=== PATIENT | female | born 1950 | race Caucasian/White ===

== ENCOUNTER 2018-06-27 10:03 | Outpatient (REF) | payer MEDICARE, SELFPAY ==
[2018-06-27 13:03] LABS: Cholesterol 239 mg/dL (50-200); HDL Cholesterol 61 mg/dL (40-60); LDL CHOLESTEROL 163 mg/dL (<100); TSH (W/Ref FT4) 1.06 uIU/mL (0.358-3.74); Triglyceride 100 mg/dL (30-150)
[2018-06-28 10:35] LABS: Hepatitis C Ab w Rflx HCV PCR Negative (NEGAT)
== END 2018-06-27 10:23 ==
LOC: NCHCN 10:03
PROVIDERS: PCP Nurse Practitioner Family; Visit Provider Nurse Practitioner Family
DX: M19.90 Unspecified osteoarthritis, unspecified site (principal); N39.3 Stress incontinence (female) (male); G47.62 Sleep related leg cramps; G47.30 Sleep apnea, unspecified; E04.1 Nontoxic single thyroid nodule; E66.3 Overweight; Z11.59 Encounter for screening for other viral diseases
CPT/HCPCS: 80061; 83721; 86803; 84443

== ENCOUNTER 2018-08-06 00:40 | Outpatient (CLI) | payer MEDICARE, OTHER, SELFPAY ==
--- NOTE | 2018-08-06 14:49 | DI.RAD_ITS ---
SYMPTOMS/DIAGNOSIS: MENOPAUSE, Z78.0, Z00.00 DEXA SCAN: Routine examination. Comparison is 2002. Evaluation of the spine shows no compression deformities. Evaluation of the left hip shows a total T score of 0.2 and a Z score of 1.7 This is within normal limits. This compares with a total T score of 1.0 from 2003. Evaluation of the lumbar spine shows a total T score of 1.3 and a Z score of 3.3, which is within normal limits. This compares with a total T score of 1.2 from 2003. There is no evidence of osteoporosis. IMPRESSION: No evidence of osteoporosis in the lumbar spine or left hip.
--- NOTE | 2018-08-06 15:10 | DI.MAMMO_ITS ---
SYMPTOMS/DIAGNOSIS: SCREENING, Z12.31 MAMMOGRAMS: Mammograms were interpreted according to the usual protocol including computer analysis with CAD system, tomosynthesis and C view imaging. Comparison is made with the prior examinations from 2010 and 2008. There has developed a spiculated 1.3 cm mass at the 6 o'clock position of the left breast. No associated microcalcifications are seen. No other suspicious masses or microcalcifications are present. The skin and axillae are unremarkable. IMPRESSION: A 1.3 cm spiculated mass at the 6 o'clock position of the left breast. Spot compression views and a left breast ultrasound are requested for further evaluation. Category 0, breast density C. MQSA ASSESSMENT OF FINDINGS: Incomplete: Needs additional imaging evaluation. Category 0. Patient will receive a letter notifying them of these results. Bi-RADS category C. The breasts are heterogeneously dense, which may obscure small masses.
== END 2018-08-06 01:00 ==
PROVIDERS: PCP Nurse Practitioner Family; Visit Provider Nurse Practitioner Family
DX: Z13.820 Encounter for screening for osteoporosis (principal); Z78.0 Asymptomatic menopausal state; Z12.31 Encounter for screening mammogram for malignant neoplasm of breast; R92.8 Other abnormal and inconclusive findings on diagnostic imaging of breast; N63.23 Unspecified lump in the left breast, lower outer quadrant
CPT/HCPCS: 77063; 77067; 77080

== ENCOUNTER 2018-08-20 01:55 | Outpatient (CLI) | payer MEDICARE, OTHER, SELFPAY ==
--- NOTE | 2018-08-20 09:06 | DI.COMBO_ITS ---
SYMPTOM/DIAGNOSIS: F/U MAMMO, SPICULATED MASS LT BREAST LEFT BREAST COMPRESSION SPOT FILMS AND LEFT BREAST ULTRASOUND: Additional images are interpreted according to the usual protocol including tomosynthesis and 2D imaging. Follow up mediolateral and craniocaudad compression spot films show a density measuring 9.2 by 9.5 mm. There is a questionable small additional density in the 6 o'clock position inferolaterally which measures approximately 3 by 4 by 5 mm. Both these nodules are avascular. No other nodules or cysts are identified. SUMMARY: An 11 by 9 by 9 mm., spiculated, ovoid nodule is identified in the 6 o'clock position 3 cm. from the nipple and exhibits some color flow. The findings would certainly be consistent with a breast cancer and possibly a multi centric lesion. If appropriate, further assessment of this patient with MRI could be considered and a biopsy or biopsies of the left breast should be obtained. MQSA ASSESSMENT OF FINDINGS: Suspicious. Biopsy should be considered. Category 4. Patient will receive a letter notifying them of these results. Bi-RADS category C. The breasts are heterogeneously dense, which may obscure small masses.
== END 2018-08-20 02:15 ==
PROVIDERS: PCP Nurse Practitioner Family; Visit Provider Nurse Practitioner Family
DX: Z12.31 Encounter for screening mammogram for malignant neoplasm of breast (principal); R92.8 Other abnormal and inconclusive findings on diagnostic imaging of breast; N63.23 Unspecified lump in the left breast, lower outer quadrant
CPT/HCPCS: 76642; 77063; 77067

== ENCOUNTER 2020-03-06 15:01 | Emergency (ER) | payer MEDICARE, OTHER, SELFPAY ==
[2020-03-06 15:18] VITALS: BP 126/74; PULSE 100; RESP 18; TEMP 39.4; O2SAT 100
--- NOTE | 2020-03-06 16:05 | ED.GENADUL_ITS ---
Discharge Plan Disposition Patient Disposition: HOME Discharge Details Chief Complaint: Fever Clinical Impression: Fever, Transaminitis Primary Care Provider: Jenise Huddleston ED Provider: Jesus Marroquin Home Meds and New Rx's Prescriptions: New doxycycline hyclate 100 mg tablet 100 mg PO BID Qty: 42 RF: 0 Continued cholecalciferol (vitamin D3) 1,000 UNIT capsule 1,000 unit PO DAILY Qty: 2 RF: 0 omega-3 fatty acids-fish oil 1 EACH capsule 1 ea PO DAILY RF: 0 Discontinued magnesium 250 MG tablet 250 mg PO DAILY RF: 0 Discharge Instructions Instructions: Fever in Adults (ED) Additional Instructions: You may have a tickborne illness. Please take doxycycline as prescribed. Tick panel testing is pending at time of discharge. COVID-19 testing is pending at time of discharge. Your liver enzymes were elevated. A hepatitis panel has been sent and is pending at time of discharge. Please follow-up with your doctor. Call on Sunday. It is important that you review the results of all of your testing with your doctor. Please take ibuprofen over the counter. Take 600mg by mouth every 6 hours as needed for pain. Drink plenty of fluid to stay hydrated and allow for plenty of rest. Return to the ER for any worsening or new concerning symptoms. Stand Alone Forms: PENDING COVID-19 TESTING Referrals: Jenise Huddleston [Primary Care Provider] - Discharge Data Discharge Date/Time-TO BE ENTERED AT DEPARTURE: 03/06/20 17:35 Medical Decision Making 16:00 -- 69-year-old female here with febrile illness for the past 2-3 days. No signs of focal bacterial infection on exam. She has had cough recently. Saturating well no respiratory distress. Patient did have a tick bite on 02/12/2020. Consider Lyme disease. I will check ECG. Panel to be sent. Consider anaplasmosis. I will check LFTs and CBC. Plan to treat empirically with doxycycline. Consider COVID-19. I will obtain COVID-19 testing. Will obtain chest x-ray. -Patient provides informed refusal of chest x-ray citing prior radiation for breast cancer. Labs reviewed and LFTs are elevated. Will send hepatitis panel. Consider for tickborne disease. Patient also with mild hyponatremia of 132. Patient hemodynamically stable. Plan for discharge with close outpatient follow-up. Will start doxycycline. Disposition decision was made weighing the risks and benefits of hospitalization versus outpatient treatment, the risk for further decompensation, and the patient's wishes. The patient was stable and requested discharge. Prior to discharge, my usual and customary return precautions were reviewed with the patient - this included follow-up instructions and reason to return to the emergency department if condition worsens, does not improve as expected, or other new concerns arise. HPI General Mode of arrival: ambulatory . Date/Time Provider Initiated Documentation: 03/06/20 15:17 . Limitations to Documentation: no limitations . Information obtained by: patient . HPI Narrative: 69-year-old female presents with chief complaint of fever. Patient notes fever for the past 3 days. Fever subjective. No modifiers. She has associated malaise. No cough. No shortness of breath. No abdominal pain. No nausea or vomiting. No dysuria. Patient has had no known COVID-19 exposures, no sick contacts, no recent travel. Related Data Home Medications Medication Instructions Recorded Confirmed cholecalciferol (vitamin D3) 1,000 unit PO DAILY #2 06/12/17 03/06/20 omega-3 fatty acids-fish oil 1 ea PO DAILY 06/12/17 03/06/20 doxycycline hyclate 100 mg PO BID #42 tab 03/06/20 Previous Rx's Medication Instructions Recorded doxycycline hyclate 100 mg PO BID #42 tab 03/06/20 Allergies Allergy/AdvReac Type Severity Reaction Status Date / Time No Known Drug Allergies Allergy Unknown Unverified 03/06/20 15:16 General Stated Complaint: Fever RYLAN: 3 Review of Systems All systems reviewed & are unremarkable except as noted in HPI and below Constitutional Constitutional: Reports fever(s) Respiratory Respiratory: Denies cough Genitourinary Genitourinary: Denies dysuria [facility] Medical History Hyperlipemia Obesity Sleep apnea Social History Smoking/Tobacco Use Status: Never Alcohol Intake: current Alcohol Intake frequency: a few times a month Alcohol type: wine Drug use: Rarely Substance use type: other Details: edibles Do you feel safe at home: Yes Do you feel safe in your relationship?: Yes Exam Const General: cooperative and no acute distress HENMT Head: normocephalic Mouth: moist mucous membranes Eyes Conjunctivae: normal conjunctivae Sclera: normal sclerae Neck Neck: trachea midline and supple Resp Auscultation: clear to auscultation bilaterally, no rales, no rhonchi and no wheezes Cardio Jugular venous pressure: no JVD Rate: regular rate and not tachycardic Rhythm: regular rhythm GI Palpation: soft, not firm, no guarding, no masses, not rigid and nontender Skin General skin exam: no rashes or lesions noted Neuro General: patient alert, patient awake, patient oriented x3 and tone normal Extrem General: no edema Psych Appearance: grossly normal Mental Status: mental status grossly normal Speech and Movement: speech and movement normal Course Vital Signs Vital signs: Vital Signs Temperature 39.4 C H 03/06/20 15:18 Pulse 100 H 03/06/20 15:18 Respiratory Rate 18 03/06/20 15:18 Blood Pressure 126/74 03/06/20 15:18 Pulse Oximetry 100 03/06/20 15:18 Temperature 39.4 C H 03/06/20 15:18 Temperature Source Oral 03/06/20 15:18 Pulse 100 H 03/06/20 15:18 Respiratory Rate 18 03/06/20 15:18 Respiratory Effort 03/06/20 15:22 Blood Pressure 126/74 03/06/20 15:18 Pulse Oximetry 100 03/06/20 15:18 Oxygen Delivery Method Room Air 03/06/20 15:18 Oxygen Flow Rate 0 03/06/20 15:18 Pain Level 0 03/06/20 15:18
[2020-03-06] MEDS: Doxycycline Hyclate 100 MG CAP PO (16:30)
[2020-03-06] MEDS: Acetaminophen 325 MG TAB 650 MG PO (16:30)
[2020-03-06 16:46] LABS: Abs Immature Grans 0.01 k/cumm (0.0-0.09); Absolute Basophil Count 0.02 k/cumm (0.0-0.2); Absolute Eosinophil Count 0.02 k/cumm (0.0-0.7); Absolute Lymphocyte Count 0.65 k/cumm (1.2-3.4); Absolute Monocyte Count 0.48 k/cumm (0.11-0.7); Absolute Neutrophil Count 3.09 k/cumm (1.2-6.7); Basophils % 0.5; Eosinophils % 0.5; HCT 36.3 % (36.0-46.0); HGB 12.2 g/dL (12.0-15.5); Immature Grans % 0.2 %; Lymphocytes % 15.2; Mean Corp. HGB Concentration 33.6 g/dL (32.0-36.0); Mean Corpuscular Hemoglobin 32.1 pg (27.0-33.0); Mean Corpuscular Volume 95.5 fL (80-95); Monocytes % 11.2; Neutrophils % 72.4; Platelet Count 163 x1000/uL (130-400); RBC Distribution Width 12.4 % (11.7-14.6); White Blood Cell Count 4.27 k/cumm (4.4-10.8)
[2020-03-06 16:55] LABS: ALT 247 U/L (14-59); AST 145 U/L (15-37); Albumin 2.8 g/dL (3.4-5.0); Alkaline Phosphatase 176 U/L (46-116); Anion Gap 8.7 mmol/L (3-11); BUN 12 mg/dL (7-18); Bilirubin, Total 0.5 mg/dL (0.2-1.0); CO2 26.3 mmol/L (21.0-32.0); CREATININE 0.69 mg/dL (0.55-1.02); Calcium 7.8 mg/dL (8.5-10.1); Chloride 97 mmol/L (98-107); Glucose 104 mg/dL (74-106); Potassium 3.8 mmol/L (3.5-5.1); Sodium 132 mmol/L (136-145); Total Protein 6.6 g/dL (6.4-8.2)
[2020-03-06 17:48] VITALS: BP 111/68; PULSE 94; RESP 18; TEMP 37.9; O2SAT 97
[2020-03-08 07:00] LABS: COVID-19 RT-PCR Result NEGATIVE (Negative)
--- NOTE | 2020-03-08 09:17 | NUR.NOTE ---
0914---called reguarding Covid 19 test result---Negative--pt states is feeling better and is awaiting Lyme results--continues to take ABX tx.Nursing Note:
[2020-03-08 09:47] LABS: Hepatitis A Antibody IgM Negative (Negative); Hepatitis B Core Antibody Negative (Negative); Hepatitis B surface Ag Negative (Negative); Hepatitis C Ab w Rflx HCV PCR Negative (Negative)
[2020-03-08 10:30] LABS: Lyme Ab w Rflx to Lyme Confirm Positive (Negative)
[2020-03-09 15:49] LABS: IgG Band(s) p41; IgG Immunoblot Negative (Negative); IgM Band(s) p41; IgM Immunoblot Positive (Negative)
[2020-03-09 17:27] LABS: B. miyamotoi PCR Negative (Negative); Babesia divergens/MO-1 Negative (Negative); Babesia duncani Negative (Negative); Babesia microti Negative (Negative); Ehrlichia chaffeensis Negative (Negative); Ehrlichia ewingii/canis Negative (Negative); Ehrlichia muris eauclairensis Negative (Negative)
--- NOTE | 2020-03-09 19:17 | W.ED.FU ---
Lyme antibody with reflex Lyme Western blot result positive. Discussed result with patient over the phone. Remainder of tick panel pending. Patient states she is feeling better. She has a follow-up with her primary care doctor for reevaluation. She was advised to return here with any concerns.
[2020-03-10 09:33] LABS: Anaplasma phagocytophilum Positive (Negative)
--- NOTE | 2020-03-10 12:23 | ED.FU.B_ITS ---
Date of service: 03/10/20 Time of Service: 12:23 Follow Up Plan: I received a positive test result for both Anaplasma and Phagocytophilium at approximately 9 AM.. Upon reviewing her record it appears as though she was contacted yesterday regarding a positive Lyme titer and she was actually already being treated with doxycycline. I called both her house and her cell phone leaving a message. In the meantime I was able to speak with Dr. Dixon, the patient's primary care office. She is aware of the positive t est and will be sure to pass this information along to Jenise Huddleston her primary care provider. Later throughout the day at approximately 1215, I received a call back from the patient. She reports that she is feeling well, much improved when compared to her visit on 03-06-20. She is aware of her to more positive findings and has already been in contact with her primary care provider. She is scheduled to see them on Sunday. She will continue taking her doxycycline as directed. Encouraged to return to the ER for new or worsening symptoms, otherwise follow-up on Sunday as already scheduled
--- NOTE | 2020-03-19 11:38 | PDOC.ERCMPRO ---
- If Service Date Differs Date of service: 03/19/20 Time of Service: 11:38 Care Management Progress Note CM is asked by Dr. Marroquin to assist patient in establishing her portal account. Ursula had completed a patient access form but did not receive the email allowing her to complete the process. A review of the email address in her chart reveals an error in the email on file. CM contacts information services to have the email corrected and to ask that an email allowing a password reset be sent to patient. CM contacts patient to ensure she has received the email and is now able to access the portal. Ursula confirms receipt of the email and states she will call if she needs further assistance.
== END 2020-03-06 17:35 | disposition home or self-care (01) ==
PROVIDERS: Emergency Provider Student in an Organized Health Care Education/Training Program; PCP Nurse Practitioner Family
DX: A69.20 Lyme disease, unspecified (principal); R74.0 Nonspecific elevation of levels of transaminase and lactic acid dehydrogenase [LDH]; R50.9 Fever, unspecified; W57.XXXA Bitten or stung by nonvenomous insect and other nonvenomous arthropods, initial encounter; Z03.818 Encounter for observation for suspected exposure to other biological agents ruled out; E87.1 Hypo-osmolality and hyponatremia; Z53.29 Procedure and treatment not carried out because of patient's decision for other reasons
CPT/HCPCS: 36415; 80053; 86617; 86704; 86709; 86803; 87340; 87798; 93005; 99284; U0003; 85025; 86618; 93010

== ENCOUNTER 2020-04-19 14:36 | Outpatient (REF) | payer MEDICARE, OTHER, SELFPAY ==
[2020-04-19 21:08] LABS: ALT 23 U/L (14-59); AST 22 U/L (15-37); Anion Gap 8.3 mmol/L (3-11); BUN 13 mg/dL (7-18); CO2 27.7 mmol/L (21.0-32.0); CREATININE 0.73 mg/dL (0.55-1.02); Calcium 8.4 mg/dL (8.5-10.1); Chloride 103 mmol/L (98-107); Glucose 101 mg/dL (74-106); Potassium 4.6 mmol/L (3.5-5.1); Sodium 139 mmol/L (136-145)
== END 2020-04-19 14:56 ==
LOC: NCHCN 14:36
PROVIDERS: PCP Nurse Practitioner Family; Visit Provider Nurse Practitioner Family
DX: R74.0 Nonspecific elevation of levels of transaminase and lactic acid dehydrogenase [LDH] (principal)
CPT/HCPCS: 80048; 84450; 84460

== ENCOUNTER 2020-08-02 20:52 | Outpatient (REF) | payer MEDICARE, OTHER, SELFPAY ==
[2020-08-04 17:33] LABS: Patient Race White; SARS-CoV-2 RNA Undetected (Undetected); SARS-CoV-2 Specimen Source Nasal
== END 2020-08-02 21:12 ==
LOC: NCHCN 20:52
PROVIDERS: PCP Nurse Practitioner Family; Visit Provider Family Medicine
DX: Z20.828 Contact with and (suspected) exposure to other viral communicable diseases (principal)
CPT/HCPCS: U0003

== ENCOUNTER 2021-02-17 02:48 | Outpatient (CLI) | payer MEDICARE, SELFPAY ==
[2021-02-17 14:00] LABS: Abs Immature Grans 0.01 10^3/uL (0.0-0.06); Absolute Basophil Count 0.04 10^3/uL (0.0-0.2); Absolute Eosinophil Count 0.16 10^3/uL (0.0-0.7); Absolute Lymphocyte Count 1.86 10^3/uL (1.2-3.4); Absolute Monocyte Count 0.56 10^3/uL (0.1-0.8); Absolute Neutrophil Count 2.69 10^3/uL (1.2-6.7); Basophils % 0.8; HCT 39.8 % (36.0-46.0); HGB 12.9 g/dL (11.2-15.7); Immature Grans % 0.2; MCH 31.5 pg (27.0-33.0); MCHC 32.4 % (32.0-36.0); MCV 97.1 fL (80-95); MPV 9.8 fL (8.0-11.0); Monocytes % 10.5; Neutrophils % 50.5; Nucleated RBC 0 %; Platelet Count 226 10^3/uL (130-400); RDW 11.9 % (11.7-14.6); RDW-SD 42.8 fL; WBC 5.32 10^3/uL (4.4-10.8)
[2021-02-17 14:12] LABS: ALT 26 U/L (14-59); AST 23 U/L (15-37); Albumin 3.3 g/dL (3.4-5.0); Alkaline Phosphatase 83 U/L (46-116); Anion Gap 10.4 mmol/L (3-11); BUN 16 mg/dL (7-18); Bilirubin, Total 0.3 mg/dL (0.2-1.0); CO2 25.6 mmol/L (21.0-32.0); CREATININE 0.7 mg/dL (0.55-1.02); Calcium 8.7 mg/dL (8.5-10.1); Chloride 105 mmol/L (98-107); Glucose 111 mg/dL (74-106); Sodium 141 mmol/L (136-145)
== END 2021-02-17 02:49 | disposition home or self-care (01) ==
LOC: LBO 02:49
PROVIDERS: PCP Nurse Practitioner Family; Visit Provider Nurse Practitioner Family
DX: C50.912 Malignant neoplasm of unspecified site of left female breast (principal); Z17.0 Estrogen receptor positive status [ER+]; C77.3 Secondary and unspecified malignant neoplasm of axilla and upper limb lymph nodes
CPT/HCPCS: 36415; 80053; 85025

== ENCOUNTER 2021-08-22 10:22 | Outpatient (REF) | payer MEDICARE, SELFPAY ==
[2021-08-22 15:42] LABS: Calculated LDL 204 mg/dL (<100); Cholesterol 297 mg/dL (<200); HDL Cholesterol 83 mg/dL (40-60); Triglyceride 52 mg/dL (<150)
== END 2021-08-22 10:23 | disposition home or self-care (01) ==
LOC: NCHCN 10:22
PROVIDERS: PCP Nurse Practitioner Family; Visit Provider Nurse Practitioner Family
DX: E78.5 Hyperlipidemia, unspecified (principal)
CPT/HCPCS: 80061

== ENCOUNTER 2021-12-03 22:51 | Emergency (ER) | payer MEDICARE, SELFPAY ==
[2021-12-03 23:00] VITALS: BP 167/89; PULSE 87; RESP 18; TEMP 36.4; O2SAT 98
--- NOTE | 2021-12-03 23:17 | ED.GENADUL_ITS ---
Discharge Plan Disposition Patient Disposition: HOME Condition: Stable Discharge Details Clinical Impression: Pain of right calf Primary Care Provider: Jenise Huddleston ED Provider: Yogesh Zeng Home Meds and New Rx's Prescriptions: Continued cholecalciferol (vitamin D3) 1,000 UNIT capsule 1,000 unit PO DAILY Qty: 2 0RF omega-3 fatty acids-fish oil 1 EACH capsule 1 ea PO DAILY 0RF Discontinued doxycycline hyclate 100 mg tablet 100 mg PO BID Qty: 42 0RF Discharge Instructions Additional Instructions: Call radiology to set up an appointment for an ultrasoud you can take 1000mg tylenol and 600mg ibuprofen every 6 hours as needed if you feel more ill, have fevers or significant shortness of breath return to the emergency department Medical Decision Making 71 yo female with hx of hld and breast cancer in remission comes in with right leg pain. She states she almost fell a weel ago when she missed a step but caught herself, no loc and no trauma. She has had pain in the right calf since. No fevers, chills, chest pain, dyspnea. She feels her leg is swollen though visibly there is no significant swelling. She has full range of motion of her hip, knee and ankle with intact sensation and pulses in the right leg. She is tender to the right lateral calf, no erythema or warmth or rashes. On bedside u/s has no evidence of dvt and feel this is low likelihood. I suspect a strain from her fall and recommended prn ibuprofen and tylenol. Will have her return for formal u/s but given low likelihood do not feel anticoagulation indicated. Return precautions given Differential Diagnosis Differential Diagnosis: dvt, strain, spasm HPI General Mode of arrival: ambulatory . Date/Time Provider Initiated Documentation: 12/03/21 23:00 . Limitations to Documentation: no limitations . Information obtained by: patient . History of Present Illness 71 year old F presents to the emergency department with the chief complaint of right calf pain, described as moderate, Quality is described as aching, Patient extremity. Patient started experiencing this week(s) (1) and it has been constant. improves with Rest improves symptom(s), Movement worsens symptoms . Patient notes no other symptoms.. Related Data Home Medications Medication Instructions Recorded Confirmed cholecalciferol (vitamin D3) 25 1,000 unit PO DAILY #2 06/12/17 03/06/20 mcg (1,000 unit) capsule omega-3 fatty acids-fish oil 300 1 ea PO DAILY 06/12/17 03/06/20 mg-1,000 mg capsule Allergies Allergy/AdvReac Type Severity Reaction Status Date / Time No Known Drug Allergies Allergy Unknown Unverified 03/06/20 15:16 General Stated Complaint: Orthopedic RYLAN: 3 Review of Systems All systems reviewed & are unremarkable except as noted in HPI and below Constitutional Constitutional: Denies chills, Denies fever(s) and Denies weakness Eyes Eyes: Denies loss of vision ENT Ears, Nose, Mouth, and Throat: Denies change in voice Cardiovascular Cardiovascular: Denies chest pain and Denies dyspnea Respiratory Respiratory: Denies cough and Denies dyspnea Gastrointestinal Gastrointestinal: Denies abdominal pain, Denies nausea and Denies vomiting Neurologic Neurologic: Denies loss of vision and Denies weakness PFSH All Active Problems (Updated 12/03/21 @ 23:17 by Yogesh Zeng MD) Pain of right calf (Acute) Medical History (Updated 12/03/21 @ 23:17 by Yogesh Zeng MD) Hyperlipemia Obesity Sleep apnea Social History Smoking/Tobacco Use Status: Never Smoking risk assessment performed?: Yes Alcohol Intake: current Alcohol Intake frequency: a few times a month Alcohol type: wine Drug use: Rarely Substance use type: other Details: edibles Do you feel safe at home: Yes Do you feel safe in your relationship?: Yes Exam Const General: no acute distress Orientation: alert HENMT Head: normal to inspection Ears: external ears normal General nose exam: external nose normal Mouth: moist mucous membranes Eyes General: appearance normal, both eyes and all related structures Neck Neck: normal visual inspection Resp Effort & Inspection: normal respiratory effort and able to speak in complete sentences Cardio Rate: regular rate Skin General skin exam: no rashes or lesions noted Neuro General: patient alert and patient oriented x3 Extrem General: capillary refill normal Psych Mental Status: mental status grossly normal Course Vital Signs Vital signs: Vital Signs Temperature 36.4 C L 12/03/21 23:00 Pulse 87 12/03/21 23:00 Respiratory Rate 18 12/03/21 23:00 Blood Pressure 167/89 H 12/03/21 23:00 Pulse Oximetry 98 12/03/21 23:00 Temperature 36.4 C L 12/03/21 23:00 Temperature Source Tympanic 12/03/21 23:00 Pulse 87 12/03/21 23:00 Respiratory Rate 18 12/03/21 23:00 Respiratory Effort 12/03/21 23:03 Blood Pressure 167/89 H 12/03/21 23:00 Blood Pressure Position Supine 12/03/21 23:00 Pulse Oximetry 98 12/03/21 23:00 Oxygen Delivery Method Room Air 12/03/21 23:00 Oxygen Flow Rate 0 12/03/21 23:00 Pain Level 2 12/03/21 23:00
== END 2021-12-03 23:27 | disposition home or self-care (01) ==
LOC: ER 23:20
PROVIDERS: Emergency Provider Emergency Medicine; PCP Nurse Practitioner Family
DX: M79.661 Pain in right lower leg (principal)
CPT/HCPCS: 99282

== ENCOUNTER → 2021-12-05 13:48 | Outpatient (CLI) | payer MEDICARE, SELFPAY ==
--- NOTE | 2021-12-05 | DI.US_ITS ---
Exam(s) US LOWER EXTREMITY VENOUS RT EXAM: US LOWER EXTREMITY VENOUS RT CLINICAL HISTORY: RT LEG SWELLING, CALF PAIN TECHNIQUE: Grayscale, color, and doppler imaging of the deep venous system of the right lower extrem ity was performed. COMPARISON: US US breast LT limited from 08/20/2018 FINDINGS: There is no evidence of intraluminal thrombus and there is normal compression and augmentation demons trated within the common femoral vein, femoral vein, and popliteal vein. In the ipsilateral calf the interrogated veins also exhibit normal compression/ augmentation properti es. The ipsilateral saphenofemoral junction is patent. Incidentally noted is swelling and small fluid collection in the proximal anterior gil, apparently s ite of recent injury. IMPRESSION: 1. No evidence of DVT in the right lower extremity. 2. There is a small fluid collection in the anterior right gil-area of recent direct injury. Proba margareth hematoma. DATA REPOSITORY:
--- OUTSIDE RECORDS SUMMARY | 2021-12-06 13:51 | XMS_ITS ---
:1950 External Reference #:[id number] Author Care Team Providers Name Role Phone Knights Primary Care Provider Unavailable Allergies None recorded. Medications Name Status Start Date Stop Date ? ? ashwagandha root extract(bulk) Active ? N ot available 1 cap /day compounded medication Active ? Not availa ble Lyme Formula Lyme Formula: Jap. Knotweed, Scutellari a Biac., Red root, Salvia Song., Rhodiola, Teasel 40 drops TID in 1-2 oz water compounded medication Completed ? 05/18/2020 turkey tail, maitake, and shitke extract 2-4 dropperfuls 2-3 times a day Curcumin Active ? Not available combo formula over the counter 1 cap/day doxycycline hyclate 100 mg tablet Completed ? 03/30/2021 TAKE ONE TABLET BY MOUTH TWICE A DAY mistletoe Active ? Not available abeitis 5mg every 3 days flaxseed oil Active ? Not available 1 cap/day ??dosage Glutathione-L Active 04/17/2020 Not available magnesium citrate Active ? Not available 1cap/day ??? Kev Probiotic Active 04/17/2020 Not available [place] 3 Fish Oil Active ? Not available oregano oil Active 04/17/2020 Not available resveratrol 250 mg capsule Active ? Not a vailable Stevia Extract Active 04/17/2020 Not available Problems Name Status Onset Date Source ? Malignant Neoplasm of Female Breast Active 09/25/2018 ? Dietary Management Surveillance Active 09/25/2018 ? Hyperlipidemia Active 05/14/2019 ? Acute Lyme Disease Active 03/17/2020 ? Procedures Date Name Performed by ? 09/03/2018 Breast Biopsy Information not avai lable 08/03/2018 Colonoscopy Information not avai lable Notes: negative ? Paint Brush Maker Surgery Information not avai lable Notes: when 14yo and miscarr iage, tubal reconstruction 37 and 38yo ? Laparoscopy Information not avai lable 04/18/2021 CT, Coronary Calcium Score [id number] luke Ca Score [address] [place] [address] (Work Place) Results Lab Results Date Name Specimen Result Interpretation Description Value Range Status Address ? 04/16/2019 CMP, Normal Sodium 141 136-145 Final Accu Serum or mmol/L mmol/L Referenc e Plasma Medical Lab: [address], [place] ? ? Normal Potassium 4.2 3.5-5.1 Final Accu mmol/L mmol/L Reference Medical Lab: [address], [place] ? ? Normal Chloride 104 98-107 Final Accu mmol/L mmol/L Reference Medical Lab: [address], [place] ? ? Normal Carbon Dioxide 25.0 17-32 Final A ccu mEq/L mEq/L Reference Medical Lab: [address], [place] ? ? Normal Glucose 91 70-99 Final Accu mg/dL mg/dL Reference Medical Lab: [address], [place] ? ? Normal Bun 13 7-25 Final Accu mg/dL mg/dL Reference Medical Lab: [address], [place] ? ? Normal Creatinine 0.70 0.5-1.2 Final Accu Serum mg/dL mg/dL Reference Medical Lab: [address], [place] ? ? Normal BUN/creatinine 19 8-28 Final A ccu Ratio ratio ratio Reference Medical Lab: [address], [place] ? ? Normal Bilirubin,tota 0.4 0.2-1.0 Final Accu l mg/dL mg/dL Reference Medical Lab: [address], [place] ? ? Normal Calcium 8.9 8.6-10.5 Final Accu mg/dL mg/dL Reference Medical Lab: [address], [place] ? ? Low Protein Total 6.1 6.6-8.2 Final A ccu g/dL g/dL Reference Medical Lab: [address], [place] ? ? Normal Albumin 3.8 3.5-5.7 Final Accu g/dL g/dL Reference Medical Lab: [address], [place] ? ? Normal Alk.phosphatas 65 U/L 34-104 Final A ccu e U/L Reference Medical Lab: [address], [place] ? ? Normal Alt (Sgpt) 14 U/L 7-52 U/L Final Acc u Reference Medical Lab: [address], [place] ? ? Normal Ast (Sgot) 16 U/L 11-39 Final Accu U/L Reference Medical Lab: [address], [place] ? ? Normal Globulin 2.3 1.8-4.0 Final Accu g/dL g/dL Reference Medical Lab: [address], [place] ? ? Normal A/g Ratio 1.7 0.8-2.7 Final Accu ratio ratio Reference Medical Lab: [address], [place] ? ? Normal Glomerular 88 >60 Final Accu Filt. Rate mL/min mL/min Refere tne Medical Lab: [address], [place] 04/16/2019 Lipid High Cholesterol 261 <200 Final Accu Panel, mg/dL mg/dL Reference Serum Medical Lab: [address], [place] ? ? Normal Triglycerides 101 10-149 Final Ac cu mg/dL mg/dL Reference Medical Lab: [address], [place] ? ? Normal HDL 53 40-199 Final Accu Cholesterol mg/dL mg/dL [facility]: [address], [place] ? ? Normal LDL/HDL Ratio 3.55 0.00-4.9 Final Accu 7 Reference Medical Lab: [address], [place] ? ? High LDL 188 <100 Final Accu Cholesterol,padmini mg/dL mg/dL R eference c. Medical Lab: [address], [place] ? ? Normal VLDL 20 5-40 Final Accu Cholesterol,padmini mg/dL mg/dL R eference c. Medical Lab: [address], [place] ? ? Normal cholesterol/HD 4.92 2.00-5.0 Final Accu L Ratio 0 Reference Medical Lab: [address], [place] ? ? High non-HDL 208 0-159 Final Accu Cholesterol mg/dL mg/dL [facility]er [facility]: [address], [place] 04/16/2019 Vitamin Normal Vitamin D-25 34.1 30-100 Final Accu D, Hydroxy NG/mL NG/mL Reference [facility], Lab: [address], [place] 09/24/2018 HbA1C wholeblood ? Hgb a1C 5.6 % 4.0-5.7 Final [facility] (Hemoglo % Diagnost ic bin s: 2039 a1C), [address] Blood [address], [place] ? ? wholeblood ? Estimated 114 ? Final Me rcy Average Glucose mg/dL D iagnostic (C) s: [address], [place] 09/24/2018 Igf-1 Serum ? Igf 1 141 28-231 [facility] (Insulin (Insulin-like NG/mL NG/mL D iagnostic -like Growth Factor s: 2039 Growth 1) [address] Factor), [address], Serum [place] ? ? Serum ? Igf 1 Z Score 0.7 ? Final Me rcy Calculation Diagn ostic s: [address] Meh[address], [place] 09/24/2018 Magnesiu RBCs ? Magnesium, 2.4 1.5-3.1 Final [facility] m, RBC RBCs mmol/L mmol/L Diagnostic s: [address] Meh[address], [place] 09/24/2018 Vitamin serum Low Vitamin D 26.8 30.0-100 Final [facility] D, 25-Oh NG/mL .0 NG/mL Diagnost ic [place] s: 2039 xy, [address] Total, Mehdi B, Serum [place] 09/24/2018 Vitamin Serum ? Vitamin a 0.65 0.30-1.2 Final [facility] a (Retinol) mg/L 0 mg/L Diagnos tic (Retinol s: 2039 ), Serum [address], [place] ? ? Serum ? Vitamin a 0.05 0.00-0.1 Final [facility] (Retinyl mg/L 0 mg/L Diagnost ic Palmitate) s: [address], [place] ? ? Serum ? Vitamin a, normal ? Final [facility] Ser/onel - Diagnos tic Interpretation s: [address] Meh[address] B, [place] 09/24/2018 Zinc, Serum ? Zinc, 80 60-120 Final [facility] Serum or Serum/plasma ug/dL ug/dL Di agnostic Plasma s: [address] [place], Tia [place]en[place]shi Past Encounters 05/03/2021 Hyperlipidemia; Vitamin D Deficiency; Di etary Management Surveillance Farnazrussell Levy, ND: [address] [facility], [place] [address], Ph. [phone] 04/05/2021 Cramp in Lower Limb; Hyperlipidemia; Vit kenney D Deficiency Farnaz Levy, ND: [address] [facility], [place] [address], Ph. [phone] 07/15/2020 Dietary Management Surveillance; Zinc Ex cess; Personal History of Primary Malignant Neoplasm of Breast Farnaz Levy, ND: [address] [place] [address], Ph. [phone] Social History Tobacco Smoking Status Never Smoker Vaccine List Vaccine Type Influenza A monovalent (H5N1), ADJUVANTE D-201208/03/2018 polio, unspecified formulation 05/04/1956 tetanus toxoid, unspecified formulation 09/03/1999 Plan of Care Patient Instructions 1. Metabolic Renewel- DR Umm Petersen 15 minutes workouts- 2. omit pork, beef and seafood- chicken ok, fin fish ok- 3. Vitamin d -mulsion 6 drops/day retest in 2 months- 1. Blood work- Lab Work Instructions: Call lab to verify your lab orders have been received from Dr. Levy Fast from all food and beverages other t mahajan water starting at 8/9pm night before Hydrate with water the day before test- every 2 hours drink 8oz water drink 16oz water that morning of test avoid vit D and b vits, magnesium for 3 days prior 2. For cramps wiil suggest things based on labwork- Coronary CAlcium score?? this is done at [facility] its not billed to insurance- So you pay out of pocket- useful for high lipids- only placed order- will review labs first before making appt. w ith them. 1. eat grapes 8-12 /day and get mor e antioxidants- oxidation activity was slighlty high on british test- 2. Lyme tincture- continue 3. Vit C buffered 1/2 scoop 3xday or equ ivalent to 3000mg/day -6000mg/day 4. active b12 /folate 2 tabs in late aft ernavery and DFH multi 2 caps 2xday this will provide bcomplex and more 5. Paleogreen and paleoreds- 1 tbsp of e ach 2xday- 6. Stop DIM-evail for 3 months- restest female hormones- your report said you were favoring good methylation and breakdown of hormones- and that was what DIM was suppose to help with- when we retest we can decide if taking it or not is advisable Melatonin is low dose 3/5 mg then every 4 days increase until you get to 10mg/nightif groggy in am let me know- call office. I can get you 10mg caps when you get to this dose Your cortisol curve seems off- like mayb e your samples were switched and put in wrong order? I recommend you keep taking green tea 2c aps with 1 vit E pill a day- but if you need to decrease amount of supplements due to lyme protocol then just continue with [id number] at very least. Reminders Provider Appointments None recorded. ? ? Lab None recorded. ? ? Referral None recorded. ? ? Procedures None recorded. ? ? Surgeries None recorded. ? ? Imaging None recorded. ? ? Vitals 05/03/2021 08:00AM ESTABLISHED PATIENT 45 Height Weight BMI Blood Pressure 5 ft 2.5 in 172 lbs 31 kg/m2 140/74 mm[Hg] 04/05/2021 11:00AM ESTABLISHED PATIENT 45 Height Weight BMI Blood Pressure 5 ft 2.5 in 171 lbs 30.8 kg/m2 136/74 mm[Hg] 05/18/2020 11:30AM ESTABLISHED PATIENT 45 Height Weight BMI Blood Pressure 5 ft 2.5 in 168 lbs 16 oz 30.4 kg/m2 120/70 mm[Hg] 03/17/2020 09:00AM ESTABLISHED PATIENT 45 Height Weight BMI Blood Pressure 5 ft 2.5 in 165 lbs 16 oz 29.9 kg/m2 126/70 mm[Hg] 05/14/2019 02:15PM ESTABLISHED PATIENT 45 Height Weight BMI Blood Pressure 5 ft 2.5 in 173 lbs 16 oz 31.3 kg/m2 112/74 mm[Hg] 2018 01:15PM ESTABLISHED PATIENT 45 Height Weight BMI 5 ft 2.5 in 182 lbs 16 oz 32.9 kg/m2 09/24/2018 10:30AM NEW PATIENT 90 Height Weight BMI Blood Pressure 5 ft 2.5 in 186 lbs 9.6 oz 33.6 kg/m2 140/80 mm[Hg]
== END ==
PROVIDERS: PCP Nurse Practitioner Family; Visit Provider Emergency Medicine
DX: R22.41 Localized swelling, mass and lump, right lower limb (principal); M79.661 Pain in right lower leg
CPT/HCPCS: 93971

== ENCOUNTER 2021-12-20 00:45 | Outpatient (CLI) | payer MEDICARE, SELFPAY ==
--- NOTE | 2021-12-20 10:45 | DI.RAD_ITS ---
Exam(s) XR KNEE RT 4V AP,LAT,ALEX,PAT EXAM: XR KNEE RT 4V AP,LAT,ALEX,PAT CLINICAL HISTORY: RT KNEE OSTEOARTHRITIS. TECHNIQUE: 2D digital imaging was performed. COMPARISON: CR XR KNEE LT 4V AP,LAT,ALEX,PAT from 12/20/2021 FINDINGS: Four views. No evidence of fracture but there is a joint effusion noted. There degenerative changes, most eviden t in the lateral compartment moderate joint space narrowing and marginal osteophytes. Mild joint spa ce narrowing in the medial compartment noted. Mild narrowing of the lateral aspect of the patellofem oral compartment noted. In addition, there is a calcified loose body measuring approximately 8 by 4 millimeters located in th e posterior aspect of the intercondylar notch. This is separate from the fabella. IMPRESSION: Degenerative changes. Small joint effusion. In addition, there is a loose intra-articular body as d escribed above. DATA REPOSITORY: RADIATION DOSE DELIVERED:
--- NOTE | 2021-12-20 10:46 | DI.RAD_ITS ---
Exam(s) XR KNEE LT 4V AP,LAT,ALEX,PAT EXAM: XR KNEE LT 4V AP,LAT,ALEX,PAT CLINICAL HISTORY: LT KNEE OSTEOARTHRITIS. TECHNIQUE: 2D digital imaging was performed. COMPARISON: No exams were available for comparison FINDINGS: Five views There is no evidence of acute fracture nor obvious joint effusion. There are tricompartmental osteoarthritic degenerative changes, most prominent in the lateral compart ment but also significant degenerative change in the patellofemoral and medial compartments. No osse ous lesions. Bone density normal. On the merchant's view the amount of degenerative change in the patellofemoral compartment exceeds th at which is evident in the patellofemoral compartment of the opposite-right knee. IMPRESSION: DATA REPOSITORY: RADIATION DOSE DELIVERED:
== END 2021-12-20 01:05 ==
PROVIDERS: PCP Nurse Practitioner Family; Visit Provider Neuromusculoskeletal Medicine & OMM
DX: M25.561 Pain in right knee (principal); M25.562 Pain in left knee; M17.0 Bilateral primary osteoarthritis of knee; M25.461 Effusion, right knee; M23.41 Loose body in knee, right knee
CPT/HCPCS: 73564

== ENCOUNTER 2022-10-03 15:51 | Outpatient (REF) | payer MEDICARE, SELFPAY ==
[2022-10-03 20:50] LABS: Abs Immature Grans 0.01 10^3/uL (0.0-0.06); Absolute Basophil Count 0.07 10^3/uL (0.0-0.2); Absolute Eosinophil Count 0.07 10^3/uL (0.0-0.7); Absolute Lymphocyte Count 1.97 10^3/uL (1.2-3.4); Absolute Monocyte Count 0.56 10^3/uL (0.1-0.8); Absolute Neutrophil Count 3.54 10^3/uL (1.2-6.7); Basophils % 1.1; Eosinophils % 1.1; HCT 38.6 % (36.0-46.0); HGB 12.3 g/dL (11.2-15.7); Immature Grans % 0.2; Lymphocytes % 31.7; MCH 30.5 pg (27.0-33.0); MCHC 31.9 % (32.0-36.0); MCV 96 fL (80-95); Neutrophils % 56.9; Platelet Count 250 10^3/uL (130-400); RBC 4.03 10^6/uL (3.93-5.22); RDW 12.9 % (11.7-14.6); RDW-SD 45.5 fL; WBC 6.22 10^3/uL (4.4-10.8)
[2022-10-03 21:07] LABS: ALT 24 U/L (14-59); AST 24 U/L (15-37); Albumin 3.8 g/dL (3.4-5.0); Alkaline Phosphatase 76 U/L (46-116); Anion Gap 8.2 mmol/L (3-11); BUN 16 mg/dL (7-18); Bilirubin, Total 0.5 mg/dL (0.2-1.0); CO2 28.8 mmol/L (21.0-32.0); CREATININE 0.7 mg/dL (0.55-1.02); Calcium 9.2 mg/dL (8.5-10.1); Chloride 103 mmol/L (98-107); Estimated GFR 91.83 (mL/min/1.73m2); Glucose 107 mg/dL (74-106); Potassium 4.1 mmol/L (3.5-5.1); Sodium 140 mmol/L (136-145); TSH (W/Ref FT4) 1.47 uIU/mL (0.36-3.74); Total Protein 6.9 g/dL (6.4-8.2)
== END 2022-10-03 15:52 | disposition home or self-care (01) ==
LOC: NCHCN 15:51
PROVIDERS: PCP Nurse Practitioner Family; Visit Provider Nurse Practitioner Family
DX: E87.1 Hypo-osmolality and hyponatremia (principal); E04.1 Nontoxic single thyroid nodule; R74.01 Elevation of levels of liver transaminase levels; A69.20 Lyme disease, unspecified; E66.3 Overweight
CPT/HCPCS: 80053; 84443; 85025

== ENCOUNTER 2022-12-04 01:48 | Outpatient (CLI) | payer MEDICARE, SELFPAY ==
--- NOTE | 2022-12-04 | DI.US_ITS ---
Exam(s) US ABDOMEN EXAM: US ABDOMEN CLINICAL HISTORY: ABD DISCOMFORT, R10.9,CHANGE IN STOOL HABITS,R19.4 TECHNIQUE: Ultrasound of complete upper abdomen performed using standard protocol. COMPARISON: US US LOWER EXTREMITY VENOUS RT from 12/05/2021 FINDINGS: There is no ascites evident. LIVER: Liver contour appears mildly nodular. No obvious steatosis and there are no discrete focal he patic lesions identified. GALLBLADDER/BILIARY: There are no gallstones. No gallbladder wall edema nor pericholecystic fluid. The common hepatic duct isnot dilated, measuring 2.5mm at the level of bharath hepatis. PANCREAS: There is no evidence of pancreatic mass nor dilatation of the pancreatic duct. SPLEEN: The spleen is not enlarged and there are no intrasplenic lesions evident. KIDNEYS:Kidneys exhibit normal size with no evidence of solid mass, calculus, nor hydronephrosis. No cortical cysts evident. ABDOMINAL AORTA: There is no evidence of abdominal aortic aneurysm. IVC: Normal diameter where visualized. IMPRESSION: 1. No evidence of cholelithiasis nor dilatation of the biliary tree. 2. Liver contour appears mildly nodular. This may indicate an element of cirrhosis. There are no d iscrete focal hepatic lesions. No obvious hepatic steatosis. 3. There is no ascites. DATA REPOSITORY:
== END 2022-12-04 02:08 ==
LOC: DI 01:49
PROVIDERS: PCP Nurse Practitioner Family; Visit Provider Nurse Practitioner Family
DX: R10.84 Generalized abdominal pain (principal); R19.4 Change in bowel habit; K76.89 Other specified diseases of liver
CPT/HCPCS: 76700

== ENCOUNTER 2022-12-12 13:54 | Outpatient (REF) | payer MEDICARE, SELFPAY ==
[2022-12-14 10:45] LABS: Hepatitis A Antibody IgM Negative (Negative); Hepatitis B Core Antibody Negative (Negative); Hepatitis B surface Ag Negative (Negative); Hepatitis C Ab w Rflx HCV PCR Negative (Negative)
== END 2022-12-12 13:55 | disposition home or self-care (01) ==
LOC: NCHCN 13:54
PROVIDERS: PCP Nurse Practitioner Family; Visit Provider Nurse Practitioner Family
DX: K74.60 Unspecified cirrhosis of liver (principal); R74.01 Elevation of levels of liver transaminase levels
CPT/HCPCS: 86704; 86709; 86803; 87340

== ENCOUNTER 2023-01-22 13:33 | Outpatient (REF) | payer MEDICARE, SELFPAY ==
[2023-01-23 11:50] LABS: Campylobacter PCR Negative (Negative); Salmonella PCR Negative (Negative); Shiga Toxin PCR Negative (Negative); Shigella/Enteroinvasive Ecoli Negative (Negative)
[2023-01-24 15:01] LABS: Pancreatic Elastase, F 290 mcg/g
[2023-01-25 15:23] LABS: Calprotectin <50.0 mcg/g
== END 2023-01-22 13:34 | disposition home or self-care (01) ==
LOC: LBN 13:33
PROVIDERS: PCP Nurse Practitioner Family; Visit Provider Physician Assistant Medical
DX: R19.4 Change in bowel habit (principal); R10.84 Generalized abdominal pain; K76.89 Other specified diseases of liver
CPT/HCPCS: 87329; 87505; 82656; 83993

== ENCOUNTER 2023-07-10 01:03 | Outpatient (CLI) | payer MEDICARE, SELFPAY ==
[2023-07-10 13:12] LABS: HDL Cholesterol 78 mg/dL (40-60); Triglyceride 63 mg/dL (<150)
[2023-07-12 11:40] LABS: Apolipoprotein B, S 151 mg/dL; Lipoprotein (a) 93 nmol/L (<75)
[2023-07-12 15:02] LABS: Apolipoprotein B, Serum 152 mg/dL (48-124); Beta VLDL Cholesterol Not Detected mg/dL (<15); Beta VLDL Triglycerides Not Detected mg/dL (<15); Cholesterol, Total, CDC 303 mg/dL; Chylomicron Cholesterol Not Detected; Chylomicron Triglycerides Not Detected; HDL Cholesterol, CDC 65 mg/dL (>=50); LDL Cholesterol 208 mg/dL; LDL Triglycerides 40 mg/dL (<=50); Lp(a) Cholesterol 20 mg/dL (<5); LpX Not detected; Triglycerides, CDC 82 mg/dL; VLDL Cholesterol 10 mg/dL (<30); VLDL Triglycerides 24 mg/dL (<120)
== END 2023-07-10 01:04 | disposition home or self-care (01) ==
PROVIDERS: PCP Nurse Practitioner Family; Visit Provider Nurse Practitioner Family
DX: E78.5 Hyperlipidemia, unspecified (principal)
CPT/HCPCS: 36415; 80061; 82172; 83695; 83698; 86141; 82664; 83718; 84478

== ENCOUNTER → 2024-03-24 00:51 | Outpatient (CLI) | payer MEDICARE, SELFPAY ==
--- NOTE | 2024-03-24 | DI.MAMMO_ITS ---
Exam(s) MG MAMMO SCREENING 60 MIN DUR EXAM: MG MAMMO SCREENING 60 MIN DUR CLINICAL HISTORY: SCREENING Z12.31. TECHNIQUE: Craniocaudal and mediolateral oblique Full Field Digital Mammography views with Computer Aided Diagnosis followed by Tomosynthesis. COMPARISON: Comparison is made with prior examinations. FINDINGS: Mammography/Tomosynthesis: Masses/Architectural Distortion: None seen. The patient has had a prior left lumpectomy. Microcalcifictions: No suspicious pleomorphic-type are seen. Skin Thickening/Nipple Retraction: None. IMPRESSION: 1. No evidence of malignancy is noted. 2. Unless there is more urgent need, follow-up screening mammography is recommended, as per [place] [employer] guidelines. 3. The findings were discussed with the patient on the date of the examination. BI-RADS Category 2 - Benign Findings Breast Density - Category C - Heterogeneously dense Breast density Category C or D implies that the patient has dense breast tissue. Dense breast tissue can make it harder to find cancer on a mammogram. Dense breast tissue is also associated with an incr eased risk of breast cancer. This information about the result of the mammogram report was provided to the patient to raise their awareness. Use this report when you speak with the patient about their risks for breast cancer, which includes their family history. At that time, you may recommend additional screening tests (Ultrasoun d or MRI) as these tests may add significant information. A negative radiographic report should not delay biopsy if a dominant or clinically suspicious mass is present. Up to ten percent of cancers are not identified on mammography. A negative report may reinforce clinical impression. Adenosis and dense breasts may obscure an underlying neoplasm. False positive reports average 6 to 10%. Patient will receive a letter notifying them of these results.
== END ==
PROVIDERS: PCP Nurse Practitioner Family; Visit Provider Nurse Practitioner Family
DX: Z12.31 Encounter for screening mammogram for malignant neoplasm of breast (principal); R92.333 Mammographic heterogeneous density, bilateral breasts
CPT/HCPCS: 77063; 77067

== ENCOUNTER → 2024-07-03 13:56 | Outpatient (BNVA) | payer MEDICARE, SELFPAY | PROVIDERS: PCP Nurse Practitioner Family; Referring Provider Nurse Practitioner Family; Visit Provider Student in an Organized Health Care Education/Training Program | DX: M17.12 Unilateral primary osteoarthritis, left knee (principal) | CPT/HCPCS: 99213 ==

== ENCOUNTER 2024-07-10 15:27 | Outpatient (REF) | payer MEDICARE, SELFPAY ==
--- OUTSIDE RECORDS SUMMARY | 2024-07-10 15:28 | XMS_ITS ---
Author Organization Unknown ALLERGIES AND ADVERSE REACTIONS No information ASSESSMENT No information CHIEF COMPLAINT No information MEDICATIONS No information OBJECTIVE DATA No information PHYSICAL EXAMINATION No information TREATMENT PLAN Planned Care Start Date Provider Encounter for Check-up [id number] PROBLEMS No information RESULTS No information REVIEW OF SYSTEMS No information SUBJECTIVE DATA No information VITAL SIGNS No information
--- OUTSIDE RECORDS SUMMARY | 2024-07-10 15:29 | XMS_ITS | Encounter Summary ---
Author Organization Formerly [facility] [place] [address] Care Team Providers Care Sport Shoe Spike Assembler Name Role Phone Jenise Huddleston Stefanie ARMSTRONG Primary Care Provider [phone] Encounter Details Date Type Department Care Team (Latest Contact Info) Description 11/18/2020 10:10 AM EDT - 11/18/2020 11:59 PM EDT Hospital Encounter Mammography/[place] [address] Jhonatan Gilmore MD [facility] [place] [address] Breast cancer screening by mammogram Discharge Disposition: Home Social History Tobacco Use Types Packs/Day Years Used Date Smoking Tobacco: Never Smokeless Tobacco: Never Alcohol Use Standard Drinks/Week Comments Yes 0 (1 standard drink = 0.6 oz pur e alcohol) minimally Sex and Gender Information Value Date Recorded Sex Assigned at Not on file Gender Identity Not on file Sexual Orientation Not on file documented as of this encounter Medications at Time of Discharge Medication Sig Dispensed Refills Start Date End Date OREGANO OIL ORAL oregano oil 04/17/2020 Green Tea [place] Extract Capsule Take 1 capsule by mouth daily. VITAMIN A ORAL Take by mouth. vitamin E acetate (VITAMIN E ORAL) Take by mouth. ascorbic acid (VITAMIN C ORAL) Take by mouth. omega-3/dha/epa/fish oil (OMEGA-3 ORAL) Take 2,000 Units by mouth daily. Equivalent 2 caps daily cholecalciferol, Vitamin D3, 1,000 unit Tablet Take 6 Units by mouth daily. 6 gtts daily UNABLE TO FIND Take 2 capsules by mouth daily. Theracumin MAGNESIUM CITRATE ORAL Take by mouth. niacin 500 mg Tablet Take 500 mg by mouth daily (with breakfast). 09/18/19 23 UNABLE TO FIND Inject 1 Dose subcutaneously every 30 days. [place]--anticancer 09/18/2022 melatonin 5 mg Tablet Take 5-20 mg by mouth daily. 06/06/2021 documented as of this encounter Plan of Treatment Not on file documented as of this encounter Procedures Procedure Name Priority Date/Time Associated Diagnosis Comments MAMMO SCREENING CAD AND MARQUES BILATERAL Routine 11/18/2020 10:29 AM EDT Breast cancer screening by mammogram documented in this encounter Results * Mammo Screening Cad and Marques Bilateral (11/18/2020 10:29 AM EDT) Anatomical Region Laterality Modality Breast Bilateral Mammography Narrative 11/19/2020 10:24 AM EDT EXAMINATION: MAMMO SCREENING CAD AND MARQUES BILATERAL REASON FOR EXAM: Screening. History of left breast cancer. TECHNIQUE: CC and MLO views were obtained of both breasts. Computer aided detection was used. 3D tomosynthesis images were obtained in addition to 2D images. COMPARISON: The study is compared with prior images. FINDINGS: Breast density: The breasts are heterogeneously dense, which may obscure small masses There are no suspicious microcalcifications, masses, or areas of distortion. There are post treatment changes in the left breast. CONCLUSION: No mammographic evidence of malignancy. RECOMMENDATION: Routine annual screening. BIRADS CATEGORY 2: BENIGN FINDINGS * ??Regular screening mammograms starting between age 40 and 50 reduces the risk of from breast cancer. * ??All screening tests have both risks and benefits. These risks and benefits should be assessed for each individual patient through discussion with their provider to determine their preferred breast cancer screening schedule. * ??Women should report any breast changes to a health care provider right away. * ??Some women, because of their family history, a genetic tendency, or other factors, should be screened with annual breast MRI as well as with mammograms. (The number of women who fall into this category is very small). Patients and health care providers should discuss the history of each patient to decide if earlier screening and/or breast MRI are appropriate. * ??Screening should continue as long as a woman is in good health and is expected to live 10 years or longer. * ??Screening mammography may not detect 10-15% of breast cancers. Thank you for letting us participate in the care of this patient. For questions regarding this report, please contact the number below. ? Electronically signed by: Akua Rodríguez MD, [facility] ([phone]), at 11/19/2020 10:24 AM Jhonatan Gilmore MD IMG MAMMO ORDERABLES documented in this encounter Visit Diagnoses Diagnosis Breast cancer screening by mammogram documented in this encounter Care Teams Sport Shoe Spike Assembler Relationship Specialty Start Date End Date Jenise Huddleston, CLAY MINER [address] [place] [address] PCP - General Family Medicine 09/11/18 documented as of this encounter
--- OUTSIDE RECORDS SUMMARY | 2024-07-10 15:29 | XMS_ITS | Encounter Summary ---
Author Organization [facility] [place] [address] Care Team Providers Care Chemistry Specialist Name Role Phone Jenise Huddleston APRN Primary Care Provider [phone] Encounter Details Date Type Department Care Team (Latest Contact Info) Description 03/05/2023 Travel Social History Tobacco Use Types Packs/Day Years Used Date Smoking Tobacco: Never Smokeless Tobacco: Never Alcohol Use Standard Drinks/Week Comments Yes 0 (1 standard drink = 0.6 oz pur e alcohol) minimally Sex and Gender Information Value Date Recorded Sex Assigned at Not on file Gender Identity Not on file Sexual Orientation Not on file documented as of this encounter Plan of Treatment Not on file documented as of this encounter Visit Diagnoses Not on filedocumented in this encounter Care Teams Chemistry Specialist Relationship Specialty Start Date End Date Jenise Huddleston APRN [address] [place] [address] PCP - General Family Medicine 09/11/18 documented as of this encounter
--- OUTSIDE RECORDS SUMMARY | 2024-07-10 15:29 | XMS_ITS | Encounter Summary ---
[facility] [place] [address] Care Team Providers Care Milk Handler Name Role Phone FlaquitoJenise APRN Primary Care Provider [phone] Encounter Details Date Type Department Care Team (Late st Contact Info) Description 02/24/2019 Telephone Hematology [place] [address] Peace Bazan [facility] HEMATOLOGY/[place] [address] Social History Tobacco Use Types Packs/Day Years Used Date Smoking Tobacco: Never Smokeless Tobacco: Never Alcohol Use Standard Drinks/Week Comments Yes 0 (1 standard drink = 0.6 oz pur e alcohol) minimally Sex and Gender Information Value Date Recorded Sex Assigned at Not on file Gender Identity Not on file Sexual Orientation Not on file documented as of this encounter Miscellaneous Notes * Telephone Encounter - Peace Bazan [facility] - 02/24/2019 4:16 PM EDT This test result was discussed with the patient by phone. A copy of a letter sent to the patient containing these results is provided below. Please be advised that [place] law requires that allhealth care workers respect the confidentiality of this information and not pass it along to other health care providers, insurance companies, or individuals without the written permission of the patient. The [facility]amil[facility] welcomes any questions about these matters. Our phone number is: [phone]. On February 12, 2019, Ursula underwent genetic testing for a hereditary predisposition to breast cancer,specifically BRCA1 and BRCA2 genetic testing. Following are the results of this test. Result: Yasir's BRCA1 and BRCA2 STAT Panel showed no mutation was detected. This means that Ursula does not carry a mutation in the BRCA1 or BRCA2 genes detectable by this test. We are enclosing a printed copy of Ursula's test results. Interpretation: Because the genetic basis, if any, of the breast cancer in Ursula and her distant paternal family has not been identified, this negative test result does not necessarily mean that Ursula's cancer was sporadic (i.e. not attributable to an inherited predisposition). This is because of two important limitations of the test. First, not all inherited predisposition to cancer is attributable to the genestested by this panel. Research has identified other genes that when mutated can increase one???s risk of breast cancer. Ursula has declined additional genetic testing at this time. Second, a small percentage of mutations in genes tested by this panel may be missed by current technology. Screening Recommendations Based on genetic test results and personal and family history, we recommend: Breast cancer screening ?? Monthly self breast exams and annual clinical breast exams ?? Annual tomosynthesis (3D mammogram) Ovarian cancer screening ?? We do not recommend any special screening studies in addition to an annual INTEGRATION PROJECT MANAGER exam at this time. Other cancer screening ?? Periodic colonoscopy screening as recommended by Ursula's sewing machines salesperson. ?? Periodic dermatologic/skin exams documented in this encounter Plan of Treatment Not on file documented as of this encounter Visit Diagnoses Not on filedocumented in this encounter Care Teams Milk Handler Relationship Specialty Start Date End Date Jenise Huddleston APRN [address] [place] [address] PCP - General Family Medicine 09/11/18 documented as of this encounter
--- OUTSIDE RECORDS SUMMARY | 2024-07-10 15:29 | XMS_ITS | Encounter Summary ---
Author Organization [facility] [place] [address] Care Team Providers Care Manager Welding Name Role Phone FlaquitoJenise hinson Stefanie ARMSTRONG Primary Care Provider [phone] Encounter Details Date Type Department Care Team (Late st Contact Info) Description 08/16/2020 1:30 PM EST Office Visit Hematology/Oncology at [address] [phone] Jacqueline Rose APRN [address] [place] [address] HEMATOLOGY ONCOLOGY [place], [place] [id number] Malignant neoplasm of breast in female, estrogen receptor positive, unspecified laterality, unspecified site of breast; Breast cancer metastasized to axillary lymph node, left Social History Tobacco Use Types Packs/Day Years Used Date Smoking Tobacco: Never Smokeless Tobacco: Never Alcohol Use Standard Drinks/Week Comments Yes 0 (1 standard drink = 0.6 oz pur e alcohol) minimally Sex and Gender Information Value Date Recorded Sex Assigned at Not on file Gender Identity Not on file Sexual Orientation Not on file documented as of this encounter Last Filed Vital Signs Vital Sign Reading Time Taken Comments Blood Pressure 127/55 08/16/2020 1:43 PM EST Pulse 75 08/16/2020 1:43 PM EST Temperature 36.2 ??C (97.1 ??F) 08/16/2020 1:43 PM ES T Respiratory Rate 20 08/16/2020 1:43 PM EST Oxygen Saturation 96% 08/16/2020 1:43 PM EST Inhaled Oxygen Concentration - - Weight 78.8 kg (173 lb 12.8 oz) 08/16/2020 1:43 PM EST Height 158.8 cm (5' 2.5) 08/16/2020 1:43 PM EST Body Mass Index 31.28 08/16/2020 1:43 PM EST documented in this encounter Progress Notes * Jacqueline Rose, BUCKET PUSHER - 08/16/2020 1:30 PM EST Subjective: Patient ID: Ursula Urias is a 69 y.o. female. 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 Gilmore ?? The patient is seen in the [facility]. She had a node positive left breast cancer detected earlier this year. She underwent partial mastectomy showing 2 lymph nodes positive. Interestingly there were 2 sub-clones of metastasis to her lymph nodes, one ER positive, 1 ER negative. ?? She completed her radiation therapy but then declined any hormonal therapy. She is using natural methods and dietary manipulations. ?? 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 Ursula had a partial mastectomy followed by radiation completed 01/19. (See history as summarized above.). She declines hormonal therapy and is followed by her geodetic survey director. She uses supplements including curcumin, vitamins C, D, E, green tea leaf extract and probiotics. She returns to the [facility] onc[facility] clinic today for Q3 month follow-up alternating with [facility]. She is also followed by [facility] breast oncology, who manages her mammograms. Ursula reports feeling quite well today. She had been dealing with a Lyme disease diagnosis in March.She reports no recurrence of symptoms. She denies fevers, chills or ongoing joint pain. She remains active, walks a lot, and participates in online PS DEPT.. Ursula is looking forward to cross country skiing this winter. She denies any breast masses or skin changes or breast pain. She does note the areola on her left breast seems to be getting geophysical support specialist in [place]. She denies nausea, constipation, diarrhea, shortness of breath or chest pain. No cough. She says her appetite is good, and her partner likes to cook so she eats well. She denies vaginal bleeding or difficulty with urination. She denies any numbness, tingling or extremity swelling. No Known Allergies Current Medications ??? Green Tea Robert Lee Extract (GREEN TEA) Capsule ??? niacin 500 mg Tablet ??? VITAMIN A ORAL ??? vitamin E acetate (VITAMIN E ORAL) ??? ascorbic acid (VITAMIN C ORAL) ??? UNABLE TO FIND ??? melatonin 5 mg Tablet ??? omega-3/dha/epa/fish oil (OMEGA-3 ORAL) ??? cholecalciferol, Vitamin D3, 1,000 unit Tablet ??? ZINC ACETATE ORAL ??? UNABLE TO FIND ??? UNABLE TO FIND ??? MAGNESIUM CITRATE ORAL Review of Systems Constitutional: Negative for activity change, appetite change, fatigue and fever. HENT: Negative. Eyes: Negative. Respiratory: Negative. Negative for cough and shortness of breath. Cardiovascular: Negative. Gastrointestinal: Negative. Genitourinary: Negative. Musculoskeletal: Negative for arthralgias, joint swelling and myalgias. She denies any residual Lyme disease related joint pain. Skin: Negative. Neurological: Negative. Hematological: Negative. Psychiatric/Behavioral: Negative. Objective: Physical Exam Vitals signs reviewed. Constitutional: Comments: Pleasant, well-nourished, NAD HENT: Mouth/Throat: Mouth: Mucous membranes are moist. Pharynx: Oropharynx is clear. Eyes: General: No scleral icterus. Extraocular Movements: Extraocular movements intact. Neck: Musculoskeletal: Normal range of motion. Cardiovascular: Rate and Rhythm: Normal rate and regular rhythm. Heart sounds: Normal heart sounds. Pulmonary: Effort: Pulmonary effort is normal. Breath sounds: Normal breath sounds. No wheezing or rales. Abdominal: General: Bowel sounds are normal. Tenderness: There is no abdominal tenderness. There is no right CVA tenderness or left CVA tenderness. Musculoskeletal: Normal range of motion. Right lower leg: No edema. Comments: Chronic, non-pitting bilateral LE +1 edema. Negative left arm lymphedema. Normal ROM botharms. Lymphadenopathy: Cervical: No cervical adenopathy. Upper Body: Right upper body: No supraclavicular adenopathy. Left upper body: No supraclavicular adenopathy. Skin: General: Skin is warm and dry. Findings: No rash. Neurological: General: No focal deficit present. Mental Status: She is oriented to person, place, and time. Gait: Gait normal. Psychiatric: Mood and Affect: Mood normal. Thought Content: Thought content normal. Breast Exam - Deferred. Left breast without new masses, skin changes or nipple discharge. Areola a little paler when compared to right breast. Right breast without new masses, skin changes or nipple discharge. BP 127/55 (Patient Position: Sitting) Pulse 75 Temp 36.2 ??C (97.1 ??F) (Temporal) Resp 20 Ht 158.8 cm (5' 2.5) Wt 78.8 kg (173 lb 12.8 oz) SpO2 96% BMI 31.28 kg/m?? No labs ordered for this visit. RECENT IMAGING 11/19/19 - Mammogram - No mammographic evidence of malignancy. 04/21/19 - Bilateral breast MRI - IMPRESSION Left breast: Expected postsurgical change without abnormal enhancement. At the area of concern of the inferior/anterior left breast, no abnormal enhancement or abnormal morphology is appreciated. ?? Right breast: No abnormal enhancement appreciated. Stable to less conspicuous benign-appearing scattered foci.] ?? RECOMMENDATION:Continue high-risk screening. ?? LEFT BREAST BIRADS 2. Benign finding RIGHT BREAST BIRADS 2. Benign finding ?? Assessment and Plan: Assessement: Ursula Urias is a 69 yo female diagnosed in 09/21 with left breast IDC; ER/DE+; Hpu2xbp negative. Ursula had a partial mastectomy followed by radiation completed 01/19. She comes to the [facility] today for routine follow-up. Ursula is feeling well with no new breast complaints. She feels the Lyme disease treatment worked well, and she has no residual side effects. Plan: Per NCCN guidelines IDC patients should have visit and exam 1-4 times annually. Mammogram annually (due 3/21) RTC for medical oncology visit in 6 months alternating with RadOnc and surgical oncology visits. Will check labs next visit. Continue encouragement of healthy diet, walking, skiing and on-line exercise classes. documented in this encounter Plan of Treatment Not on file documented as of this encounter Visit Diagnoses Diagnosis Malignant neoplasm of breast in female, estrogen receptor positive, unspecified laterality, unspecified site of breast Breast cancer metastasized to axillary lymph node, left documented in this encounter Care Teams Manager Welding Relationship Specialty Start Date End Date Jenise Huddleston APRN [address] [place] [address] PCP - General Family Medicine 09/11/18 documented as of this encounter
--- OUTSIDE RECORDS SUMMARY | 2024-07-10 15:29 | XMS_ITS | Encounter Summary ---
Author Organization [facility] Address [facility] [place] [address] Care Team Providers Care Preschool Teacher Assistant Name Role Phone Jenise Huddleston NATHANIEL Primary Care Provider [phone] Reason for Visit * Reason Comments On Treatment Visit Encounter Details Date Type Department Care Team (Late st Contact Info) Description 12/17/2018 1:00 PM EDT Office Visit Radiation Oncology at [address] [phone] Abbey Renae MD [facility] [place] [address] Malignant neoplasm of central portion of left female breast, unspecified estrogen receptor status Social History Tobacco Use Types Packs/Day Years [...] Sign Reading Time Taken Comments Blood Pressure 127/70 12/17/2018 1:00 PM EDT Pulse 80 12/17/2018 1:00 PM EDT Temperature 36.7 ??C (98.1 ??F) 12/17/2018 1:00 PM ED T Respiratory Rate 16 12/17/2018 1:00 PM EDT Oxygen Saturation 96% 12/17/2018 1:00 PM EDT Inhaled Oxygen Concentration - - Weight 83.3 kg (183 lb 9.6 oz) 12/17/2018 1:00 P M EDT Height - - Body Mass Index 33.36 11/14/2018 1:21 PM EDT documented in this encounter Progress Notes * Abbey Renae MD - 12/17/2018 1:00 PM EDT Images from the original note were not included. DIAGNOSIS: Breast ca, L, IDC, gr 2, ER+ME+, Her2 neg, s/p lumpectomy & SNB, pT1c pN1a, w/maycol deposits showing 2 different types of tumor, ER+ME+, Her2 neg & ER-ME-, Her2 neg. CURRENT TREATMENT DOSE: 34.2 Gy L supraclav, L axilla & L breast ANTICIPATED TOTAL DOSE: 50.4 Gy L supraclav, L axilla & L breast; 60.4 Gy lumpectomy bed Current # of xrt received: 19 L supraclav, L axilla & L breast Anticipated total # of xrt txs: 28 L supraclav, L axilla & L breast, 33 lumpectomy bed Evaluation of port verification films: Approved. For details, see electronic film record in [employer]. Changes in Medical Condition: Seeing Dr. 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 Conts fu w/her tunnel man, Dr. Farnaz Levy, [place] this wk. Wants fu studies other than mmgs. Pain?: No. Your Medications Accurate as of 12/17/18 1:57 PM. If you have any questions, ask your nurse or doctor. Continued medications, unchanged Dose Details ALOE GEL TOP Apply topically. Refills: 0 cholecalciferol (Vitamin D3) 1,000 unit Tab Take 6 Units by mouth daily. 6 gtts daily 6 Units Refills: 0 CREAM BASE TOP Apply topically. Jeans Cream. Apply to area of radiation twice a day but no less than 2 hours before a treatment. Refills: 0 MAGNESIUM CITRATE ORAL Take by mouth. Refills: 0 melatonin 5 mg Tab Take 5-20 mg by mouth daily. 5-20 mg Refills: 0 OMEGA-3 ORAL Take 2,000 Units by mouth daily. Equivalent 2 caps daily 2000 Units Refills: 0 * UNABLE TO FIND Take 2 capsules by mouth daily. Theracumin 2 capsule Refills: 0 * UNABLE TO FIND Take 100 mg by mouth daily. Amino Acid; (dindolylmethane) dim-evail 100 mg Refills: 0 * UNABLE TO FIND Mushroom tincture Refills: 0 ZINC ACETATE ORAL Take 40 mg by mouth daily. arginate and gluconate 40 mg Refills: 0 * This list has 3 medication(s) that are the same as other medications prescribed for you. Read thedirections carefully, and ask your doctor or other care provider to review them with you. Physical Exam: BP 127/70 Pulse 80 Temp 36.7 ??C (98.1 ??F) Resp 16 Wt 83.3 kg (183 lb 9.6 oz) SpO2 96% BMI 33.36 kg/m?? A&Ox3, NAD. 1 cm mildly hyperpigmented lesion LIQ L breast, parasternal, waxy stuck on appearance, consistent w/seborrheic keratosis. Mild erythema L inferior breast, consistent w/expected xrt assoc'd skin rxn; minimal erythema/mild hyperpigmentation rest of irrad'd L breast. Imagin11/13/18 Dx'ic Rad Interp CTsim: 4 mm LLL nodule most likely benign. 10 mm L adrenal nodulemost consistent w/adenoma. No highly suspicious sign of met dz. Performance Status: KPS 100% Response to xrt: As expected. Irradiation Related Symptoms: Skin rxn. Treatment for Symptom Control: Bill's cream, aloe gel, veleda cream. Pain Management: Not needed. Recommendation on Continuing Course of xrt: Cont. I discussed w/her how I think skin lesion LIQ L breast is a benign seborrheic keratosis, however, agree w/eval by Dr. Steve. Rec'd that she discuss fu imaging w/Dr. Gilmore. We discussed CTsim showing LLL nodule & L adrenal nodule; will obtain fuCT in March. documented in this encounter Plan of Treatment Not on file documented as of this encounter Visit Diagnoses Diagnosis Malignant neoplasm of central portion of left female breast, unspecified estrogen receptor status documented in this encounter Care Teams Preschool Teacher Assistant Relationship Specialty Start Date End Date Jenise Huddleston APRN [address] [place] [address] PCP - General Family Medicine 09/11/18 documented as of this encounter
--- OUTSIDE RECORDS SUMMARY | 2024-07-10 15:29 | XMS_ITS | Encounter Summary ---
Author Organization [facility] [place] [address] Care Team Providers Care Factory Worker Name Role Phone FlaquitoJenise hinson NATHANIEL Primary Care Provider [phone] Encounter Details Date Type Department Care Team (Late st Contact Info) Description 09/01/2021 3:00 PM EST Office Visit Hematology/Oncology at [address] [phone] Jacqueline Rose GLUE CLAMP OPERATOR [address] [place] [address] HEMATOLOGY ONCOLOGY [place], [place] [id number] Malignant neoplasm of breast in female, estrogen [...] Sign Reading Time Taken Comments Blood Pressure 138/56 09/01/2021 3:15 PM EST Pulse 74 09/01/2021 3:15 PM EST Temperature 36 ??C (96.8 ??F) 09/01/2021 3:15 PM EST Respiratory Rate 20 09/01/2021 3:15 PM EST Oxygen Saturation 97% 09/01/2021 3:15 PM EST Inhaled Oxygen Concentration - - Weight 80.5 kg (177 lb 6.4 oz) 09/01/2021 3:15 P M EST Height 157.3 cm (5' 1.91) 09/01/2021 3:15 PM ES T Body Mass Index 32.54 09/01/2021 3:15 PM EST documented in this encounter Progress Notes * Jacqueline Rose APRN - 09/01/2021 3:00 PM EST Subjective: Patient ID: Ursula Urias is a 70 y.o. female. 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 Gilmore ?? The patient is seen in the [facility]. She had a node positive left breast cancer detected earlier this year. She underwent partial mastectomy showing 2 lymph nodes positive. Interestingly there were 2 sub-clones of metastasis to her lymph nodes, one ER positive, 1 ER negative. ?? She completed her radiation therapy but then declined any hormonal therapy. She is using natural methods and dietary manipulations. ?? INTERVAL HPI 09/01/21 Ursula Urias is a 69 yo female diagnosed in 09/21 with left breast IDC; ER/ND+; Her2 ryan negative. Ursula had a partial mastectomy followed by radiation completed 01/19. (See history as summarized above.). She declines hormonal therapy and is followed by her automotive buyer. She uses supplements including curcumin, vitamins C, D, E, green tea leaf extract and probiotics. She returns to the [facility] oncology clinic today for Q6 month follow-up alternating with [facility]. She is also followed by [facility] breast oncology, who manages her mammograms. This is due again in 11/22. Ursula says she is doing quite well. She denies fatigue, and feels her energy is good. She says she would like to weigh less, but has remained active. She Reports walking, skiing or doing yoga. She says she seems to be over the lyme disease she has in summer. She would like to weight less. Almost every day she gets a walk or ski or yoga. I seem to be prettyclear on the Ly;me. I am taking some supplements for lyme and She denies any breast masses or skin changes or breast pain. She does note the areola on her left breast seems to be getting barbering instructor in color. Ursula denies lymphedema in her left breast, axilla or left arm . She denies nausea, constipation, diarrhea, shortness of breath or chest pain. No cough. She says her appetite is good, and her partner likes to cook so she eats well. She is not having any bowel issues. She denies vaginal bleeding or difficulty with urination. She denies any numbness, tingling or extremity swelling. Ursula does have some knee issues and has been going to physical therapy which is helping. Ursula is fully COVID vaccinated and has also received her booster, flu shot, and pneumovax. We reviewed the options for taking an AI, which is recommended in her situation. She is clear todayblas is not interested in starting AI Therapy, nor is she interested in statin therapy which she says has been recommended by her PCP. She will continue with the supplements, vitamins and naturopathicproducts she has been using. Other ROS are negative. No Known Allergies Current Medications ??? ASHWAGANDHA ROOT EXTRACT ORAL ??? cyanocobalamin, vitamin B-12, (VITAMIN B-12 ORAL) ??? Bacillus coagulans/inulin (PROBIOTIC WITH PREBIOTIC ORAL) ??? stevioside (STEVIA MISC) ??? NONFORMULARY REQUEST ??? Green Tea [place] Extract (GREEN TEA) Capsule ??? niacin 500 mg Tablet ??? VITAMIN A ORAL ??? vitamin E acetate (VITAMIN E ORAL) ??? ascorbic acid (VITAMIN C ORAL) ??? UNABLE TO FIND ??? omega-3/dha/epa/fish oil (OMEGA-3 ORAL) ??? cholecalciferol, Vitamin D3, 1,000 unit Tablet ??? UNABLE TO FIND ??? MAGNESIUM CITRATE ORAL Social History Tobacco Use ??? Smoking status: Never Smoker ??? Smokeless tobacco: Never Used Substance Use Topics ??? Alcohol use: Yes Comment: minimally ??? Drug use: Not Currently Review of Systems Constitutional: Negative for activity change, appetite change, fatigue and fever. HENT: Negative. Eyes: Negative. Respiratory: Negative. Negative for cough and shortness of breath. Cardiovascular: Negative. Gastrointestinal: Negative. Genitourinary: Negative. Musculoskeletal: Positive for arthralgias. Negative for joint swelling and myalgias. Chronic knee pain. Skin: Negative. No new breast Lumps or bumps. Neurological: Negative. Hematological: Negative. Psychiatric/Behavioral: Negative. Objective: Physical Exam Vitals reviewed. Constitutional: Comments: Pleasant, well-nourished, NAD HENT: Mouth/Throat: Mouth: Mucous membranes are moist. Pharynx: Oropharynx is clear. Eyes: General: No scleral icterus. Extraocular Movements: Extraocular movements intact. Cardiovascular: Rate and Rhythm: Normal rate and regular rhythm. Heart sounds: Normal heart sounds. Pulmonary: Effort: Pulmonary effort is normal. Breath sounds: Normal breath sounds. No wheezing or rales. Chest: Breasts: Right: No supraclavicular adenopathy. Left: No supraclavicular adenopathy. Abdominal: General: Bowel sounds are normal. Tenderness: There is no abdominal tenderness. There is no right CVA tenderness or left CVA tenderness. Musculoskeletal: General: Normal range of motion. Cervical back: Normal range of motion. Right lower leg: [...] Thought Content: Thought content normal. Breast Exam -. Left breast without new masses, skin changes or nipple discharge. Areola a little paler when compared to right breast. Right breast without new masses, skin changes or nipple discharge. BP 138/56 (Patient Position: Sitting) Pulse 74 Temp 36 ??C (96.8 ??F) (Temporal) Resp 20 Ht157.3 cm (5' 1.91) Wt 80.5 kg (177 lb 6.4 oz) SpO2 97% BMI 32.54 kg/m?? No labs ordered for this visit. [...] diagnosed in 09/21 with left breast IDC; ER/ND+; Umv4yco negative. Ursula had a partial mastectomy followed by radiation completed 01/19. She comes to the [facility] clinic today for routine follow-up. Ursula is feeling well with no new breast complaints. She feels the Lyme disease treatment worked well, and she has no residual side effects. Plan: Per NCCN guidelines IDC patients should have visit and exam 1-4 times annually. Mammogram annually (due 11/22). RTC for medical oncology visit in 6 months alternating with RadOnc and surgical oncology visits. Continue encouragement of healthy diet, walking, skiing and on-line exercise classes. documented in this encounter Plan of Treatment Not on file documented as of this encounter Visit Diagnoses Diagnosis Malignant neoplasm of breast in female, estrogen receptor positive, unspecified laterality, unspecified site of breast Breast cancer metastasized to axillary lymph node, left documented in this encounter Care Teams Factory Worker Relationship Specialty Start Date End Date Jenise Huddleston APRN [address] [place] [address] PCP - General Family Medicine 09/11/18 documented as of this encounter
--- OUTSIDE RECORDS SUMMARY | 2024-07-10 15:29 | XMS_ITS | Encounter Summary ---
[place] [address] Care Team Providers Care Activity Manager Name Role Phone Jenise Huddleston NATHANIEL Primary Care Provider [phone] Encounter Details Date Type Department Care Team (Late st Contact Info) Description 11/22/2021 11:00 AM EDT Office [place] [address] Viktoriya Patricia APRN [facility] [place] [address] Encounter for follow-up surveillance of breast cancer; Breast cancer metastasized to axillary lymph node, left; Breast cancer screening by mammogram Social History Tobacco Use Types Packs/Day Years Used Date Smoking Tobacco: Never Smokeless Tobacco: Never Alcohol Use Standard Drinks/Week Comments Yes 0 (1 standard drink = 0.6 oz pur e alcohol) minimally Sex and Gender Information Value Date Recorded Sex Assigned at Not on file Gender Identity Not on file Sexual Orientation Not on file documented as of this encounter Progress Notes * Viktoriya Patricia APRN - 11/22/2021 11:00 AM EDT Images from the original note were not included. Patient ID: Ursula Urias is a 70 y.o. female HPI: Ursula is a patient of Dr. Gilmore with a history of 2 different types of invasive ductal carcinoma in the left breast who returns for annual breast cancer surveillance. She is status post left partial mastectomy and sentinel node excision on October 10, 2018. At today's visit, Ursula has no breast concerns and denies any new lumps or bumps in her breasts or axilla. She occasionally performs self-breast exams. No nipple discharge or pain in either breast. She denies any headaches, new chest pain or difficulty breathing. No new bony pain or tenderness. Shehas gained approximately 15 pounds throughtout the pandemic, but denies other significant changes to her health since her last visit. Breast cancer history: A mammogram on 08/06/2018 showed a 1.2-cm mass in the left breast at 6:00. US showed a 1.1-cm mass at 6:00, 4 cm from the nipple. A core biopsy revealed invasive ductal carcinoma, intermediate grade, ER/ND strongly positive, HER-2 negative. Ursula opted for BCT. Pathology showed that she had a 15-mm invasive carcinoma. The margins were negative. No ductal carcinoma in situ was seen. Multiple deposits of metastatic carcinoma are present in two lymph nodes from the sentinel lymph node excision (2 of 6). The metastatic tumor deposits show distinct differences in morphology and biomarker expression. One tumor deposit is morphologically similar to the primary breast tumor and is strong and diffusely ER and ND positive, and HER-2 negative. Commingling within the same positive lymph nodes is a morphologically distinct metastatic invasive ductal tumor which exhibits ample eosinophilic and vacuolated cytoplasm. This tumor is ER, ND, andHER-2 negative. OncotypeDx Recurrence Score - 16; 15% distant recurrence at 10 years. Chemotherapy was not recommended. She completed XRT in [facility] on 01/03/2019. An aromatase inhibitor was recommended, but she declined adjuvant hormonal therapy, opting instead to use naturopathic treatments with hyperbaric treatments, mistletoe, and a keto diet. Ursula remains comfortable with her decision. BREAST CANCER NOTES Method of Cancer Detection Screening mammogram 08/06/2018 Menopausal Status at Diagnosis Postmenopausal Date of Diagnostic Biopsy 09/05/2018 Local Surgery Left partial mastectomy Axillary Management SNE (2 of [address] involved) Date of Last Surgical Procedure 10/10/2018 Histology IDC, + LVI Location Left breast at 6:00 Size of Primary Malignancy 15 mm Grade Intermediate Margins Negative ER Positive ND Positive HER-2 Negative OncotypeDx Recurrence Score 16 Chemotherapy Not recommended Radiation Therapy Completed 01/03/2019 Adjuvant Endocrine Therapy Declined Genetic Testing 02/12/19 - No mutations Surveillance Annual mammogram and [facility] Comprehensive Breast Program Surgery Follow Up: Range of motion of surgical arm complete Lymphedema present No Cosmesis-surgeon reported Cosmesis-patient reported Good Good Local or regional recurrence No Contralateral cancer present No Distant recurrence present No Date of last follow up 11/18/2020 Breast Cancer Risk Factors: History Hormonal contraceptive use Yes Menarche age 12 yo LMP / Menopause 49 yo Hormone replacement therapy No Family history of breast cancer Distant paternal cousins Family history of ovarian cancer No Known genetic mutation 02/12/19 - NovoEDitae's BRCA 1/2 STAT Panel showed No mutations detected. Declined add'l testing. 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 She has never smoked; ETOH - none. Past Medical Hx: SCC Physical Exam: General appearance: Alert, well-developed, well-nourished; in no acute distress. Skin: Warm and dry. Head: Normocephalic, atraumatic. Neck: Soft and supple without adenopathy. Cardiovascular: Normal rate, regular rhythm and normal heart sounds. No murmur heard. Pulmonary: Effort normal and breath sounds normal. No respiratory distress, cough, or wheezing. Breasts: Left breast with well-healed incisions in lower breast with firm tissue and mild telangectasia. Right breast appears normal. No suspicious masses, tenderness, dimpling, erythema, or other skin changes in either breast. No nipple discharge or other nipple changes. No palpable axillary lymphnodes bilaterally. The nipples are everted. I feel no obvious discrete or dominant masses in eitherbreast. Musculoskeletal: Arms with full ROM without any evidence of lymphedema. Fully weight-bearing. Neurological: Alert and oriented x 4. Mood is euthymic and appropriate to the situation. Results: Imaging performed (bilateral mammogram) at [facility] today shows no evidence of malignancy, BIRADS Category 2 with heterogeneously dense breast tissue. Post treatment changes noted on the left. There is a stable 1.2 cm mass in the right upper central breast, back to 2010. The results were reviewed with her at today's appointment. Assessment: Clinical breast exam without notable masses, skin changes, dimpling, or nipple discharge. Doing well without evidence of local recurrence. Stable exam. Plan: 1. Encounter for follow-up surveillance of breast cancer 2. Breast cancer metastasized to axillary lymph node, left 3. Breast cancer screening by mammogram - Mammo Screening Cad and Marques Bilateral; November 2022 I have discussed my assessment and recommendations with Ursula to include occasional self-breast exams and annual mammographic screening with clinical breast exams. Based on her risk status, her next bilateral screening mammogram is due in one year, or sooner if indicated. I will plan to see her fora clinical breast exam at that time. She will contact me if she develops any new breast changes or concerns prior to that appointment. She agrees to this plan. Routine recommendations discussed with the patient including importance of regular moderate intensity exercise, nutrition, decreasing cardiovascular risk, and optimizing weight. Nonpharmacologic measures to help decrease your risk of developing breast cancer include the following: ?? Get at least 30 minutes of moderate intensity physical activity above normal activity on most days of the week to reduce the risk of chronic disease in adulthood. Walking is a good choice. You also may want to do other activities, such as running, swimming, cycling, playing tennis, or other teamsports. ?? Do strength training exercises at least twice a week to maintain muscle and bone health. ?? Drink alcohol in moderation, if at all. That means no more than 1 drink a day for women or 2 perday for men. ?? Make healthy eating choices: fruits and vegetables, lean protein, and healthy fats. Minimize processed foods, simple carbohydrates, sugars, and artificial sweeteners. ?? Maintain or achieve a healthy weight. Normal BMI < 25 for individuals under 65 years old; 22-30 for > 65 years old. ?? Manage stress levels. ?? Be cautious about exposure risk, both what you put in and on your body (ie: artificial fragrances, artificial dyes, as well as certain ingredients in makeup, hair and body care, antiperspirant, sunscreen, insect repellant, laundry detergent, fabric softener, dryer sheets, etc.). Resources to help you make informed choices for personal care products are available at EWG (Environmental Working Group) at https://www.ewg.org and free apps for your cell phone from [employer] ([employer]) and [employer] ([employer]). All questions were answered to the patient's satisfaction and they state understanding and agreement with today's treatment plan. They are encouraged to follow up sooner if they develop any new or concerning symptoms. Viktoriya Patricia APRN Surgical Oncology P [phone] F [phone] [facility] documented in this encounter Plan of Treatment Not on file documented as of this encounter Results * Mammo Screening Cad and Marques Bilateral (03/05/2023 10:16 AM EDT) Anatomical Region Laterality Modality Breast Bilateral Mammography Narrative 03/05/2023 10:36 AM EDT REASON FOR EXAM: Screening. History of breast cancer. TECHNIQUE: CC and MLO views were obtained of the bilateral breast(s). Computer aided detection was used. 3D tomosynthesis images were obtained in addition to 2D images. Comparison:Compared with prior images. FINDINGS: Breast density:The breasts are heterogeneously dense which may obscure small masses There are no suspicious microcalcifications, masses, or areas of distortion. There are post surgical changes in the left breast. CONCLUSION: No mammographic evidence of malignancy. RECOMMENDATION:Routine screening. A result letter has been sent to this patient by the [facility]. BIRADS CATEGORY 2: BENIGN FINDINGS The [employer] and The Society of Breast Imaging recommend annual screening beginning at age 40 for the general female population. Screening should continue as long as a woman is in good health and is expected to live 10 more years or longer. All women should be familiar with the known benefits, limitations, and potential harms linked to breast cancer screening. They also should know how their breasts normally look and feel and report any breast changes to a health care provider right away. Some women, because of their family history, a genetic tendency, or certain other factors, should be screened with MRIs along with mammograms. (The number of women who fall into this category is very small.) The patient and health care provider should discuss the patient history and decide if earlier screening and breast MRI are appropriate. Viktoriya Patricia APRN IMG MAMMO ORD ERABLES documented in this encounter Visit Diagnoses Diagnosis Encounter for follow-up surveillance of breast cancer Unspecified follow-up examination Breast cancer metastasized to axillary lymph node, left Breast cancer screening by mammogram Breast cancer metastasized to axillary lymph node, left Breast cancer screening by mammogram documented in this encounter Care Teams Activity Manager Relationship Specialty Start Date End Date Jenise Huddleston APRN [address] [place] [address] PCP - General Family Medicine 09/11/18 documented as of this encounter
--- OUTSIDE RECORDS SUMMARY | 2024-07-10 15:29 | XMS_ITS | Encounter Summary ---
Author Organization [facility] [place] [address] Care Team Providers Care Vending Machine Collector Name Role Phone Flaquito Jenisechavez Watts APRN Primary Care Provider [phone] [phone] Reason for Referral * Diagnostic Test (Routine) - Closed Specialty Diagnoses / Procedures Referred By Contac t Referred To Contact Radiology Diagnoses Malignant neoplasm of left breast in female, estrogen receptor positive, unspecified site of breast Procedures MRI Breast WWO Contrast Jhonatan Rushing MD [facility] [place] [address] [place] [address] Referral ID Status Reason Start Date Expiration Date V isits Requested Visits Authorized [id number] Closed Specialty Service Requested 10/24/2018 10/24/2019 1 1 Reason for Visit * Diagnostic Test (Routine) - Closed Specialty Diagnoses / Procedures Referred By Contlouisa t Referred To Contact Radiology Diagnoses Malignant neoplasm of left breast in female, estrogen receptor positive, unspecified site of breast Procedures MRI Breast WWO Contrast Jhonatan Rushing MD [facility] [place] [address] [place] [address] Referral ID Status Reason Start Date Expiration Date V isits Requested Visits Authorized [id number] Closed Specialty Service Requested 10/24/2018 10/24/2019 1 1 Encounter Details Date Type Department Care Team (Latest Contact Info) Description 04/30/2019 1:09 PM EDT - 04/30/2019 11:59 PM EDT Hospital Encounter MRI [facility] [place] [address] Jhonatan Gilmore MD [facility] [place] [address] Malignant neoplasm of left breast in female, estrogen receptor positive, unspecified site of breast Discharge Disposition: Home Social History Tobacco Use [...] Sig Dispensed Refills Start Date End Date VITAMIN A ORAL Take by mouth. vitamin [...] Theracumin MAGNESIUM CITRATE ORAL Take by mouth. UNABLE TO FIND Inject 1 Dose subcutaneously every 30 days. [place]istletoe--anticancer 09/18/2022 UNABLE TO FIND Mushroom tincture 08/14/20 19 melatonin 5 mg Tablet Take 5-20 mg by mouth daily. 06/06/2021 ZINC ACETATE ORAL Take 40 mg by mouth daily. arginate and gluconate 11/08/2020 UNABLE TO FIND Take 100 mg by mouth daily. Amino Acid; (dindolylmethane) dim-evail 11/08/2020 documented as of this encounter Plan of Treatment Not on file documented as of this encounter Procedures Procedure Name Priority Date/Time Associated Diagnosis Comments MRI BREAST WWO CONTRAST BILAT Routine 04/30/2019 2:40 PM EDT Malignant neoplasm of left breast in female, estrogen receptor positive, unspecified site of breast documented in this encounter Results * MRI Breast wwo Contrast Bilat (04/30/2019 2:40 PM EDT) Anatomical Region Laterality Modality Breast Bilateral Magnetic Resonan ce Impressions 04/30/2019 4:27 PM EDT [ Left breast: Expected postsurgical change without abnormal enhancement. At the area of concern of the inferior/anterior left breast, no abnormal enhancement or abnormal morphology is appreciated. Right breast: No abnormal enhancement appreciated. Stable to less conspicuous benign-appearing scattered foci.] RECOMMENDATION:Continue high-risk screening. LEFT BREAST BIRADS 2. Benign finding RIGHT BREAST BIRADS 2. Benign finding Thank you for letting us participate in the care of this patient. For questions regarding this report, please contact the number below. ? Narrative 04/30/2019 4:27 PM EDT BILATERAL BREAST MRI CLINICAL INDICATION: 68-year-old female, status post excision left breast cancer September 2018. Confirm 2 small satellite lesions removed. TECHNIQUE: Multiplanar sequences were obtained pre- and post- gadolinium enhancement, to include SPGR weighted dynamic run-off and subtraction sequences obtained after the intravenous administration of 16 ccs of Gadovist. Computer algorithm analysis for lesion detection and kinetic contrast enhancement curve analysis was performed, using [employer] software. COMPARISON STUDIES: Compared and/or correlated with prior studies including MRI of 09/11/2018, MRI guided biopsy of 09/18/2018. Mammography of 04/30/2019, 10/10/2018, ultrasound of 10/10/2018. Multiple additional comparisons. FINDINGS: Background Enhancement Pattern (first post gadolinium image): Mild (25-50% breast) Amount of Fibroglandular Tissue: Heterogenously dense LEFT Breast:Left breast expected postprocedural change, and mild skin thickening, status post lumpectomy and radiation, without abnormal enhancement appreciated throughout. The area of concern for the inferior/anterior breast is identified without abnormal enhancement. No lymphadenopathy. No suspicious findings. RIGHT Breast:No abnormal enhancement by morphology or kinetics. No lymphadenopathy. No interval change. Stable to less conspicuous benign-appearing scattered foci. Lymph Node Basins/Other: There is no evidence of internal mammary or axillary adenopathy. ??No significant abnormalities are seen in the chest wall or skin. Jhonatan Gilmore MD IMG MRI ORDERABLES documented in this encounter Visit Diagnoses Diagnosis Malignant neoplasm of left breast in female, estrogen receptor positive, unspecified site of breast documented in this encounter Administered Medications Inactive Administered Medications - up to 3 most recent administrations Medication Order MAR Action Action Date Dose Rate Site gadoterate meglumine (DOTAREM) 0.5 mmol/mL (376.9 mg/mL) injection 0-100 mL 0-100 mL, Intravenous, ONCE PRN, 1 dose, Starting on Sun04/30/19 at 1426, Until Sun04/30/19 at 1426, Per Protocol, Radiology Contrast, Routine Given 04/30/2019 2:26 PM EDT 16 mLs documented in this encounter Care Teams Vending Machine Collector Relationship Specialty Start Date End Date Jenise Huddleston APRN [address] [place] [address] PCP - General Family Medicine 09/11/18 documented as of this encounter
--- OUTSIDE RECORDS SUMMARY | 2024-07-10 15:29 | XMS_ITS | Encounter Summary ---
Author Organization [facility] Address [facility] [place] [address] Care Team Providers Care Cone Sewer Name Role Phone Jenise Huddleston NATHANIEL Primary Care Provider [phone] [phone] Reason for Visit * Reason Comments Radiation Follow-up Encounter Details Date Type Department Care Team (Late st Contact Info) Description 11/08/2020 3:00 PM EST Office Visit Radiation Oncology at [address] [phone] Abbey Renae MD [facility] [place] [address] Malignant neoplasm of central portion of left [...] on file documented as of this encounter Patient Instructions * Patient Instructions* Abbey Renae MD - 11/08/2020 3:00 PM EST Your exam is without worrisome finding. I would like to see you for followup in 6 months. Someone will contact you to schedule appointment. documented in this encounter Progress Notes * Abbey Renae MD - 11/08/2020 3:00 PM EST Images from the original note were not included. CC: Sched'd fu s/p xrt completion. HPI: Ursula is a 69 y/o f who completed xrt to L breast 1 yr., 10 mos ago (01/03/19) for breast ca, L,IDC, gr 2, ER+WI+, Her2 neg, s/p lumpectomy & SNB, pT1c pN1a, w/maycol deposits showing 2 different types of tumor, ER+WI+, Her2 neg & ER-WI-, Her2 neg. 01/23/[address] Moody for hormonal tx, which she declined. 02/20/19 genetic testing, neg. 04/30/19 L mmg: Benign 04/30/19 MRI B breasts: Benign 04/30/19 fu w/Dr. Gilmore, rtc 6 mos w/mmg. 11/19/19 B mmg: Neg. 11/19/19 fu w/Dr. Gilmore, rtc 1 yr w/mmg. Subjective: No pain. No breast problem. No swelling hand/arm. ROM arms @ shoulders ok. Energy levelgood. Past Medical History: Diagnosis Date ??? Breast cancer No collagen vasc dz. Squamous cell ca skin. Past Surgical History: Procedure Laterality Date ??? BREAST BIOPSY Left 09/2018 idc ??? BREAST BIOPSY Left 09/2018 benign breast tissue ??? BREAST LUMPECTOMY Left 10/2018 idc ??? MAMMO US BIOPSY LEFT Left 09/05/2018 Mammo Us Biopsy Left 09/05/2018 Zoltan Baldwin MD [facility] RAD MAMMOGRAPHY ??? MAMMO US NEEDLE LOCALIZATION LEFT Left 10/10/2018 Mammo US Needle Localization Left 10/10/2018 Christina Torre MD [facility] RAD MAMMOGRAPHY ??? MRI GUIDED BIOPSY BREAST VACUUM ASSISTED LEFT Left 09/18/2018 MRI Breast Biopsy Vacuum Assist Left 09/18/2018 [facility] RAD MRI ??? PRO BX/REMV, LYMPH NODE, DEEP AXILL Left 10/10/2018 BIOPSY OR EXCISION OF LYMPH NODE(S), OPEN, DEEP AXILLARY NODE(S) (WRVU 6.43) performed by Jhonatan Gilmore MD at [facility] MAIN OR ??? PRO INTRAOP SENTINEL LYMPH ID W/DYE INJECTION Left 10/10/2018 INTRAOPERATIVE ID (MAPPING) SENTINEL LYMPH NODE,INCLUDES INJECTION (WRVU 2.5) performed by hJonatan Gilmore MD at [facility] MAIN OR ??? PRO MASTECTOMY PARTIAL Left 10/10/2018 MASTECTOMY PARTIAL (WRVU 10.13) performed by Jhonatan Gilmore MD at [facility] MAIN OR Ectopic pregnancies. Your Medications Accurate as of November 08, 2020 3:14 PM. If you have any questions, ask your nurse or doctor. Continued medications, unchanged Dose Details cholecalciferol (Vitamin D3) 1,000 unit Tab Commonly known as: Vitamin D3 Take 6 Units by mouth daily. 6 gtts daily 6 Units Refills: 0 Green Tea Cap Take 1 capsule by mouth daily. Generic drug: Green Tea [place] Extract 1 capsule Refills: 0 MAGNESIUM CITRATE ORAL Take by mouth. Refills: 0 melatonin 5 mg Tab Take 5-20 mg by mouth daily. 5-20 mg Refills: 0 niacin 500 mg Tab Take 500 mg by mouth daily (with breakfast). 500 mg Refills: 0 OMEGA-3 ORAL Take 2,000 Units by mouth daily. Equivalent 2 caps daily 2,000 Units Refills: 0 * UNABLE TO FIND Take 2 capsules by mouth daily. Theracumin 2 capsule Refills: 0 * UNABLE TO FIND Take 100 mg by mouth daily. Amino Acid; (dindolylmethane) dim-evail 100 mg Refills: 0 * UNABLE TO FIND Inject 1 Dose subcutaneously daily. [place]--anticancer 1 Dose Refills: 0 VITAMIN A ORAL Take by mouth. Refills: 0 VITAMIN C ORAL Take by mouth. Refills: 0 VITAMIN E ORAL Take by mouth. Refills: 0 ZINC ACETATE ORAL Take 40 mg by mouth daily. arginate and gluconate 40 mg Refills: 0 * This list has 3 medication(s) that are the same as other medications prescribed for you. Read thedirections carefully, and ask your doctor or other care provider to review them with you. Physical Exam Constitutional: General: She is not in acute distress. Appearance: She is well-developed. She is not diaphoretic. Comments: HENT: Head: Normocephalic and atraumatic. Eyes: General: No scleral icterus. Right eye: No discharge. Left eye: No discharge. Conjunctiva/sclera: Conjunctivae normal. Neck: Thyroid: No thyromegaly. Trachea: No tracheal deviation. Pulmonary: Effort: Pulmonary effort is normal. No respiratory distress. Breath sounds: No stridor. Chest: Breasts: Right: No inverted nipple, mass, nipple discharge, skin change or tenderness. Left: No inverted nipple, mass, nipple discharge, skin change or tenderness. Abdominal: General: There is no distension. Palpations: Abdomen is soft. There is no mass. Tenderness: There is no abdominal tenderness. There is no guarding or rebound. Musculoskeletal: General: No tenderness or deformity. Normal range of motion. Cervical back: Normal range of motion and neck supple. Lymphadenopathy: Head: Right side of head: No submental, submandibular, preauricular, posterior auricular or occipital adenopathy. Left side of head: No submental, submandibular, preauricular, posterior auricular or occipital adenopathy. Cervical: No cervical adenopathy. Upper Body: Right upper body: No supraclavicular or axillary adenopathy. Left upper body: No supraclavicular or axillary adenopathy. Skin: General: Skin is warm and dry. Neurological: Mental Status: She is alert and oriented to person, place, and time. Motor: No abnormal muscle tone. Coordination: Coordination normal. Gait: Gait normal. Psychiatric: Mood and Affect: Mood normal. Behavior: Behavior normal. Thought Content: Thought content normal. Judgment: Judgment normal. A: ODALIS. P: Rtc 6 mos. 11/18/20 Krishna Patricia APRN Surg Onc w/mmg. 20 mins in encounter. documented in this encounter Plan of Treatment Not on file documented as of this encounter Visit Diagnoses Diagnosis Malignant neoplasm of central portion of left female breast, unspecified estrogen receptor status documented in this encounter Care Teams Cone Sewer Relationship Specialty Start Date End Date Jenise Huddleston APRN [address] [place] [address] PCP - General Family Medicine 09/11/18 documented as of this encounter
--- OUTSIDE RECORDS SUMMARY | 2024-07-10 15:29 | XMS_ITS | Encounter Summary ---
Author Organization [facility] [place] [address] Care Team Providers Care Layout Designer Name Role Phone Jenise Huddleston APRN Primary Care Provider [phone] [phone] Encounter Details Date Type Department Care Team (Late st Contact Info) Description 02/04/2024 [place] [address] Genesis Vora Social History Tobacco Use Types Packs/Day Years [...] on filedocumented in this encounter Care Teams Layout Designer Relationship Specialty Start Date End Date Jenise Huddleston APRN [address] [place] [address] PCP - General Family Medicine 09/11/18 documented as of this encounter
--- OUTSIDE RECORDS SUMMARY | 2024-07-10 15:29 | XMS_ITS | Clinical Summary ---
Author Organization [facility] Address [facility] [place] [address] Care Team Providers Care Sisal Operator Name Role Phone Jenise Huddleston APRN Primary Care Provider +1 [phone] Allergies No known active allergies Medications Medication Sig Dispensed Refills Start Date End Date Status MAGNESIUM CITRATE ORAL Take by mouth. Active cholecalciferol, Vitamin D3, 1,000 unit Tablet Take 6 Units by mouth daily. 6 gtts daily Active UNABLE TO FIND Take 2 capsules by mouth daily. Theracumin Active omega-3/dha/epa/fish oil (OMEGA-3 ORAL) Take 2,000 Units by mouth daily. Equivalent 2 caps daily Active VITAMIN A ORAL Take by mouth. Active vitamin E acetate (VITAMIN E ORAL) Take by mouth. Acti ve ascorbic acid (VITAMIN C ORAL) Take by mouth. Acti ve Green Tea [place] Extract Capsule Take 1 capsule by mouth daily. Active Bacillus coagulans/inulin (PROBIOTIC WITH PREBIOTIC ORAL) Take 1 Dose by mouth daily. Active NONFORMULARY REQUEST Take 1 Dose by mouth daily. Mushroom blend Active ASHWAGANDHA ROOT EXTRACT ORAL Take by mouth daily. tincture Active cyanocobalamin, vitamin B-12, (VITAMIN B-12 ORAL) Take by mouth. gummies Active OREGANO OIL ORAL oregano oil 04/17/2020 Active Milk Thistle 150 mg capsule Take by mouth. Active UNABLE TO FIND Med Name: NAC Active berberine/herbal complex no.18 (BERBERINE-HERBAL COMB NO.18 ORAL) Take by mouth. Acti ve multivitamin (THERAGRAN) Tablet Take 1 tablet by mouth daily. 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 US showed a 1.1-cm mass at 6:00, 4 cm from the nipple. A core biopsy revealed invasive ductal carcinoma, intermediate grade, ER/VA strongly positive, Her2 negative. Pathology showed that she had a 15-mm infiltrating carcinoma. The margins were negative. The nearest margin was 5 mm away. No ductal carcinoma in situ was seen. Multiple deposits of metastatic carcinoma are present in two lymph nodes from the sentinel lymph node excision (10/09). The metastatic tumor deposits show distinct differences in morphology and biomarker expression. One tumor deposit is morphologically similar to the primary breast tumor and is strong and diffusely ER and VA positive, and HER2 negative. Commingling within the same positive lymph nodes is a morphologically distinct metastatic invasive ductal tumor which exhibits ample eosinophilic and vacuolated cytoplasm. This tumor is ER, VA, and HER2 negative. OncotypeDx Recurrence Score - 16; 15% distant recurrence at 10 years. Chemotherapy was not recommended. She completed XRT in [facility] on 01/03/2019. An aromatase inhibitor was recommended, but she declined adjuvant hormonal therapy, opting instead to use naturopathic treatments with hyperbaric treatments, mistletoe, and a keto diet. Milium 07/12/2015 History of SCC (squamous cell carcinoma) of skin 07/12/2015 Family History Medical History Relation Comments Breast Cancer Other 1 Breast Cancer Other 2 Breast Cancer Other 3 Alzheimer Disease Sister 1 Heart Disease Sister 2 Aortic valve Ovarian Cancer Neg Hx Relation Status Comments Other 1 Other 2 Other 3 Sister 1 Alive Sister 2 (Age 79) Social History Tobacco Use Types Packs/Day Years Used Date Smoking Tobacco: Never Smokeless Tobacco: Never Alcohol Use Standard Drinks/Week Comments Yes 0 (1 standard drink = 0.6 oz pur e alcohol) minimally Sex and Gender Information Value Date Recorded Sex Assigned at Not on file Gender Identity Not on file Sexual Orientation Not on file Last Filed Vital Signs Vital Sign Reading Time Taken Comments Blood Pressure 142/72 09/20/2023 1:37 PM EST Pulse 81 09/20/2023 1:37 PM EST Temperature 36.3 ??C (97.3 ??F) 09/20/2023 1:37 PM ES T Respiratory Rate 18 09/20/2023 1:37 PM EST Oxygen Saturation 97% 09/20/2023 1:37 PM EST Inhaled Oxygen Concentration - - Weight 79.3 kg (174 lb 12.8 oz) 09/20/2023 1:37 PM EST Height 160 cm (5' 2.99) 09/20/2023 1:37 PM EST Body Mass Index 30.97 09/20/2023 1:37 PM EST Plan of Treatment Health Maintenance Due Date Last Done Comments CT Colonography 1949 Colonoscopy 1949 Colorectal Cancer Screening 1949 FIT DNA 1949 FIT 1949 Sigmoidoscopy (10 year) with FIT yearly 1949 Sigmoidoscopy 1949 Hepatitis C Screening 11/28/1967 Lipid Screening 11/28/1967 Tetanus/Diphtheria/Pertussis Vaccines (1 - Tdap) 1968 Breast Cancer Share Decision Needed 1989 Zoster vaccine (1 of 2) 11/28/1999 Advance Directive 2004 Bone Density Scan 2014 Pneumoccocal Vaccine: 65+ (1 of 1 - PCV) 2014 Covid-19 Vaccine (1 - 2023-2 5 season) 2024 Influenza (Flu) vaccine (1 o f 1 - Influenza standard series) 05/04/2024 Breast Cancer screening 03/05/2025 03/05/20 23, 11/22/2021, 11/18/2020, Additional history exists Diabetes Screening (HgbA1C o r Glucose) Discontinued 09/11/2018 Medical Devices Implanted Type Area Wound Care Nurse Device Identifier Shelf Expiration Date Model / Serial / Lot Breast Clip-09/05/2018 Implanted:11/2018 by Zoltan Baldwin MD (Quantity not on file) Breast Clip Left: Breast Bard - 0614 [employer] UL[employer] UL[employer]HANCED LISA / / [id number] Description:LISA Breast Clip- 9 Implanted:Qty : 1 on 09/18/2018 by Zoltan Baldwin MD Breast Clip Left: Breast [id number] / [id number] GSS / Description:senomark ultraco r M Procedures Procedure Name Priority Date/Time Associated Diagnosis Comments MAMMO SCREENING CAD AND MARQUES BILATERAL Routine 03/05/2023 10:16 AM EDT Breast cancer metastasized to axillary lymph node, left Breast cancer screening by mammogram COMPREHENSIVE METABOLIC PANEL Routine 09/11/2018 2:48 PM EST Malignant neoplasm of left breast in female, estrogen receptor positive, unspecified site of breast from Last 3 Months or Most Recently Relevant to Health Maintenance Results * Mammo Screening Cad and Marques [...] Center. BIRADS CATEGORY 2: BENIGN FINDINGS [employer] [place] [employer] and The Society of [...] Viktoriya Patricia APRN IMG MAMMO ORD ERABLES * (ABNORMAL) Comprehensive metabolic panel (non-fasting) (09/11/2018 2:48 PM EST) Glucose 78 65 - 199 mg/dL [facility] Comment:Diabetes: >=200 mg/d L plus symptoms Blood Urea Nitrogen 14 8 - 18 mg/dL [facility] Creatinine 0.76 0.70 - 1.20 mg/dL [facility] Sodium 140 135 - 145 mmol/L [facility] Potassium 4.1 3.5 - 5.0 mmol/L [facility] Comment: Please note: ??Patients with WBC >100,000 may have falsely elevated Potassium levels. ??For accurate Potassium quantification in these patients send serum separator tube (gold top) for subsequent determinations. ??Contact the Clinical Chemistry Laboratory if there are any questions. Chloride 100 98 - 107 mmol/L [facility] Carbon Dioxide 24 22 - 31 mmol/L [facility] Anion Gap 16(H) 5 - 15 mmol/L [facility] Calcium 9.0 8.5 - 10.5 mg/dL [facility] Protein, Total 7.0 6.1 - 8.0 gm/dL [facility] Albumin 3.9 3.2 - 5.2 gm/dL [facility] Aspartate Aminotransferase 20 0 - 30 unit/L [facility] Alanine Aminotransferase 17 0 - 30 unit/L [facility] Alkaline Phosphatase 61 40 - 104 unit/L [facility] Bilirubin, Total 0.2 0.2 - 1.3 mg/dL [facility] Est Glomerular Filtration Rate 81 >=60 mL/min/1. 73 m?? [facility] Comment: The eGFR was calculated using the CKD-EPI equation. As with all creatinine based estimates of kidney function, eGFR values calculated with the CKD-EPI equation are not accurate in patients with acute kidney failure, extremes of body mass or the acutely ill. [email or web address] eGFR 93 >=60 mL/min/1. 73 m?? [facility] Comment: The eGFR was calculated using the CKD-EPI equation. As with all creatinine based estimates of kidney function, eGFR values calculated with the CKD-EPI equation are not accurate in patients with acute kidney failure, extremes of body mass or the acutely ill. [email or web address] Blood specimen (specimen) 09/11/2018 2:48 PM EST 09/11/2018 3:06 PM EST Narrative Resulting Agency Comment Spec In Lab Jhonatan Gilmore MD CHEMISTRY ORDERABLES [facility] [place] [address] from Last 3 Months or Most Recently Relevant to Health Maintenance Advance Directives * Full Code (Latest Code Status on File) Date Activated Date Inactivated Comments 10/10/2018 11:30 AM 10/10/2018 6:58 PM Question Answer Comments Does patient have capacity to make decision: Yes Care Teams Sisal Operator Relationship Specialty Start Date End Date Jenise Huddleston APRN [address] [place] [address] PCP - General Family Medicine 09/11/18
--- OUTSIDE RECORDS SUMMARY | 2024-07-10 15:29 | XMS_ITS | Encounter Summary ---
Author Organization Formerly [facility] Address [facility] [place] [address] Care Team Providers Care Backup Operator Name Role Phone Jenise Huddleston APRN Primary Care Provider +1 [phone] Encounter Details Date Type Department Care Team (Late st Contact Info) Description 01/03/2019 Notes Only Radiation Oncology at [address] [phone] Abbey Renae MD [facility] [place] [address] Social History Tobacco Use Types Packs/Day Years Used Date Smoking Tobacco: Never Smokeless Tobacco: Never Alcohol Use Standard Drinks/Week Comments Yes 0 (1 standard drink = 0.6 oz pur e alcohol) minimally Sex and Gender Information Value Date Recorded Sex Assigned at Not on file Gender Identity Not on file Sexual Orientation Not on file documented as of this encounter Progress Notes * Abbey Renae MD - 01/03/2019 11:59 AM EDT Ursula Urias has completed xrt for breast ca, L, IDC, gr 2, ER+OK+, Her2 neg, s/p lumpectomy & SNB, pT1c pN1a, w/maycol deposits showing 2 different types of tumor, ER+OK+, Her2 neg & ER-OK-, Her2 neg. The course of xrt is summarized as follows: Treatment was given from 11/20/18 to 01/03/19. 50.4 Gy in 28 fxs was given to L supraclavicular fossa & L axilla with 10 MV Xray external beam& to L breast with 6 & 10 MV Xray external beam, followed by volume reduction & 10 Gy/5fxs to lumpectomy bed with 10 MV Xray external beam, boosting lumpectomy bed to 60.4 Gy/33. Deep inspiration breath hold (DIBH) & 3D xrt used throughout treatment. The course of xrt was tolerated well, w/the expected side effect of skin reaction within irradiatedarea managed w/osorio's cream, aloe gel, silvadene & veleda cream. Exam near completion of xrt showed skin reaction in irradiated area 2+, w/erythema & dry desquamation; early moist desquamation IM fold of L breast. FU w/me 03/10/19. Dr. Moody 01/30/19. FCP 02/12/19. Fu CT in March for surveillance LLL nodule. She plans to discuss fu imaging of breast w/Dr. Gilmore, as she wants fu images other than mmgs. documented in this encounter Plan of Treatment Not on file documented as of this encounter Visit Diagnoses Not on filedocumented in this encounter Care Teams Backup Operator Relationship Specialty Start Date End Date Jenise Huddleston APRN [address] [place] [address] PCP - General Family Medicine 09/11/18 documented as of this encounter
--- OUTSIDE RECORDS SUMMARY | 2024-07-10 15:29 | XMS_ITS | Encounter Summary ---
Author Organization [facility] Address [facility] [place] [address] Care Team Providers Care Senior C Web Developer Name Role Phone Flaquito Jenise Stefanie ARMSTRONG Primary Care Provider [phone] [phone] Encounter Details Date Type Department Care Team (Late st Contact Info) Description 02/06/2019 Notes Only Hematology [place] [address] [facility] DR HEMATOLOGY/[place] [address] Social History Tobacco Use Types Packs/Day Years Used Date Smoking Tobacco: Never Smokeless Tobacco: Never Alcohol Use Standard Drinks/Week Comments Yes 0 (1 standard drink = 0.6 oz pur e alcohol) minimally Sex and Gender Information Value Date Recorded Sex Assigned at Not on file Gender Identity Not on file Sexual Orientation Not on file documented as of this encounter Progress Notes * Brian Frazier MD - 02/06/2019 4:51 PM EDT I have reviewed the patient's record and given personal and/or family history of cancer she should be seen by genetic counselor. This is scheduled for next week. documented in this encounter Plan of Treatment Not on file documented as of this encounter Visit Diagnoses Not on filedocumented in this encounter Care Teams Senior C Web Developer Relationship Specialty Start Date End Date Jenise Huddleston APRN [address] [place] [address] PCP - General Family Medicine 09/11/18 documented as of this encounter
--- OUTSIDE RECORDS SUMMARY | 2024-07-10 15:29 | XMS_ITS | Encounter Summary ---
Author Organization [facility] Address [facility] [place] [address] Care Team Providers Care Upholstery Mechanic Name Role Phone Jenise Huddleston NATHANIEL Primary Care Provider [phone] [phone] Encounter Details Date Type Department Care Team (Late st Contact Info) Description 03/16/2022 3:00 PM EDT Office Visit Hematology/Oncology at [address] [phone] Wilmar Moody MD [facility] DR HEMATOLOG[place] [address] Malignant neoplasm of breast in female, estrogen receptor positive, unspecified laterality, unspecified site of breast Social History Tobacco Use Types Packs/Day Years [...] Sign Reading Time Taken Comments Blood Pressure 131/69 03/16/2022 3:06 PM EDT Pulse 72 03/16/2022 3:06 PM EDT Temperature 36.8 ??C (98.2 ??F) 03/16/2022 3:06 PM ED T Respiratory Rate 16 03/16/2022 3:06 PM EDT Oxygen Saturation 97% 03/16/2022 3:06 PM EDT Inhaled Oxygen Concentration - - Weight 80.2 kg (176 lb 12.8 oz) 03/16/2022 3:06 PM EDT Height 160 cm (5' 3) 03/16/2022 3:06 PM EDT Body Mass Index 31.32 03/16/2022 3:06 PM EDT documented in this encounter Progress Notes * Wilmar Moody MD - 03/16/2022 3:00 PM EDT Ms. 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 She had a node positive left breast cancer detected 2018. She underwent partial mastectomy showing 2 lymph nodes positive. There were 2 sub-clones of metastasis to her lymph nodes, one ER positive, 1 ER negative. She completed her radiation therapy but then declined any hormonal therapy. She is using natural methods and dietary manipulations. She feels great. Had platelet injections in both knees with good results. She has no new medical concerns. She has not noted any lumps or bumps. No unexpected aches orpains. PMH: Patient Active Problem List Diagnosis Code ??? Milium L72.0 ??? History of SCC (squamous cell carcinoma) of skin Z85.828 ??? 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 ROS: No new problems with MILES, diplopia, difficulty swallowing, heartburn, cough, DUKES/SOB, pain, palpitations, fevers, bleeding of any kind, nausea/emesis, decreased appetite or energy, change in bowel or bladder function, weakness, swelling, difficulty sleeping, imbalance, falls. ROS otherwise neg. Exam: BP 131/69 (Patient Position: Sitting) Pulse 72 Temp 36.8 ??C (98.2 ??F) (Temporal) Resp 16 Ht 160 cm (5' 3) Wt 80.2 kg (176 lb 12.8 oz) SpO2 97% BMI 31.32 kg/m?? Oropharynx mucous membranes moist Sclera are white She is breathing comfortably Lungs are clear to A&P Heart regular rate and rhythm Abdomen soft, nontender Bilateral breasts are without masses, left breast well-healed incision No lower extremity edema No rash Oriented x3 Assessment/Rec: 71 yo female with a node-positive left breast cancer. Tumor was 1.5cm, intermediate grade, involving 2 nodes. There was angiolymphatic invasion as well. ER and WV were strongly expressed; HER2 negative. OncotypeDx Recurrence Score = 16 (in intermediate range where adjuvant chemo not required/recomme nded). The patient did get adjuvant radiation therapy but declined adjuvant hormonal therapy. There are no signs of local or systemic recurrence and overall she is doing well. She again confirms her decision not to take hormonal therapy. RTC 6 months, no labs documented in this encounter Plan of Treatment Not on file documented as of this encounter Visit Diagnoses Diagnosis Malignant neoplasm of breast in female, estrogen receptor positive, unspecified laterality, unspecified site of breast documented in this encounter Care Teams Upholstery Mechanic Relationship Specialty Start Date End Date Jenise Huddleston APRN [address] [place] [address] PCP - General Family Medicine 09/11/18 documented as of this encounter
--- OUTSIDE RECORDS SUMMARY | 2024-07-10 15:29 | XMS_ITS | Encounter Summary ---
Author Organization Formerly [facility] Address [facility] [place] [address] Care Team Providers Care Zinc Plater Name Role Phone FlaquitoJenise hinson Stefanie ARMSTRONG Primary Care Provider [phone] [phone] Encounter Details Date Type Department Care Team (Late st Contact Info) Description 05/17/2020 2:00 PM EDT Office Visit Hematology/Oncology at [address] [phone] Jacqueline Rose APRN [address] [place] [address] HEMATOLOGY ONCOLOGY [place], [place] [id number] Malignant neoplasm of breast in female, estrogen [...] Sign Reading Time Taken Comments Blood Pressure 107/80 05/17/2020 2:15 PM EDT Pulse 78 05/17/2020 2:15 PM EDT Temperature 37.4 ??C (99.3 ??F) 05/17/2020 2:15 PM ED T Respiratory Rate 20 05/17/2020 2:15 PM EDT Oxygen Saturation 96% 05/17/2020 2:15 PM EDT Inhaled Oxygen Concentration - - Weight 79.2 kg (174 lb 9.6 oz) 05/17/2020 2:15 P M EDT Height 157.5 cm (5' 2) 05/17/2020 2:15 PM EDT Body Mass Index 31.93 05/17/2020 2:15 PM EDT documented in this encounter Progress Notes * Jacqueline Rose, TRANSITION SPECIALIST - 05/17/2020 2:00 PM EDT Subjective: Patient ID: Ursula Urias is a 69 y.o. female. HPI Left breast cancer 09/21 Mammogram detected Needle biopsy 09/05/18 Invasive ductal carcinoma ER positive, WA positive, 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 Gilmore ?? The patient is seen in the [facility]. She had a node positive left breast cancer detected earlier this year. She underwent partial mastectomy showing 2 lymph nodes positive. Interestingly there were 2 sub-clones of metastasis to her lymph nodes, one ER positive, 1 ER negative. ?? She completed her radiation therapy but then declined any hormonal therapy. She is using natural methods and dietary manipulations. INTERVAL HPI 05/17/20 Ursula Urias is a 69 yo female diagnosed in 09/21 with left breast IDC; ER/WA+; Veq8pca negative. Ursula had a partial mastectomy followed by radiation completed 01/19. (See history as summarized above.). She declines hormonal therapy. She returns to the [facility]- oncology clinic today for Q3 month follow-up alternating with [facility]. Today Ursula also has a visit scheduled with Dr. Renae. Ursula reports feeling pretty well with a good energy level. 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 She tells me initially the radiation treatments knocked me for a loop, but now she feels back to normal. She states she was diagnosed on March 06, 2020 with Lyme disease. She says she also has anaplasmosis.She states she took Doxycycline for a month. She sees a lyme specialist in [place] and also sees a faculty i on call medical assistant at [facility]. She reports finding no new lumps or masses in her breasts. She has not noticed any lymphedema. She denies fevers or night sweats since March 06. She denies constipation or diarrhea, or difficulty urinating. Ursula denies any respiratory or cardiac problems. She reports a good appetite. She does like to walk and swim. ?? No Known Allergies Current Medications ??? Green Tea Ceex Haci Extract (GREEN TEA) Capsule ??? niacin 500 [...] Negative for arthralgias, joint swelling and myalgias. Skin: Negative. Neurological: Negative. Hematological: Negative. Psychiatric/Behavioral: [...] Normal range of motion. Right lower leg: Edema present. Left lower leg: Edema present. Comments: Chronic, non-pitting bilateral LE +1 edema. Negative left arm lymphedema Lymphadenopathy: Cervical: No cervical adenopathy. Upper Body: Right upper body: No supraclavicular adenopathy. Left upper body: No supraclavicular adenopathy. Skin: General: Skin is warm and dry. Findings: No rash. Neurological: General: No focal deficit present. Mental Status: She is oriented to person, place, and time. Gait: Gait normal. Psychiatric: Mood and Affect: Mood normal. Thought Content: Thought content normal. [facility]. Patient Vitals for the past 24 hrs: Temp Pulse Resp BP SpO2 05/17/20 1415 37.4 ??C (99.3 ??F) 78 20 107/80 96 % Wt 79.2 kg. No labs ordered for this visit. RECENT [...] diagnosed in 09/21 with left breast IDC; ER/WA+; Dlj5mkg negative. Ursula had a partial mastectomy followed by radiation completed 01/19. (See history as summarized above.). She declines hormonal therapy. Ursula is feeling well with no new breast complaints. She is managing well with self-reported diagnosis of lyme disease. Plan: Per NCCN guidelines IDC patients should have visit and exam 1-4 times annually. Mammogram annually (due 11/21) RTC for medical oncology visit in 3 months. Will then alternate with [facility]On visits. Encourage daily exercise, walking and swimming. documented in this encounter Plan of Treatment Not on file documented as of this encounter Visit Diagnoses Diagnosis Malignant neoplasm of breast in female, estrogen receptor positive, unspecified laterality, unspecified site of breast documented in this encounter Care Teams Zinc Plater Relationship Specialty Start Date End Date Jenise Huddleston APRN [address] [place] [address] PCP - General Family Medicine 09/11/18 documented as of this encounter
--- OUTSIDE RECORDS SUMMARY | 2024-07-10 15:29 | XMS_ITS | Encounter Summary ---
Author Organization Formerly [facility] Address [facility] [place] [address] Care Team Providers Care Pin Ticket Machine Operator Name Role Phone FlaquitoJenise hinson NATHANIEL Primary Care Provider [phone] [phone] Encounter Details Date Type Department Care Team (Late st Contact Info) Description 08/14/2019 10:30 AM EST Office Visit Hematology/Oncology at [address] [phone] Wilmar Moody MD [facility] DR HEMATOLOGY [place] [address] Vangie James, RN Malignant neoplasm of breast in female, estrogen [...] Sign Reading Time Taken Comments Blood Pressure 124/54 08/14/2019 10:39 AM EST Pulse 64 08/14/2019 10:39 AM EST Temperature 36.9 ??C (98.4 ??F) 08/14/2019 10:[address] Respiratory Rate 18 08/14/2019 10:39 AM EST Oxygen Saturation 100% 08/14/2019 10:39 AM EST Inhaled Oxygen Concentration - - Weight 79 kg (174 lb 3.2 oz) 08/14/2019 10:39 AM EST Height 158 cm (5' 2.21) 08/14/2019 10:39 AM EST copied Body Mass Index 31.65 08/14/2019 10:39 AM EST documented in this encounter Progress Notes * Wilmar Moody MD - 08/14/2019 10:30 AM EST Ms. Urias is a 68 year old female Left breast cancer 09/21 Mammogram detected Needle biopsy 09/05/18 Invasive ductal carcinoma ER positive, IA positive, 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 Gilmore The patient is seen in the [facility]. She had a node positive left breast cancer detected earlier this year. She underwent partial mastectomy showing 2 lymph nodes positive. Interestingly there were 2 sub-clones of metastasis to her lymph nodes, one ER positive, 1 ER negative. She completed her radiation therapy but then declined any hormonal therapy. She is using natural methods and dietary manipulations. She feels great. She is very comfortable with her decision to avoid hormonal therapy and potential side effects. She has no new medical concerns. She has not noted any lumps or bumps. No unexpected aches or pains. She has been trying to lose some weight following a keto diet. She is headed to [place] to visit her daughter later today. PMH: Patient Active Problem List Diagnosis Code ??? Milium L72.0 ??? History of SCC (squamous cell carcinoma) of skin Z85.828 ??? 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 [place] [facility] told it was excellent. ROS: No new problems with MILES, diplopia, difficulty swallowing, heartburn, cough, DUKES/SOB, pain, palpitations, fevers, bleeding of any kind, nausea/emesis, decreased appetite or energy, change in bowel or bladder function, weakness, swelling, difficulty sleeping, imbalance, falls. ROS otherwise neg. Exam: BP 124/54 (Patient Position: Sitting) Pulse 64 Temp 36.9 ??C (98.4 ??F) (Oral) Resp 18 Ht 158 cm (5' 2.21) Comment: copied Wt 79 kg (174 lb 3.2 oz) SpO2 100% BMI 31.65 kg/m?? Oropharynx mucous membranes moist Sclera are white She is breathing comfortably Lungs are clear to A&P Heart regular rate and rhythm Abdomen soft, nontender Bilateral breasts are without masses, left breast well-healed incision No lower extremity edema No rash Oriented x3 Assessment/Rec: 68 yo female with a node-positive left breast cancer. Tumor was 1.5cm, intermediate grade, involving 2 nodes. There was angiolymphatic invasion as well. ER and IA were strongly expressed; HER2 negative. OncotypeDx Recurrence Score = 16 (in intermediate range where adjuvant chemo not required/recomme nded). The patient did get adjuvant radiation therapy but declined adjuvant hormonal therapy. There are no signs of local or systemic recurrence and overall she is doing well. She again confirms her decision not to take hormonal therapy. She does have follow-up with the surgical oncology clinic in November. I will plan to see her back in [place] and February 2020 for continued follow-up. She knows to report if she develops new symptoms or findings concerning for recurrence of cancer documented in this encounter Plan of Treatment Not on file documented as of this encounter Visit Diagnoses Diagnosis Malignant neoplasm of breast in female, estrogen receptor positive, unspecified laterality, unspecified site of breast documented in this encounter Care Teams Pin Ticket Machine Operator Relationship Specialty Start Date End Date Jenise Huddleston APRN [address] [place] [address] PCP - General Family Medicine 09/11/18 documented as of this encounter
--- OUTSIDE RECORDS SUMMARY | 2024-07-10 15:29 | XMS_ITS | Encounter Summary ---
Author Organization [facility] Address [facility] [place] [address] Care Team Providers Care Sampler And Test Preparer Name Role Phone Jenise Huddleston NATHANIEL Primary Care Provider [phone] [phone] Reason for Visit * Reason Comments On Treatment Visit Encounter Details Date Type Department Care Team (Late st Contact Info) Description 12/25/2018 8:30 AM EDT Office Visit Radiation Oncology at [address] [phone] Abbey Renae MD [facility] [place] [address] Malignant neoplasm of central portion of left [...] * Patient Instructions* Abbey Renae MD - 12/25/2018 8:30 AM EDT Your last radiotherapy will be on F., 01/03/19. Please continue the bill's cream &/or aloe &/or veleda to irradiated area. Please do not use a straight/regular razor on your left underarm. An electric razor is ok. Please do not expose the irradiated area to sun. Please do not expose irradiated area to chlorinated water. Saltwater or freshwater is ok. Please do not expose irradiated area to hot tub water. Hot bath/shower ok. We will mail you a letter with an appointment for followup with me in 1-2 months. documented in this encounter Progress Notes * Abbey Renae MD - 12/25/2018 8:30 AM EDT Images from the original note were not included. DIAGNOSIS: Breast ca, L, IDC, gr 2, ER+WI+, Her2 neg, s/p lumpectomy & SNB, pT1c pN1a, w/maycol deposits showing 2 different types of tumor, ER+WI+, Her2 neg & ER-WI-, Her2 neg. CURRENT TREATMENT DOSE: 45 Gy L supraclav, L axilla & L breast ANTICIPATED TOTAL DOSE: 50.4 Gy L supraclav, L axilla & L breast; 60.4 Gy lumpectomy bed Current # of xrt received: 25 L supraclav, L axilla & L breast Anticipated total # of xrt txs: 28 L supraclav, L axilla & L breast, 33 lumpectomy bed Evaluation of port verification films: Approved. For details, see electronic film record in knowNormal System. Changes in Medical Condition: Seen by Dr. Steve yesterday & told lesion on medial L breast benign seborrheic keratosis. Conts fu w/her machine marker, Dr. Farnaz Levy, [place] this wk. Wants fu studies other than mmgs. Pain?: No. Your Medications Accurate as of 12/25/18 11:04 AM. If you have any questions, ask your [...] to review them with you. Physical Exam: A&Ox3, NAD. 1 cm mildly hyperpigmented lesion LIQ L breast, parasternal, waxy stuck on appearance, consistent w/seborrheic keratosis. Mild to moderate erythema L breast; skin intact. Imagin11/13/18 Dx'ic Rad Interp CTsim: 4 mm LLL nodule most likely benign. 10 mm L adrenal nodulemost consistent w/adenoma. No highly suspicious sign of met dz. Performance Status: KPS 100% Response to xrt: As expected. Irradiation Related Symptoms: Skin rxn. Treatment for Symptom Control: Bill's cream, aloe gel, veleda cream. Pain Management: Not needed. Recommendation on Continuing Course of xrt: Cont. BID 12/31/18 so she will complete xrt 01/03/19 &be able to fulfill prior commitment. Care of irrad'd skin discussed. Rtc 1-2 mos. Rec'd that she discuss fu imaging w/Dr. Gilmore. We discussed CTsim showing LLL nodule & L adrenal nodule; will obtain fu CT in March. documented in this encounter Plan of Treatment Not on file documented as of this encounter Visit Diagnoses Diagnosis Malignant neoplasm of central portion of left female breast, unspecified estrogen receptor status documented in this encounter Care Teams Sampler And Test Preparer Relationship Specialty Start Date End Date Jenise Huddleston APRN [address] [place] [address] PCP - General Family Medicine 09/11/18 documented as of this encounter
--- OUTSIDE RECORDS SUMMARY | 2024-07-10 15:29 | XMS_ITS | Encounter Summary ---
Author Organization [facility] [place] [address] Care Team Providers Care Winding Operator Name Role Phone Jenise Huddleston APRN Primary Care Provider [phone] Encounter Details Date Type Department Care Team (Latest Contact Info) Description 01/16/2023 Travel Social History Tobacco Use Types Packs/Day [...] on filedocumented in this encounter Care Teams Winding Operator Relationship Specialty Start Date End Date Jenise Huddleston APRN [address] [place] [address] PCP - General Family Medicine 09/11/18 documented as of this encounter
--- OUTSIDE RECORDS SUMMARY | 2024-07-10 15:29 | XMS_ITS | Encounter Summary ---
Author Organization [facility] Address [facility] [place] [address] Care Team Providers Care Business Process Expert Name Role Phone Jenise Huddleston NATHANIEL Primary Care Provider [phone] [phone] Reason for Visit * Reason Comments Radiation Follow-up Encounter Details Date Type Department Care Team (Late st Contact Info) Description 06/06/2021 2:30 PM EDT Office Visit Radiation Oncology at [address] [phone] Abbey Renae MD [facility] [place] [address] Malignant neoplasm of central portion of left [...] Sign Reading Time Taken Comments Blood Pressure 132/68 06/06/2021 2:42 PM EDT Pulse 77 06/06/2021 2:42 PM EDT Temperature 36.4 ??C (97.5 ??F) 06/06/2021 2:42 PM ED T Respiratory Rate 16 06/06/2021 2:42 PM EDT Oxygen Saturation 98% 06/06/2021 2:42 PM EDT Inhaled Oxygen Concentration - - Weight 80.7 kg (178 lb) 06/06/2021 2:42 PM EDT Height - - Body Mass Index 32.34 02/17/2021 2:40 PM EDT documented in this encounter Patient Instructions * Patient Instructions* Abbey Renae MD - 06/06/2021 2:30 PM EDT Your exam is without worrisome finding. Someone will contact you to schedule followup with me in 6 months. documented in this encounter Progress Notes * Abbey Renae MD - 06/06/2021 2:30 PM EDT Images from the original note were not included. CC: Sched'd fu s/p xrt completion. HPI: Ursula is a 70 y/o f who completed xrt to L breast 2 yrs, 5 mos ago (01/03/19) for breast ca, L, IDC, gr 2, ER+NH+, Her2 neg, s/p lumpectomy & SNB, pT1c pN1a, w/maycol deposits showing 2 different types of tumor, ER+NH+, Her2 neg & ER-NH-, Her2 neg. 01/23/[address] Moody for hormonal tx, which she declined. 02/20/19 genetic testing, neg. 04/30/19 L mmg: Benign 04/30/19 MRI B breasts: Benign 11/18/20 B mmg: Neg. 11/18/20 Krishna Patricia APRN Gen Surg, rtc 1 yr w/mmg. 02/17/21 Dr. Moody, confirmed decision to not take hormonal tx, rtc 6 mos. Subjective: No pain. No breast problem. No [...] Us Biopsy Left 09/05/2018 Zoltan Baldwin MD [facility] RAD MAMMOGRAPHY ??? MAMMO US NEEDLE LOCALIZATION LEFT Left 10/10/2018 Mammo US Needle Localization Left 10/10/2018 Christina Torre MD [facility] RAD MAMMOGRAPHY ??? MRI GUIDED BIOPSY BREAST VACUUM ASSISTED LEFT Left 09/18/2018 MRI Breast Biopsy Vacuum Assist Left 09/18/2018 [facility] RAD MRI ??? PRO BX/REMV, LYMPH NODE, DEEP AXILL Left 10/10/2018 BIOPSY OR EXCISION OF LYMPH NODE(S), OPEN, DEEP AXILLARY NODE(S) (WRVU 6.43) performed by Jhonatan Gilmore MD at [facility] MAIN OR ??? PRO INTRAOP SENTINEL LYMPH ID W/DYE INJECTION Left 10/10/2018 INTRAOPERATIVE ID (MAPPING) SENTINEL LYMPH NODE,INCLUDES INJECTION (WRVU 2.5) performed by Jhonatan Gilmore MD at [facility] MAIN OR ??? PRO MASTECTOMY PARTIAL Left 10/10/2018 MASTECTOMY PARTIAL (WRVU 10.13) performed by Jhonatan Gilmore MD at [facility] MAIN OR Ectopic pregnancies. Your Medications Accurate as of June 06, 2021 2:54 PM. If you have any questions, ask your nurse or doctor. Continued medications, unchanged Dose Details ASHWAGANDHA ROOT EXTRACT ORAL Take by mouth daily. tincture Refills: 0 cholecalciferol (Vitamin D3) 1,000 unit Tab Commonly known as: Vitamin D3 Take 6 Units by mouth daily. 6 gtts daily 6 Units Refills: 0 Green Tea Cap Take 1 capsule by mouth daily. Generic drug: Green Tea [place] Extract 1 capsule Refills: 0 MAGNESIUM CITRATE ORAL Take by mouth. Refills: 0 niacin 500 mg Tab Take 500 mg by mouth daily (with breakfast). 500 mg Refills: 0 NONFORMULARY REQUEST Take 1 Dose by mouth daily. chaga with reiche 1 Dose Refills: 0 OMEGA-3 ORAL Take 2,000 Units by mouth daily. Equivalent 2 caps daily 2,000 Units Refills: 0 PROBIOTIC WITH PREBIOTIC ORAL Take 1 Dose by mouth daily. 1 Dose Refills: 0 STEVIA MISC 2 drops by Misc.(Non-Drug; Combo Route) route daily. 2 drop Refills: 0 * UNABLE TO FIND Take 2 capsules by mouth daily. Theracumin 2 capsule Refills: 0 * UNABLE TO FIND Inject 1 Dose subcutaneously every 30 days. [place]--anticancer 1 Dose Refills: 0 VITAMIN A ORAL Take by mouth. Refills: 0 VITAMIN B-12 ORAL Take by mouth. gummies Refills: 0 VITAMIN C ORAL Take by mouth. Refills: 0 VITAMIN E ORAL Take by mouth. Refills: 0 * This list has 2 medication(s) that are the same as other medications prescribed for you. Read thedirections carefully, and ask your doctor or other care provider to review them with you. Physical Exam Constitutional: General: She is not in acute distress. Appearance: She is well-developed. She is not diaphoretic. Comments: BP 132/68 Pulse 77 Temp 36.4 ??C (97.5 ??F) (Temporal) Resp 16 Wt 80.7 kg (178 lb) SpO2 98% BMI 32.34 kg/m?? HENT: Head: Normocephalic and atraumatic. Eyes: General: No scleral icterus. Right eye: No discharge. Left eye: No discharge. Conjunctiva/sclera: Conjunctivae normal. Neck: Thyroid: No thyromegaly. Trachea: No tracheal deviation. Pulmonary: Effort: Pulmonary effort is normal. No respiratory distress. Breath sounds: No stridor. Chest: Breasts: Right: No inverted nipple, mass, nipple discharge, skin change, tenderness, axillary adenopathy or supraclavicular adenopathy. Left: No inverted nipple, mass, nipple discharge, skin change, tenderness, axillary adenopathy or supraclavicular adenopathy. Abdominal: General: There is no distension. Palpations: Abdomen is soft. There is no mass. Tenderness: There is no abdominal tenderness. There is no guarding or rebound. Musculoskeletal: General: No tenderness or deformity. Normal range of motion. Cervical back: Normal range of motion and neck supple. No tenderness. Right lower leg: No edema. Left lower leg: No edema. Lymphadenopathy: Head: Right side of head: No [...] normal. A: ODALIS. P: Rtc 6 mos. 20 mins in encounter. documented in this encounter Plan of Treatment Not on file documented as of this encounter Visit Diagnoses Diagnosis Malignant neoplasm of central portion of left female breast, unspecified estrogen receptor status documented in this encounter Care Teams Business Process Expert Relationship Specialty Start Date End Date Jenise Huddleston APRN [address] [place] [address] PCP - General Family Medicine 09/11/18 documented as of this encounter
--- OUTSIDE RECORDS SUMMARY | 2024-07-10 15:29 | XMS_ITS | Encounter Summary ---
[place] [address] Care Team Providers Care Risk Assessment Analyst Name Role Phone Jenise Huddleston APRN Primary Care Provider [phone] Reason for Referral * Consultation (Routine) - Closed Specialty Diagnoses / Procedures Referred By Petros shah Referred To Contact Gastroenterology Diagnoses Hepatic cirrhosis, unspecified hepatic cirrhosis type, unspecified whether ascites present Abdominal discomfort Change in stool habits hepatic cirrhosis/ abd discomfort /change in stool Jenise Huddleston APRN [address] [place] [address] [facility] [address] [address] Referral ID Status Reason Start Date Expiration Date V isits Requested Visits Authorized [id number] Closed Consult, Test & Treat PCP Updated and/or Approved 12/08/2022 12/08/2023 12 12 Encounter Details Date Type Department Care Team (Latest Contact Info) Description 12/08/2022 Transcribe Orders eDH Incoming Referrals [phone] Jenise Huddleston APRN [address] [place], [place] [address] Hepatic cirrhosis, unspecified hepatic cirrhosis type, unspecified whether ascites present; Abdominal discomfort; Change in stool habits Social History Tobacco Use Types Packs/Day Years Used Date Smoking Tobacco: Never Smokeless Tobacco: Never Alcohol Use Standard Drinks/Week Comments Yes 0 (1 standard drink = 0.6 oz pur e alcohol) minimally Sex and Gender Information Value Date Recorded Sex Assigned at Not on file Gender Identity Not on file Sexual Orientation Not on file documented as of this encounter Plan of Treatment Scheduled Referrals Name Type Priority Associated Diagnoses Order Schedule Referral to Gastroenterology Outpatient Referral Routine Hepatic cirrhosis, unspecified hepatic cirrhosis type, unspecified whether ascites present Abdominal discomfort Change in stool habits Ordered: 12/08/2022 documented as of this encounter Visit Diagnoses Diagnosis Hepatic cirrhosis, unspecified hepatic cirrhosis type, unspecified whether ascites present Abdominal discomfort Abdominal pain, unspecified site Change in stool habits Other symptoms involving digestive system documented in this encounter Care Teams Risk Assessment Analyst Relationship Specialty Start Date End Date Jenise Huddleston APRN [address] [place] [address] PCP - General Family Medicine 09/11/18 documented as of this encounter
--- OUTSIDE RECORDS SUMMARY | 2024-07-10 15:29 | XMS_ITS | Encounter Summary ---
Author Organization [facility] Address [facility] [place] [address] Care Team Providers Care Asphalt Paving Machine Operator Name Role Phone Jenise Huddleston NATHANIEL Primary Care Provider [phone] [phone] Encounter Details Date Type Department Care Team (Late st Contact Info) Description 11/19/2019 Orders Only [place] [address] Jhonatan Gilmore MD [facility] [place] [address] Breast cancer screening by mammogram (Primary Dx) Social History Tobacco Use Types Packs/Day Years [...] encounter Results * Mammo Screening Cad and Luke Bilateral (11/18/2020 10:29 AM EDT) Anatomical Region Laterality Modality Breast Bilateral Mammography Narrative 11/19/2020 10:24 AM EDT EXAMINATION: MAMMO SCREENING CAD AND LUKE BILATERAL REASON FOR EXAM: Screening. History of [...] ? Electronically signed by: Akua Rodríguez MD, [facility] ([phone]), at 11/19/2020 10:24 AM Jhonatan Gilmore MD IMG MAMMO ORDERABLES documented in this encounter Visit Diagnoses Diagnosis Breast cancer screening by mammogram- Primary Breast cancer screening by mammogram documented in this encounter Care Teams Asphalt Paving Machine Operator Relationship Specialty Start Date End Date Jenise Huddleston APRN [address] [place] [address] PCP - General Family Medicine 09/11/18 documented as of this encounter
--- OUTSIDE RECORDS SUMMARY | 2024-07-10 15:29 | XMS_ITS | Encounter Summary ---
Author Organization [facility] Address [facility] [place] [address] Care Team Providers Care Podiatric Surgeon Name Role Phone Jenise Huddleston NATHANIEL Primary Care Provider [phone] [phone] Encounter Details Date Type Department Care Team (Late st Contact Info) Description 01/23/2019 8:30 AM EDT Office Visit Hematology/Oncology at [address] [phone] Wilmar Moody MD [facility] [place] [address] Breast cancer metastasized to axillary lymph node, [...] Sign Reading Time Taken Comments Blood Pressure 138/82 01/23/2019 8:44 AM EDT Pulse 67 01/23/2019 8:44 AM EDT Temperature 36.5 ??C (97.7 ??F) 01/23/2019 8:44 AM ED T Respiratory Rate 18 01/23/2019 8:44 AM EDT Oxygen Saturation 99% 01/23/2019 8:44 AM EDT Inhaled Oxygen Concentration - - Weight 81 kg (178 lb 9.6 oz) 01/23/2019 8:44 AM EDT Height 158 cm (5' 2.21) 01/23/2019 8:44 AM EDT copied Body Mass Index 32.45 01/23/2019 8:44 AM EDT documented in this encounter Progress Notes * Wilmar Moody MD - 01/23/2019 8:30 AM EDT Ms. 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 She completed her radiation therapy and her skinhas been recovering. She came to discuss additional treatments including possible hormonal therapy. She has been meetingwith a natural path and at this point does not want to take any hormonal treatments. She plans to do hyperbaric treatments. She also plans to do mistletoe. She plans to change her diet to try to decrease her estrogen levels. PMH: Patient Active Problem List Diagnosis Code [...] imbalance, falls. ROS otherwise neg. Exam: BP 138/82 (Patient Position: Sitting) Pulse 67 Temp 36.5 ??C (97.7 ??F) (Oral) Resp 18 Ht 158 cm (5' 2.21) Comment: copied Wt 81 kg (178 lb 9.6 oz) SpO2 99% BMI 32.45 kg/m?? Oropharynx mucous membranes moist Sclera are white She is breathing comfortably No lower extremity edema No rash Oriented x3 Assessment/Rec: 68 yo female recently diagnosed with a node-positive left breast cancer. Tumor was 1.5cm, intermediate grade, involving 2 nodes. There was angiolymphatic invasion as well. ER and NE were strongly expressed; HER2 negative. OncotypeDx Recurrence Score = 16 (in intermediate range where adjuvant chemo not required/recommended). She completed her radiation therapy but at this point is clear that she does not want to start hormonal therapy. We did talk about the role of systemic hormonal therapy. She was afraid of side effects such as muscle aches. I acknowledged that can occur but the majority of women tolerate the aromatase inhibitorswell. She still does not want to go on them. It was my recommendation that she reconsider that over the next few months. By the predict website she has a 4 to 5% absolute benefit in survival by taking 5 years of a hormonal therapy. I will see her back in 3 months to monitor her for any evidence of recurrence. She will reconsider her reluctance to go on hormonal therapy over that timeframe. documented in this encounter Plan of Treatment Not on file documented as of this encounter Visit Diagnoses Diagnosis Breast cancer metastasized to axillary lymph node, left documented in this encounter Care Teams Podiatric Surgeon Relationship Specialty Start Date End Date Jenise Huddleston APRN [address] [place] [address] PCP - General Family Medicine 09/11/18 documented as of this encounter
--- OUTSIDE RECORDS SUMMARY | 2024-07-10 15:29 | XMS_ITS | Encounter Summary ---
Author Organization [facility] [place] [address] Care Team Providers Care Hand Tapper Name Role Phone Jenise Huddleston NATHANIEL Primary Care Provider [phone] Encounter Details Date Type Department Care Team (Latest Contact Info) Description 11/22/2021 10:00 AM EDT - 11/22/2021 11:59 PM EDT Hospital Encounter Mammography/[place] [address] Viktoriya Patricia BLOCK [facility] [address] Breast cancer metastasized to axillary lymph node, left; Breast cancer screening by mammogram Discharge Disposition: [...] Date OREGANO OIL ORAL oregano oil 04/17/2020 ASHWAGANDHA ROOT EXTRACT ORAL Take by mouth daily. tincture cyanocobalamin, vitamin B-12, (VITAMIN B-12 ORAL) Take by mouth. gummies Bacillus coagulans/inulin (PROBIOTIC WITH PREBIOTIC ORAL) Take 1 Dose by mouth daily. NONFORMULARY REQUEST Take 1 Dose by mouth daily. Mushroom blend Green Tea [place] Extract Capsule Take 1 capsule by mouth [...] Theracumin MAGNESIUM CITRATE ORAL Take by mouth. stevioside (STEVIA MISC) 2 drops by Misc.(Non-Drug; Combo Route) route daily. 01/16/2023 niacin 500 mg Tablet Take 500 mg by mouth daily (with breakfast). 09/18/19 23 UNABLE TO FIND Inject 1 Dose subcutaneously every 30 days. Mistletoe--anticancer 09/18/2022 documented as of this encounter Plan of Treatment Not on file documented as of this encounter Procedures Procedure Name Priority Date/Time Associated Diagnosis Comments MAMMO SCREENING CAD AND MARQUES BILATERAL Routine 11/22/2021 10:26 AM EDT Breast cancer metastasized to axillary lymph node, left Breast cancer screening by mammogram documented in this encounter Results * Mammo Screening Cad and Marques Bilateral (11/22/2021 10:26 AM EDT) Anatomical Region Laterality Modality Breast Bilateral Mammography Narrative 11/22/2021 10:56 AM EDT EXAMINATION: MAMMO SCREENING CAD AND [...] post treatment changes in the left breast. There is a stable 1.2 cm mass in the right upper central breast anteriorly best seen on the craniocaudal view 3.5 cm from the nipple, reference 06/21/2011 right craniocaudal view. CONCLUSION: No mammographic evidence of malignancy. RECOMMENDATION: [...] participate in the care of this patient. ??If you are a health care provider and have any questions regarding this report, please contact the number below. ??For patients who have questions please contact the health managed care analyst that requested your imaging first. ? Electronically signed by: Akua Rodríguez MD, [facility] ([phone]), at 11/22/2021 10:56 AM Viktoriya Patricia APRN IMG MAMMO ORD ERABLES documented in this encounter Visit Diagnoses Diagnosis Breast cancer metastasized to axillary lymph node, left Breast cancer screening by mammogram documented in this encounter Care Teams Hand Tapper Relationship Specialty Start Date End Date Jenise Huddleston APRN [address] [place] [address] PCP - General Family Medicine 09/11/18 documented as of this encounter
--- OUTSIDE RECORDS SUMMARY | 2024-07-10 15:29 | XMS_ITS | Encounter Summary ---
Author Organization [facility] Address [facility] [place] [address] Care Team Providers Care Guide Delegate Name Role Phone Jenise Huddleston APRN Primary Care Provider [phone] [phone] Encounter Details Date Type Department Care Team (Late st Contact Info) Description 02/16/2022 Telephone Hematology/Oncology at [address] [phone] Jenise Ashton Social History Tobacco Use Types Packs/Day Years [...] on filedocumented in this encounter Care Teams Guide Delegate Relationship Specialty Start Date End Date Jenise Huddleston APRN [address] [place] [address] PCP - General Family Medicine 09/11/18 documented as of this encounter
--- OUTSIDE RECORDS SUMMARY | 2024-07-10 15:29 | XMS_ITS | Encounter Summary ---
Author Organization [facility] Address [facility] [place] [address] Care Team Providers Care Wire Harness Assembler Name Role Phone Jenise Huddleston NATHANIEL Primary Care Provider [phone] [phone] Reason for Visit * Reason Comments Radiation Follow-up Encounter Details Date Type Department Care Team (Late st Contact Info) Description 05/17/2020 4:30 PM EDT Office Visit Radiation Oncology at [address] [phone] Abbey Renae MD [facility] [place] [address] Malignant neoplasm of central portion of left [...] * Patient Instructions* Abbey Renae MD - 05/17/2020 4:30 PM EDT Your exam is without worrisome finding. I would like to see you for followup in 6 months. Someone will contact you to schedule the appointment. documented in this encounter Progress Notes * Abbey Renae MD - 05/17/2020 4:30 PM EDT Images from the original note were not included. CC: Sched'd fu s/p xrt completion. HPI: Ursula is a 69 y/o f who completed xrt to L breast 1 yr., 4 mos ago (01/03/19) for breast ca, L, IDC, gr 2, ER+MI+, Her2 neg, s/p lumpectomy & SNB, pT1c pN1a, w/maycol deposits showing 2 different types of tumor, ER+MI+, Her2 neg & ER-MI-, Her2 neg. 01/23/[address] Moody for hormonal tx, which she declined. 02/20/19 genetic testing, neg. 04/30/19 L mmg: Benign 04/30/19 MRI B breasts: Benign 04/30/19 fu w/Dr. Gilmore, rtc 6 mos w/mmg. 11/19/19 B mmg: Neg. 11/19/19 fu w/Dr. Gilmore, rtc 1 yr w/mmg. ROS: No pain. No breast problem. No swelling hand/arm. ROM arms @ shoulders ok. Energy level good. Past Medical History: Diagnosis Date ??? Breast cancer No collagen vasc dz. Squamous cell ca skin. Past Surgical History: Procedure Laterality Date ??? BREAST BIOPSY Left 09/2018 idc ??? BREAST BIOPSY Left 09/2018 benign breast tissue ??? BREAST LUMPECTOMY Left 10/2018 idc ??? MAMMO US BIOPSY LEFT Left 09/05/2018 Mammo Us Biopsy Left 09/05/2018 Zoltan Baldwin MD [facility] RAD MAMMOGRAPHY ??? MAMMO US NEEDLE LOCALIZATION LEFT Left 10/10/2018 Mammo US Needle Localization Left 10/10/2018 Christina Torre MD [facility] RAD MAMMOGRAPHY ??? MRI GUIDED BIOPSY BREAST VACUUM ASSISTED LEFT Left 09/18/2018 MRI Breast Biopsy Vacuum Assist Left 09/18/2018 [facility] RAD MRI ??? PRO BX/REMV, LYMPH NODE, DEEP AXILL Left 10/10/2018 BIOPSY OR EXCISION OF LYMPH NODE(S), OPEN, DEEP AXILLARY NODE(S) (WRVU 6.43) performed by Jhonatan Gilmore MD at [facility] MAIN OR ??? PRO INTRAOP SENTINEL LYMPH ID W/DYE INJECTION Left 10/10/2018 INTRAOPERATIVE ID (MAPPING) SENTINEL LYMPH NODE,INCLUDES INJECTION (WRVU 2.5) performed by Jhonatan Gilmore MD at [facility] MAIN OR ??? PRO MASTECTOMY PARTIAL Left 10/10/2018 MASTECTOMY PARTIAL (WRVU 10.13) performed by Jhonatan Gilmore MD at [facility] MAIN OR Ectopic pregnancies. Your Medications Accurate as of May 17, 2020 3:08 PM. If you have any questions, ask your nurse or doctor. Continued medications, unchanged Dose Details cholecalciferol (Vitamin D3) 1,000 unit Tab Commonly known as: Vitamin D3 Take 6 Units by mouth daily. 6 gtts daily 6 Units Refills: 0 Green Tea Cap Take 1 capsule by mouth daily. Generic drug: Green Tea [place] Extract 1 capsule Refills: 0 MAGNESIUM CITRATE [...] is well-developed. She is not diaphoretic. Comments: 107/80 78 20 99.3 F 174.5 lbs SpO2 96% HENT: Head: Normocephalic and atraumatic. Eyes: General: No scleral icterus. Right eye: No discharge. Left eye: No discharge. Conjunctiva/sclera: Conjunctivae normal. Neck: Musculoskeletal: Normal range of motion and neck supple. Thyroid: No thyromegaly. Trachea: No tracheal deviation. [...] There is no guarding or rebound. Musculoskeletal: Normal range of motion. General: No tenderness or deformity. Lymphadenopathy: Head: Right side of head: No [...] normal. A: ODALIS. P: Rtc 6 mos. documented in this encounter Plan of Treatment Not on file documented as of this encounter Visit Diagnoses Diagnosis Malignant neoplasm of central portion of left female breast, unspecified estrogen receptor status documented in this encounter Care Teams Wire Harness Assembler Relationship Specialty Start Date End Date Jenise Huddleston APRN [address] [place] [address] PCP - General Family Medicine 09/11/18 documented as of this encounter
--- OUTSIDE RECORDS SUMMARY | 2024-07-10 15:29 | XMS_ITS | Encounter Summary ---
[place] [address] Care Team Providers Care Acid Painter Name Role Phone Jenise Huddleston NATHANIEL Primary Care Provider [phone] Encounter Details Date Type Department Care Team (Late st Contact Info) Description 03/05/2023 11:30 AM EDT Office [place] [address] Viktoriya Patricia APRN [facility] [place] [address] Encounter for follow-up surveillance of breast cancer; [...] Progress Notes * Viktoriya Patricia APRN - 03/05/2023 11:30 AM EDT Images from the original note were not included. Patient ID: Ursula Urias is a 72 y.o. female HPI: Ursula is a patient [...] pain in either breast. She denies any headaches or significant weight changes. No new chest pain or difficulty breathing. Nonew bony pain or tenderness. Ursula denies significant changes to her health since her last visit. Breast cancer history: A mammogram on 08/06/2018 showed a 1.2-cm mass in the left breast at 6:00. US showed a 1.1-cm mass at 6:00, 4 cm from the nipple. A core biopsy revealed invasive ductal carcinoma, intermediate grade, ER/MD strongly positive, HER-2 negative. Ursula opted for [...] and is strong and diffusely ER and MD positive, and HER-2 negative. Commingling within the same positive lymph nodes is a morphologically distinct metastatic invasive ductal tumor which exhibits ample eosinophilic and vacuolated cytoplasm. This tumor is ER, MD, andHER-2 negative. OncotypeDx Recurrence Score - 16; 15% distant recurrence at 10 years. Chemotherapy was not recommended. She completed XRT in [facility] on 01/03/2019. An aromatase inhibitor was recommended, [...] mm Grade Intermediate Margins Negative ER Positive MD Positive HER-2 Negative OncotypeDx Recurrence Score 16 [...] present No Date of last follow up 11/22/2021 Breast Cancer Risk Factors: History Hormonal contraceptive use Yes Menarche age 12 yo LMP / Menopause 49 yo Hormone replacement therapy No Family history of breast cancer Distant paternal cousins Family history of ovarian cancer No Known genetic mutation 02/12/19 - [employer] BRCA 1/2 STAT Panel showed No mutations detected. Declined add'l testing. 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 She has never smoked; ETOH - none. Past Medical Hx: SCC Physical Exam: General appearance: Alert, well-developed, well-nourished; in no acute distress. Skin: Warm and dry. Head: Normocephalic, atraumatic. Neck: Soft and supple without masses or cervical adenopathy. Cardiovascular: Normal rate, regular rhythm and normal heart sounds. No murmur heard. Pulmonary: Effort normal and breath sounds normal. No respiratory distress, cough, or wheezing. Breasts: Exam performed in the upright and supine positions. Left breast with well-healed incisionsin lower breast with firm tissue and mild telangectasia. Right breast has normal appearance and contour. No suspicious masses, tenderness, dimpling, erythema, or other skin changes in either breast. No nipple discharge or other nipple changes. No palpable axillary lymph nodes bilaterally. The nipples are everted. I feel no obvious discrete or dominant masses in either breast. Musculoskeletal: Arms with full ROM without any evidence of lymphedema. Fully weight-bearing. Neurological: Alert and oriented x 4. Mood is euthymic and appropriate to the situation. Results: Imaging performed (bilateral mammogram) at [facility] today shows no evidence of malignancy, BI-RADS Category 2 with heterogeneously dense breast tissue. Post treatment changes noted on the left. The results were reviewed with her at today's appointment. Assessment: Clinical breast exam without notable masses, skin changes, dimpling, or nipple discharge. Doing well without evidence of local recurrence. Stable exam. Plan: 1. Encounter for follow-up surveillance of breast cancer 2. Breast cancer metastasized to axillary lymph node, left 3. Breast cancer screening by mammogram - Mammo Screening Cad and Marques Bilateral; March 2024 I have discussed my assessment and recommendations with Ursula to include breast awareness and annual mammographic screening with clinical breast exams. Based on her risk status, her next bilateral screening mammogram is due in one year, or sooner if indicated. I will plan to see her for a clinical breast exam at that time. She will contact me if she develops any new breast changes or concerns prior to that appointment. She agrees to this plan. Survivorship recommendations: Continue annual bilateral screening mammograms until life expectancy is <10 years and you remainin good health, or as long as you would consider treatment for a breast cancer if found. Continue clinical breast exams at least once yearly. Continue self breast awareness. For any new or worsening symptoms for which cause remains undetermined, consider breast cancer recurrence. Specifically - new or worsening skeletal pain, headache, diplopia, neurologic deficits, elevated LFTs, abdominal pain/swelling, cough, or SOB. Get at least 150 minutes of cardiovascular exercise and 2 days of resistance/strength training per week. Ways to include exercise at home include yoga and bone building exercise videos online. Eat a mainly plant-based Mediterranean style diet. Minimize processed foods, simple carbohydrates, sugars, and artificial sweeteners. Do not smoke. If consuming alcohol, limit to 1 drink or less per day. Maintain or achieve a healthy weight. Normal BMI < 25 for individuals under 65 years old; 22-30 for > 65 years old. Manage stress levels. Be cautious about exposure risk, both what [...] free apps for your cell phone from [employer] ([employer]) and [employer] ([employer]). All questions were answered to the patient's satisfaction and they state understanding and agreement with today's treatment plan. They are encouraged to follow up sooner if they develop any new or concerning symptoms. Viktoriya Patricia APRN Surgical Oncology P [phone] F [phone] [facility] documented in this encounter Plan of Treatment Scheduled Orders Name Type Priority Associated Diagnoses Orde r Schedule Mammo Screening Cad and Marques Bilateral Imaging Routine Breast cancer metastasized to axillary lymph node, left Breast cancer screening by mammogram Expected: 03/05/2024, Expires: 09/05/2024 documented as of this encounter Visit Diagnoses Diagnosis Encounter for follow-up surveillance of breast cancer Unspecified follow-up examination Breast cancer metastasized to axillary lymph node, left Breast cancer screening by mammogram documented in this encounter Care Teams Acid Painter Relationship Specialty Start Date End Date Jenise Huddleston APRN [address] [place] [address] PCP - General Family Medicine 09/11/18 documented as of this encounter
--- OUTSIDE RECORDS SUMMARY | 2024-07-10 15:29 | XMS_ITS | Encounter Summary ---
Author Organization [facility] Address [facility] [place] [address] Care Team Providers Care Unit Nurse Name Role Phone Jenise Huddleston NATHANIEL Primary Care Provider [phone] Reason for Visit * Reason Comments Follow-up Encounter Details Date Type Department Care Team (Late st Contact Info) Description 09/18/2022 4:30 PM EST Office Visit Radiation Oncology at [address] [phone] Abbey Renae MD [facility] [place] [address] S/P radiotherapy Social History Tobacco Use Types Packs/Day Years [...] Sign Reading Time Taken Comments Blood Pressure 151/83 09/18/2022 4:50 PM EST Pulse 88 09/18/2022 4:50 PM EST Temperature 36.5 ??C (97.7 ??F) 09/18/2022 4:50 PM ES T Respiratory Rate 16 09/18/2022 4:50 PM EST Oxygen Saturation 98% 09/18/2022 4:50 PM EST Inhaled Oxygen Concentration - - Weight 80.5 kg (177 lb 6.4 oz) 09/18/2022 4:50 P M EST Height - - Body Mass Index 31.42 03/16/2022 3:06 PM EDT documented in this encounter Patient Instructions * Patient Instructions* Abbey Renae MD - 09/18/2022 4:30 PM EST Your exam is without worrisome finding. Someone will contact you to schedule followup in 1 year. documented in this encounter Progress Notes * Abbey Renae MD - 09/18/2022 4:30 PM EST Images from the original note were not included. CC: Sched'd fu s/p xrt completion. HPI: Ursula is a 71 y/o f who completed xrt to L breast 3 yrs, 8 mos ago (01/03/19) for breast ca, L, IDC, gr 2, ER+KS+, Her2 neg, s/p lumpectomy & SNB, pT1c pN1a, w/maycol deposits showing 2 different types of tumor, ER+KS+, Her2 neg & ER-KS-, Her2 neg. 01/23/[address] Moody for hormonal tx, which she declined. 02/20/19 genetic testing, neg. 04/30/19 L mmg: Benign 04/30/19 MRI B breasts: Benign 11/18/20 B mmg: Neg. 11/18/20 Krishna Patricia APRN Gen Surg, rtc 1 yr w/mmg. 02/17/21 Dr. Moody, confirmed decision to not take hormonal tx, rtc 6 mos. 11/22/21 B mmg: Neg. 11/22/21 Krishna Patricia APRN Gen Surg, rtc 1 yr w/mmg. S: No breast problem. She tested + for Covid-19 09/05/22 & tested negative a little less than a wk ago; no symptoms since 3 days ago. Past Medical History: Diagnosis Date ??? Breast cancer No collagen vasc dz. Squamous cell ca skin. Past Surgical History: Procedure Laterality Date ??? BREAST BIOPSY Left 09/2018 idc ??? BREAST BIOPSY Left 09/2018 benign breast tissue ??? BREAST LUMPECTOMY Left 10/2018 idc ??? MAMMO US BIOPSY LEFT Left 09/05/2018 Mammo Us Biopsy Left 09/05/2018 Zoltan Baldwin MD [facility] RAD MAMMOGRAPHY ??? MAMMO US NEEDLE LOCALIZATION LEFT Left 10/10/2018 Mammo US Needle Localization Left 10/10/2018 Christina Torre MD [facility] RAD MAMMOGRAPHY ??? MRI GUIDED BIOPSY BREAST VACUUM ASSISTED LEFT Left 09/18/2018 MRI Breast Biopsy Vacuum Assist Left 09/18/2018 [facility] RAD MRI ??? PRO BX/REMV, LYMPH NODE, DEEP AXILL Left 10/10/2018 BIOPSY OR EXCISION OF LYMPH NODE(S), OPEN, DEEP AXILLARY NODE(S) (WRVU 6.43) performed by Jhonatan Gilmore MD at [facility] MAIN OR ??? PRO INTRAOP SENTINEL LYMPH ID W/DYE INJECTION Left 10/10/2018 INTRAOPERATIVE ID (MAPPING) SENTINEL LYMPH NODE,INCLUDES INJECTION (WRVU 2.5) performed by Jhonatan Gilmore MD at [facility] MAIN OR ??? PRO MASTECTOMY PARTIAL Left 10/10/2018 MASTECTOMY PARTIAL (WRVU 10.13) performed by Jhonatan Gilmore MD at [facility] MAIN OR Ectopic pregnancies. Your Medications Accurate as of September 18, 2022 4:51 PM. If you have any questions, ask your nurse or doctor. Continued medications, unchanged Dose Details ASHWAGANDHA ROOT EXTRACT ORAL Take by mouth daily. tincture Refills: 0 cholecalciferol 1,000 unit Tab Commonly known as: Vitamin D3 Take 6 Units by mouth daily. 6 gtts daily 6 Units Refills: 0 Green Tea [place] Extract Cap Take 1 capsule by mouth daily. 1 capsule Refills: 0 MAGNESIUM CITRATE ORAL Take by mouth. Refills: 0 NONFORMULARY REQUEST Take 1 Dose by mouth daily. Mushroom blend 1 Dose Refills: 0 OMEGA-3 ORAL Take 2,000 Units by mouth daily. Equivalent 2 caps daily 2,000 Units Refills: 0 OREGANO OIL ORAL oregano oil Refills: 0 PROBIOTIC WITH PREBIOTIC ORAL Take 1 Dose by mouth daily. 1 Dose Refills: 0 STEVIA MISC 2 drops by Misc.(Non-Drug; Combo Route) route daily. 2 drop Refills: 0 UNABLE TO FIND Take 2 capsules by mouth daily. Theracumin 2 capsule Refills: 0 VITAMIN A ORAL Take by mouth. Refills: 0 VITAMIN B-12 ORAL Take by mouth. gummies Refills: 0 VITAMIN C ORAL Take by mouth. Refills: 0 VITAMIN E ORAL Take by mouth. Refills: 0 Physical Exam Constitutional: General: She is not in acute distress. Appearance: She is well-developed. She is not diaphoretic. Comments: BP 151/83 (Patient Position: Sitting) Pulse 88 Temp 36.5 ??C (97.7 ??F) (Tympanic) Resp 16 Wt 80.5 kg (177 lb 6.4 oz) SpO2 98% BMI 31.42 kg/m?? HENT: Head: Normocephalic and atraumatic. Eyes: [...] of motion and neck supple. No tenderness. Lymphadenopathy: Head: Right side of head: No [...] normal. Judgment: Judgment normal. A: ODALIS. P: 1 yr. C. NATHANIEL Patricia Gen Surg w/mmg 03/05/23. 15 mins encounter. documented in this encounter Plan of Treatment Not on file documented as of this encounter Visit Diagnoses Diagnosis S/P radiotherapy Convalescence following radiotherapy documented in this encounter Care Teams Unit Nurse Relationship Specialty Start Date End Date Jenise Huddleston APRN [address] [place] [address] PCP - General Family Medicine 09/11/18 documented as of this encounter
--- OUTSIDE RECORDS SUMMARY | 2024-07-10 15:29 | XMS_ITS | Encounter Summary ---
Author Organization [facility] Address [facility] [place] [address] Care Team Providers Care Clinical Research Manager Name Role Phone Jenise Huddleston Stefanie ARMSTRONG Primary Care Provider [phone] Encounter Details Date Type Department Care Team (Latest Contact Info) Description 04/30/2019 11:21 AM EDT - 04/30/2019 1:08 PM EDT Hospital Encounter Mammography/[place] [address] Jhonatan Gilmore MD [facility] [place] [address] Encounter for mammogram to establish baseline mammogram Discharge Disposition: Home Social History Tobacco [...] Name Priority Date/Time Associated Diagnosis Comments MAMMO DIAGNOSTIC CAD AND LUKE LEFT Routine 04/30/2019 11:33 AM EDT Encounter for mammogram to establish baseline mammogram documented in this encounter Results * Mammo Diagnostic Cad and Luke Left (04/30/2019 11:33 AM EDT) Anatomical Region Laterality Modality Breast Left Mammography Narrative 04/30/2019 11:46 AM EDT REASON FOR EXAM: New baseline History of breast cancer. TECHNIQUE: CC and MLO views were obtained of the left breast(s). Computer aided detection was used. 3D tomosynthesis images were obtained in addition to 2D images. Comparison:Compared with prior images. FINDINGS: Breast density:Heterogenously dense which may limit mammographic sensitivity for the detection of malignancy. There are no suspicious microcalcifications, masses, or areas of distortion. There are post surgical changes in the Left Breast CONCLUSION: No mammographic evidence of malignancy. RECOMMENDATION:Routine screening. A result letter has been sent to this patient by the [facility]. BIRADS CATEGORY 2: BENIGN FINDINGS * ??The [place] [employer] and The Society of Breast Imaging recommend annual screening beginning at age 40 for the general female population. * ??Screening should continue as long as a woman is in good health and is expected to live 10 more years or longer. * ??All women should be familiar with the known [...] earlier screening and breast MRI are appropriate. Thank you for letting us participate in the care of this patient. For questions regarding this report, please contact the number below. ? Jhonatan Gilmore MD IMG MAMMO ORDERABLES documented in this encounter Visit Diagnoses Diagnosis Encounter for mammogram to establish baseline mammogram Other screening mammogram documented in this encounter Care Teams Clinical Research Manager Relationship Specialty Start Date End Date Jenise Huddleston, RD MECHANICAL ENGINEER [address] [place] [address] PCP - General Family Medicine 09/11/18 documented as of this encounter
--- OUTSIDE RECORDS SUMMARY | 2024-07-10 15:29 | XMS_ITS | Encounter Summary ---
[place] [address] Care Team Providers Care Food Counselor Name Role Phone Jenise Huddleston NATHANIEL Primary Care Provider [phone] Reason for Visit * Reason Comments Follow-up Encounter Details Date Type Department Care Team (Late st Contact Info) Description 11/18/2020 11:10 AM EDT Office [place] [address] Viktoriya Patricia APRN [facility] [place] [address] Encounter for follow-up surveillance of breast cancer; [...] this encounter Patient Instructions * Patient Instructions* Viktoriya Patricia APRN - 11/18/2020 11:10 AM EDT Nonpharmacologic measures that you can take to decrease your risk of developing breast cancer [...] simple carbohydrates, sugars, and artificial sweeteners. ?? Normal BMI < 25 for individuals under 65 years old; 22-30 for > 65 years old. ?? Be cautious about exposure risk, both what you put in and on your body (ie: artificial fragrances, artificial dyes, as well as certain ingredients in makeup, hair and body care, antiperspirant, laundry detergent, fabric softener, dryer sheets, etc.). The nations ban over 1,300 ingredients from personal care products. Currently, the [place] bans only 11 products. Apps to help make healthierchoices for personal care products are available for free at [employer] (Environmental Working Group) and [employer]. documented in this encounter Progress Notes * Viktoriya Patricia APRN - 11/18/2020 11:10 AM EDT Images from the original note were not included. Patient ID: Ursula Urias is a 69 y.o. female HPI: Ursula is a patient [...] difficulty breathing. Nonew bony pain or tenderness. She was treated for Lyme Disease last summer, but denies other significant changes to her health since her last visit. Breast cancer history: A mammogram on 08/06/2018 showed a 1.2-cm mass in the left breast at 6:00. US showed a 1.1-cm mass at 6:00, 4 cm from the nipple. A core biopsy revealed invasive ductal carcinoma, intermediate grade, ER/IL strongly positive, Her2 negative. Pathology showed that she had a 15-mm infiltrating carcinoma. The margins were negative. The nearest margin was 5 mm away. No ductal carcinoma in situ was seen. Multiple deposits of metastatic carcinoma are present in two lymph nodes from the sentinel lymph node excision (10/09). The metastatic tumordeposits show distinct differences in morphology and biomarker expression. One tumor deposit is morphologically similar to the primary breast tumor and is strong and diffusely ER and IL positive, andHER2 negative. Commingling within the same positive lymph nodes is a morphologically distinct metastatic invasive ductal tumor which exhibits ample eosinophilic and vacuolated cytoplasm. This tumor is ER, IL, and HER2 negative. OncotypeDx Recurrence Score - 16; 15% distant recurrence at 10 years. Chemotherapy was not recommended. She completed XRT in [facility] on 01/03/2019. An aromatase inhibitor was recommended, but she declined adjuvant hormonal therapy, opting instead to use naturopathic treatments with hyperbaric treatments, mistletoe, and a keto diet. She remains comfortable with her decision. Surgical Pathology: 10/10/18 Surgery A -??Left breast, partial mastectomy: ?? - Invasive ductal carcinoma ?? - Atypical ductal hyperplasia ?? - Columnar cell change and fibrocystic changes ?? - Biopsy site changes B - Left axillary sentinel lymph node, excision: ?? - Metastatic carcinoma, multiple deposits with different ? morphology and biomarker expression, in two of six lymph nodes (2/6) ? - Largest metastatic deposit = 0.7 cm ? - Focal extranodal extension is present Specimen ?Procedure: Excision (less than total mastectomy) ?Specimen Laterality: Left Tumor ?Histologic Type: Invasive carcinoma of no special type ?Histologic Grade (Ninety Six Histologic Score) ? Glandular (Acinar)/Tubular Differentiation: Score 3 ? Nuclear Pleomorphism: Score 2 ? Mitotic Rate: ??Score 1 ? Overall Grade: ??Grade 2 ?Tumor Size: ??15 Millimeters (mm) ?Tumor Focality: ??Single focus of invasive carcinoma ?Ductal Carcinoma In Situ (DCIS): ??Not identified ?Tumor Extent ? Skin: Invasive carcinoma does not invade into the dermis or epidermis ? Skin Satellite Foci: Satellite foci not identified ? Skeletal Muscle: No skeletal muscle is present ?Accessory Findings ? Lymphovascular Invasion: Present ? Dermal Lymphovascular Invasion: ??Not identified ? Microcalcifications: ??Present in invasive carcinoma ? Treatment Effect: No known presurgical therapy Margins ?Invasive Carcinoma Margins: Uninvolved by invasive carcinoma ? Distance from Other Specified Margin: ?All margins >5 mm Lymph Nodes ?Regional Lymph Nodes: ??Involved by tumor cells ? Number of Lymph Nodes with Macrometastases: ??2 ? Number of Lymph Nodes with Micrometastases: ??0 ? Number of Lymph Nodes with Isolated Tumor Cells: ??0 ? Size of Largest Metastatic Deposit: ??7 Millimeters (mm) ? Extranodal Extension: ??Present ? Number of [place] Nodes Examined: ??6 pT1c pN1a Comprehensive Breast Program Surgery Follow Up: Range of motion of surgical arm complete Lymphedema present No Cosmesis-surgeon reported Cosmesis-patient reported Good Good Local or regional recurrence No Contralateral cancer present No Distant recurrence present No Date of last follow up 11/19/2019 Breast Cancer Risk Factors: History Hormonal contraceptive use Yes Menarche age 12 yo LMP / Menopause 49 yo Hormone replacement therapy No Family history of breast cancer Distant paternal cousins Family history of ovarian cancer No Known genetic mutation 02/12/19 - [employer] BRCA 1/2 STAT Panel showed No mutations detected. Declined add'l testing. 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 She has never smoked; ETOH - none. Past Medical Hx: SCC Physical Exam: General appearance: Alert, well-developed, well-nourished female in no acute distress. Skin: Warm and dry. Head: Normocephalic, atraumatic. Neck: Soft and supple without adenopathy. Cardiovascular: Normal rate, regular rhythm and normal heart sounds. No murmur heard. Pulmonary: Effort normal and breath sounds normal. No respiratory distress, cough, or wheezing. Breasts: Left breast with well-healed incisions in lower outer breast with firm tissue and mild telangectasia. Right breast appears normal. No suspicious masses, tenderness, dimpling, erythema, or other skin changes in either breast. No nipple discharge or other nipple changes. No palpable axillarylymph nodes bilaterally. The nipples are everted. I feel no obvious discrete or dominant masses in either breast. Musculoskeletal: Arms with full ROM without any evidence of lymphedema. Fully weight-bearing. Neurological: Alert and oriented x 4. Mood is euthymic and appropriate to the situation. Results: Imaging performed (bilateral mammogram) at [facility] today shows no evidence of malignancy, BI-RADS Category 2 with heterogeneously dense breasts and post treatment changes on the left. She was notified of results via myD-H as the results were still pending at the time of her appointment. Assessment: Clinical breast exam without notable masses, skin changes, dimpling, or nipple discharge. Doing well without evidence of local recurrence. Stable exam. Plan: 1. Encounter for follow-up surveillance of breast cancer 2. Breast cancer metastasized to axillary lymph node, left 3. Breast cancer screening by mammogram - Mammo Screening [facility] Bilateral; November 2021 I have discussed my assessment and recommendations with Ursula to include occasional self-breast exams and annual mammographic screening with clinical breast exams. Based on her risk status, her next bilateral screening mammogram is due in one year, or sooner if indicated. I will plan to see her fora clinical breast exam at that time. She will also contact me if she develops any new breast changes or concerns prior to that appointment. She agrees to this plan. Routine recommendations discussed with the patient including importance of regular moderate intensity exercise, nutrition, decreasing cardiovascular risk, and optimizing weight. Nonpharmacologic measures that you can take to decrease your risk of developing breast cancer [...] simple carbohydrates, sugars, and artificial sweeteners. ?? Normal BMI < 25 for individuals under 65 years old; 22-30 for > 65 years old. ?? Be cautious about exposure risk, both what you put in and on your body (ie: artificial fragrances, artificial dyes, as well as certain ingredients in makeup, hair and body care, antiperspirant, laundry detergent, fabric softener, dryer sheets, etc.). The nations ban over 1,300 ingredients from personal care products. Currently, the [place] bans only 11 products. Apps to help make healthierchoices for personal care products are available for free at [employer] (Environmental Working Group) and [employer]. All questions were answered to the patient's satisfaction and they state understanding and agreement with today's treatment plan. They are encouraged to follow up sooner if they develop any new or concerning symptoms. Viktoriya Patricia APRN Surgical Oncology P [phone] F [phone] [facility] documented in this encounter Plan of [...] who have questions please contact the health child day care center worker that requested your imaging first. ? Viktoriya Patricia APRN IMG MAMMO ORD ERABLES documented in this encounter Visit Diagnoses Diagnosis Encounter for follow-up surveillance of breast cancer Unspecified follow-up examination Breast cancer metastasized to axillary lymph node, left Breast cancer screening by mammogram Breast cancer metastasized to axillary lymph node, left Breast cancer screening by mammogram documented in this encounter Care Teams Food Counselor Relationship Specialty Start Date End Date Jenise Huddleston APRN [address] [place] [address] PCP - General Family Medicine 09/11/18 documented as of this encounter
--- OUTSIDE RECORDS SUMMARY | 2024-07-10 15:29 | XMS_ITS | Encounter Summary ---
[place] [address] Care Team Providers Care Manager User Experience Name Role Phone Jenise Huddleston APRN Primary Care Provider [phone] Reason for Visit * Consultation (Routine) - Closed Specialty Diagnoses / Procedures Referred By Petros shah Referred To Contact Gastroenterology Diagnoses Hepatic cirrhosis, unspecified hepatic cirrhosis type, unspecified whether ascites present Abdominal discomfort Change in stool habits hepatic cirrhosis/ abd discomfort /change in stool Jenise Huddleston APRN [address] [place] [address] [facility] [address] [address] Referral ID Status Reason Start Date Expiration Date V isits Requested Visits Authorized [id number] Closed Consult, Test & Treat PCP Updated and/or Approved 12/08/2022 12/08/2023 12 12 Encounter Details Date Type Department Care Team (Late st Contact Info) Description 01/16/2023 3:00 PM EDT Office [place] [address] Karlo Alfaro PA [address] [place] [address] [place] [address] Change in bowel habits (Primary Dx); Abnormal finding on imaging of liver Social History Tobacco Use Types Packs/Day Years [...] Sign Reading Time Taken Comments Blood Pressure 123/61 01/16/2023 3:10 PM EDT Pulse 80 01/16/2023 3:10 PM EDT Temperature - - Respiratory Rate - - Oxygen Saturation 98% 01/16/2023 3:10 PM EDT Inhaled Oxygen Concentration - - Weight 80 kg (176 lb 6.4 oz) 01/16/2023 3:10 PM EDT Height 160 cm (5' 3) 01/16/2023 3:10 PM EDT Body Mass Index 31.25 01/16/2023 3:10 PM EDT documented in this encounter Progress Notes * Karlo Alfaro PA - 01/16/2023 3:00 PM EDT Images from the original note were not included. HEPATOLOGY NEW PATIENT CONSULTATION Patient: Ursula Urias Sex: female Date of : 1950 SPOILAGE WORKER: Karlo Alfaro PA-C PCP: Jenise Huddleston APRN Requesting Provider: Jenise Huddleston 01/16/23 REASON FOR CONSULTATION: Cirrhosis, change in bowels PROBLEM LIST Patient Active Problem List Diagnosis Code ??? Milium L72.0 ??? History of SCC (squamous cell carcinoma) of skin Z85.828 ??? Breast cancer metastasized to axillary lymph node, left C50.912, C77.3 ??? Hyperlipidemia E78.5 ??? History of Lyme disease Z86.19 ??? Osteoarthritis M19.90 ??? Sleep apnea G47.30 ??? Overweight E66.3 ??? Stress incontinence, female N39.3 HISTORY OF PRESENT ILLNESS Ursula Urias is a 72 y.o. female referred to hepatology clinic for evaluation of cirrhosis and change in bowel movements. She was infected with COVID-19 sometime late September and was treated with Paxlovid to reduce symptoms. Then shortly after when she was able to travel, she flew to [place] to be with her sister andwhere she states she developed a change in bowels. She started to develop yellow/orange-tinged stools and they appeared to be much more loose or flaky from her baseline caliber. She denies any blood in her stools, mucus, or floating/bubbly stools. She denies any red- tinged or maroon/black stools.The bowel movements themselves are not particularly bothersome or painful to her. She states that they are somewhat improving now although there is still little bit of yellow tinge. She admits that she does like to eat sushi and did eat a variety of foods in [place]. No one else that she was with has similar symptoms however. Her urine is unchanged. She has been using milk thistle and other various herbal supplements to help with her symptoms. Laalso takes green tea extract and vitamin E for history of breast cancer. She did not take any hormonal therapies for breast cancer including tamoxifen. She states that she makes ashwagandha extract. She has been practicing homeopathic medicine for many years. She has been on vitamin B12 for a long time and does not take a vitamin B complex. She has a history of Lyme disease and at the time that she developed the symptoms of yellow stools she was on Stevia and resveratrol for this. She has no prior knowledge of any liver conditions in the past that she can recall. She denies any liver specific symptoms such as jaundice, abdominal pain, nausea/vomiting, swelling in her legs, abdominal bloating, or confusion/memory disturbance. REVIEW OF SYSTEMS General: Denies weight loss, fatigue, poor sleep, fever, chills, night sweats Skin: Denies new rashes, easy bruising, jaundice EENT: Denies blurred vision or change in vision, hearing loss, sinus problems, dry eyes or mouth Endocrine: Denies change in tolerance to heat or cold, excessive thirst Cardiovascular: Denies chest pain, palpitations or irregular heart beat, pain in legs with walking,swelling in feet Pulmonary: Denies SOB, persistent cough, coughing up blood, asthma or wheezing Gastrointestinal: See HPI Musculoskeletal: Denies pain in joints, back pain, neck or shoulder pain, muscle cramping, movementof legs at night Neurologic: Denies blackouts or loss of consciousness, headache, weakness or numbness in legs or arms, tremor, worsening memory and concentration Genitourinary: Denies frequent urination, blood in urine Psychiatric: Denies changes in mood or behavior, anxiety MEDICATIONS Current Outpatient Medications Medication Sig Dispense Refill ??? Milk Thistle 150 mg capsule Take by mouth. ??? UNABLE TO FIND Med Name: NAC ??? OREGANO OIL ORAL oregano oil ??? ASHWAGANDHA ROOT EXTRACT ORAL Take by mouth daily. tincture ??? cyanocobalamin, vitamin B-12, (VITAMIN B-12 ORAL) Take by mouth. gummies ??? Bacillus coagulans/inulin (PROBIOTIC WITH PREBIOTIC ORAL) Take 1 Dose by mouth daily. ??? NONFORMULARY REQUEST Take 1 Dose by mouth daily. Mushroom blend ??? Green Tea [place] Extract Capsule Take 1 capsule by mouth daily. ??? VITAMIN A ORAL Take by mouth. ??? vitamin E acetate (VITAMIN E ORAL) Take by mouth. ??? ascorbic acid (VITAMIN C ORAL) Take by mouth. ??? omega-3/dha/epa/fish oil (OMEGA-3 ORAL) Take 2,000 Units by mouth daily. Equivalent 2 caps daily ??? cholecalciferol, Vitamin D3, 1,000 unit Tablet Take 6 Units by mouth daily. 6 gtts daily ??? UNABLE TO FIND Take 2 capsules by mouth daily. Theracumin ??? MAGNESIUM CITRATE ORAL Take by mouth. No current facility-administered medications for this visit. 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 Marital status: , in a relationship, 1 adopted child Smoking: None Alcohol: Rarely, socially, one drink per month Other drug: Occasional MJ/oral THC, CBD FAMILY HISTORY Negative except as noted below Medical problem Family member Medical Problem Family member Medical Problem Family member Alcohol drug Problem Kidney disease Mental illness Sister with Alzheimer's Anemia or Blood Disease Liver disease None Depression Diabetes Liver cancer Seizure High blood pressure Stroke Father, sister Lung disease Mother COPD Heart disease Sister Clotting problems Colon Cancer High cholesterol Immune disorders Other Cancer None PHYSICAL EXAM Vitals: 01/16/23 1510 BP: 123/61 BP Location ([facility]): Right arm Patient Position: Sitting BP Cuff Sizes: Large Adult (32-43 cm) Pulse: 80 SpO2: 98% Weight: 80 kg (176 lb 6.4 oz) Height: 160 cm (5' 3) Body mass index is 31.25 kg/m??. Constitutional: Well appearing, appropriate, no acute distress Skin: No cyanosis, no palmar erythema, no jaundice, no spider angiomata Head: Normocephalic, sclerae anicteric CVS: Not assessed Lungs: Not assessed Abdomen: Nontender, nondistended, no hepatosplenomegaly, no masses, no fluid wave, no umbilical hernia, no caput medussae Neurologic: Alert and oriented x 3, no asterixis or tremor Extremities: No edema, no clubbing, no muscle wasting, no joint swelling RESULTS No results found for this or any previous visit (from the past 24 hour(s)). Non- Laboratory: @ [facility]: FIB-4 = 1.41 Imaging: Ultrasound 12/04/22 @ [facility]: Fibroscan Results Today: Median kPa: 4.5 Mean IQR: 7% (goal is <30 %) Number of valid measurements: 10 (10 required) Number of invalid measurements: 0 Predicted fibrosis stage: F0-F1 CAP (dB/m): 221 ASSESSMENT/PLAN Ursula Urias is a 72 y.o. female with history of breast cancer status post radiation therapy with remission, hyperlipidemia, osteoarthritis, history of Lyme disease, and sleep apnea referred for change in bowel habits and abnormal liver imaging. In September of this year she was diagnosed with COVID-19 and symptoms improved on Paxlovid, however subsequently developed yellow/orange- tinged stoolsand change in caliber. Laboratory testing was unremarkable including normal LFTs. Abdominal ultrasound in December however was suggestive of possible underlying cirrhosis with mildly nodular liver. She has no known prior liver disease history. In my discussion with the patient, I reassured her that I do not feel that she has any advanced liver disease. Her labs were very reassuring and FIB-4 calculated at 1.41 was consistent with the absence of advanced fibrosis. We then also performed a Fibroscan today which was entirely normal ruling out any advanced fibrosis or steatosis. I feel instead that the liver imaging findings are more related to age-related contour changes given her advanced age. It is not uncommon that we see similar ultrasound findings such as this in patients without underlying liver disease. As for the change in her stools, it is also unclear the exact cause of this. This may be dietary related and considering that it began when traveling to [place]. She states that she has not had any specific stool testing so I am recommending that she obtain some through her local lab including stool culture, Giardia/Cryptosporidium screen, fecal calprotectin, and elastase. Her symptoms are improving somewhat and they are not associated with any abdominal symptoms which is also reassuring. Ifstool studies are normal then I do not feel she needs any further work-up, however if they do not improve or if she develops any additional symptoms, should consider colonoscopy for further evaluation. It is unclear to me if her significant herbal and homeopathic remedy use is implicated with her stool changes. I advised that she is generally avoid mixing multiple compounds such as these, though she has been for years and I think likely would not change her current lifestyle. Green tea extract especially is known to cause significant advanced drug-induced liver injury in some case reports resulting in , though with normal LFTs I do not think this is implicated. Plan: -Stool studies to be done at local lab. Faxed orders to [facility]. -Follow-up with primary care as needed/planned. -Liver/GI clinic TBD based on stool results. Likely will not require any additional follow-up. Time spent reviewing records prior to this encounter: 10 minutes Time spent during encounter with patient including counselin minutes Time spent documenting encounter on date of service: 15 minutes Approximate total time devoted to this single encounter on date of service: 65 minutes This is exclusive of the time spent performing the Fibroscan procedure. Karlo Alfaro PA-C Section of Gastroenterology [place] [address] Copy: NATHANIEL Jeronimo documented in this encounter Procedure Notes * Karlo Alfaro PA - 01/16/2023 3:00 PM EDTAssociated Order(s): FIBROSCAN Procedure(s): FIBROSCAN Pre-Procedure Diagnose(s): Abnormal finding on imaging of liver [facility] Liver Fibrosis Assessment Report Indication: Concern for cirrhosis on recent imaging Performed by: ANDRES Sawyer Procedure: Vibration Controlled Transient Elastography (VCTE) or Fibroscan [place] Protocol: Patient's identity, procedure and site were verified, confirmatory pause performed. Discussed procedure including risks and potential complications. Questions answered. Patient verbalizes understanding and wishes to proceed with Fibroscan assessment. Patient was placed in the supine position with right arm in maximum abduction to allow optimal exposure of right lateral abdomen. Patient was briefly assessed. Testing was performed in the mid-axillary location. 50Hz Shear Wave pulses were applied and the resulting Shear Wave and Propagation Speed was detected with a 3.5MHz ultrasonic signal, using the Fibroscan probe. Skin to liver capsule distance and liver parenchyma were accessed during the entire examination with the Fibroscan probe. Patient was instructed to breathe normally and abstain from sudden movements during the procedure. At least ten Sheer Waves were produced; individual measurements of each Shear Wave were calculated. Patient tolerated the procedure well with no complications. Fibroscan Results: Median kPa: 4.5 Mean IQR: 7% (goal is <30 %) Number of valid measurements: 10 (10 required) Number of invalid measurements: 0 Predicted fibrosis stage: F0-F1 CAP (dB/m): 221 Estimated steatosis grade: 0-1/3 % hepatocytes affected: < 33% Interpretation: Based on this Fibroscan result, history, clinical examination and review of laboratory and radiological data, this patient likely has stage 0-1 liver fibrosis and grade 0-1 steatosis affecting less than 33% of hepatocytes. documented in this encounter Plan of Treatment Not on file documented as of this encounter Procedures Procedure Name Priority Date/Time Associated Diagnosis Comments [id number] Routine 01/16/2023 3:00 PM EDT Abnormal finding on imaging of liver documented in this encounter Results * [id number] (01/16/2023 3:00 PM EDT) Narrative Karlo Alfaro PA - 01/16/2023 3:00 PM EDT Karlo Alfaro PA ? 01/16/2023 ??6:05 PM [facility] Liver Fibrosis Assessment Report Indication: ?? Concern for cirrhosis on recent imaging Performed by: ??ANDRES Sawyer Procedure: Vibration Controlled Transient Elastography (VCTE) or Fibroscan [place] Protocol: Patient's identity, procedure and site were verified, confirmatory pause performed. Discussed procedure including risks and potential complications. Questions answered. Patient verbalizes understanding and wishes to proceed with Fibroscan assessment. Patient was placed in the supine position with right arm in maximum abduction to allow optimal exposure of right lateral abdomen. Patient was briefly assessed. Testing was performed in the mid-axillary location. 50Hz Shear Wave pulses were applied and the resulting Shear Wave and Propagation Speed was detected with a 3.5MHz ultrasonic signal, using the Fibroscan probe. Skin to liver capsule distance and liver parenchyma were accessed during the entire examination with the Fibroscan probe. Patient was instructed to breathe normally and abstain from sudden movements during the procedure. At least ten Sheer Waves were produced; individual measurements of each Shear Wave were calculated. Patient tolerated the procedure well with no complications. Fibroscan Results: Median kPa: 4.5 Mean IQR: 7% (goal is <30 %) Number of valid measurements: 10 (10 required) Number of invalid measurements: 0 Predicted fibrosis stage: F0-F1 CAP (dB/m): 221 Estimated steatosis grade: 0-1/3 % hepatocytes affected: < 33% Interpretation: Based on this Fibroscan result, history, clinical examination and review of laboratory and radiological data, this patient likely has stage 0-1 liver fibrosis and grade 0-1 steatosis affecting less than 33% of hepatocytes. Jodi Choudhary MD PROCEDURE/MINOR SURG ICAL ORDERABLES documented in this encounter Visit Diagnoses Diagnosis Change in bowel habits- Primary Other symptoms involving digestive system Abnormal finding on imaging of liver documented in this encounter Care Teams Manager User Experience Relationship Specialty Start Date End Date Jenise Huddleston APRN [address] [place] [address] PCP - General Family Medicine 09/11/18 documented as of this encounter
--- OUTSIDE RECORDS SUMMARY | 2024-07-10 15:29 | XMS_ITS | Encounter Summary ---
Author Organization [facility] [place] [address] Care Team Providers Care Proof Clerk Name Role Phone Jenise Huddleston NATHANIEL Primary Care Provider [phone] Reason for Visit * Reason Comments Follow-up Encounter Details Date Type Department Care Team (Late st Contact Info) Description 04/30/2019 3:00 PM EDT Office [place] [address] Jhonatan Gilmore MD [facility] [address] [place] [address] Malignant neoplasm of left female breast, unspecified estrogen receptor status, unspecified site of breast Social History Tobacco [...] Sign Reading Time Taken Comments Blood Pressure - - Pulse - - Temperature - - Respiratory Rate - - Oxygen Saturation - - Inhaled Oxygen Concentration - - Weight 80.3 kg (177 lb) 04/30/2019 3:04 PM EDT Height - - Body Mass Index 32.16 04/24/2019 1:06 PM EDT documented in this encounter Progress Notes * Jhonatan Gilmore MD - 04/30/2019 3:00 PM EDT Ursula Urias is a 68-year-old woman who returns after left breast onco-plastic partial mastectomyand sentinel node excision on October 10, 2018. I did a wedge excision of the tissue between 5:00 and 7:00 in her lower left breast and an advancement flap. Pathology showed that she had a 15 mm infiltrating carcinoma. The margins were negative. The nearest margin was 5 mm away. No ductal carcinoma in situ was seen. MRI showed 2 small possible satellite lesions about 1 cm away from the main tumor. I am sure that I removed those sites with my resection,given the amount of tissue I removed with my segmental resection. Only the main tumor mass was confirmed pathologically. 2 of 6 lymph nodes were positive. The pathologist noted that there were 2 different clones of cellsin the nodes. The primary was ER positive, Her-2 negative. One clone in the nodes was triple negative, the other was ER positive, her-2 negative. Oncotype DX: score 16; 15% distant recurrence at 10 years. She also had a core bx of a MRI -identified 5 mm mass at 0900, 4 cm FN left breast: fibroadenoma. Genetic testing: no mutations detected. She had adjuvant XRT. Declined adjuvant hormonal therapy. She takes multiple naturopathic meds. She has not felt any breast masses. She is happy with her cosmetic result. On physical exam there are no right or left breast masses. No axillary adenopathy. Full ROM left arm and no arm edema. Left mammo today: benign. Bilateral breast MRI: results pending. Impression: No evidence of breast cancer recurrence. Plan: I will plan to see her back in 6 months with a bilateral mammogram. 05/01/19 Addendum MRI reading: both breasts benign. No areas of abnormal enhancement. documented in this encounter Plan of Treatment Not on file documented as of this encounter Results * Mammo Screening Cad and Luke Bilateral (11/19/2019 10:37 AM EDT) Anatomical Region Laterality Modality Breast Bilateral Mammography Narrative 11/19/2019 11:06 AM EDT EXAMINATION: MAMMO SCREENING CAD AND [...] screening. BIRADS CATEGORY 2: BENIGN FINDINGS * ??Medical organizations agree that annual screening mammography beginning at age 40 saves the most lives. * ??The risks of screening are negligible compared to dying from breast cancer or suffering from more aggressive treatment required when detected at a later stage. * ??No woman is at low risk for breast cancer. * ??Some women, because of their family history, a genetic tendency, or certain other factors, should be screened with breast MRI along with mammograms. (The number of women who fall into this category is very small). The patient and health care provider should discuss the patient history and decide if earlier screening and breast MRI are appropriate. * ??Screening should continue as long as a woman is in good health and is expected to live 10 years or longer. * ??Screening mammography may not detect 10-15% of breast cancers. * ??Women should report any breast changes to a health care provider right away. Thank you for letting us participate in the care of this patient. For questions regarding this report, please contact the number below. ? Jhonatan Gilmore MD IMG MAMMO ORDERABLES documented in this encounter Visit Diagnoses Diagnosis Malignant neoplasm of left female breast, unspecified estrogen receptor status, unspecified site of breast Malignant neoplasm of left female breast, unspecified estrogen receptor status, unspecified site of breast documented in this encounter Care Teams Proof Clerk Relationship Specialty Start Date End Date Jenise Huddleston APRN [address] [place] [address] PCP - General Family Medicine 09/11/18 documented as of this encounter
--- OUTSIDE RECORDS SUMMARY | 2024-07-10 15:29 | XMS_ITS | Encounter Summary ---
Author Organization [facility] Address [facility] [place] [address] Care Team Providers Care Structures Mechanic Name Role Phone Jenise Huddleston NATHANIEL Primary Care Provider [phone] [phone] Reason for Visit * Reason Comments Follow-up Encounter Details Date Type Department Care Team (Late st Contact Info) Description 12/05/2021 2:30 PM EDT Office Visit Radiation Oncology at [address] [phone] Abbey Renae MD [facility] DR RADI[place] [address] Malignant neoplasm of central portion of left breast in female, estrogen receptor positive; Malignant neoplasm of central portion of left breast in female, estrogen receptor negative Social History Tobacco Use Types Packs/Day Years [...] Sign Reading Time Taken Comments Blood Pressure 136/92 12/05/2021 2:30 PM EDT Pulse 74 12/05/2021 2:30 PM EDT Temperature 36 ??C (96.8 ??F) 12/05/2021 2:30 PM EDT Respiratory Rate 18 12/05/2021 2:30 PM EDT Oxygen Saturation 99% 12/05/2021 2:30 PM EDT Inhaled Oxygen Concentration - - Weight 81.5 kg (179 lb 9.6 oz) 12/05/2021 2:30 P M EDT Height 157.5 cm (5' 2) 12/05/2021 2:30 PM EDT Body Mass Index 32.85 12/05/2021 2:30 PM EDT documented in this encounter Patient Instructions * Patient Instructions* Abbey Renae MD - 12/07/2021 4:52 PM EDT Gabo Ursula. Your exam is without worrisome finding. Someone will contact you to schedule followup with me in September. Abbey documented in this encounter Progress Notes * Abbey Renae MD - 12/05/2021 2:30 PM EDT Images from the original note were not included. CC: Sched'd fu s/p xrt completion. HPI: Ursula is a 71 y/o f who completed xrt to L breast 2 yrs, 11 mos ago (01/03/19) for breast ca, L,IDC, gr 2, ER+MO+, Her2 neg, s/p lumpectomy & SNB, pT1c pN1a, w/maycol deposits showing 2 different types of tumor, ER+MO+, Her2 neg & ER-MO-, Her2 neg. 01/23/[address] Moody [...] APRN Gen Surg, rtc 1 yr w/mmg. Subj: R knee pain, for which she was seen yesterday @ [facility] ED & will be undergoing a scan of R knee today @ [facility]; PCP's office called her today about the scan & she expects to hear back from them re the result. No breast problem. No swelling hand/arm. ROM @ shoulders @ baseline (baseline rotator cuff problem). Energy level ok. Past Medical History: Diagnosis Date ??? Breast cancer No collagen vasc dz. Squamous cell ca skin. Past Surgical History: Procedure Laterality Date ??? BREAST BIOPSY Left 09/2018 idc ??? BREAST BIOPSY Left 09/2018 benign breast tissue ??? BREAST LUMPECTOMY Left 10/2018 idc ??? MAMMO US BIOPSY LEFT Left 09/05/2018 Mammo Us Biopsy Left 09/05/2018 Zoltan Baldwin MD [facility] RAD MAMMOGRAPHY ??? MAMMO US NEEDLE LOCALIZATION LEFT Left 10/10/2018 Mammo US Needle Localization Left 10/10/2018 Christina Torre MD [facility] RAD MAMMOGRAPHY ??? MRI GUIDED BIOPSY BREAST VACUUM ASSISTED LEFT Left 09/18/2018 MRI Breast Biopsy Vacuum Assist Left 09/18/2018 [facility] RAD MRI ??? PRO BX/REMV, LYMPH NODE, DEEP AXILL Left 10/10/2018 BIOPSY OR EXCISION OF LYMPH NODE(S), OPEN, DEEP AXILLARY NODE(S) (WRVU 6.43) performed by Jhonatan Gilmore MD at [facility] MAIN OR ??? PRO INTRAOP SENTINEL LYMPH ID W/DYE INJECTION Left 10/10/2018 INTRAOPERATIVE ID (MAPPING) SENTINEL LYMPH NODE,INCLUDES INJECTION (WRVU 2.5) performed by Jhonatan Gilmore MD at [facility] MAIN OR ??? PRO MASTECTOMY PARTIAL Left 10/10/2018 MASTECTOMY PARTIAL (WRVU 10.13) performed by Jhonatan Gilmore MD at [facility] MAIN OR Ectopic pregnancies. Your Medications Accurate as of December 05, 2021 2:39 PM. If you have any questions, ask [...] by mouth daily. Generic drug: Green Tea [place] Extract 1 capsule Refills: 0 MAGNESIUM CITRATE [...] well-developed. She is not diaphoretic. Comments: BP (!) 136/92 (Patient Position: Sitting) Pulse 74 Temp 36 ??C (96.8 ??F) (Temporal) Resp 18 Ht 157.5 cm (5' 2) Wt 81.5 kg (179 lb 9.6 oz) SpO2 99% BMI 32.85 kg/m?? HENT: Head: Normocephalic and atraumatic. Eyes: [...] Judgment: Judgment normal. A: ODALIS. P: Rtc Esvin. Dr. Moody 03/09/22. 20 mins encounter. documented in this encounter Plan of Treatment Not on file documented as of this encounter Visit Diagnoses Diagnosis Malignant neoplasm of central portion of left breast in female, estrogen receptor positive Malignant neoplasm of central portion of left breast in female, estrogen receptor negative documented in this encounter Care Teams Structures Mechanic Relationship Specialty Start Date End Date Jenise Huddleston APRN [address] [place] [address] PCP - General Family Medicine 09/11/18 documented as of this encounter
--- OUTSIDE RECORDS SUMMARY | 2024-07-10 15:29 | XMS_ITS | Encounter Summary ---
Author Organization [facility] Address [facility] [place] [address] Care Team Providers Care Research Librarian Name Role Phone Jenise Huddleston NATHANIEL Primary Care Provider [phone] [phone] Reason for Visit * Reason Comments Radiation Follow-up Encounter Details Date Type Department Care Team (Late st Contact Info) Description 11/10/2019 4:30 PM EDT Office Visit Radiation Oncology at [address] [phone] Abbey Renae MD [facility] [place] [address] Malignant neoplasm of central portion of left [...] Sign Reading Time Taken Comments Blood Pressure 121/63 11/10/2019 4:39 PM EDT Pulse 66 11/10/2019 4:39 PM EDT Temperature 37.4 ??C (99.3 ??F) 11/10/2019 4:39 PM ED T Respiratory Rate 16 11/10/2019 4:39 PM EDT Oxygen Saturation 100% 11/10/2019 4:39 PM EDT Inhaled Oxygen Concentration - - Weight 78 kg (172 lb) 11/10/2019 4:39 PM EDT Height - - Body Mass Index 31.25 08/14/2019 10:39 AM EST documented in this encounter Patient Instructions * Patient Instructions* Abbey Renae MD - 11/10/2019 4:30 PM EDT Your exam is without worrisome finding. We will mail you a letter with an appointment for followup in 6 months with me or a Radiation Oncology list of first job ideas. documented in this encounter Progress Notes * Abbey Renae MD - 11/10/2019 4:30 PM EDT Images from the original note were not included. CC: Sched'd fu s/p xrt completion. HPI: 68 y/o f who completed xrt to L breast 10 mos ago (01/03/19) for breast ca, L, IDC, gr 2, ER+VT+, Her2 neg, s/p lumpectomy & SNB, pT1c pN1a, w/maycol deposits showing 2 different types of tumor, ER+VT+, Her2 neg & ER-VT-, Her2 neg. 01/23/[address] Moody for hormonal tx, which she declined. 02/20/19 genetic testing, neg. 04/30/19 L mmg: Benign 04/30/19 MRI B breasts: Benign 04/30/19 fu w/Dr. Gilmore, rtc 6 mos w/mmg. ROS: No pain. No breast problem. No swelling hand/arm. Decreased ROM L shoulder due to rotator cuffproblem present prior to xrt. Energy level good. Past Medical History: Diagnosis Date ??? Breast cancer No collagen vasc dz. Squamous cell ca skin. Past Surgical History: Procedure Laterality Date ??? BREAST BIOPSY Left 09/2018 idc ??? BREAST BIOPSY Left 09/2018 benign breast tissue ??? BREAST LUMPECTOMY Left 10/2018 idc ??? MAMMO US BIOPSY LEFT Left 09/05/2018 Mammo Us Biopsy Left 09/05/2018 Zoltan Baldwin MD [facility] RAD MAMMOGRAPHY ??? MAMMO US NEEDLE LOCALIZATION LEFT Left 10/10/2018 Mammo US Needle Localization Left 10/10/2018 Christina Torre MD [facility] RAD MAMMOGRAPHY ??? MRI GUIDED BIOPSY BREAST VACUUM ASSISTED LEFT Left 09/18/2018 MRI Breast Biopsy Vacuum Assist Left 09/18/2018 [facility] RAD MRI ??? PRO BX/REMV, LYMPH NODE, DEEP AXILL Left 10/10/2018 BIOPSY OR EXCISION OF LYMPH NODE(S), OPEN, DEEP AXILLARY NODE(S) (WRVU 6.43) performed by Jhnoatan Gilmore MD at [facility] MAIN OR ??? PRO INTRAOP SENTINEL LYMPH ID W/DYE INJECTION Left 10/10/2018 INTRAOPERATIVE ID (MAPPING) SENTINEL LYMPH NODE,INCLUDES INJECTION (WRVU 2.5) performed by Jhonatan Gilmore MD at [facility] MAIN OR ??? PRO MASTECTOMY, PARTIAL Left 10/10/2018 MASTECTOMY PARTIAL (WRVU 10.13) performed by Jhonatan Gilmore MD at [facility] MAIN OR Ectopic pregnancies. Your Medications Accurate as of November 10, 2019 4:51 PM. If you have any questions, ask your nurse or doctor. Continued medications, unchanged Dose Details cholecalciferol (Vitamin D3) 1,000 unit Tab Commonly known as: Vitamin D3 Take 6 Units by mouth daily. 6 gtts daily 6 Units Refills: 0 Green Tea Cap Take 1 capsule by mouth daily. Generic drug: Green Tea [place] Extract 1 capsule Refills: 0 MAGNESIUM CITRATE [...] well-developed. She is not diaphoretic. Comments: BP 121/63 (Patient Position: Sitting) Pulse 66 Temp 37.4 ??C (99.3 ??F) (Temporal) Resp 16 Wt 78 kg (172 lb) SpO2 100% BMI 31.25 kg/m?? HENT: Head: Normocephalic and atraumatic. Eyes: [...] nipple discharge, skin change or tenderness. Left: Skin change (Minimal hyperpigmentation, consistent w/expected post xrt change.) present. No inverted nipple, mass, nipple discharge or tenderness. Abdominal: General: There is no [...] and oriented to person, place, and time. Cranial Nerves: No cranial nerve deficit. Motor: No abnormal muscle tone. Coordination: Coordination normal. Psychiatric: Behavior: Behavior normal. Thought Content: Thought content normal. Judgment: Judgment normal. A: Healing well post xrt. ODALIS. P: Rtc 6 mos. 11/19/19 Dr. Gilmore w/rizwana. documented in this encounter Plan of Treatment Not on file documented as of this encounter Visit Diagnoses Diagnosis Malignant neoplasm of central portion of left female breast, unspecified estrogen receptor status documented in this encounter Care Teams Research Librarian Relationship Specialty Start Date End Date Jenise Huddleston APRN [address] [place] [address] PCP - General Family Medicine 09/11/18 documented as of this encounter
--- OUTSIDE RECORDS SUMMARY | 2024-07-10 15:29 | XMS_ITS | Encounter Summary ---
Author Organization [facility] Address [facility] [place] [address] Care Team Providers Care Basket Filler Name Role Phone Jenise Huddleston NATHANIEL Primary Care Provider [phone] [phone] Encounter Details Date Type Department Care Team (Late st Contact Info) Description 12/31/2018 2:30 PM EDT Office Visit Radiation Oncology at [address] [phone] Charli Cano MD [facility] [place] [address] Malignant neoplasm of central portion of left [...] Sign Reading Time Taken Comments Blood Pressure 125/78 12/31/2018 9:28 AM EDT Pulse 78 12/31/2018 9:28 AM EDT Temperature 36.4 ??C (97.5 ??F) 12/31/2018 9:28 AM ED T Respiratory Rate 18 12/31/2018 9:28 AM EDT Oxygen Saturation 100% 12/31/2018 9:28 AM EDT Inhaled Oxygen Concentration - - Weight 81.1 kg (178 lb 12.8 oz) 12/31/2018 9:28 AM EDT Height 157.5 cm (5' 2) 12/31/2018 9:28 AM EDT Body Mass Index 32.7 12/31/2018 9:28 AM EDT documented in this encounter Patient Instructions * Patient Instructions* Charli Cano MD - 12/31/2018 2:30 PM EDT Doing very well nearing completion of treatment. For the skin breakdown underneath the breast, Silvadene cream will help this heal and prevent infection. Please apply this to the site (when clean and dry), twice daily. Otherwise, continue with topical Aquaphor to the area of skin reddening three or four times a day, as you see fit. There's an appointment for you with Dr. Renae March 10, 2019. Also, you're scheduled to see Dr. Moody in January. Please call with any questions or concerns at any time. documented in this encounter Progress Notes * Charli Cano MD - 12/31/2018 2:30 PM EDT Images from the original note were not included. DIAGNOSIS: Breast ca, L, IDC, gr 2, ER+TN+, Her2 neg, s/p lumpectomy & SNB, pT1c pN1a, w/maycol deposits showing 2 different types of tumor, ER+TN+, Her2 neg & ER-TN-, Her2 neg. CURRENT TREATMENT DOSE: 50.4 Gy L supraclav, L axilla & L breast; 52.4 Gy to lumpectomy bed ANTICIPATED TOTAL DOSE: 50.4 Gy L supraclav, L axilla & L breast; 60.4 Gy lumpectomy bed Current # of xrt received: 28 L supraclav, L axilla & L breast; 1 lumpectomy bed Anticipated total # of xrt txs: 28 L supraclav, L axilla & L breast, 33 lumpectomy bed Evaluation of port verification films: Approved. For details, see electronic film record in [employer]. Changes in Medical Condition: Finds skin has become more red and sore. Area along scar is very sore. Is using Bill's Cream typically 1-2 a day, and applies aloe before bed. No SOB or cough. Pain?: No. Your Medications Accurate as of 12/31/18 9:37 AM. If you have any questions, ask [...] review them with you. Physical Exam: BP 125/78 (Patient Position: Sitting) Pulse 78 Temp 36.4 ??C (97.5 ??F) (Oral) Resp 18 Ht 157.5 cm (5' 2) Wt 81.1 kg (178 lb 12.8 oz) SpO2 100% BMI 32.70 kg/m?? A&Ox3, NAD. Skin reaction in irradiated field 2+, with erythema and some dry desquamation. Early moist desquamation in IM fold of left breast. Imagin11/13/18 Dx'ic Rad Interp CTsim: 4 mm LLL nodule most likely benign. 10 mm L adrenal nodulemost consistent w/adenoma. No highly suspicious sign of met dz. Performance Status: KPS 90% Response to xrt: As expected. Irradiation Related Symptoms: Worsening skin rxn, with some early moist desquamation in left IM fold. Treatment for Symptom Control: Bill's cream, aloe gel, veleda cream. Pain Management: Not needed. Recommendation on Continuing Course of xrt: Cont. BID planned for 12/31/18 so she will complete xrt 01/03/19 & be able to fulfill prior commitment. Care of irrad'd skin discussed. To apply Silvadene cream to area of moist desquamation in left IM fold. She was offered Aquaphor for area of skin erythema, but she expressed concern that this was a petroleum product, so she will continue using the Bill's Cream and aloe as before. Rtc 1-[address] Renae. documented in this encounter Plan of Treatment Not on file documented as of this encounter Visit Diagnoses Diagnosis Malignant neoplasm of central portion of left female breast, unspecified estrogen receptor status documented in this encounter Care Teams Basket Filler Relationship Specialty Start Date End Date Jenise Huddleston APRN [address] [place] [address] PCP - General Family Medicine 09/11/18 documented as of this encounter
--- OUTSIDE RECORDS SUMMARY | 2024-07-10 15:29 | XMS_ITS | Encounter Summary ---
Author Organization [facility] Address [facility] [place] [address] Care Team Providers Care Hydrogenation Operator Name Role Phone Jenise Huddleston NATHANIEL Primary Care Provider [phone] [phone] Encounter Details Date Type Department Care Team (Late st Contact Info) Description 11/19/2019 11:30 AM EDT Office Visit Hematology [place] [phone] Jhonatan Gilmore MD [facility] [place] [address] Malignant neoplasm of breast in female, estrogen [...] Pressure - - Pulse - - Temperature 36.3 ??C (97.4 ??F) 11/19/2019 11:32 AM E DT Respiratory Rate - - Oxygen Saturation - - Inhaled Oxygen Concentration - - Weight - - Height - - Body Mass Index - - documented in this encounter Progress Notes * Jhonatan Gilmore MD - 11/19/2019 11:30 AM EDT Urslua Urias is a 68-year-old woman who returns [...] hormonal therapy. She takes multiple naturopathic meds. MRI Apr 2019: both breasts benign. No areas of abnormal enhancement. She has not felt any breast masses. She is happy with her cosmetic result. On physical exam there are no right or left breast masses. No axillary adenopathy. Full ROM left arm and no arm edema. Bilateral mammo today: benign. Impression: No evidence of breast cancer recurrence. Plan: I will schedule her to see our [facility] in 1 year with a bilateral mammogram. documented in this encounter Plan of Treatment Not on file documented as of this encounter Visit Diagnoses Diagnosis Malignant neoplasm of breast in female, estrogen receptor positive, unspecified laterality, unspecified site of breast documented in this encounter Care Teams Hydrogenation Operator Relationship Specialty Start Date End Date Jenise Huddleston APRN [address] [place] [address] PCP - General Family Medicine 09/11/18 documented as of this encounter
--- OUTSIDE RECORDS SUMMARY | 2024-07-10 15:29 | XMS_ITS | Encounter Summary ---
Author Organization [facility] Address [facility] [place] [address] Care Team Providers Care Trommel Tender Name Role Phone Jenise Huddleston APRN Primary Care Provider [phone] [phone] Encounter Details Date Type Department Care Team (Late st Contact Info) Description 02/20/2019 Telephone Hematology [place] [address] Peace Bazan LGC [facility] HEMATOLOGY/[place] [address] Social History Tobacco Use Types Packs/Day Years [...] Telephone Encounter - Peace Bazan LGC - 02/20/2019 12:18 PM EDT Left message asking Ursula to call me back to go over her genetic test results. documented in this encounter Plan of Treatment Not on file documented as of this encounter Visit Diagnoses Not on filedocumented in this encounter Care Teams Trommel Tender Relationship Specialty Start Date End Date Jenise Huddleston APRN [address] [place] [address] PCP - General Family Medicine 09/11/18 documented as of this encounter
--- OUTSIDE RECORDS SUMMARY | 2024-07-10 15:29 | XMS_ITS | Encounter Summary ---
Author Organization [facility] [place] [address] Care Team Providers Care Cook Barbecue Name Role Phone Jenise Huddleston NATHANIEL Primary Care Provider [phone] [phone] Encounter Details Date Type Department Care Team (Latest Contact Info) Description 03/05/2023 10:00 AM EDT - 03/05/2023 11:59 PM EDT Hospital Encounter Mammography/[place] [address] Viktoriya Patricia EVENT PLANNER [facility] [place] [address] Breast cancer metastasized to axillary lymph node, [...] Sig Dispensed Refills Start Date End Date Milk Thistle 150 mg capsule Take by mouth. UNABLE TO FIND Med Name: NAC OREGANO OIL ORAL oregano oil 04/17/2020 ASHWAGANDHA ROOT EXTRACT ORAL Take by mouth daily. tincture cyanocobalamin, vitamin B-12, (VITAMIN B-12 ORAL) Take by mouth. gummies Bacillus coagulans/inulin (PROBIOTIC WITH PREBIOTIC ORAL) Take 1 Dose by mouth daily. NONFORMULARY REQUEST Take 1 Dose by mouth daily. Mushroom blend Green Tea Dennard Extract Capsule Take 1 capsule by mouth [...] Theracumin MAGNESIUM CITRATE ORAL Take by mouth. documented as of this encounter Plan of [...] Center. BIRADS CATEGORY 2: BENIGN FINDINGS [employer] of [...] mammogram documented in this encounter Care Teams Cook Barbecue Relationship Specialty Start Date End Date Jenise Huddleston APRN [address] [place] [address] PCP - General Family Medicine 09/11/18 documented as of this encounter
--- OUTSIDE RECORDS SUMMARY | 2024-07-10 15:29 | XMS_ITS | Encounter Summary ---
Author Organization [facility] [place] [address] Care Team Providers Care Research & Insights Executive Name Role Phone Jenise Huddleston APRN Primary Care Provider [phone] [phone] Encounter Details Date Type Department Care Team (Latest Contact Info) Description 09/18/2022 Travel Social History Tobacco Use Types Packs/Day [...] on filedocumented in this encounter Care Teams Research & Insights Executive Relationship Specialty Start Date End Date Jenise Huddleston APRN [address] [place] [address] PCP - General Family Medicine 09/11/18 documented as of this encounter
--- OUTSIDE RECORDS SUMMARY | 2024-07-10 15:29 | XMS_ITS | Encounter Summary ---
Author Organization [facility] Address [facility] [place] [address] Care Team Providers Care Policy Services Representative Name Role Phone Jenise Huddleston APRN Primary Care Provider [phone] [phone] Reason for Visit * Reason Comments Follow-up Skin Check * Consultation (Routine) - Specialty Diagnoses / Procedures Referred By Petros shah Referred To Contact Dermatology Diagnoses Disorder of the skin and subcutaneous tissue, unspecified Patient concerned about lesion LIQ Left breast Seborrheic keratosis Procedures Consult Abbey Renae MD [facility] [place] [address] Alfred Steve MD [address] [place] [address], [facility] [place] [address] Referral ID Status Reason Start Date Expiration Date V isits Requested Visits Authorized [id number] 12/10/2018 12/10/2019 1 1 Encounter Details Date Type Department Care Team (Late st Contact Info) Description 12/24/2018 4:00 PM EDT Office Visit Dermatology at [address] [phone] Alfred Steve MD [address] [place] [address], [facility] DERMAT[facility]Y [place], [place] [phone] Seborrheic keratosis; History of SCC (squamous cell carcinoma) of skin Social History Tobacco Use Types Packs/Day Years Used Date Smoking Tobacco: Never Smokeless Tobacco: Never Alcohol Use Standard Drinks/Week Comments Yes 0 (1 standard drink = 0.6 oz pur e alcohol) minimally Sex and Gender Information Value Date Recorded Sex Assigned at Not on file Gender Identity Not on file Sexual Orientation Not on file documented as of this encounter Progress Notes * Alfred Steve MD - 12/24/2018 4:00 PM EDT Problem: 1. New skin lesions of concern, intramammary chest 2. Recent diagnosis of left breast CA undergoing XRT 3. 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 As noted above she isundergoing treatment for breast CA and was concerned about some dark pigmented spots in between herbreast. She wants to be sure that these do not represent additional skin cancers such as the one she had on her right breast 3 years ago. Physical examination reveals a pleasant 68-year-old man who has early seborrheic keratosis with a waxy stuck on light bishop pigmentation present on intramammary chest. There is no surrounding erythema no induration. The SCCA in situ treatment site remains well-healed without evidence of recurrence. Assessment and plan: Seborrheic keratoses intramammary breasts 1. Patient reassured about benign nature of these 2. Discuss etiology 3. Discussed the lack of malignant potential 4. 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 No evidence of recurrence 2. Return to clinic as needed CC: NATHANIEL Malin MD documented in this encounter Plan of Treatment Not on file documented as of this encounter Visit Diagnoses Diagnosis Seborrheic keratosis Other seborrheic keratosis History of SCC (squamous cell carcinoma) of skin Personal history of other malignant neoplasm of skin documented in this encounter Care Teams Policy Services Representative Relationship Specialty Start Date End Date Jenise Huddleston APRN [address] [place] [id number] PCP - General Family Medicine 09/11/18 documented as of this encounter
--- OUTSIDE RECORDS SUMMARY | 2024-07-10 15:29 | XMS_ITS | Encounter Summary ---
Author Organization [facility] Address [facility] [place] [address] Care Team Providers Care Fitting Room Inspector Name Role Phone Jenise Huddleston Stefanie ARMSTRONG Primary Care Provider +1 [phone] Encounter Details Date Type Department Care Team (Latest Contact Info) Description 11/19/2019 10:18 AM EDT - 11/19/2019 11:59 PM EDT Hospital Encounter Mammography/[place] [address] Jhonatan Gilmore MD [facility] [place] [address] Malignant neoplasm of left female breast, unspecified estrogen receptor status, unspecified site of breast Discharge Disposition: Home [...] Sig Dispensed Refills Start Date End Date Green Tea [place] Extract Capsule Take 1 capsule by mouth [...] Associated Diagnosis Comments MAMMO SCREENING CAD AND LUKE BILATERAL Routine 11/19/2019 10:37 AM EDT Malignant neoplasm of left female breast, unspecified estrogen receptor status, unspecified site of breast documented in this encounter Results * Mammo [...] breast documented in this encounter Care Teams Fitting Room Inspector Relationship Specialty Start Date End Date Jenise Huddleston APRN [address] [place] [address] PCP - General Family Medicine 09/11/18 documented as of this encounter
--- OUTSIDE RECORDS SUMMARY | 2024-07-10 15:29 | XMS_ITS | Encounter Summary ---
Author Organization [facility] [place] [address] Care Team Providers Care Supercharger Mechanic Name Role Phone Jenise Huddleston APRN Primary Care Provider [phone] [phone] Encounter Details Date Type Department Care Team (Latest Contact Info) Description 09/20/2023 Travel Social History Tobacco Use Types Packs/Day [...] on filedocumented in this encounter Care Teams Supercharger Mechanic Relationship Specialty Start Date End Date Jenise Huddleston APRN [address] [place] [address] PCP - General Family Medicine 09/11/18 documented as of this encounter
--- OUTSIDE RECORDS SUMMARY | 2024-07-10 15:29 | XMS_ITS | Encounter Summary ---
Author Organization [facility] Address [facility] [place] [address] Care Team Providers Care Electrocardiographic Technician Name Role Phone Jenise Huddleston NATHANIEL Primary Care Provider +1 [phone] Reason for Visit * Reason Comments Radiation Follow-up Encounter Details Date Type Department Care Team (Late st Contact Info) Description 03/10/2019 2:00 PM EDT Office Visit Radiation Oncology at [address] [phone] Abbey Renae MD [facility] [place] [address] Malignant neoplasm of central portion of left [...] Sign Reading Time Taken Comments Blood Pressure 123/66 03/10/2019 2:11 PM EDT Pulse 80 03/10/2019 2:11 PM EDT Temperature 36.8 ??C (98.2 ??F) 03/10/2019 2:11 PM ED T Respiratory Rate 16 03/10/2019 2:11 PM EDT Oxygen Saturation 96% 03/10/2019 2:11 PM EDT Inhaled Oxygen Concentration - - Weight 80.4 kg (177 lb 3.2 oz) 03/10/2019 2:11 P M EDT Height - - Body Mass Index 32.2 01/23/2019 8:44 AM EDT documented in this encounter Patient Instructions * Patient Instructions* Abbey Renae MD - 03/10/2019 2:00 PM EDT Your exam shows that you are healing nicely from radiotherapy & there is no evidence of cancer. You may resume your regular deodorant on your left underarm. You may use a straight/regular razor on your left underarm. You may expose the irradiated area to sun, but it is recommended that you apply sunscreen with an SPF of @ least #45 on the irradiated area prior to exposing it to sun. You may swim in chlorinated water. You may expose irradiated area to hot tub water. We will mail you a letter with an appointment for followup in 6 months, @ which time you would be seen by me or by one of the Radiation Oncology Advanced Practice RNs. documented in this encounter Progress Notes * Abbey Renae MD - 03/10/2019 2:00 PM EDT Images from the original note were not included. CC: Sched'd fu s/p xrt completion. HPI: 68 y/o f who completed xrt to L breast 01/03/19 for breast ca, L, IDC, gr 2, ER+AK+, Her2 neg, s/p lumpectomy & SNB, pT1c pN1a, w/maycol deposits showing 2 different types of tumor, ER+AK+, Her2 neg & ER-AK-, Her2 neg. 01/23/[address] Moody for hormonal tx, which she declined. 02/20/19 genetic testing, neg. ROS: Skin w/in irrad'd area healing well. No pain. No swelling hand/arm. ROM arms around shoulders ok. Energy level good. Past Medical History: Diagnosis Date ??? Breast cancer No collagen vasc dz. Squamous cell ca skin. Past Surgical History: Procedure Laterality Date ??? MAMMO US BIOPSY LEFT Left 09/05/2018 Mammo Us Biopsy Left 09/05/[address] [facility] [place] RAD MAMMOGRAPHY ??? MAMMO US NEEDLE LOCALIZATION LEFT Left 10/10/2018 Mammo US Needle Localization Left 10/10/[address] [facility] [place] RAD MAMMOGRAPHY ??? MRI BREAST BIOPSY VACUUM ASSIST LEFT Left 09/18/2018 MRI Breast Biopsy Vacuum Assist Left 09/18/2018 [facility] [place] RAD MRI ??? PRO BX/REMV, LYMPH NODE, DEEP AXILL Left 10/10/2018 BIOPSY OR EXCISION OF LYMPH NODE(S), OPEN, DEEP AXILLARY NODE(S) (WRVU 6.43) performed by Jhonatan Gilmore MD at [facility] [place] MAIN OR ??? PRO INTRAOP SENTINEL LYMPH ID W/DYE INJECTION Left 10/10/2018 INTRAOPERATIVE ID (MAPPING) SENTINEL LYMPH NODE,INCLUDES INJECTION (WRVU 2.5) performed by Jhonatan Gilmore MD at [facility] [place] MAIN OR ??? PRO MASTECTOMY, PARTIAL Left 10/10/2018 MASTECTOMY PARTIAL (WRVU 10.13) performed by Jhonatan Gilmore MD at [facility] [place] MAIN OR Ectopic pregnancies. Your Medications Accurate as of 03/10/19 2:37 PM. If you have any questions, ask [...] 2 caps daily 2000 Units Refills: 0 silver sulfADIAZINE 1 % Crea Commonly known as: SILVADENE Apply topically 2 times daily. Quantity: 50 g Refills: 3 * UNABLE TO FIND Take 2 capsules by mouth daily. Theracumin 2 capsule Refills: 0 * UNABLE TO FIND Take 100 mg by mouth daily. Amino Acid; (dindolylmethane) dim-evail 100 mg Refills: 0 * UNABLE TO FIND Mushroom tincture Refills: 0 * UNABLE TO FIND Inject 1 Dose subcutaneously daily. [place]--anticancer 1 Dose Refills: 0 VITAMIN A ORAL Take by mouth. Refills: 0 VITAMIN C ORAL Take by mouth. Refills: 0 VITAMIN E ORAL Take by mouth. Refills: 0 ZINC ACETATE ORAL Take 40 mg by mouth daily. arginate and gluconate 40 mg Refills: 0 * This list has 4 medication(s) that are the same as other medications prescribed for you. Read thedirections carefully, and ask your doctor or other care provider to review them with you. Physical Exam Constitutional: She is oriented to person, place, and time. She appears well- developed and well-nourished. No distress. BP 123/66 (Patient Position: Sitting) Pulse 80 Temp 36.8 ??C (98.2 ??F) (Oral) Resp 16 Wt 80.4 kg (177 lb 3.2 oz) SpO2 96% BMI 32.20 kg/m?? A&Ox3, NAD. HENT: Head: Normocephalic and atraumatic. Eyes: Conjunctivae and EOM are normal. Right eye exhibits no discharge. Left eye exhibits no discharge. No scleral icterus. Neck: Normal range of motion. Neck supple. No tracheal deviation present. No thyromegaly present. Pulmonary/Chest: Effort normal. No stridor. No respiratory distress. Right breast exhibits no inverted nipple, no mass, no nipple discharge, no skin change and no tenderness. Left breast exhibits skin change (Mild to moderate hyperpigmentation, consistent w/expected post xrt change.). Left breast exhibits no inverted nipple, no mass, no nipple discharge and no tenderness. Abdominal: Soft. She exhibits no distension and no mass. There is no tenderness. There is no rebound and no guarding. Musculoskeletal: Normal range of motion. She exhibits no edema, tenderness or deformity. Lymphadenopathy: Head (right side): No submental, no submandibular, no preauricular, no posterior auricular and no occipital adenopathy present. Head (left side): No submental, no submandibular, no preauricular, no posterior auricular and no occipital adenopathy present. She has no cervical adenopathy. She has no axillary adenopathy. Right: No supraclavicular adenopathy present. Left: No supraclavicular adenopathy present. Neurological: She is alert and oriented to person, place, and time. No cranial nerve deficit. She exhibits normal muscle tone. Coordination normal. Skin: Skin is warm and dry. She is not diaphoretic. Psychiatric: She has a normal mood and affect. Her behavior is normal. Judgment and thought contentnormal. A: Healing well post xrt. P: Care of irrad'd skin discussed. Rtc 6 mos. 04/30/19 Dr. Gilmore w/MRI breasts & mmg. documented in this encounter Plan of Treatment Not on file documented as of this encounter Visit Diagnoses Diagnosis Malignant neoplasm of central portion of left female breast, unspecified estrogen receptor status documented in this encounter Care Teams Electrocardiographic Technician Relationship Specialty Start Date End Date Jenise Huddleston APRN [address] [place] [address] PCP - General Family Medicine 09/11/18 documented as of this encounter
--- OUTSIDE RECORDS SUMMARY | 2024-07-10 15:29 | XMS_ITS | Encounter Summary ---
Author Organization [facility] Address [facility] [place] [address] Care Team Providers Care Marking Clerk Name Role Phone Jenise Huddleston NATHANIEL Primary Care Provider [phone] [phone] Encounter Details Date Type Department Care Team (Late st Contact Info) Description 04/24/2019 1:00 PM EDT Office Visit Hematology/Oncology at [address] [phone] Wilmar Moody MD [facility] [address] [place] [address] Malignant neoplasm of breast in female, estrogen [...] Sign Reading Time Taken Comments Blood Pressure 135/69 04/24/2019 1:06 PM EDT Pulse 68 04/24/2019 1:06 PM EDT Temperature 37 ??C (98.6 ??F) 04/24/2019 1:06 PM EDT Respiratory Rate 18 04/24/2019 1:06 PM EDT Oxygen Saturation 98% 04/24/2019 1:06 PM EDT Inhaled Oxygen Concentration - - Weight 79.7 kg (175 lb 9.6 oz) 04/24/2019 1:06 P M EDT Height 158 cm (5' 2.21) 04/24/2019 1:06 PM EDT copied Body Mass Index 31.91 04/24/2019 1:06 PM EDT documented in this encounter Progress Notes * Wilmar Moody MD - 04/24/2019 1:00 PM EDT Ms. Urias is a 67 year old female Left breast cancer 09/21 Mammogram detected Needle biopsy 09/05/18 Invasive ductal carcinoma ER positive, HI positive, HER-2/ryan negative Partial mastectomy 10/10/18 Invasive carcinoma, grade 2 Tumor size 15 mm 2/6 lymph nodes positive( 2 sub clones from 1 primary?) LVI + Oncotype score 16, no benefit to chemotherapy Complete RT 01/19 Decline hormone treatment 01/19 Neg Genetic testing 02/19 The patient is seen in the [facility]. She had a node positive left breast cancer detected earlier this year. He underwent partial mastectomy showing 2 lymph nodes positive. Interestinglythere were 2 sub-clones of metastasis to her lymph nodes, one ER positive, 1 ER negative. She completed her radiation therapy but then declined any hormonal therapy. She is planning to use natural methods and dietary manipulations. She feels great. She is very comfortable with her decision to avoid hormonal therapy and potential side effects. Does not want to reconsider. She has been quite active this summer PMH: Patient Active Problem List Diagnosis Code [...] imbalance, falls. ROS otherwise neg. Exam: BP 135/69 (Patient Position: Sitting) Pulse 68 Temp 37 ??C (98.6 ??F) (Oral) Resp 18 Ht 158cm (5' 2.21) Comment: copied Wt 79.7 kg (175 lb 9.6 oz) SpO2 98% BMI 31.91 kg/m?? Oropharynx mucous membranes moist Sclera are [...] was angiolymphatic invasion as well. ER and HI were strongly expressed; HER2 negative. OncotypeDx Recurrence Score = 16 (in intermediate range where adjuvant chemo not required/recomme nded). There are no signs of local or systemic recurrence and overall she is doing well. She again confirms her decision not to take hormonal therapy. I did recommend that she continue with every 3-month follow-ups for the first couple of years. I will plan to see her back in 3 months and I think she is planning to see radiation oncology in about 6months. She is following up with her surgeon later this month for breast imaging. She has more problems I would be happy to see her sooner. documented in this encounter Plan of Treatment Not on file documented as of this encounter Visit Diagnoses Diagnosis Malignant neoplasm of breast in female, estrogen receptor positive, unspecified laterality, unspecified site of breast documented in this encounter Care Teams Marking Clerk Relationship Specialty Start Date End Date Jenise Huddleston APRN [address] [place] [address] PCP - General Family Medicine 09/11/18 documented as of this encounter
--- OUTSIDE RECORDS SUMMARY | 2024-07-10 15:29 | XMS_ITS | Encounter Summary ---
Author Organization [facility] [place] [address] Care Team Providers Care Scheduling Analyst Name Role Phone Jenise Huddleston APRN Primary Care Provider +1 [phone] Encounter Details Date Type Department Care Team (Late st Contact Info) Description 03/04/2019 Abstract [place] [address] Bina Russell Social History Tobacco Use Types Packs/Day Years [...] on filedocumented in this encounter Care Teams Scheduling Analyst Relationship Specialty Start Date End Date Jenise Huddleston APRN [address] [place] [address] PCP - General Family Medicine 09/11/18 documented as of this encounter
--- OUTSIDE RECORDS SUMMARY | 2024-07-10 15:29 | XMS_ITS | Encounter Summary ---
Author Organization [facility] [place] [address] Care Team Providers Care Track Patrol Name Role Phone Jenise Huddleston APRN Primary Care Provider +1 [phone] Encounter Details Date Type Department Care Team (Late st Contact Info) Description 12/04/2022 Ancillary Procedure Radiology Library at [facility] [place] [phone] Jenise Huddleston APRN [address] [place], [place] [address] Social History Tobacco Use Types Packs/Day Years [...] Procedure Name Priority Date/Time Associated Diagnosis Comments FILM LIBRARY STORAGE ONLY ULTRASOUND STUDY Routine 12/04/2022 12:00 AM EDT documented in this encounter Results * Film Library- Storage Only Ultrasound Study (12/04/2022 12:00 AM EDT) Narrative [facility] - 12/07/2022 9:07 PM EDT This exam is auto-finalizing. It's purpose is for storage only. Jenise Huddleston APRN IMFrida FILM LIBRARY ORDERABLES Performing Organization Address City/State/[facility] Co de Phone Number [place], [place] documented in this encounter Visit Diagnoses Not on filedocumented in this encounter Care Teams Track Patrol Relationship Specialty Start Date End Date Jenise Huddleston APRN [address] [place] [address] PCP - General Family Medicine 09/11/18 documented as of this encounter
--- OUTSIDE RECORDS SUMMARY | 2024-07-10 15:29 | XMS_ITS | Encounter Summary ---
Author Organization [facility] Address [facility] [place] [address] Care Team Providers Care Nursing Associate Name Role Phone Jenise Huddleston NATHANIEL Primary Care Provider +1 [phone] Encounter Details Date Type Department Care Team (Late st Contact Info) Description 09/20/2023 1:30 PM EST Office Visit Hematology/Oncology at [address] [phone] Wilmar Moody MD [facility] DR HEMATOLOGY [place] [address] Malignant neoplasm of breast in female, estrogen [...] Mass Index 30.97 09/20/2023 1:37 PM EST documented in this encounter Progress Notes * Wilmar Moody MD - 09/20/2023 1:30 PM EST Ms. Urias is a 72 year old female Left breast cancer 09/21 Mammogram detected Needle biopsy 09/05/18 Invasive ductal carcinoma ER positive, TX positive, HER-2/ryan negative Partial mastectomy 10/10/18 Invasive carcinoma, grade 2 Tumor size 15 mm 2/6 lymph nodes positive( 2 sub clones from 1 primary?) LVI + Oncotype score 16, no benefit to chemotherapy Complete RT 01/19 Decline hormone treatment 01/19 Neg Genetic testing 02/19 Last mammo-03/25 with DH surgery The patient is seen in the [facility]. She had a node positive left breast cancer detected 2018. She underwent partial mastectomy showing 2 lymph nodes positive. There were 2 sub-clones of metastasis to her lymph nodes, one ER positive, 1 ER negative. She completed her radiation therapy but then declined any hormonal therapy. She is using natural methods and dietary manipulations. She feels great. She has no new medical concerns. She has not notedany lumps or bumps. No unexpected aches or pains. PMH: Patient Active Problem List Diagnosis Code Milium L72.0 History of SCC (squamous cell carcinoma) of skin Z85.828 Breast cancer metastasized to axillary lymph node, left C50.912, C77.3 Hyperlipidemia E78.5 History of Lyme disease Z86.19 Osteoarthritis M19.90 Sleep apnea G47.30 Overweight E66.3 Stress incontinence, female N39.3 No h/o thromboembolic events. Current Outpatient Medications: berberine/herbal complex no.18 (BERBERINE-HERBAL COMB NO.18 ORAL), Take by mouth., Disp: , Rfl: multivitamin (THERAGRAN) Tablet, Take 1 tablet by mouth daily., Disp: , Rfl: Milk Thistle 150 mg capsule, Take by mouth., Disp: , Rfl: UNABLE TO FIND, Med Name: NAC, Disp: , Rfl: OREGANO OIL ORAL, oregano oil, Disp: , Rfl: [place] ROOT EXTRACT ORAL, Take by mouth daily. tincture, Disp: , Rfl: cyanocobalamin, vitamin B-12, (VITAMIN B-12 ORAL), Take by mouth. gummies, Disp: , Rfl: Bacillus coagulans/inulin (PROBIOTIC WITH PREBIOTIC ORAL), Take 1 Dose by mouth daily., Disp: , Rfl: NONFORMULARY REQUEST, Take 1 Dose by mouth daily. Mushroom blend, Disp: , Rfl: Green Tea [place] Extract Capsule, Take 1 capsule by mouth daily., Disp: , Rfl: vitamin E acetate (VITAMIN E ORAL), Take by mouth., Disp: , Rfl: ascorbic acid (VITAMIN C ORAL), Take by mouth., Disp: , Rfl: omega-3/dha/epa/fish oil (OMEGA-3 ORAL), Take 2,000 Units by mouth daily. Equivalent 2 caps daily, Disp: , Rfl: cholecalciferol, Vitamin D3, 1,000 unit Tablet, Take 6 Units by mouth daily. 6 gtts daily, Disp: , Rfl: UNABLE TO FIND, Take 2 capsules by mouth daily. Theracumin , Disp: , Rfl: MAGNESIUM CITRATE ORAL, Take by mouth., Disp: , Rfl: VITAMIN A ORAL, Take by mouth., Disp: , Rfl: ROS: No new problems with MILES, diplopia, difficulty swallowing, heartburn, cough, DUKES/SOB, pain, palpitations, fevers, bleeding of any kind, nausea/emesis, decreased appetite or energy, change in bowel or bladder function, weakness, swelling, difficulty sleeping, imbalance, falls. ROS otherwise neg. Exam: BP 142/72 (Patient Position: Sitting) Pulse 81 Temp 36.3 ??C (97.3 ??F) (Temporal) Resp 18 Ht 160 cm (5' 2.99) Wt 79.3 kg (174 lb 12.8 oz) SpO2 97% BMI 30.97 kg/m?? Oropharynx mucous membranes moist Sclera are white She is breathing comfortably Lungs are clear to A&P Heart regular rate and rhythm Abdomen soft, nontender Bilateral breasts are without masses, left breast well-healed incision No lower extremity edema No rash Oriented x3 Assessment/Rec: 72 yo female with a node-positive left breast cancer. Tumor was 1.5cm, intermediate grade, involving 2 nodes. There was angiolymphatic invasion as well. ER and TX were strongly expressed; HER2 negative. OncotypeDx Recurrence Score = 16 (in intermediate range where adjuvant chemo not required/recomme nded). The patient did get adjuvant radiation therapy but declined adjuvant hormonal therapy. There are no signs of local or systemic recurrence and overall she is doing well. She again confirms her decision not to take hormonal therapy. She is now about 5 years out from her diagnosis and given her desire to avoid aggressive interventions I think it is reasonable for her to suspend further oncology follow-up at this point. She can follow-up with her primary care team. We did recommend yearly mammograms and she would like to convertthose to local care which she will do with her primary care team. I did not give her a follow-up appointment in oncology clinic but would be happy to see her again if there are more concerns. documented in this encounter Plan of Treatment Not on file documented as of this encounter Visit Diagnoses Diagnosis Malignant neoplasm of breast in female, estrogen receptor positive, unspecified laterality, unspecified site of breast documented in this encounter Care Teams Nursing Associate Relationship Specialty Start Date End Date Jenise Huddleston APRN [address] [place] [address] PCP - General Family Medicine 09/11/18 documented as of this encounter
--- OUTSIDE RECORDS SUMMARY | 2024-07-10 15:29 | XMS_ITS | Encounter Summary ---
Author Organization [facility] Address [facility] [place] [address] Care Team Providers Care Manager Interface Name Role Phone Jenise Huddleston NATHANIEL Primary Care Provider [phone] [phone] Encounter Details Date Type Department Care Team (Late st Contact Info) Description 03/04/2019 Orders [place] [address] Jhonatan Gilmore MD [facility] [place] [address] [address] Encounter for mammogram to establish baseline mammogram (Primary Dx) Social History Tobacco Use [...] as of this encounter Results * Mammo Diagnostic Cad and [place]ques Left (04/30/2019 11:33 AM EDT) Anatomical Region [...] BIRADS CATEGORY 2: BENIGN FINDINGS * ??[employer] and The Society of [...] Diagnosis Encounter for mammogram to establish baseline mammogram- Primary Other screening mammogram Encounter for mammogram to establish baseline mammogram Other screening mammogram documented in this encounter Care Teams Manager Interface Relationship Specialty Start Date End Date Jenise Huddleston, [employer] [address] [place] [address] PCP - General Family Medicine 09/11/18 documented as of this encounter
--- OUTSIDE RECORDS SUMMARY | 2024-07-10 15:29 | XMS_ITS | Encounter Summary ---
Author Organization [facility] Address [facility] [place] [address] Care Team Providers Care Roustabout Hand Name Role Phone Jenise Huddleston APRN Primary Care Provider [phone] Reason for Visit * Reason Comments Genetic Evaluation * Consultation (Routine) - Closed Specialty Diagnoses / Procedures Referred By Petros shah Referred To Contact Hematology and Oncology Diagnoses Breast cancer metastasized to axillary lymph node, left Family history of breast cancer Brian Frazier MD [facility] DR HEMATOLOGY/[place] [address] St Hem Onc Office [address] [place] [phone] Referral ID Status Reason Start Date Expiration Date V isits Requested Visits Authorized [id number] Closed Consult, Test & Treat 10/25/2018 10/25/2019 1 1 Encounter Details Date Type Department Care Team (Late st Contact Info) Description 02/12/2019 3:00 PM EDT TH Visit (TeleHealth) Hematology [place] [phone] Peace Bazan, [facility] [place] HEMATOLOGY/[place] [address] Family history of malignant neoplasm of breast; Malignant neoplasm of breast in female, estrogen [...] as of this encounter Progress Notes * Peace Bazan LGC - 02/12/2019 3:00 PM EDT Ms. Urias was seen by Yuliana Bazan MS [facility] in consultation at the request of Dr. Brian Frazier to advise regarding possible heritable predisposition to cancer. I spent 30 minutes of this face to face encounter with the patient gathering medical and family history and discussing the likelihood of a genetic predisposition to cancer and the option of genetic testing. Reason for referral/Chief complaint Personal history of breast cancer and family history of breast cancer, as well as Ashkenazi Yarsanism ancestry. Medical history Cancer hx and treatment: Ursula was recently diagnosed with invasive ductal carcinoma of the left breast at age 68. Her tumor was ER+/WV+/Her2-. She underwent a partial mastectomy, followed by radiation therapy. Hormonal therapy was recommended but declined. Ursula also has a history of squamous cell carcinoma. Age at 1st menses: ? Age at 1st child: n/a Menopause status: Postmenopausal Hormone replacement therapy use: n/a Family History of Cancer Problem Relation Age of Onset ??? Breast Cancer Paternal 1st Cousin Once Removed (grandmother's sister's daughter) ??? Breast Cancer Paternal 2nd Cousin (grandmother's sister's daughter's daughter) ??? Breast Cancer Paternal 2nd Cousin (grandmother's sister's daughter's daughter, twin to the above) Maternal ethnic background is Uk[place]ian. Paternal ethnic background is [place]. Both sides of the family are Ashkenzi Yarsanism. Genetic risk assessment Panel genetic testing for an inherited predisposition to cancer, including breast, was discussed. The risks, benefits and limitations of panel genetic testing were reviewed, specifically a high rate of identifying a variant of uncertain significance (~20%), lack of knowledge of cancer risk for newly identified, moderate risk genes included in the panel and lack of effective screening, as well as cancer risk for other cancers not observed in the family. The likelihood that Ursula would be found to have a mutation in a cancer predisposition gene is high enough to offer the option of genetic testing. Ursula opted for testing with [employer]'s BRCA1 and BRCA2 STAT Panel, a next generation sequencingpanel that simultaneously analyzes the BRCA1 and BRCA2 genes. Ursula declined additional genetic testing. She was consented. Her blood sample was drawn and sent to [facility]. Testing will take approximately 3 weeks. Ursula will be contacted via telephone once her test results become available. If positive, we will schedule an in person follow-up appointment. At that time, we will discuss with Ursula the implications that this test result may have for her, as well as her family members. We will also provide Ursula with screening guidelines for cancer prevention and early detection, as well as answer any questions she may have. documented in this encounter Plan of Treatment Scheduled Referrals Name Type Priority Associated Diagnoses Orde r Schedule Referral to Familial Cancer Outpatient Referral Routine Breast cancer metastasized to axillary lymph node, left Family history of breast cancer Ordered: 10/25/2018 documented as of this encounter Visit Diagnoses Diagnosis Family history of malignant neoplasm of breast Malignant neoplasm of breast in female, estrogen receptor positive, unspecified laterality, unspecified site of breast documented in this encounter Care Teams Roustabout Hand Relationship Specialty Start Date End Date Jenise Huddleston APRN [address] [place] [address] PCP - General Family Medicine 09/11/18 documented as of this encounter
--- OUTSIDE RECORDS SUMMARY | 2024-07-10 15:29 | XMS_ITS | Encounter Summary ---
Author Organization [facility] Address [facility] [place] [address] Care Team Providers Care Shipping And Receiving Coordinator Name Role Phone FlaquitoJenise hinson NATHANIEL Primary Care Provider [phone] Encounter Details Date Type Department Care Team (Late st Contact Info) Description 02/17/2021 2:30 PM EDT Office Visit Hematology/Oncology at [address] [phone] Wilmar Moody MD [facility] DR [place] [address] Jacqueline Rose SKILL TRAINING PROGRAM COORDINATOR [address] [place] [address] DR HEMATOLOGY ONCOLOGY [place], [place] [id number] Malignant neoplasm of breast in female, estrogen [...] Sign Reading Time Taken Comments Blood Pressure 128/65 02/17/2021 2:40 PM EDT Pulse 73 02/17/2021 2:40 PM EDT Temperature 36.3 ??C (97.3 ??F) 02/17/2021 2 :40 PM EDT Respiratory Rate 16 02/17/2021 2:40 PM EDT Oxygen Saturation 98% 02/17/2021 2:4 0 PM EDT Inhaled Oxygen Concentration - - Weight 77.1 kg (170 lb) 02/17/2021 2:40 PM EDT Height 158 cm (5' 2.21) 02/17/2021 2:4 0 PM EDT actual, no shoes Body Mass Index 30.89 02/17/2021 2:40 PM EDT documented in this encounter Progress Notes * Wilmar Moody MD - 02/17/2021 2:30 PM EDT Ms. 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 She has no new medical concerns. She has not noted anylumps or bumps. No unexpected aches or pains. [...] imbalance, falls. ROS otherwise neg. Exam: BP 128/65 (Patient Position: Sitting) Pulse 73 Temp 36.3 ??C (97.3 ??F) (Temporal) Resp 16 Ht 158 cm (5' 2.21) Comment: actual, no shoes Wt 77.1 kg (170 lb) SpO2 98% BMI 30.89 kg/m?? Oropharynx mucous membranes moist Sclera are white She is breathing comfortably Lungs are clear to A&P Heart regular rate and rhythm Abdomen soft, nontender Bilateral breasts are without masses, left breast well-healed incision No lower extremity edema No rash Oriented x3 Assessment/Rec: 70 yo female with a node-positive left breast cancer. Tumor was 1.5cm, intermediate grade, involving 2 nodes. There was angiolymphatic invasion as well. ER and WI were strongly expressed; HER2 negative. OncotypeDx Recurrence [...] left documented in this encounter Care Teams Shipping And Receiving Coordinator Relationship Specialty Start Date End Date Jenise Huddleston, SKILL TRAINING PROGRAM COORDINATOR [address] [place] [address] PCP - General Family Medicine 09/11/18 documented as of this encounter
--- OUTSIDE RECORDS SUMMARY | 2024-07-10 15:30 | XMS_ITS | Encounter Summary ---
Author Organization [facility] [place] [address] Care Team Providers Care Deployment Specialist Name Role Phone Unavailable Primary Care Provider Unavailabl e Encounter Details Date Type Department Care Team (Late st Contact Info) Description 02/09/2009 Ancillary Procedure Radiology Library at [facility] [place] Roque [phone] Jenise Huddleston APRN [address] [place] [address] Social History Tobacco Use Types Packs/Day Years Used Date Smoking Tobacco: Never Assessed Sex and Gender Information Value Date Recorded Sex Assigned at Not on file Gender Identity Not on file Sexual Orientation Not on file documented as of this encounter Plan of Treatment Not on file documented as of this encounter Procedures Procedure Name Priority Date/Time Associated Diagnosis Comments FILM LIBRARY STORAGE ONLY MAMMO Routine 02/09/2009 12:00 AM EDT documented in this encounter Results * Film Library- Storage Only Mammo (02/09/2009 12:00 AM EDT) Narrative VICTORIA - 08/21/2018 5:21 PM EST This exam is for storage only and is auto-finalizing. Jenise Huddleston APRN IMG FILM LIBRARY ORDERABLES MAHESH Puentes documented in this encounter Visit Diagnoses Not on filedocumented in this encounter
--- OUTSIDE RECORDS SUMMARY | 2024-07-10 15:30 | XMS_ITS | Encounter Summary ---
Author Organization [facility] [place] [address] Care Team Providers Care Floor Cleaner Name Role Phone Jenise Huddleston APRN Primary Care Provider [phone] Encounter Details Date Type Department Care Team (Late st Contact Info) Description 11/19/2018 Telephone Hematology [place] [phone] Lynnette Landers Social History Tobacco Use Types Packs/Day Years [...] encounter Miscellaneous Notes * Telephone Encounter - Lynnette Landers - 11/19/2018 8:23 AM EDT Age at diagnosis: 67 Date of diagnosis: September 06, 2017 Place of diagnosis: Internal Date of initial appointment: 09/11/18 Surgeon: Deirdre Referral to Medical Oncology: Yes, Internal Medical Oncologist:Karin Referral to Radiation Oncology:Yes Internal Radiation Oncologist: Oc Referral to Plastic Surgery: No documented in this encounter Plan of Treatment Not on file documented as of this encounter Visit Diagnoses Not on filedocumented in this encounter Care Teams Floor Cleaner Relationship Specialty Start Date End Date Jenise Huddleston APRN [address] [place] [address] PCP - General Family Medicine 09/11/18 documented as of this encounter
--- OUTSIDE RECORDS SUMMARY | 2024-07-10 15:30 | XMS_ITS | Encounter Summary ---
Author Organization [facility] Address [facility] [place] [address] Care Team Providers Care Blemish Remover Name Role Phone Jenise Huddleston NATHANIEL Primary Care Provider [phone] Encounter Details Date Type Department Care Team (Late st Contact Info) Description 11/14/2018 1:00 PM EDT Office Visit Hematology/Oncology at [address] [phone] Wilmar Moody MD [facility] DR HEMATOLOGY [place] [address] Malignant neoplasm of left breast in female, estrogen receptor positive, unspecified site of breast Social History Tobacco [...] Sign Reading Time Taken Comments Blood Pressure 129/61 11/14/2018 1:21 PM EDT Pulse 82 11/14/2018 1:21 PM EDT Temperature 36.8 ??C (98.2 ??F) 11/14/2018 1 :21 PM EDT Respiratory Rate 20 11/14/2018 1:21 PM EDT Oxygen Saturation 96% 11/14/2018 1:2 1 PM EDT Inhaled Oxygen Concentration - - Weight 83.6 kg (184 lb 3.2 oz) 11/14/2018 1:21 PM EDT Height 158 cm (5' 2.21) 11/14/2018 1:2 1 PM EDT actual, no shoes Body Mass Index 33.47 11/14/2018 1:21 PM EDT documented in this encounter Progress Notes * Katarzyna Vgea, RN - 11/14/2018 1:00 PM EDT MEDICAL ONCOLOGY INITIAL NURSING ASSESSMENT ADVANCE DIRECTIVES: In EDH [ ] Has documents [ ] Will bring in [ ] IF NO: Advance Directive pamphlet provided : Referral to Care Management : SW to see PRESENTING SYSTEMS and PATHOLOGY: as per Dr. Moody REVIEW OF SYSTEMS: as per Dr. Moody Prior Radiotherapy: no[ x ] Yes[ ]Site Date Facility Prior Chemotherapy: no[x ] Yes[ ] Drug: Oncologist- LastTreatment: NO: YES: Claustrophobia or requires sedation for MRIs x Allergy to CT or MRI contrast agent or iodine or shellfish x Diabetic and on metformin x Metal in body, implanted device, worked with metal, body piercings,braces x Dentures or hearing device x Pacemaker x Difficulty breathing while lying flat x Kidney problems/creatinine x Balance difficulty: [x ]no [ ]yes At risk for fall: [ x ] no [ ] yes If yes, actions implemented to prevent fall. Patient/family instructed to avoid independent ambulation. Use wheelchair and ask for assistance of staff while in the clinic. ADL [ x ] no limits [ ] needs dressing assistance [ ] needs meal assistance Assistive device:[x ]none [ ]cane [ ]walker [ ]wheelchair [ ]other: explain PAIN ASSESSMENT: [0 ] out of 10 Location: Description: [ ] Dull [ ] Sharp [ ] Burning [ ] Throbbing [ ] Radiating [ ] Continuous [ ]Intermittent Aggravating Factors: [ ] Movement [ ] Position [ ]Immobility [ ]Other Alleviating Factors: [ ]Medication [ ] Positioning [ ] Other Current Pain Management Plan: [ x ]Satisfied [ ] Not satisfied SOCIAL ASSESSMENT: See EDH social assessment information entered. Support Systems: transportation plan: [x ]private vehicle [ ] RCT needs Social Work referral [ ] Unknown at this time needs Social Work referral Barriers to treatment: Referrals/Interventions: LEARNING STYLE: Visual and verbal, wants written material and verbal discussion. TEACHING: __ NCI ???Chemotherapy and You?? and folder given. NA _x_ Specific literature provided and reviewed with patient. AI to follow XRT * Wilmar Moody MD - 11/14/2018 1:00 PM EDT Ms. 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 She is referred by Dr. Frazier. She had an evaluation down at [place]. Her Oncotype score returned at 16 so it was recommended she talk to us about hormonal therapy with no role for adjuvant chemotherapy. The patient did meet with radiation oncology yesterday and is scheduled to start that in the near future. She feels fine. She did have several questions about her Oncotype score which we reviewed in detail. PMH: Patient Active Problem List Diagnosis Code ??? Milium L72.0 ??? History of SCC (squamous cell carcinoma) of skin Z85.828 ??? 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 [place] [facility]: told it was excellent. Soc Hx/Fam Hx: Lives in [facility]. Ashkenazi Confucianist ancestry Family History Problem Relation Age of Onset ??? Breast Cancer Paternal Cousin Twins ??? Breast Cancer Paternal Cousin Twins ??? Ovarian Cancer Neg Hx ROS: No new problems with MILES, diplopia, difficulty swallowing, heartburn, cough, DUKES/SOB, pain, palpitations, fevers, bleeding of any kind, nausea/emesis, decreased appetite or energy, change in bowel or bladder function, weakness, swelling, difficulty sleeping, imbalance, falls. ROS otherwise neg. Exam: BP 129/61 (Patient Position: Sitting) Pulse 82 Temp 36.8 ??C (98.2 ??F) (Oral) Resp 20 Ht 158 cm (5' 2.21) Comment: actual, no shoes Wt 83.6 kg (184 lb 3.2 oz) SpO2 96% BMI 33.47 kg/m?? Oropharynx mucous membranes moist Sclera are white She is breathing comfortably No lower extremity edema No rash Oriented x3 Assessment/Rec: 67 yo female recently diagnosed with a node-positive left breast cancer. Tumor was 1.5cm, intermediate grade, involving 2 nodes. There was angiolymphatic invasion as well. ER and MT were strongly expressed; HER2 negative. OncotypeDx Recurrence Score = 16 (in intermediate range where adjuvant chemo not required/recommended). I again reviewed the rationale for additional treatment at this time. Radiation therapy improves local control and then we talked about her risks of systemic relapse. There is no role for chemotherapy but we did discuss the rationale for aromatase inhibitors. The patient is very organic. She asked if there are alternatives to hormonal therapy such as diet manipulations or other things. She has learned that the keto diet can be beneficial for management ofcancer. I recommended to consider those things as complementary to clinically proven therapies suchas aromatase inhibitors. She was willing to proceed. I will plan to see her back in a couple of months after she completes her radiation therapy to havefinal discussions about starting Arimidex and we will start at that time. The patient is in agreement with the plan. documented in this encounter Plan of Treatment Not on file documented as of this encounter Visit Diagnoses Diagnosis Malignant neoplasm of left breast in female, estrogen receptor positive, unspecified site of breast documented in this encounter Care Teams Blemish Remover Relationship Specialty Start Date End Date Jenise Huddleston APRN [address] [place] [address] PCP - General Family Medicine 09/11/18 documented as of this encounter
--- OUTSIDE RECORDS SUMMARY | 2024-07-10 15:30 | XMS_ITS | Encounter Summary ---
Author Organization [facility] Address [facility] [place] [address] Care Team Providers Care Nutritional Yeast Supervisor Name Role Phone Jenise Huddleston NATHANIEL Primary Care Provider [phone] [phone] Reason for Visit * Reason Comments On Treatment Visit Encounter Details Date Type Department Care Team (Late st Contact Info) Description 12/10/2018 9:00 AM EDT Office Visit Radiation Oncology at [address] [phone] Abbey Renae MD [facility] [place] [address] Malignant neoplasm of central portion of left [...] Sign Reading Time Taken Comments Blood Pressure 115/70 12/10/2018 9:29 AM EDT Pulse - - Temperature 36.7 ??C (98.1 ??F) 12/10/2018 9:29 AM ED T Respiratory Rate 16 12/10/2018 9:29 AM EDT Oxygen Saturation 99% 12/10/2018 9:29 AM EDT Inhaled Oxygen Concentration - - Weight 82.3 kg (181 lb 6.4 oz) 12/10/2018 9:29 A M EDT Height - - Body Mass Index 32.96 11/14/2018 1:21 PM EDT documented in this encounter Progress Notes * Abbey Renae MD - 12/10/2018 9:00 AM EDT Images from the original note were not included. DIAGNOSIS: Breast ca, L, IDC, gr 2, ER+LA+, Her2 neg, s/p lumpectomy & SNB, pT1c pN1a, w/maycol deposits showing 2 different types of tumor, ER+LA+, Her2 neg & ER-LA-, Her2 neg. CURRENT TREATMENT DOSE: 25.2 Gy L supraclav, L axilla & L breast ANTICIPATED TOTAL DOSE: 50.4 Gy L supraclav, L axilla & L breast; 60.4 Gy lumpectomy bed Current # of xrt received: 14 L supraclav, L axilla & L breast Anticipated total # of xrt txs: 28 L supraclav, L axilla & L breast, 33 lumpectomy bed Evaluation of port verification films: Approved. For details, see electronic film record in [employer]. Changes in Medical Condition: Seeing her continuous improvement coordinator, Dr. Farnaz Levy, [place] this wk. Skin lesion LIQ L breast w/o change; previously tx'd by Dr. Steve for squamous cell ca skin. Wants fu studies other than mmgs. Pain?: No. Your Medications Accurate as of 12/10/18 9:43 AM. If you have any questions, ask your nurse or doctor. Continued medications, unchanged Dose Details ALOE GEL TOP Apply topically. Refills: 0 BERBERINE-HERBAL COMB NO.18 ORAL Take 500 Units by mouth as needed. 500 Units Refills: 0 cholecalciferol (Vitamin D3) 1,000 unit Tab Take 6 Units by mouth daily. 6 gtts daily 6 Units Refills: 0 * CREAM BASE TOP Apply topically. Jeans Cream. Apply to area of radiation twice a day but no less than 2 hours before a treatment. Refills: 0 * CREAM BASE TOP Apply topically. Veleda Refills: 0 MAGNESIUM CITRATE ORAL Take by [...] mg Refills: 0 * This list has 5 medication(s) that are the same as other medications prescribed for you. Read thedirections carefully, and ask your doctor or other care provider to review them with you. Physical Exam: BP 115/70 (Patient Position: Sitting) Temp 36.7 ??C (98.1 ??F) (Oral) Resp 16 Wt 82.3 kg (181 lb 6.4 oz) SpO2 99% BMI 32.96 kg/m?? A&Ox3, NAD. 1 cm mildly hyperpigmented lesion LIQ L breast, parasternal, waxy stuck on appearance, consistent w/seborrheic keratosis. Mild erythema L inferior breast, consistent w/expected xrt assoc'd skin rxn. Imagin11/13/18 Dx'ic Rad Interp CTsim: 4 mm [...] Cont. I discussed w/her how I think the skin lesion LIQL breast is a benign seborrheic keratosis, however, rec'd referral to Dr. Steve for eval & sheagrees; referral in process. I rec'd that she discuss fu imaging w/Dr. Gilmore. We discussed CTsim showing LLL nodule & L adrenal nodule; will obtain fu CT in 4 mos. documented in this encounter Plan of Treatment Not on file documented as of this encounter Visit Diagnoses Diagnosis Malignant neoplasm of central portion of left female breast, unspecified estrogen receptor status documented in this encounter Care Teams Nutritional Yeast Supervisor Relationship Specialty Start Date End Date Jenise Huddleston, NATHANIEL [address] [place] [address] PCP - General Family Medicine 09/11/18 documented as of this encounter
--- OUTSIDE RECORDS SUMMARY | 2024-07-10 15:30 | XMS_ITS | Encounter Summary ---
Author Organization [facility] Address [facility] [place] [address] Care Team Providers Care Rotary Dryer Operator Name Role Phone Flaquito Jenisechavez Watts APRN Primary Care Provider [phone] Reason for Visit * Consultation (Routine) - Closed Specialty Diagnoses / Procedures Referred By Petros shah Referred To Contact Radiation Oncology Diagnoses Malignant neoplasm of central portion of left female breast, unspecified estrogen receptor status Procedures Simulation for Radiation Therapy Planning Abbey Renae MD [facility] [place] [address] [facility] [address] [place] [phone] Referral ID Status Reason Start Date Expiration Date V isits Requested Visits Authorized [id number] Closed Consult, Test & Treat 11/13/2018 11/13/2019 1 1 Encounter Details Date Type Department Care Team (Latest Contact Info) Description 11/13/2018 10:00 AM EDT Ancillary Appointment Radiation Oncology at [address] [phone] Abbey Renae MD [facility] [place] [address] Malignant neoplasm of central portion of left [...] this encounter Patient Instructions * Patient Instructions* Stephanie Matos RN - 11/13/2018 10:00 AM EDT Information for Patients receiving radiation therapy to the Breast Approximately two weeks after your first treatment, you may begin to experience side effects causedby the radiation. These effects may continue throughout the treatment period and not start improving until 1-2 weeks after treatment is completed. Your doctor will tell you which side effects you aremost likely to experience, when you will notice them and how long they might last. It is important to follow the appropriate instructions to minimize your discomfort. Skin Care ??? Wash skin in the treatment field with lukewarm water and mild or moisturizing, unscented soap daily. Blot skin dry with a soft towel. ??? Do not apply any ointment, salve, deodorant, perfume, cologne, cosmetic or self-remedy to the treatment area while you are undergoing radiation and for 1-2 weeks following treatment. An all natural deodorant with no aluminum can be used if necessary. ??? Moisturizing cream will be provided for you. This may be used in the treatment area once daily beginning on your first treatment day. Do not apply 2 hours before your radiation treatments. As dryness/redness develop you can use this more often. ??? Do not rub or scratch the skin in the treatment field. This includes shaving unless you use an electric razor. If your skin becomes dry or itchy, tell your nurse or doctor. If necessary, your doctor may order a medication specifically for this problem. ??? Do not use hot water bottles, heating lights, electric heating pads, or hot packs to the treatment area. ??? Keep treated areas out of the sun throughout the treatment period. Be careful of sun exposure to the treatment field for one year following treatment. Please use SPF> 30 to all exposed areas of skin and limit sun exposure. ??? Avoid tight fitting clothes. We would prefer that you wear a cotton t-shirt instead of a bra. If you are unable to go without a bra please wear a soft cotton bra without underwire. ??? Examine your skin in the treatment area daily and watch for changes. If you cannot reach the whole treatment field ask a family member to look at it and apply cream as needed. Be careful to keep the area under your breast clean and dry as this area can get irritated first. ??? You will meet with your nurse and doctor weekly. They will check your skin and help you with any side effects you are having. Please ask to see the nurse if you have concerns in between these days. ??? During the last weeks of treatment you may notice some peeling of skin and/or a moist reaction.Be sure to let us know if this happens so we can provide you with further skin care instructions.. ??? Continue to stay active, walk daily, eat healthy foods and drink several glasses of water each day. Fatigue You may notice that you feel unusually tired towards the end of treatment. This is not unusual. We recommend that you pace your activities and plan for rest periods to avoid becoming over-tired. Feel free to direct any questions or concerns you may have related to your treatment to your nurse or doctor. [facility] Radiation Oncology Our normal business hours are: Sunday - Sunday 8 AM to 5 PM [place], [place], [place] For emergent situations after hours please call for either location and ask for the Radiation Oncologist traffic control operator. documented in this encounter Progress Notes * Stephanie Matos RN - 11/13/2018 10:00 AM EDT Radiation Oncology Simulation Note Ursula Urias is here for radiation planning , undergoing a simulation to the left breast, supraclavicular fossa, left axilla for breast cancer treatment . Usual radiation oncology routines and purpose of on treatment visits were explained. Jeans cream provided and instructions for use reviewed Anticipatory Guidance: Please see AVS Barriers to Treatment/ Compliance issues identified: None identified. Patient does have a trip planned to [place] late December -early January for her sister's [facility] service. Patient confirms they can have no difficulties lying flat. pre- medication plan made: None needed. Referrals: BUSINESS OFFICE ASSOCIATE per routine * Abbey Renae MD - 11/13/2018 10:00 AM EDT Here for sim. Sim: Custom vac bag w/breast bd immobilization; flat bbs on L breast Strickland Pattern scar; CT through neck & chest free breathing, followed by 2nd CT through neck & chest w/deep inspiration breath hold (DIBH); 3D xrt planned. She tolerated sim well, w/o problem. Tx Plan: 3D xrt. Start xrt next wk. She has been advised to not take omega 3 fatty acid fish oil during xrt. documented in this encounter Plan of Treatment Not on file documented as of this encounter Visit Diagnoses Diagnosis Malignant neoplasm of central portion of left female breast, unspecified estrogen receptor status documented in this encounter Care Teams Rotary Dryer Operator Relationship Specialty Start Date End Date Jenise Huddleston, MANAGER ADMINISTRATIVE SERVICES [address] [place] [address] PCP - General Family Medicine 09/11/18 documented as of this encounter
--- OUTSIDE RECORDS SUMMARY | 2024-07-10 15:30 | XMS_ITS | Encounter Summary ---
Author Organization [facility] Address [facility] [place] [address] Care Team Providers Care Professor Of Theater Name Role Phone Jenise Huddleston NATHANIEL Primary Care Provider [phone] Encounter Details Date Type Department Care Team (Latest Contact Info) Description 10/10/2018 8:43 AM EST - 10/10/2018 9:25 AM EST Hospital [place] [address] Jhonatan Gilmore MD [facility] [address] Malignant neoplasm of left female breast, unspecified [...] Sig Dispensed Refills Start Date End Date MAGNESIUM CITRATE ORAL Take by mouth. acetaminophen (TYLENOL) 325 mg Tablet Take 2 tablets by mouth every 6 hours as needed for Pain. 30 tablet 10/10/2018 12/10/2018 ascorbic acid, vitamin C, (VITAMIN C) 1,000 mg Tablet Take 1,000 mg by mouth daily. 11/14/2018 vitamin E (VITAMIN E) 400 unit Capsule Take 800 Units by mouth. 11/13/2018 documented as of this encounter Progress Notes * Lars Diego DO - 10/09/2018 5:25 PM EST Pre-procedure note for needle breast biopsies performed in radiology. Procedure date: Tomorrow Procedure type: left breast NLOC and sentinel node injection Allergies: Patient has no known allergies. Medications: Current Outpatient Medications: ??? MAGNESIUM CITRATE ORAL, Take by mouth., Disp: , Rfl: ??? ascorbic acid, vitamin C, (VITAMIN C) 1,000 mg Tablet, Take 1,000 mg by mouth daily., Disp: , Rfl: ??? vitamin E (VITAMIN E) 400 unit Capsule, Take 800 Units by mouth., Disp: , Rfl: Anticoagulation status: none stopped on: N/A Imaging reviewed and procedural plan approved by Dr. Lars Diego DO documented in this encounter Plan of Treatment Not on file documented as of this encounter Procedures Procedure Name Priority Date/Time Associated Diagnosis Comments MAMMO DIAGNOSTIC WITHOUT CAD LEFT Routine 10/10/2018 9:15 AM EST Malignant neoplasm of left female breast, unspecified estrogen receptor status, unspecified site of breast documented in this encounter Results * Mammo Diagnostic Without Cad Left (10/10/2018 9:15 AM EST) Anatomical Region Laterality Modality Breast Left Mammography Impressions 10/10/2018 9:35 AM EST 1. ??Status post successful preoperative ultrasound-guided wire localization with sentinel node injection. 2. ??Wire through the lesion with clip at mid thick. The radiotracer injection was administered under the supervision of authorized user Dr. Christina Torre. Preliminary report signed by: Lars Diego at 10/10/2018 9:34 AM I have personally reviewed the image(s) and the residents interpretation and agree with the findings, Christina Torre at 10/10/2018 9:35 AM Thank you for letting us participate in the care of this patient. For questions regarding this report, please contact the number below. ? Electronically signed by: ANN Powers [facility] ([phone]), at 10/10/2018 9:35 AM Narrative 10/10/2018 9:35 AM EST NEEDLE LOCALIZATION OF LESION IN THE LEFT BREAST AND SENTINEL NODE INJECTION CLINICAL HISTORY: PLEASE NEEDLE LOCALIZE THE LEFT BREAST CANCER Lesion: Left breast mass at 6:00 Radian 4 cm from the nipple A time out procedure was performed per hospital protocol to verify correct identity, procedure and laterality. Following skin cleansing and injection of less than 5 cc of 1% lidocaine, a needle localization of the suspicious area in the Left breast was performed from the inferior approach with ultrasound guidance. A 5 cm [employer] - Amniofilm needle was used. After the needle was confirmed to be in appropriate position the wire was deployed. Cranio-caudal and 90 degree digital mammography views were obtained following localization to document wire position, which demonstrated the wire through the lesion with clip at mid thick. Images were annotated on PACS for the operating surgeon. A sentinel node injection was performed using less than 2 milliCuries of Tc-99m sulfur colloid. ??Half the dose was injected subcutaneously and half injected intradermally. No additional imaging was performed. PROCEDURAL ATTESTATION: Resident: Lars Diego DO Attending: CRISS Powers Jhonatan Gilmore MD IMG MAMMO ORDERABLES documented in this encounter Visit Diagnoses Diagnosis Malignant neoplasm of left female breast, unspecified estrogen receptor status, unspecified site of breast documented in this encounter Care Teams Professor Of Theater Relationship Specialty Start Date End Date Jenise Huddleston, AUTOMOBILE MECHANIC SUPERVISOR [address] [place] [address] PCP - General Family Medicine 09/11/18 documented as of this encounter
--- OUTSIDE RECORDS SUMMARY | 2024-07-10 15:30 | XMS_ITS | Encounter Summary ---
Author Organization [facility] [place] [address] Care Team Providers Care Marine Meteorologist Name Role Phone Flaquito Jenisechavez Watts APRN Primary Care Provider [phone] Encounter Details Date Type Department Care Team (Late st Contact Info) Description 09/11/2018 Notes [place] [address] Julieta Recinos MSW Social History Tobacco Use Types Packs/Day Years Used Date Smoking Tobacco: Never Smokeless Tobacco: Never Sex and Gender Information Value Date Recorded Sex Assigned at Not on file Gender Identity Not on file Sexual Orientation Not on file documented as of this encounter Progress Notes * Julieta Recinos MSW - 09/11/2018 11:59 PM EST OFFICE OF CARE MANAGEMENT/CONTINUING SCRIPT MANAGER Reason for referral: Ursula Urias is a 67 year old, female who was seen in the general surgery clinic for a surgical consult as she was recently diagnosed with left breast, ER/AK+, IDC. Pt met with Dr. Gilmore and has decided to have a lumpectomy/SLNB followed by radiation therapy which she will receive at the [facility]. [facility] met with pt to complete a psychosocial assessment and to explain my role in the breast program. Pt was encouraged to contact me if she has any questionsor concerns. Living arrangements/social supports: Pt lives alone in [place], [place]. She has support from her friends and was accompanied to today's visit by several of them. 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 She has Medicare A andB and supplemental insurance through [employer]. Tobacco/drug/alcohol history: Pt states she does not smoke and has a glass of wine monthly. Advance Directives: Pt has not completed advance directives and was given information and forms to do so. Pt was told that the Shared Decision Making Department could help her to complete her advancedirectives. Pt was asked to provide copies of her advance directives if she completes them on her own so they can be scanned into her medical record. Adjustment to illness/Mental Health Concerns: Pt appears to be coping well with her new breast cancer diagnosis. She has support from her friends. I reviewed some of the support and services available to pt in the cancer center Plan: CCM will continue to follow pt to assess and assist with their psychosocial needs. JUANITA [facility] [phone] Pager #[phone] documented in this encounter Plan of Treatment Not on file documented as of this encounter Visit Diagnoses Not on filedocumented in this encounter Care Teams Marine Meteorologist Relationship Specialty Start Date End Date Jenise Huddleston APRN [address] [place] [address] PCP - General Family Medicine 09/11/18 documented as of this encounter
--- OUTSIDE RECORDS SUMMARY | 2024-07-10 15:30 | XMS_ITS | Encounter Summary ---
Author Organization [place] [address] Care Team Providers Care Customer Service Advisor Name Role Phone Jenise Huddleston Stefanie ARMSTRONG Primary Care Provider [phone] Reason for Referral * Diagnostic Test (Routine) - Closed Specialty Diagnoses / Procedures Referred By Petros shah Referred To Contact Radiology Diagnoses Malignant neoplasm of left breast in female, estrogen receptor positive, unspecified site of breast Procedures MRI Breast WWO Contrast Nanda Rushing MD [facility] [place] [address] [place] [address] Referral ID Status Reason Start Date Expiration Date V isits Requested Visits Authorized [id number] Closed Specialty Service Requested 10/24/2018 10/24/2019 1 1 Encounter Details Date Type Department Care Team (Late st Contact Info) Description 10/23/2018 11:00 AM EST Office Visit [place] [address] Nanda Gaines MD [facility] [place] [address] Malignant neoplasm of left breast in female, [...] as of this encounter Progress Notes * Nanda Gaines MD - 10/23/2018 11:00 AM EST Ursula Urias is a 67-year-old woman who returns after left breast onco-plastic [...] the other was ER positive, her-2 negative. She also had a core bx of a MRI -identified 5 mm mass at 0900, 4 cm FN left breast: fibroadenoma. She is of [employer] heritage. I encouraged her to have genetic testing performed and gave her the genetic counselling brochure. There is no family history of ovarian cancer. She has a family history of breast cancer in two second cousins. On physical exam her left breast incision is beautifully healed. Her breasts are ptotic but symmetric. Her incision is healed very nicely with no sign of infection or hematoma. There is no left axillary seroma. She has full range of motion of her left arm. Impression: Ursula is recovering well from left partial mastectomy. I gave her a copy of the pathology report. Plan: No further surgery is indicated. She has discussed adjuvant systemic therapy with Dr. Yefri Frazier; an Oncotype DX test was sent. She will be undergoing left breast/axillary radiation therapy. I will plan to see her back in 6 months with a left mammogram to serve as a new baseline and breastMRI (to confirm that the 2 satellite lesions have been removed). documented in this encounter Miscellaneous Notes * Addendum Note - Nanda Gaines MD - 10/23/2018 11:00 AM ESTAddended by: NANDA GAINES on: 10/24/2018 08:46 AM Modules accepted: Orders documented in this encounter Plan of Treatment Not on file documented as of this encounter Results * MRI Breast wwo [...] the number below. ? Electronically signed by: Zoltan Baldwin [facility] ([phone]), at 04/30/2019 4:27 PM Narrative 04/30/2019 4:27 PM EDT BILATERAL BREAST [...] contrast enhancement curve analysis was performed, using [employer] software. COMPARISON STUDIES: Compared and/or correlated with [...] seen in the chest wall or skin. Nanda Gaines MD IMG MRI ORDERABLES documented in this encounter Visit Diagnoses Diagnosis Malignant neoplasm of left breast in female, estrogen receptor positive, unspecified site of breast Malignant neoplasm of left breast in female, estrogen receptor positive, unspecified site of breast documented in this encounter Care Teams Customer Service Advisor Relationship Specialty Start Date End Date Jenise Huddleston APRN [address] [place] [address] PCP - General Family Medicine 09/11/18 documented as of this encounter
--- OUTSIDE RECORDS SUMMARY | 2024-07-10 15:30 | XMS_ITS | Encounter Summary ---
Author Organization [facility] Address [facility] [place] [address] Care Team Providers Care Wastewater Treatment Plant Instructor Name Role Phone Jenise Huddleston NATHANIEL Primary Care Provider [phone] Encounter Details Date Type Department Care Team (Late st Contact Info) Description 09/11/2018 3:45 PM EST Office [place] [address] Jhonatan Gilmore MD [facility] [place] [address] Leeanne Brown, RN Malignant neoplasm of left breast in female, [...] Sign Reading Time Taken Comments Blood Pressure 140/85 09/11/2018 3:37 PM EST Pulse 90 09/11/2018 3:37 PM EST Temperature 36.8 ??C (98.2 ??F) 09/11/2018 3:37 PM ES T Respiratory Rate 18 09/11/2018 3:37 PM EST Oxygen Saturation 95% 09/11/2018 3:37 PM EST Inhaled Oxygen Concentration - - Weight 86.3 kg (190 lb 3.2 oz) 09/11/2018 3:37 P M EST Height 157.5 cm (5' 2) 09/11/2018 3:37 PM EST Body Mass Index 34.79 09/11/2018 3:37 PM EST documented in this encounter Progress Notes * Jhonatan Gilmore MD - 09/11/2018 3:45 PM EST Ursula Urias is a 67-year-old woman self-referral who has been newly diagnosed with breast cancer. She had a mammogram that showed a 1.2 cm mass in her left breast at 6:00. Ultrasound showed a 1.1 cm mass at 6:00 4 cm from her nipple. There was a question of some small satellite lesions seen around this tumor. Ultrasound here showed that these are just tiny simple cysts. 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 She is having an MRI later this afternoon. Her right mammogram was negative. She has not felt masses in either breast. She has a positive family history of breast cancer in a couple of second cousins. There is no family history of ovarian cancer. She is of Ashkenazi Hoahaoism heritage. I gave her a copy of our genetics counseling brochure to consider a discussion with them. She is been but has not had any deliveries. She has had some ectopic pregnancies. She is currently on some vitamins and tumeric and mushroom extract. She has no known drug allergies. Review of systems is negative for any cardiac pulmonary or renal symptomatology. The rest review ofsystems is negative. 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 She is friends with Laura Alonzo. She lives near [facility]. She has a female friend with her today. On physical exam she is alert and oriented. In general she appears well. She is mildly obese. Pupils are equal, she is nonjaundiced. Lungs are clear. Heart has a regular rhythm. Examination of the left breast: her nipple is normal. I can feel a 1.5 cm mass at 6:00 4 cm from her left nipple. It doesnot involve the skin or the chest wall. There is some ecchymosis. I am not sure whether this is a hematoma or the actual tumor. There are no other left breast masses. There is no left axillary adenopathy. She has full range of motion of her left arm and no left arm edema. No right nipple abnormalities or breast masses. There is no right axillary adenopathy. Abdomen soft. She is grossly neurologically nonfocal. I personally reviewed her ultrasound and mammography images. Impression: 67-year-old fairly healthy woman with a small newly diagnosed left breast cancer. I used our decision analysis framework and we discussed the advantages and disadvantages of lumpectomy plus or minus radiation therapy versus mastectomy plus or minus immediate reconstruction. She clearly wants to proceed with breast conservation. She is reluctant to undergo adjuvant radiation therapy. I discussed with her the CALGB 9343 study with a 2% versus 9% risk of local recurrence after radiation therapy or no radiation therapy at 12 years of follow-up. I think it is likely she will decide on no adjuvant radiation therapy. I will still have her see a radiation oncologist in [facility] to discus the side effects of radiation therapy postoperatively. We will plan a left breast wire localized partial mastectomy and sentinel node excision. I will call her with the MRI results and will schedule her surgery in the near future. 09/13/18 Addendum MRI shows 2 small satellite lesions close to the main mass at 6:00 left breast. I can take all 3 ofthese out with an inverted V excision and oncoplastic closure. MRI also shows another 5 mm lesion at 0900, 4 cm medial to the left nipple. I would like to have this evaluated and biopsied, either under US if it can be seen with US, or mRI guided bx. Her definitive surgery is scheduled for 10/10. Will try to get this done before then. If the 0900 lesion is cancer, she will still have breast conserving surgery; we will just have to wire localize that also. I called her today and informed her of these results. We discussed that her risk of in breast recurrence would be higher (10% at 8 years rather than 3%, from the [facility] database) if she has multicentric disease. 09/19/18 Addendum MRI guided core bx of the left breast lesion at 0900 4 cm FN was benign. I spoke with Ursula. Will proceed with oncoplastic left breast wire localized partial mastectomy andsentinel node excision. Leeanne Escobar, RN - 09/11/2018 3:45 PM EST Comprehensive Breast Program Note Ursula Urias is a 67 y.o. female with left breast cancer. [place] the [place]. 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 SPECIFIC TEACHIN. Breast Cancer Treatment Handbook (Georgina Mckay, 2012) was provided to her. 2. Information from our Shared Decision-Marking Program on Early-Stage Breast Cancer previously provided. 3. She understands she will meet with a medical oncologist (ariana apt. at [facility]) and radiationoncologist ([facility]) after surgery. 4. Contact phone number for questions or concerns in the immediate post- operative period. 5. Comprehensive Breast Program Binder provided. 6. Post Breast Surgery Exercises handout created by physical therapists at [facility] to begin after partial mastectomy and continue until she is back to her baseline. 7. Breast Cancer Treatment Process care map provided and reviewed. 8. Things to Consider...What I Wish I Knew advice from breast cancer patients handout provided. 9. Contact information for the General Surgery Clinic Nurses was given and the Doctor staff consultant system explained. 10. We discussed the recommended 150 minutes of aerobic exercise and two strength training sessionsper week after a breast cancer diagnosis. She verbalized understanding of the plan of care and states all her questions were answered. Fifteen minutes was spent in education and providing support. She has our contact information. imaging scheduler will call her to schedule surgery. She prefers first week of October if possible. Pre-op MRI: planned 09/11/18 documented in this encounter Plan of Treatment Not on file documented as of this encounter Visit Diagnoses Diagnosis Malignant neoplasm of left breast in female, estrogen receptor positive, unspecified site of breast documented in this encounter Care Teams Wastewater Treatment Plant Instructor Relationship Specialty Start Date End Date Jenise Huddleston APRN [address] [place] [address] PCP - General Family Medicine 09/11/18 documented as of this encounter
--- OUTSIDE RECORDS SUMMARY | 2024-07-10 15:30 | XMS_ITS | Encounter Summary ---
Author Organization [facility] Address [facility] [place] [address] Care Team Providers Care Medical Administrative Specialist Name Role Phone Jenise Huddleston Stefanie ARMSTRONG Primary Care Provider [phone] Encounter Details Date Type Department Care Team (Latest Contact Info) Description 10/10/2018 8:42 AM EST Hospital En[place] [address] Jhonatan Gilmore MD [facility] [place] [place] [address] Malignant neoplasm of left female breast, unspecified [...] mouth. 11/13/2018 documented as of this encounter Plan of Treatment Not on file documented as of this encounter Procedures Procedure Name Priority Date/Time Associated Diagnosis Comments MAMMO SENTINEL NODE INJECTION Routine 10/10/2018 9:08 AM EST Malignant neoplasm of left female breast, unspecified estrogen receptor status, unspecified site of breast documented in this encounter Results * Mammo Ruskin Node Injection (10/10/2018 9:08 AM EST) Anatomical Region Laterality Modality Breast N/A Mammography Impressions 10/10/2018 9:35 AM EST 1. [...] the number below. ? Electronically signed by: Christina Torre [facility] ([phone]), at 10/10/2018 9:35 AM Narrative 10/10/2018 9:35 [...] approach with ultrasound guidance. A 5 cm Ghiatas Bard needle was used. After the needle was [...] MAR Action Action Date Dose Rate Site technetium (Tc-99m) sulfur colloid injection 1.6 mCi 1.6 mCi, Intravenous, ONCE PRN, 1 dose, Starting on Alena 10/10/18 at 0910, Until Alena 10/10/18 at 0910, Per Protocol, Routine, Will the administration of sulfur colloid be filtered or unfiltered ? Filtered Given 10/10/2018 9:10 AM EST 1.6 mCi documented in this encounter Care Teams Medical Administrative Specialist Relationship Specialty Start Date End Date Jenise Huddleston APRN [address] [place] [address] PCP - General Family Medicine 09/11/18 documented as of this encounter
--- OUTSIDE RECORDS SUMMARY | 2024-07-10 15:30 | XMS_ITS | Encounter Summary ---
Author Organization [facility] Address [facility] [place] [address] Care Team Providers Care Urologist Name Role Phone Jenise Huddleston Stefanie ARMSTRONG Primary Care Provider [phone] Encounter Details Date Type Department Care Team (Latest Contact Info) Description 10/10/2018 8:42 AM EST Hospital [place] [address] Jhonatan Gilmore MD [facility] [place] [address] [place] [address] Malignant neoplasm of left female breast, unspecified [...] Name Priority Date/Time Associated Diagnosis Comments MAMMO SPECIMEN LEFT Routine 10/10/2018 1 :24 PM EST Malignant neoplasm of left female breast, unspecified estrogen receptor status, unspecified site of breast documented in this encounter Results * Mammo Specimen Left (10/10/2018 1:24 PM EST) Anatomical Region Laterality Modality Breast Left Mammography Impressions 10/10/2018 1:29 PM EST Positive specimen x-ray as described. Results phoned to the operating surgeon intraoperatively. Thank you for letting us participate in the care of this patient. For questions regarding this report, please contact the number below. ? Electronically signed by: Akua Rodríguez [facility] ([phone]), at 10/10/2018 1:29 PM Narrative 10/10/2018 1:29 PM EST EXAMINATION: Specimen x-ray INDICATION: Intraoperative specimen image for adequacy of lesion and/or clip removal TECHNIQUE: A single projection specimen x-ray from the left breast is obtained superimposed on alphanumeric grid COMPARISON: This is correlated with preoperative imaging FINDINGS: The intact wire, clip and mass are contained within the specimen. There are no close margins. Jhonatan Gilmore MD IMG MAMMO ORDERABLES documented in this encounter Visit Diagnoses Diagnosis Malignant neoplasm of left female breast, unspecified estrogen receptor status, unspecified site of breast documented in this encounter Care Teams Urologist Relationship Specialty Start Date End Date Jenise Huddleston APRN [address] [place] [address] PCP - General Family Medicine 09/11/18 documented as of this encounter
--- OUTSIDE RECORDS SUMMARY | 2024-07-10 15:30 | XMS_ITS | Encounter Summary ---
Author Organization [facility] Address [facility] [place] [address] Care Team Providers Care Banquet Supervisor Name Role Phone Jenise Huddleston DEVELOPMENTAL MATHEMATICS INSTRUCTOR Primary Care Provider [phone] Encounter Details Date Type Department Care Team (Late st Contact Info) Description 09/16/2018 [place] [address] Barbara Torre MD [facility] [place] [address] Social History Tobacco Use Types Packs/Day Years Used Date Smoking Tobacco: Never Smokeless Tobacco: Never Sex and Gender Information Value Date Recorded Sex Assigned at Not on file Gender Identity Not on file Sexual Orientation Not on file documented as of this encounter Progress Notes * Barbara Torre MD - 09/16/2018 8:26 AM EST Pre-procedure note for needle breast biopsies performed in radiology. Procedure date: Today Procedure type: left breast ultrasound guided biopsy Allergies: Patient has no known allergies. Medications: [...] reviewed and procedural plan approved by Dr. BARBARA TORRE MD documented in this encounter Plan of Treatment Not on file documented as of this encounter Visit Diagnoses Not on filedocumented in this encounter Care Teams Banquet Supervisor Relationship Specialty Start Date End Date Jenise Huddleston APRN [address] [place] [address] PCP - General Family Medicine 09/11/18 documented as of this encounter
--- OUTSIDE RECORDS SUMMARY | 2024-07-10 15:30 | XMS_ITS | Encounter Summary ---
[place] [address] Care Team Providers Care Plant Sciences Professor Name Role Phone Xochitl Dominguez APRN Primary Care Provider [phone] Reason for Visit * Reason Comments Follow-up Encounter Details Date Type Department Care Team (Late st Contact Info) Description 10/04/2015 10:15 AM EST Office Visit Dermatology at [place] [address] [place] [address] Alfred Steve MD [address] [facility] [place] [address] History of SCC (squamous cell carcinoma) of skin Social History Tobacco Use Types Packs/Day Years Used Date Smoking Tobacco: Unknown Sex and Gender Information Value Date Recorded Sex Assigned at Not on file Gender Identity Not on file Sexual Orientation Not on file documented as of this encounter Patient Instructions * Patient Instructions* Dionne Echavarria LPN - 10/04/2015 10:42 AM EST Images from the original note were not included. [facility] Learning About Squamous Cell Skin Cancer What is squamous cell skin cancer? Squamous cell skin cancer (carcinoma) is a common type of skin cancer. It most often appears on thehead, face, or neck. This cancer is almost always cured when it is found early and treated. If not treated, it may grow and spread (metastasize). This skin cancer is usually caused by too much sun. Using tanning beds or sunlamps can also cause it. What are the symptoms? Signs of squamous cell carcinoma include: ?? Any firm, red bump on sun-exposed skin, and the bump does not go away. ?? Any patch of skin that feels scaly, bleeds, or develops a crust. The patch may get bigger over aperiod of months and form a sore. ?? Any skin growth that looks like a wart. ?? Any sore that does not heal. ?? Any area of thickened skin on the lower lip. This is more likely if you smoke or use chewing tobacco, or your lips are often exposed to the sun and wind. How is it treated? Your doctor will want to remove all of the cancer. There are several ways to remove it. It depends on how big it is, where it is on your body, and your age and overall health. Treatment options include: ?? Surgery to cut out the cancer. ?? Mohs micrographic surgery. This surgery removes the skin cancer one layer at a time, checking each layer for cancer cells right after it is removed. ?? Curettage and electrosurgery. Curettage uses a spoon-shaped instrument (curette) to scrape off the skin cancer, and electrosurgery controls the bleeding and destroys any remaining cancer cells. ?? Cryosurgery. Cryosurgery destroys the skin cancer by freezing it with liquid nitrogen. ?? Radiation therapy. Radiation therapy uses X-rays or other types of radiation to kill cancer cells. It may be done if surgery isn't an option. Other treatment options include chemotherapy cream and laser surgery. If your doctor removes the cancer, he or she will send it to a lab. The lab will make sure all the cancer was removed. If cancer is still there, you will need more treatment. How can you prevent it? ?? Always wear a wide-brimmed hat and long sleeves and pants if you are going to be outdoors. ?? Avoid the sun between 10 a.m. and 4 p.m., which is the peak time for UV rays. ?? Always wear sunscreen on exposed skin. Make sure the sunscreen blocks ultraviolet rays (both UVAand UVB) and has a sun protection factor (SPF) of at least 15. Use it every day, even when it is cloudy. Some doctors may recommend a higher SPF, such as 30. ?? Do not use tanning booths or sunlamps. ?? Use lip balm or cream that has sun protection factor (SPF) to protect your lips from getting sunburned or getting cold sores. ?? Wear sunglasses that block UV rays. ?? Don't smoke or use tobacco products. If you need help quitting, talk to your doctor about stop-smoking programs and medicines. These can increase your chances of quitting for good. When should you call for help? Watch closely for changes in your health, and be sure to contact your doctor if: ?? You see a change in your skin, such as a growth or mole that: ?? Grows bigger. This may happen slowly. ?? Changes color. ?? Changes shape. ?? Starts to bleed easily. Follow-up care is a jaramillo part of your treatment and safety. Be sure to make and go to all appointments, and call your doctor if you are having problems. It's also a good idea to know your test resultsand keep a list of the medicines you take. Where can you learn more? Visit our health information library at [email or web address] You can also view health information on [employer], your personal patient account. Log in or sign up today. Enter U290 in the search box to learn more about Learning About Squamous Cell Skin Cancer. ?? [id number] [employer]. Care instructions adapted under license by [facility]. This care instruction is for use with your licensed healthcare professional. If you have questions about a medical condition or this instruction, always ask your healthcare professional. [employer] disclaims any warranty or liability for your use of this information. Content Version: 10.4.927588; Current as of: July 17, 2014 documented in this encounter Progress Notes * Alfred Steve MD - 10/04/2015 10:53 AM EST Problem: Skin lesion of concern. Ursula follows up today after her July shave C and D of the right breast lesion, which did channel turner to be squamous cell carcinoma in situ. Physical examination today shows excellent healing of the roughly peanut-shaped area, a total surface area about 2 cm, on the right superior breast. There is scar and some minimal postinflammatory erythema still remaining in the superior area of this scar, but there is no evidence of remaining SCCA. Assessment and Plan: Squamous cell carcinoma in situ, right superior breast. a. Good healing and no evidence of recurrence. b. Patient reassured. c. Return to clinic here now on a p.r.n. basis. COPY: Xochitl Dominguez N.P. documented in this encounter Plan of Treatment Not on file documented as of this encounter Visit Diagnoses Diagnosis History of SCC (squamous cell carcinoma) of skin Personal history of other malignant neoplasm of skin documented in this encounter Care Teams Plant Sciences Professor Relationship Specialty Start Date End Date Xochitl Dominguez APRN PCP - General 03/29/15 09/04/18 documented as of this encounter
--- OUTSIDE RECORDS SUMMARY | 2024-07-10 15:30 | XMS_ITS | Encounter Summary ---
[place] [address] Care Team Providers Care Account Services Coordinator Name Role Phone Xochitl Dominguez APRN Primary Care Provider [phone] Reason for Visit * Reason Comments Skin Lesion Encounter Details Date Type Department Care Team (Late st Contact Info) Description 07/12/2015 8:45 AM EST Office Visit Dermatology at [place] [address] [facility] [place] [address] Alfred Steve MD [address] [facility] [place] [address] Milium; History of SCC (squamous cell carcinoma) of skin Social History Tobacco Use Types Packs/Day Years Used Date Smoking Tobacco: Unknown Sex and Gender Information Value Date Recorded Sex Assigned at Not on file Gender Identity Not on file Sexual Orientation Not on file documented as of this encounter Patient Instructions * Patient Instructions* Dionne Echavarria LPN - 07/12/2015 8:50 AM EST Images from the original note were not included. [facility] Skin Lesions: After Your Visit Your Care Instructions A skin lesion is a general term used for the different types of bumps, spots, moles or other growths that may appear on your skin. Most skin lesions are harmless, but sometimes they can be a sign of skin cancer or other health problems. Depending on what type of lesion you have, your doctor may cut out all or a small area of the skin tissue and send it to a lab to be looked at under a microscope. This is called a biopsy. A biopsy may be done to figure out what the lesion is or to make sure it is not skin cancer. Follow-up care is a jaramillo part of your treatment and safety. Be sure to make and go to all appointments, and call your doctor if you are having problems. It's also a good idea to know your test resultsand keep a list of the medicines you take. How can you care for yourself at home? ?? If your doctor removed or biopsied a skin lesion, keep the wound bandaged and dry for the first day. ?? After the first day, clean the wound with soap and water 2 times a day unless your doctor gives you different instructions. Don't use hydrogen peroxide or alcohol, which can slow healing. ?? You may cover the wound with a thin layer of petroleum jelly, such as Vaseline, and a nonstick bandage. ?? If you have stitches, you may get other instructions. You will have to return to have the stitches removed. ?? If a scab forms, do not pull it off. Let it fall off on its own. Wounds heal faster if no scab forms. Washing the area every day and using the ointment will help keep a scab from forming. ?? If the wound bleeds, put direct pressure on it with a clean cloth until the bleeding stops. ?? Take an majc-wxi-cwrgjza pain medicine, such as acetaminophen (Tylenol), ibuprofen (Advil, Motrin), or naproxen (Aleve). Read and follow all instructions on the label. ?? Do not take two or more pain medicines at the same time unless the doctor told you to. Many painmedicines have acetaminophen, which is Tylenol. Too much acetaminophen (Tylenol) can be harmful. ?? If you had a growth frozen off with liquid nitrogen, you may get a blister. Do not break it. Let it dry up on its own. It is common for the blister to fill with blood. You do not need to do anything about this, but if it becomes too painful, call your doctor. When should you call for help? Call your doctor now or seek immediate medical care if: ?? You have signs of infection, such as: ?? Increased pain, swelling, warmth, or redness. ?? Red streaks leading from the wound. ?? Pus draining from the wound. ?? A fever. ?? The wound is bleeding a lot, and direct pressure does not stop it. Watch closely for changes in your health, and be sure to contact your doctor if: ?? You do not get better after 2 weeks of home care. Where can you learn more? Visit our health information library at [email or web address]o You can also view health information on [employer], your personal patient account. Log in or sign up today. Enter E372 in the search box to learn more about Skin Lesions: After Your Visit. ?? [phone] [employer]. Care instructions adapted under license by [facility]. This care instruction is for use with your licensed healthcare professional. If you have questions about a medical condition or this instruction, always ask your healthcare professional. [employer] disclaims any warranty or liability for your use of this information. Content Version: 10.4.922551; Current as of: November 12, 2013 documented in this encounter Progress Notes * Alfred Steve MD - 07/12/2015 9:06 AM EST Problem: Skin lesion of concern. Ursula is a 64-year-old woman who is referred today by Xochitl Dominguez for evaluation of a lesion on the right superior breast and also on the right nasolabial fold. She states that the lesion on the face has been there unchanged for about two years. She is unable to get rid of it. For many months, perhaps several years, she has had an unchanging erythematous, irregular patch on the right superior breast. Physical examination reveals a milium of the right nasolabial fold and probable Person's versus superficial BCCA on the right superior breast, two erythematous patches of slightly irregular shape with a total surface area of 2 cm, arranged somewhat like in a peanut shape. Assessment and Plan: Rule out BCCA versus SCCA, right superior breast. a. After obtaining informed consent site was anesthetized and removed with shave C and D. b. Triple antibiotic ointment and Band-Aid placed. Wound care instructions and supplies given. After curettage site measured 2 cm in diameter. c. We will communicate biopsy results with the patient in one week. Return to clinic in three months for repeat check. COPY: Xochitl Dominguez N.P. documented in this encounter Plan of Treatment Not on file documented as of this encounter Visit Diagnoses Diagnosis Milium Sebaceous cyst History of SCC (squamous cell carcinoma) of skin Personal history of other malignant neoplasm of skin documented in this encounter Care Teams Account Services Coordinator Relationship Specialty Start Date End Date Xochitl Dominguez, NATHANIEL PCP - General 03/29/15 09/04/18 documented as of this encounter
--- OUTSIDE RECORDS SUMMARY | 2024-07-10 15:30 | XMS_ITS | Encounter Summary ---
Author Organization [facility] [place] [address] Care Team Providers Care Saw Setter Name Role Phone None Primary Care Provider Unavailabl e Encounter Details Date Type Department Care Team (Late st Contact Info) Description 09/06/2018 Orders [place] [address] Samia Alex MD [facility] [address] Malignant neoplasm of left breast in female, [...] breast documented in this encounter Care Teams Saw Setter Relationship Specialty Start Date End Date None None PCP - General 09/05/18 09/10/18 documented as of this encounter
--- OUTSIDE RECORDS SUMMARY | 2024-07-10 15:30 | XMS_ITS | Encounter Summary ---
Author Organization [facility] [place] [address] Care Team Providers Care Import And Export Clerk Name Role Phone None Primary Care Provider Unavailabl e Encounter Details Date Type Department Care Team (Latest Contact Info) Description 09/05/2018 1:17 PM EST - 09/05/2018 11:59 PM EST Hospital [place] [address] Akua Rodríguez MD [facility] [place] [place] [address] Abnormal finding on breast imaging Discharge Disposition: Home Social History Tobacco Use [...] Comments MAMMO DIAGNOSTIC WITHOUT CAD LEFT Routine 09/05/2018 2:15 PM EST Abnormal finding on breast imaging documented in this encounter Results * Mammo Diagnostic Without Cad Left (09/05/2018 2:15 PM EST) Anatomical Region Laterality Modality Breast Left Mammography Impressions 09/06/2018 1:25 PM EST Concordant and malignant result RECOMMENDATION: Definitive surgical management. Consider breast MRI. REVIEW PATH CONFERENCE?: No Note: Findings discussed with the patient. The comprehensive breast program was informed. Preliminary report signed by: Tom Ryan at 09/05/2018 3:00 PM I have personally reviewed the image(s) and the residents interpretation and agree with the findings, Zoltan Baldwin at 09/06/2018 1:25 PM Narrative 09/06/2018 1:25 PM EST LEFT BREAST ULTRASOUND GUIDED AUTOMATED CORE BIOPSY CLINICAL HISTORY: Left breast mass measuring 1 cm, at 6:00 4 cm from the nipple. PROCEDURAL DETAILS: Informed consent was obtained and a timeout procedure was performed per protocol. Using local anesthetic (less than 5 cc of 1% lidocaine), sterile technique, and ultrasound guidance the lesion in the left breast was localized and sampled. Multiple satisfactory core biopsy specimens were obtained using a 14-gauge automated device. A Stratopy Beemer 14G marker clip was placed. The clip was in satisfactory position both sonographically and at follow-up cranio-caudal and true lateral digital mammography within the mass, 0 mm of displacement. COMPLICATIONS: None. PROCEDURAL ATTESTATION: Resident: Tom Ryan M.D. I was present with the resident for the jaramillo component(s) of the procedure and otherwise remained immediately available for the duration of the procedure. I attest to having personally viewed the images/test and approve the above interpretation. IMAGING DIFFERENTIAL DIAGNOSIS: IDC, ILC PATHOLOGIC DIAGNOSIS: Invasive ductal carcinoma, intermediate grade. Focal microcalcifications associated with invasive ductal carcinoma. Akua Rodríguez MD IMG MAMMO ORDERABL ES documented in this encounter Visit Diagnoses Diagnosis Abnormal finding on breast imaging Other (abnormal) findings on radiological examination of breast documented in this encounter Care Teams Import And Export Clerk Relationship Specialty Start Date End Date None None PCP - General 09/05/18 09/10/18 documented as of this encounter
--- OUTSIDE RECORDS SUMMARY | 2024-07-10 15:30 | XMS_ITS | Encounter Summary ---
[place] [address] Care Team Providers Care Print Press Operator Name Role Phone Flaquito Jenisechavez Watts APRN Primary Care Provider [phone] Encounter Details Date Type Department Care Team (Latest Contact Info) Description 09/11/2018 2:45 PM EST Laboratory Appointment [address] [id number] Malignant neoplasm of left breast in female, [...] Procedure Name Priority Date/Time Associated Diagnosis Comments HEMOGRAM Routine 09/11/2018 2:48 PM EST Malignant neoplasm of left breast in female, estrogen receptor positive, unspecified site of breast DIFFERENTIAL, AUTOMATED Routine 09/11/2018 2:48 PM EST Malignant neoplasm of left breast in female, estrogen receptor positive, unspecified site of breast CBC (WITH DIFF) Routine 09/11/2018 2:48 PM EST Malignant neoplasm of left breast in female, estrogen receptor positive, unspecified site of breast COMPREHENSIVE METABOLIC PANEL Routine 09/11/2018 2:48 PM EST Malignant neoplasm of left breast in female, estrogen receptor positive, unspecified site of breast documented in this encounter Results * Differential, Automated (09/11/2018 2:48 PM EST) Neutrophil % 56.7 % [facility] Neutrophil Absolute 4.23 1.70 - 6.10 x10(3)/[facility] Lymph % 32.5 % [facility] Lymphocytes Abs 2.4 0.9 - 3.2 x10(3)/[facility] Monocyte % 7.6 % [facility] Monocyte Abs 0.6 0.3 - 0.9 x10(3)/[facility] Eos % 1.7 % [facility] Eosinophils Abs 0.1 0.0 - 0.4 x10(3)/[facility] Basophil % 1.1 % [facility] Baso Absolute 0.1 0.0 - 0.1 x10(3)/[facility] Immature Gran % 0.40 % [facility] Comment: Immature granulocytes(IG's)percentage and absolute count will include metamyelocytes, myelocytes, and promyelocytes. Blood smears from CBCs yielding IG's will be scanned manually for concordance. If this scan disagrees with the automated IG or if promyelocytes are noted, a manual differential will be performed. Immature Gran Absolute 0.03 0.00 - 0.04 x10(3)/[facility] Blood specimen (specimen) 09/11/2018 2:48 PM EST 09/11/2018 3:06 PM EST Narrative Resulting Agency Comment Spec In Lab Jhonatan Gilmore MD HEMATOLOGY ORDERABLE S [facility] [place] [address] * Hemogram (09/11/2018 2:48 PM EST) White Blood Cell 7.5 4.0 - 9.5 x10(3)/[facility] Red Blood Cell 4.49 4.00 - 5.21 x10(6)/[facility] Hemoglobin 13.6 11.7 - 15.5 gm/dL [facility] Hematocrit 41.2 35.7 - 45.8 % [facility] Mean Cell Volume 91.8 82.6 - 94.4 fL [facility] Mean Cell Hemoglobin 30.3 27.1 - 32.0 pg [facility] Mean Cell Hemoglobin Concentration 33.0 31.7 - 35.0 gm/dL [facility] Platelet 247 145 - 357 x10(3)/[facility] RDW Standard Deviation 41.1 37.0 - 46.0 [facility] RDW coefficient of variation 12.3 11.5 - 14.1 % [facility] Mean Platelet Volume 10.8 7.6 - 12.9 [facility] NRBC% auto 0.0 % [facility] NRBC Absolute 0.000 0.000 - 0.000 x10(3)/[facility] Blood specimen (specimen) 09/11/2018 2:48 PM EST 09/11/2018 3:06 PM EST Narrative Resulting Agency Comment Spec In Lab Jhonatan Gilmore MD HEMATOLOGY ORDERABLE S [facility] [place] [address] * (ABNORMAL) Comprehensive metabolic panel (non-fasting) (09/11/2018 2:48 PM EST) Glucose 78 65 - 199 mg/dL [facility] Comment:Diabetes: >=200 mg/d L plus symptoms Blood Urea Nitrogen 14 8 - 18 mg/dL [facility] Creatinine 0.76 0.70 - 1.20 mg/dL [facility] Sodium 140 135 - 145 mmol/L [facility] Potassium 4.1 3.5 - 5.0 mmol/L [facility] Comment: Please note: ??Patients with WBC >100,000 may have falsely elevated Potassium levels. ??For accurate Potassium quantification in these patients send serum separator tube (gold top) for subsequent determinations. ??Contact the Clinical Chemistry Laboratory if there are any questions. Chloride 100 98 - 107 mmol/L [facility] Carbon Dioxide 24 22 - 31 mmol/L [facility] Anion Gap 16(H) 5 - 15 mmol/L [facility] Calcium 9.0 8.5 - 10.5 mg/dL [facility] Protein, Total 7.0 6.1 - 8.0 gm/dL [facility] Albumin 3.9 3.2 - 5.2 gm/dL [facility] Aspartate Aminotransferase 20 0 - 30 unit/L [facility] Alanine Aminotransferase 17 0 - 30 unit/L [facility] Alkaline Phosphatase 61 40 - 104 unit/L [facility] Bilirubin, Total 0.2 0.2 - 1.3 mg/dL [facility] Est Glomerular Filtration Rate 81 >=60 mL/min/1. 73 m?? [facility] Comment: The eGFR was calculated using the CKD-EPI equation. As with all creatinine based estimates of kidney function, eGFR values calculated with the CKD-EPI equation are not accurate in patients with acute kidney failure, extremes of body mass or the acutely ill. [email or web address] eGFR 93 >=60 mL/min/1. 73 m?? [facility] Comment: The eGFR was calculated using the CKD-EPI equation. As with all creatinine based estimates of kidney function, eGFR values calculated with the CKD-EPI equation are not accurate in patients with acute kidney failure, extremes of body mass or the acutely ill. [email or web address] Blood specimen (specimen) 09/11/2018 2:48 PM EST 09/11/2018 3:06 PM EST Narrative Resulting Agency Comment Spec In Lab Jhonatan Gilmore MD CHEMISTRY ORDERABLES [facility] [place] [address] documented in this encounter Visit Diagnoses Diagnosis Malignant neoplasm of left breast in female, estrogen receptor positive, unspecified site of breast documented in this encounter Care Teams Print Press Operator Relationship Specialty Start Date End Date Jenise Huddleston APRN [address] [place] [address] PCP - General Family Medicine 09/11/18 documented as of this encounter
--- OUTSIDE RECORDS SUMMARY | 2024-07-10 15:30 | XMS_ITS | Encounter Summary ---
Author Organization [facility] Address [facility] [place] [address] Care Team Providers Care Reverse Logistics Analyst Name Role Phone Jenise Huddleston NATHANIEL Primary Care Provider [phone] Encounter Details Date Type Department Care Team (Late st Contact Info) Description 11/13/2018 Notes Only Radiation Oncology at [address] [address] Jacklyn Dale MSW OFFICE OF CARE MANAGEMENT Social History Tobacco Use Types Packs/Day Years Used Date Smoking Tobacco: Never Smokeless Tobacco: Never Alcohol Use Standard Drinks/Week Comments Yes 0 (1 standard drink = 0.6 oz pur e alcohol) minimally Sex and Gender Information Value Date Recorded Sex Assigned at Not on file Gender Identity Not on file Sexual Orientation Not on file documented as of this encounter Progress Notes * Jacklyn Dale MSW - 11/13/2018 11:22 AM EDT Reason for Referral: Brief assessment of social and emotional needs. Met with pt after sim today. Reviewed note from JUANITA Savage. Social Supports: Pt has a daughter who live in [facility]. She reports she has many friends who have offered to assist her. Living Situation/Daily Activities/Transportation: Pt reports she manages her daily chores and activities. She lives about 15 minutes from this facility. She does not expect any problems with transportation. 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 She has Medicare and [employer] for insurance. Advance Directives: Pt is updating an old advance directive. She is working on a new document. Offered assistance should she need it. Requested a copy for her record. Utilization of Community Resources: None at this time. Adjustment to Illness/Mental Health Issues: Pt indicated she is coping as best she can. Pt reports she has support from her daughter and friends. She is hopeful to make a trip to [place] for her older sister's dameon who passed last February. She is trying to make plans and is waiting for her treatment schedule so she can book her flights. The memorial has been planned for some time. Identified Needs: Pt did not identify ele specific needs at this time. Referrals: None at this time. Plan: Informed pt of REFINING SUPERVISOR availability and will follow for support and resources. documented in this encounter Plan of Treatment Not on file documented as of this encounter Visit Diagnoses Not on filedocumented in this encounter Care Teams Reverse Logistics Analyst Relationship Specialty Start Date End Date Jenise Huddleston APRN [address] [place] [address] PCP - General Family Medicine 09/11/18 documented as of this encounter
--- OUTSIDE RECORDS SUMMARY | 2024-07-10 15:30 | XMS_ITS | Encounter Summary ---
Author Organization [facility] Address [facility] [place] [address] Care Team Providers Care Principal Military Analyst Name Role Phone Flaquito Jenisechavez Watts APRN Primary Care Provider [phone] Reason for Referral * Consultation (Routine) - Closed Specialty Diagnoses / Procedures Referred By Contac t Referred To Contact Hematology and Oncology Diagnoses Malignant neoplasm of central portion of left female breast, unspecified estrogen receptor status Abbey Renae MD [facility] [place] [address] [facility] Hem Onc Office [address] [place] [phone] Referral ID Status Reason Start Date Expiration Date V isits Requested Visits Authorized [id number] Closed Continuity of Care 11/13/2018 11/13/2019 1 1 * Consultation (Routine) - Closed Specialty Diagnoses / Procedures Referred By Contac t Referred To Contact Diagnoses Malignant neoplasm of central portion of left female breast, unspecified estrogen receptor status Abbey Renae MD [facility] [place] [address] [facility] [address] [place] [phone] Referral ID Status Reason Start Date Expiration Date V isits Requested Visits Authorized [id number] Closed Consult, Test & Treat 11/13/2018 11/13/2019 1 1 * Consultation (Routine) - Closed Specialty Diagnoses / Procedures Referred By Contac t Referred To Contact Radiation Oncology Diagnoses Malignant neoplasm of central portion of left female breast, unspecified estrogen receptor status Procedures Simulation for Radiation Therapy Planning Abbey Renae MD [facility] RADIATION ONCOLOGY [place] [id number] [facility] Rad Onc Office [address] [place] [phone] Referral ID Status Reason Start Date Expiration Date V isits Requested Visits Authorized [id number] Closed Consult, Test & Treat 11/13/2018 11/13/2019 1 1 Reason for Visit * Reason Comments Radiation Consult * Consultation (Routine) - Closed Specialty Diagnoses / Procedures Referred By Contac t Referred To Contact Radiation Oncology Diagnoses Breast cancer Jhonatan Gilmore MD [facility] [place] [address] Abbey Renae MD [facility] [place] [address] Referral ID Status Reason Start Date Expiration Date Visits Re quested Visits Authorized [id number] Closed 09/23/2018 09/23/2019 1 1 Encounter Details Date Type Department Care Team (Late st Contact Info) Description 11/13/2018 9:00 AM EDT Office Visit Radiation Oncology at [address] [phone] Abbey Renae MD [facility] [place] [address] Malignant neoplasm of central portion of left [...] Sign Reading Time Taken Comments Blood Pressure 130/70 11/13/2018 9:00 AM EDT Pulse 84 11/13/2018 9:00 AM EDT Temperature 37 ??C (98.6 ??F) 11/13/2018 9:0 0 AM EDT Respiratory Rate 16 11/13/2018 9:00 AM EDT Oxygen Saturation 95% 11/13/2018 9:0 0 AM EDT Inhaled Oxygen Concentration - - Weight 84.1 kg (185 lb 6.4 oz) 11/14/19 9:00 AM EDT with shoes Height - - Body Mass Index 33.69 10/23/2018 10:06 AM EST documented in this encounter Progress Notes * Stephanie Matos RN - 11/13/2018 9:00 AM EDT RADIATION ONCOLOGY NURSING INITIAL NURSING ASSESSMENT IDENTIFICATION: Ursula Urias is a 67 y.o. year-old female with newly diagnosed left breast cancer PRESENTING SYMPTOMS/CHIEF COMPLAINT: Abnormal finding on mammogram led to further testing and diagnosis. REVIEW OF SYSTEMS: Review of Systems Constitutional: Negative for appetite change and unexpected weight change (has followed ketogenic diet since diagnosis and has lost 15# intentionally.). Respiratory: Negative for cough and shortness of breath. Cardiovascular: Negative for chest pain. Musculoskeletal: Negative for gait problem. Skin: Positive for wound (s/p left breast surgery 10/10/18). Neurological: Negative for gait problem. IN THE PAST 12 MONTHS HAVE YOU: Fallen more than one time? No Injured yourself as result of the fall? N/A Experienced difficulty with walking/problems with balance? No Do you use any assistive devices? No Any history of collagen vascular diseases: No Any Implanted Devices/Hardware: No If yes please put alert in ARIA patient summary Prior Radiotherapy: No Prior Chemotherapy: No Prior Hormone Therapy: No LEARNING ASSESSMENT REVIEWED: Yes ADVANCED DIRECTIVE: not addressed this encounter. PAIN ASSESSMENT: 0 out of 10 *eD-H Adult PCS Flow Sheet if 4 or above SOCIAL ASSESSMENT: See ED social assessment information entered. Support Systems: Strong network of friends. Here today alone. Barriers to treatment: Has trip to [place] planned for late December-early January to [place] to attend [facility]. Referrals/Interventions: LOCKSTITCH SHOULDER JOINER per routine. RADIATION SPECIFIC TEACHING: [facility] Radiation Therapy and You Site specific teaching : Please see SIM note. Other: PLAN: Per Dr. Renae * Abbey Renae MD - 11/13/2018 9:00 AM EDT Images from the original note were not included. CC: Referred by Daysi Huddleston APRN, for eval for xrt for breast ca. HPI: 67 y/o f who presented w/L breast mass on screening mmg. DH interp 08/06/18 screening B mmg & 08/20/18 dx'ic L mmg & L breast US: 1.2 cm L breast mass @ 6:00, 3 cm from nipple. R breast nl. 09/05/18 L breast US: Suspicious mass @ 6:00, 4 cm from nipple. 09/05/18 US guided core needle bx L breast mass @ 6:00. Path: IDC, ER+ME+, Her2 neg. 09/11/[address] Gilmore showed palpable 1.5 cm mass @ 6:00, 4 cm from nipple. 09/11/18 MRI B breasts: 1. L breast lesion #1, 1.1 cm mass @ 6:00, 6 cm from nipple, corresponding tobx proven IDC. 2. Three small foci of abnl enhancement in lower & LI L breast, most distant 3.5 cm anterior & 1 cm superior to L breast lesion #1; these foci suspicious for additional sites of malignancy. 3. R breast nl. No abnl lymph nodes. 09/16/18 dx'ic US L breast: No abnlty. 09/18/18 MRI guided needle bxs L breast MRI lesion #2 @ 9:00. Path: Benign. 10/10/18 NLOC L breast lumpectomy down to fascia. Specimen mmg. Oncoplastic tissue rearrangement closure. SNB. Path: A - L breast tumor: IDC, gr 2, 15 mm, RM neg. B - L ax sentinel lymph node: Met ca, multiple deposits w/different morphology & biomarker expression in 2 of 6 lymph nodes, largest met deposit 0.7 cm, +focal MARYLOU w/tumor #1 neg for Her2 & tumor #2 neg for Her2. pT1c pN1a DISCUSSION: A single 1.5 cm tumor mass grossly identified in breast; microscopically the primary breast tumor is an intermed gr IDC. Multiple deposits of met ca in 2 lymph nodes from the sentinel lymph node excision (2/6). The met tumor deposits show distinct differences in morphology & biomarker expression. One tumor deposit is morphologically similar to the primary breast tumor & is strong & diffusely ER & ME positive, & Her2 neg. Commingling w/in same positive lymph node is a morphologically distinct met invasive ductal tumor which exhibits ample eosinophilic & vacuolated cytoplasm; this tumor is ER, ME & Her2 neg. On close exam, the primary breast tumor shows very focal areas where the tumorcells exhibit eosinophilic & vacuolated cytoplasm; taken together, the tumor mets are favored to represent different clones from a single primary tumor. 10/23/[address] Frazier; Oncotype returned intermed risk; chemo not rec'd; hormonal tx to start after xrt. 10/23/[address] Gilmore; rtc 6 mos w/L mmg & breast MRI. ROS: Healing well. No pain. No swelling hand/arm. ROM arms around shoulders great. Energy level terrific. Past Medical History: Diagnosis Date ??? Breast cancer No collagen vasc dz. No prior xrt. Squamous cell ca of skin Past Surgical History: Procedure Laterality Date ??? MAMMO US BIOPSY LEFT Left 09/05/2018 Mammo Us Biopsy Left 09/05/2018 Zoltan Baldwin MD [facility] RAD MAMMOGRAPHY ??? MAMMO US NEEDLE LOCALIZATION LEFT Left 10/10/2018 Mammo US Needle Localization Left 10/10/2018 Christina Torre MD [facility] RAD MAMMOGRAPHY ??? MRI BREAST BIOPSY VACUUM ASSIST LEFT Left 09/18/2018 MRI Breast Biopsy Vacuum Assist Left 09/18/2018 [facility] RAD MRI ??? PRO BX/REMV, LYMPH NODE, DEEP AXILL Left 10/10/2018 BIOPSY OR EXCISION OF LYMPH NODE(S), OPEN, DEEP AXILLARY NODE(S) (WRVU 6.43) performed by Jhonatan Gilmore MD at [facility] MAIN OR ??? PRO INTRAOP SENTINEL LYMPH ID W/DYE INJECTION Left 10/10/2018 INTRAOPERATIVE ID (MAPPING) SENTINEL LYMPH NODE,INCLUDES INJECTION (WRVU 2.5) performed by Jhonatan Gilmore MD at [facility] MAIN OR ??? PRO MASTECTOMY, PARTIAL Left 10/10/2018 MASTECTOMY PARTIAL (WRVU 10.13) performed by Jhonatan Gilmore MD at [facility] MAIN OR Ectopic pregnancies Your Medications Accurate as of 11/13/18 11:02 AM. If you have any questions, ask your nurse or doctor. Continued medications, unchanged Dose Details acetaminophen 325 mg Tab Commonly known as: TYLENOL Take 2 tablets by mouth every 6 hours as needed for Pain. 650 mg Quantity: 30 tablet Refills: 0 cholecalciferol (Vitamin D3) 1,000 unit Tab Take by mouth daily. Refills: 0 CREAM BASE TOP Apply topically. Jeans Cream. Apply to area of radiation twice a day but no less than 2 hours before a treatment. Refills: 0 MAGNESIUM CITRATE ORAL Take by mouth. Refills: 0 OMEGA-3 ORAL Take by mouth. Refills: 0 * UNABLE TO FIND Theracumin Refills: 0 * UNABLE TO FIND Amino Acid Refills: 0 VITAMIN A ORAL Take by mouth. Refills: 0 VITAMIN C 1,000 mg Tab Take 1,000 mg by mouth daily. Generic drug: ascorbic acid (vitamin C) 1000 mg Refills: 0 ZINC ACETATE ORAL Take by mouth. Refills: 0 * This list has 2 medication(s) that are the same as other medications prescribed for you. Read thedirections carefully, and ask your doctor or other care provider to review them with you. Physical Exam Constitutional: She is oriented to person, place, and time. She appears well- developed and well-nourished. No distress. BP 130/70 (Patient Position: Sitting) Pulse 84 Temp 37 ??C (98.6 ??F) (Oral) Resp 16 Wt 84.1 kg (185 lb 6.4 oz) Comment: with shoes SpO2 95% BMI 33.69 kg/m?? HENT: Head: Normocephalic and atraumatic. Eyes: Conjunctivae and EOM are normal. Right eye exhibits no discharge. Left eye exhibits no discharge. No scleral icterus. Neck: Normal range of motion. Neck supple. No tracheal deviation present. No thyromegaly present. Pulmonary/Chest: Effort normal and breath sounds normal. No stridor. No respiratory distress. She has no wheezes. She has no rales. She exhibits no tenderness. Right breast exhibits no inverted nipple, no mass, no nipple discharge, no skin change and no tenderness. Left breast exhibits no inverted n ipple, no mass, no nipple discharge, no skin change and no tenderness. Abdominal: Soft. She exhibits [...] is normal. Judgment and thought contentnormal. A: Breast ca, L, IDC, gr 2, ER+ME+ Her2 neg, s/p lumpectomy & SNB, pT1c pN1a, w/maycol deposits showing 2 different types of tumor, ER+ME+ Her2 neg & ER-ME- Her2 neg. P: Xrt to L supraclav, L axilla & L breast rec'd to increase likelihood of ca control. Xrt would be comprised of 33 fxs. Possible side effects of xrt discussed, w/acute/immediate side effects including: Pinkening, soreness & peeling of skin in treated area; swelling of treated area; soreness of treated area; cough;shortness of breath; sore throat; sense of fullness in throat; swelling of L hand/arm, which could be permanent; numbness, tingling, weakness & difficulty coordinating L hand/arm; tiredness. To decrease risk of lymphedema, she was instructed to avoid bp measurement on L upper extremity, avoid needle sticks on L upper extremity, avoid lifting too heavy of objects with L upper extremity & to contact her physician if upper extremity turns pink or starts to swell. Late/mcfp side effects of xrt discussed include: Treated L breast may tighten, become firmer & sit higher; achiness/stiffness of chest wall on treated side; possible small increase in risk of dying of heart disease; L sided rib fracture; CT after xrt may show scarring w/in small volume of lung on treated side; permanent swelling of L hand/arm; small risk of irradiation associated 2nd malignancy. Need for CTsim prior to xrt discussed. At CTs, she will be evaluated for use of deep inspiration breath hold (DIBH) to decrease dose of xrt to heart. She would like to proceed w/xrt & will undergo CTsim today. She has been seeing a churn driller & receives HBO through the churn driller. I recommended that she not undergo any more HBO until after xrt completion & that she discuss with Dr. Moody (appt 11/14/18) whether he thinks it would be ok for her to undergo HBO after xrt completion. I also recommended that she see the HBO specialist, Dr. Mcbride, @ [facility], for consultation as to whether he thinks it will be ok for her to receive HBO after xrt completion. She is amenable to undergoing consultation with Dr. Mcbride. She would like nutritional consult during xrt, which will be arranged. 25 mins of 40 min face to face visit w/Ursula spent discussing rationale for xrt; hoped for benefit of xrt; possible side effects/complications of xrt; prevention/management of side effects/complications of xrt; logistics of daily xrt; CTsimulation w/eval for DIBH; arm position required for xrt; consult w/Dr. Mcbride regarding HBO; nutritional consult during xrt; followup after completion of xrt. Radiation espinoza:Whole breast w/ supraclavicular Radiation boost:Yes Total dose of radiation: 60.4 Gy documented in this encounter Plan of Treatment Scheduled Orders Name Type Priority Associated Diagnoses Orde r Schedule Simulation for Radiation Therapy Planning Procedures Routine Malignant neoplasm of central portion of left female breast, unspecified estrogen receptor status Ordered: 11/13/2018 Scheduled Referrals Name Type Priority Associated Diagnoses Orde r Schedule Referral to Hyperbaric Medicine Outpatient Referral Routine Malignant neoplasm of central portion of left female breast, unspecified estrogen receptor status Ordered: 11/13/2018 Referral to Nutrition Services Outpatient Referral Routine Malignant neoplasm of central portion of left female breast, unspecified estrogen receptor status Ordered: 11/13/2018 documented as of this encounter Visit Diagnoses Diagnosis Malignant neoplasm of central portion of left female breast, unspecified estrogen receptor status documented in this encounter Care Teams Principal Military Analyst Relationship Specialty Start Date End Date Jenise Huddleston APRN [address] [place] [address] PCP - General Family Medicine 09/11/18 documented as of this encounter
--- OUTSIDE RECORDS SUMMARY | 2024-07-10 15:30 | XMS_ITS | Encounter Summary ---
Author Organization [facility] [place] [address] Care Team Providers Care Furnace Combustion Tester Name Role Phone None Primary Care Provider Unavailabl e Encounter Details Date Type Department Care Team (Latest Contact Info) Description 09/05/2018 1:00 PM EST - 09/05/2018 1:15 PM EST Hospital [place] [phone] Akua Rodríguez MD [facility] [address] Abnormal finding on breast imaging Discharge Disposition: Home Social History Tobacco Use Types Packs/Day Years Used Date Smoking Tobacco: Unknown Sex and Gender Information Value Date Recorded Sex Assigned at Not on file Gender Identity Not on file Sexual Orientation Not on file documented as of this encounter H&P Notes * Zoltan Baldwin MD - 09/05/2018 9:56 AM EST Pre-procedure note for needle breast biopsies performed in radiology. Procedure date: Today Procedure type: left breast ultrasound guided biopsy of 1.2 cm mass at 6:00 radian 3 cm from nipple and possible satellite lesions. Allergies: Patient has no known allergies. Medications: No current outpatient medications on file. Anticoagulation status: none on file. Imaging reviewed and procedural plan approved by Dr. Denny Ryan MD Binding Dyer documented in this encounter Plan of Treatment Not on file documented as of this encounter Procedures Procedure Name Priority Date/Time Associated Diagnosis Comments MAMMO US BIOPSY LEFT Routine 09/05/2018 2:02 PM EST Abnormal finding on breast imaging SPECIMEN TO PATHOLOGY Routine 09/05/2018 2:00 PM EST SURGICAL PATHOLOGY REPORT Routine 09/05/2018 1:55 PM EST documented in this encounter Results * Mammo Us Biopsy Left (09/05/2018 2:02 PM EST) Anatomical Region Laterality Modality Breast [...] interpretation and agree with the findings, Zoltan Balwdin at 09/06/2018 1:25 PM Narrative 09/06/2018 1:25 [...] obtained using a 14-gauge automated device. A Student [employer] Tierney 14G marker clip was placed. The clip [...] Akua Rodríguez MD IMG MAMMO ORDERABL ES * Specimen to Pathology (09/05/2018 2:00 PM EST) AP Specimen 09/05/2018 2:00 PM EST 09/05/2018 2:00 PM EST Narrative [facility] - 09/05/2018 2:00 PM EST Specimen requisition ordered. ??Separate Pathology report to follow Zoltan Baldwin MD PATHOLOGY/CYTOLOGY O [facility] [place] [address] * Surgical Pathology Report (09/05/2018 1:55 PM EST) Final Diagnosis [id number] ? Location: 3L The signing pathologist has (i) examined the relevant preparation(s) for the specimen(s) and (ii) rendered or confirmed the diagnosis(es). . ?Molecular Genetics RESULTS TEST: HER2 (ERBB2) FISH, Breast METHOD: Fluorescence in situ hybridization (FISH) with chromosome 17 centromere (17p11.1-q11.1) probe and a locus specific probe for the HER2 gene locus (17q11.2- q12). SAMPLE ANALYZED: A1-7 RESULT: ?NEGATIVE FOR HER2/ALVAREZ AMPLIFICATION (see Note) ? TOTAL # SIGNALS/TOTAL # NUCLEI COUNTED FOR HER2 PROBE = 158 ? TOTAL # SIGNALS/TOTAL # NUCLEI COUNTED FOR CEP-17 PROBE = 108 ? HER2 TO CEP-17 RATIO = 1.5 ?(NORMAL RANGE <2.0) ? TOTAL # NUCLEI COUNTED = 40 ? AVERAGE # HER2 signals/cell = 4.0 NOTE: HER2 IHC was also performed which shows 1+ (negative) immunoreactivity. Interpretation: ??Paraffin-embedde d tissue sections were submitted for HER2 (ERBB2) gene amplification analysis by FISH. ??Direct analysis was performed using the H[employer] Kit. ??Slide adequacy and signal enumeration were evaluated and satisfactory for both control and patient slides. ??A signal ratio derived from the HER2 probe and the CEP-17 centromere probe of ?2.0 is considered positive for HER2 gene amplification. The 2013 ASCO/CAP guideline recommendation for HER2 testing in breast cancer states that samples with a HER2 to CEP-17 ratio of less than 2.0 are non-amplified. Specimens with a HER2 to CEP-17 range of ?2.0 are considered amplified. This test is approved by the U.S. FDA for clinical diagnostic use. Reference: Sean VU, et al. Recommendations for human epidermal growth factor receptor 2 testing in breast cancer: [place] Society of Clinical Oncology/College of [employer] Pathologists clinical practice guideline update. J Clin Oncol. 2013 Jul 04. Sean VU, et al. Human Epidermal Growth Factor Receptor 2 Testing in Breast Cancer: [place] Society of Clinical Oncology/College of [employer] Clinical Practice Guideline Focused Update. Arch Pathol Lab Med. 2017January 30/J Clin Oncol. 2017January 30. Electronically signed by: ??Marily Radford MD Verified: ??09/18/2018 ?Pathologist Performed at: ??-[facility] Dept. of [place]ology, [place], [place] ? Addendum ADDENDUM DISCUSSION Immunohistochemist ry Studies . ADDENDUM DISCUSSION Specimen: Left breast, core needle biopsy (A1) ER immunoreactivity: Positive (>90% cancer cells with immunostaining) Stain intensity: Strong NV immunoreactivity: Positive (>90% cancer cells with immunostaining) Stain intensity: Strong HER2 FISH: separate report to follow ? *Diagnostic jaramillo for hormone receptors (ASCO/CAP GUIDELINES, 2010): ?Negative immunoreactivity: <1% tumor cells with immunostaining ?Positive immunoreactivity: ?? >1% tumor cells with immunostaining Immunohistochemica l assays were performed on paraffin-embedded tissue sections fixed in 10% neutral buffered formalin for 6-72 hours using the polymer system technique with appropriate positive and negative controls. ??The assays were performed according to the neurosurgery research director ??'s instructions using Anti-ER (SP1) and Anti-NV (16) antibodies. Electronically signed by: ??Becka Ovalle DO Verified: ??09/06/2018 ?Pathologist Performed at: ??-[facility] Dept. of Pathology, [place], [place] ?Surgical Pathology DIAGNOSIS Needle biopsies: ?Left breast Diagnosis: ?Invasive ductal carcinoma (see Discussion) ?Intermediate grade, modified SBR score = 6 Microcalcification s: ??Focal, associated with invasive ductal carcinoma Electronically signed by: ??Becka Ovalle DO Verified: ??09/06/2018 ?Pathologist Performed at: ??-[facility] Dept. of Pathology, [place], [place] DISCUSSION Studies for ER, NV, and HER2 have been ordered; results will be issued in an addendum. CLINICAL INFORMATION Specimen Submitted: A - Left breast U/S bx 14 g Clinical History and Diagnosis: Mass; IDC vs ILC SPECIMEN PROCESSING A - Labeled/Fixative: Left breast US BX 14 G, formalin. Quantity/Size: Three, ranging from 1.0 x 0.2 cm-1.5 x 0.2 cm. Tissue Description: Yellow-white fibrofatty needle core biopsies. Sections/Processin g: Entirely submitted in 1 cassette labeled A1. Ischemic Time: 5 minutes ??casa 09/18/2018 1:07 PM EST [facility] BREAST STRUCTURE / Unknown 09/05/2018 1:55 PM EST 09/05/2018 1:55 PM EST Zoltan Baldwin MD PATHOLOGY/CYTOLOGY O [facility] [place] [address] documented in this encounter Visit Diagnoses Diagnosis Abnormal finding on breast imaging Other (abnormal) findings on radiological examination of breast documented in this encounter Administered Medications Inactive Administered Medications - up to 3 most recent administrations Medication Order MAR Action Action Date Dose Rate Site lidocaine (XYLOCAINE) 10 mg/mL (1 %) injection 10 mg 10 mg, Intradermal, ONCE, 1 dose, On Alena 09/05/18 at 1400, Routine Given 09/05/2018 1:45 PM EST 10 mg documented in this encounter Care Teams Furnace Combustion Tester Relationship Specialty Start Date End Date None None PCP - General 09/05/18 09/10/18 documented as of this encounter
--- OUTSIDE RECORDS SUMMARY | 2024-07-10 15:30 | XMS_ITS | Encounter Summary ---
Author Organization [facility] [place] [address] Care Team Providers Care Neon Sign Servicer Name Role Phone Jenise Huddleston NATHANIEL Primary Care Provider +1 [phone] Encounter Details Date Type Department Care Team (Latest Contact Info) Description 09/18/2018 11:31 AM EST - 09/18/2018 11:59 PM EST Hospital [place] [address] Christina Torre MD [facility] [place] [address] Abnormal finding on breast imaging Discharge Disposition: [...] as of this encounter Progress Notes * Zoltan Baldwin MD - 09/18/2018 11:37 AM EST Pre-procedure note for needle breast biopsies performed in radiology. Procedure date: Today Procedure type:Left breast MRI guided biopsy Allergies: Patient has no known allergies. Medications: Current Outpatient Medications: ??? MAGNESIUM CITRATE ORAL, Take by mouth., Disp: , Rfl: ??? ascorbic acid, vitamin C, (VITAMIN C) 1,000 mg Tablet, Take 1,000 mg by mouth daily., Disp: , Rfl: ??? vitamin E (VITAMIN E) 400 unit Capsule, Take 800 Units by mouth., Disp: , Rfl: Anticoagulation status:none, stopped on: N/A Imaging reviewed and procedural plan approved by Dr. Zoltan Baldwin MD documented in this encounter Plan of Treatment Not on file documented as of this encounter Procedures Procedure Name Priority Date/Time Associated Diagnosis Comments MAMMO DIAGNOSTIC WITHOUT CAD LEFT Routine 09/18/2018 12:50 PM EST Abnormal finding on breast imaging documented in this encounter Results * Mammo Diagnostic Without Cad Left (09/18/2018 12:50 PM EST) Anatomical Region Laterality Modality Breast Left Mammography Impressions 09/19/2018 3:46 PM EST Concordant and benign result RECOMMENDATION: Definitive management in regards to left breast lesion 1, attention to follow-up at needle localization procedure in regards to likely satellites, adjacent to lesion 1. Lesion 2 is benign and concordant, no further recommendation. REVIEW PATH CONFERENCE?: No NOTE: The comprehensive breast program and Dr. Gilmore were informed. Findings and recommendations were discussed with the patient by phone. Thank you for letting us participate in the care of this patient. For questions regarding this report, please contact the number below. ? Narrative 09/19/2018 3:46 PM EST MRI GUIDED CORE BIOPSY OF THE LEFT BREAST(S) CLINICAL INDICATION: ??59-year-old female with known invasive carcinoma, of the left breast, lesion 1 at 6:00, 4 cm from the nipple. MRI guided biopsy of left breast lesion 2, at approximately 9:00, 4 cm from the nipple TECHNIQUE: After obtaining informed consent the patient was placed in the 1.5 Natalie magnet using a breast imaging coil with a localizing grid. Multiplanar sequences were obtained pre- and post- intravenous administration of 18cc's Dotarem. Krikle localizing software was used to identify and localize the lesion of interest. While using sterile technique, less than 5 cc's of 1% Xylocaine for superficial anesthesia, and less than 10 cc's of 1% Xylocaine with epinephrine for deep anesthesia a skin knick was made and a 9 gauge Suros Eviva needle ??was placed in position. Pre- sampling axial images were obtained and verified satisfactory location of the needle. Multiple samples were obtained using the vacuum-assisted device. A marker was deployed. Images were obtained after clip deployment to confirm satisfactory positioning of the marker relative to the lesion. Subsequently, a post biopsy mammogram was performed in the CC and true lateral projections to verify clip type and location. FINDINGS: The lesion was identified and per protocol the lesion was sampled and a clip was deployed. The clip was identified in the biopsy bed at MRI. There was no post procedure complication. The CC and true lateral view of the left breast confirms satisfactory placement of the M shaped clip at the biopsy site. COMPLICATIONS: None. PROCEDURAL ATTESTATION: Resident: None I performed the procedure without a resident. IMAGING DIFFERENTIAL DIAGNOSIS: Fibrocystic change, papilloma, rule out breast cancer. PATHOLOGIC DIAGNOSIS: Benign breast tissue with usual ductal hyperplasia, columnar cell change, cysts, and ectatic ducts, apocrine metaplasia, and periductal chronic inflammation. Christina Torre MD IMG MAMMO ORDERABLES documented in this encounter Visit Diagnoses Diagnosis Abnormal finding on breast imaging Other (abnormal) findings on radiological examination of breast documented in this encounter Care Teams Neon Sign Servicer Relationship Specialty Start Date End Date Jenise Huddleston APRN [address] [place] [address] PCP - General Family Medicine 09/11/18 documented as of this encounter
--- OUTSIDE RECORDS SUMMARY | 2024-07-10 15:30 | XMS_ITS | Encounter Summary ---
Author Organization [facility] [place] [address] Care Team Providers Care Early Childhood Director Name Role Phone Jenise Huddleston APRN Primary Care Provider [phone] Encounter Details Date Type Department Care Team (Late st Contact Info) Description 10/07/2018 Telephone [place]ematology [place] [address] Leeanne Brown, RN Social History Tobacco Use Types Packs/Day Years Used Date Smoking Tobacco: Never Smokeless Tobacco: Never Sex and Gender Information Value Date Recorded Sex Assigned at Not on file Gender Identity Not on file Sexual Orientation Not on file documented as of this encounter Miscellaneous Notes * Telephone Encounter - Leeanne Brown, RN - 10/07/2018 5:11 PM EST Comprehensive Breast Program (CBP) Note ?? Ursula Urias is a 67 y.o. female with recently diagnosed left breast cancer. Partial mastectomyand SLNB is planned for 10/[address] Gilmore. ?? Reason for call: Contacted patient to check in with her before upcoming surgery. Ursula called on 10/08 to say she had no questions or concerns but would like information on local hotels in case they choose to stay overnight in the area on 10/09. She prefers e-mail. Link to the [employer] information from [facility] [place] e- mailed to her ([email or web address]). Plan: Ursula Urias plans for surgery on 10/10 and states she has the information she needs at this time. documented in this encounter Plan of Treatment Not on file documented as of this encounter Visit Diagnoses Not on filedocumented in this encounter Care Teams Early Childhood Director Relationship Specialty Start Date End Date Jenise Huddleston APRN [address] [place] [address] PCP - General Family Medicine 09/11/18 documented as of this encounter
--- OUTSIDE RECORDS SUMMARY | 2024-07-10 15:30 | XMS_ITS | Encounter Summary ---
[facility] [place] [address] Care Team Providers Care Reformatory Attendant Name Role Phone Jenise Huddleston NATHANIEL Primary Care Provider [phone] Encounter Details Date Type Department Care Team (Latest Contact Info) Description 10/10/2018 8:43 AM EST - 10/10/2018 9:25 AM EST Hospital [place] [address] Jhonatan Gilmore MD [facility] [place] [address] Malignant neoplasm of left female breast, unspecified [...] Priority Date/Time Associated Diagnosis Comments MAMMO US NEEDLE LOCALIZATION LEFT Routine 10/10/2018 9:07 AM EST Malignant neoplasm of left female breast, unspecified estrogen receptor status, unspecified site of breast documented in this encounter Results * Mammo US Needle Localization Left (10/10/2018 9:07 AM EST) Anatomical Region Laterality Modality Breast [...] please contact the number below. ? Narrative 10/10/2018 9:35 AM EST NEEDLE LOCALIZATION [...] approach with ultrasound guidance. A 5 cm [employer] Bard needle was used. After the needle [...] mg, Intradermal, ONCE, 1 dose, On Alena 10/10/18 at 0930, Routine Given 10/10/2018 9:02 AM EST 10 mg documented in this encounter Care Teams Reformatory Attendant Relationship Specialty Start Date End Date Jenise Huddleston APRN [address] [place] [address] PCP - General Family Medicine 09/11/18 documented as of this encounter
--- OUTSIDE RECORDS SUMMARY | 2024-07-10 15:30 | XMS_ITS | Encounter Summary ---
Author Organization [facility] Address [facility] [place] [address] Care Team Providers Care Mobile Home Servicer Name Role Phone Jenise Huddleston NATHANIEL Primary Care Provider [phone] Reason for Visit * Reason Comments On Treatment Visit Encounter Details Date Type Department Care Team (Late st Contact Info) Description 11/26/2018 8:30 AM EDT Office Visit Radiation Oncology at [address] [phone] Abbey Renae MD [facility] [place] [address] Malignant neoplasm of central portion of left [...] Sign Reading Time Taken Comments Blood Pressure 119/72 11/26/2018 9:00 AM EDT Pulse 82 11/26/2018 9:00 AM EDT Temperature 36 ??C (96.8 ??F) 11/26/2018 9:00 AM EDT Respiratory Rate 16 11/26/2018 9:00 AM EDT Oxygen Saturation 100% 11/26/2018 9:00 AM EDT Inhaled Oxygen Concentration - - Weight 84.4 kg (186 lb) 11/26/2018 9:00 AM EDT w ith shoes Height - - Body Mass Index 33.8 11/14/2018 1:21 PM EDT documented in this encounter Progress Notes * Abbey Renae MD - 11/26/2018 8:30 AM EDT Images from the original note were not included. 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 CURRENT TREATMENT DOSE: 9 Gy L supraclav, L axilla & L breast ANTICIPATED TOTAL DOSE: 50.4 Gy L supraclav, L axilla & L breast; 60.4 Gy lumpectomy bed Current # of xrt received: 5 Anticipated total # of xrt txs: 33 Evaluation of port verification films: Approved. For details, see electronic film record in [employer]. Changes in Medical Condition: None. Pain?: No. Your Medications Accurate as of 11/26/18 9:37 AM. If you have any questions, ask your nurse or doctor. Continued medications, unchanged Dose Details acetaminophen 325 mg Tab Commonly known as: TYLENOL Take 2 tablets by mouth every 6 hours as needed for Pain. 650 mg Quantity: 30 tablet Refills: 0 ALOE GEL TOP Apply topically. Refills: 0 [...] review them with you. Physical Exam: BP 119/72 (Patient Position: Sitting) Pulse 82 Temp 36 ??C (96.8 ??F) (Oral) Resp 16 Wt 84.4 kg (186 lb) Comment: with shoes SpO2 100% BMI 33.80 kg/m?? A&Ox3, NAD. Imagin11/13/18 Dx'ic Rad Interp CTsim: 4 mm LLL nodule most likely benign. 10 mm L adrenal nodulemost consistent w/adenoma. No highly suspicious sign of met dz. Performance Status: KPS 100% Response to xrt: As expected. Irradiation Related Symptoms: None. Treatment for Symptom Control: Bill's cream, aloe gel, veleda cream. Pain Management: Not needed. Recommendation on Continuing Course of xrt: Cont. We discussed CTsim showing LLL nodule & L adrenal nodule; will obtain fu CT in 4 mos. documented in this encounter Plan of Treatment Not on file documented as of this encounter Visit Diagnoses Diagnosis Malignant neoplasm of central portion of left female breast, unspecified estrogen receptor status documented in this encounter Care Teams Mobile Home Servicer Relationship Specialty Start Date End Date Jenise Huddleston APRN [address] [place] [address] PCP - General Family Medicine 09/11/18 documented as of this encounter
--- OUTSIDE RECORDS SUMMARY | 2024-07-10 15:30 | XMS_ITS | Encounter Summary ---
Author Organization [facility] [place] [address] Care Team Providers Care Electric Frying Pan Repairer Name Role Phone Flaquito Jenisechavez Watts APRN Primary Care Provider [phone] [phone] Reason for Referral * Diagnostic Test (Routine) - Closed Specialty Diagnoses / Procedures Referred By Contac t Referred To Contact Radiology Diagnoses Malignant neoplasm of left breast in female, estrogen receptor positive, unspecified site of breast Procedures MRI Breast WWO Contrast Jhonatan Rushing MD [facility] [place] [address] [place] [address] Referral ID Status Reason Start Date Expiration Date V isits Requested Visits Authorized [id number] Closed Specialty Service Requested 09/06/2018 09/06/2019 1 1 Reason for Visit * Diagnostic Test (Routine) - Closed Specialty Diagnoses / Procedures [facility] Referred To Contact Radiology Diagnoses Malignant neoplasm of left breast in female, estrogen receptor positive, unspecified site of breast Procedures MRI Breast WWO Contrast Jhonatan Rushing MD [facility] [place] [address] [place] [address] [place] [address] Referral ID Status Reason Start Date Expiration Date V isits Requested Visits Authorized [id number] Closed Specialty Service Requested 09/06/2018 09/06/2019 1 1 Encounter Details Date Type Department Care Team (Latest Contact Info) Description 09/11/2018 6:02 PM EST - 09/11/2018 11:59 PM EST Hospital Encounter MRI at [facility] [place] [address] Jhonatan Gilmore MD [facility] [place] [address] Malignant neoplasm of left breast in female, [...] Date MAGNESIUM CITRATE ORAL Take by mouth. ascorbic acid, vitamin C, (VITAMIN C) 1,000 mg Tablet Take 1,000 mg by mouth daily. 11/14/2018 vitamin E (VITAMIN E) 400 unit Capsule Take 800 Units by mouth. 11/13/2018 documented as of this encounter Plan of Treatment Not on file documented as of this encounter Procedures Procedure Name Priority Date/Time Associated Diagnosis Comments MRI BREAST WWO CONTRAST BILAT Routine 09/11/2018 7:10 PM EST Malignant neoplasm of left breast in female, estrogen receptor positive, unspecified site of breast documented in this encounter Results * MRI Breast WWO Contrast Bilat (09/11/2018 7:10 PM EST) Anatomical Region Laterality Modality Breast Bilateral Magnetic Resonan ce Impressions 09/12/2018 8:42 AM EST 1. ??Left breast lesion #1, 1.1 cm mass at the 6:00 radian, 6 cm from the nipple by MRI, corresponding to biopsy-proven IDC. 2. ??Three small foci of abnormal enhancement in the lower and lower inner left breast, most distant of which is approximately 3.5 cm anterior and 1 cm superior to left breast lesion #1. These foci are suspicious for additional sites of malignancy. 3. ??No MR evidence of malignancy in the right breast. RECOMMENDATION: Definitive surgical management of left breast lesion #1, with consideration of three possible sites of malignancy in the lower and lower inner left breast. Additional biopsies should be based on patient preferences for breast conservation and surgical management preferences. MR guided core biopsy may be required for the additional foci. LEFT BREAST BIRADS BI-RADS Category 6: Known Biopsy-Proven Malignancy RIGHT BREAST BIRADS BI-RADS Category 2: Benign Findings I have personally reviewed the image(s) and the residents interpretation and agree with the findings, Akua Rodríguez at 09/12/2018 8:42 AM Narrative 09/12/2018 8:42 AM EST BILATERAL BREAST MRI CLINICAL INDICATION: Breast staging. Left breast lesion #1, Alexander clip/residual 1 cm mass, 6:00 radian, 4 cm from the nipple by ultrasound, biopsy proven IDC. TECHNIQUE: Multiplanar sequences were obtained pre- and post- Dotarem enhancement, to include SPGR weighted dynamic run-off and subtraction sequences obtained after the intravenous administration of 18 ccs of Dotarem. Computer algorithm analysis for lesion detection and kinetic contrast enhancement curve analysis was performed, using Wowo software. COMPARISON STUDIES: Compared and/or correlated with prior studies including mammogram and ultrasound 08/20/2018 and 09/05/2018. FINDINGS: Background Enhancement Pattern (first post Dotarem image): Moderate (50-75% breast) Amount of Fibroglandular Tissue: Heterogeneous fibroglandular tissue LEFT Breast:Lesion #1 containing Tierney ??clip related susceptibility artifact in the lower left breast. There are 2 foci of abnormal enhancement in the lower left breast each measuring 0.5 cm, 3 cm from the nipple and less than 2 cm anterior to lesion #1. There is a third focus of abnormal enhancement measuring 0.5 cm in the lower inner left breast, 7:00 radian, 4 cm from the nipple. Third focus of enhancement is approximately 3.5 cm anterior and 1 cm superior to lesion #1. Few small T2 hyperintense foci, consistent with small cysts. LEFT BREAST LESION #1: ??1.1 cm Mass with Tierney clip related susceptibility artifact, corresponding to biopsy-proven IDC. Lower left breast ??6 O'Clock 6 cm from the nipple by MRI Mass/post surgical change: Shape: Round Margins: Not circumscribed - Irregular Enhancement: Homogenous Delayed phase: Washout RIGHT Breast:A few small T2 hyperintense foci, consistent with small cyst. No morphologic abnormality or abnormal parenchymal enhancement. Lymph Node Basins/Other: No abnormal internal mammary or axillary lymph nodes. No significant abnormalities are seen in the chest wall or skin.. Jhonatan Gilmore MD IMG MRI ORDERABLES documented [...] Intravenous, ONCE PRN, 1 dose, Starting on Sun09/11/18 at 1845, Until Sun09/11/18 at 1850, Per Protocol, Radiology Contrast, Routine Given 09/11/2018 6:50 PM EST 18 mLs documented in this encounter Care Teams Electric Frying Pan Repairer Relationship Specialty Start Date End Date Jenise Huddleston, FIELD MARKETING SPECIALIST [address] [place] [address] PCP - General Family Medicine 09/11/18 documented as of this encounter
--- OUTSIDE RECORDS SUMMARY | 2024-07-10 15:30 | XMS_ITS | Encounter Summary ---
Author Organization [facility] [place] [address] Care Team Providers Care Manganese Wheeler Name Role Phone Flaquito Jenisechavez Watts APRN Primary Care Provider [phone] [phone] Reason for Referral * Diagnostic Test (Routine) - Closed Specialty Diagnoses / Procedures Referred By Petros shah Referred To Contact Radiology Diagnoses Abnormal finding on breast imaging Procedures MRI Breast Biopsy Vacuum Assist Left MRI Additional Views - Breast Christina Torre MD [facility] DIAGNOSTIC [place] [address] [place] [address] Referral ID Status Reason Start Date Expiration Date V isits Requested Visits Authorized [id number] Closed Specialty Service Requested 09/16/2018 09/16/2019 1 1 Reason for Visit * Diagnostic Test (Routine) - Closed Specialty Diagnoses / Procedures Referred By Petros shah Referred To Contact Radiology Diagnoses Abnormal finding on breast imaging Procedures MRI Breast Biopsy Vacuum Assist Left MRI Additional Views - Christina Minaya MD [facility] DIAGNOSTIC [place] [address] [place] [address] Referral ID Status Reason Start Date Expiration Date V isits Requested Visits Authorized [id number] Closed Specialty Service Requested 09/16/2018 09/16/2019 1 1 Encounter Details Date Type Department Care Team (Latest Contact Info) Description 09/18/2018 10:52 AM EST - 09/18/2018 11:30 AM EST Hospital [place] [address] Christina Torre MD [facility] DR DIAGNOSTIC [place] [address] Abnormal finding on breast imaging Discharge Disposition: [...] Name Priority Date/Time Associated Diagnosis Comments MRI GUIDED BIOPSY BREAST VACUUM ASSISTED LEFT Routine 09/18/2018 12:35 PM EST Abnormal finding on breast imaging SPECIMEN TO PATHOLOGY Routine 09/18/2018 12:21 PM EST SURGICAL PATHOLOGY REPORT Routine 09/18/2018 12:20 PM EST documented in this encounter Results * MRI Breast Biopsy Vacuum Assist Left (09/18/2018 12:35 PM EST) Anatomical Region Laterality Modality Breast Left Magnetic Resonan ce Impressions 09/19/2018 3:46 PM EST Concordant and [...] below. ? Electronically signed by: Zoltan Baldwin [facility] ([phone]), at 09/19/2018 3:46 PM Narrative 09/19/2018 3:46 PM EST MRI GUIDED [...] and post- intravenous administration of 18cc's Dotarem. Upverter localizing software was used to identify and [...] periductal chronic inflammation. Christina Torre MD IMG MRI ORDERABLES * Specimen to Pathology (09/18/2018 12:21 PM EST) AP Specimen 09/18/2018 12:2 1 PM EST 09/18/2018 1:04 PM EST Narrative [facility] - 09/18/2018 1:04 PM EST Specimen requisition ordered. ??Separate Pathology report to follow Resulting Agency Comment Spec In Lab Zoltan Baldwin MD PATHOLOGY/CYTOLOGY O ADELAIDA Performing Organization Address City/State/[facility] Co de Phone Number [facility] [place] [address] * Surgical Pathology Report (09/18/2018 12:20 PM EST) Final Diagnosis [id number] ? Location: 3ZM The signing pathologist has (i) examined the relevant preparation(s) for the specimen(s) and (ii) rendered or confirmed the diagnosis(es). . ?Surgical Pathology DIAGNOSIS Needle biopsies: ?Left breast MRI lesion 2 Diagnosis: ?Benign breast tissue with usual ductal hyperplasia, ?columnar cell change, cysts, ectatic ducts, apocrine ?metaplasia, and periductal chronic inflammation Microcalcificati ons: ??N/A Electronically signed by: ??Becka Ovalle DO Verified: ??09/19/2018 ?Pathologist Performed at: ??-[facility] [place], [place], [place] CLINICAL INFORMATION Specimen Submitted: A - Left breast MRI lesion 2 biopsy Clinical History and Diagnosis: MRI focal enhancement. 1-FCD. 2-DCIS. 3-papilloma SPECIMEN PROCESSING A - Labeled/Fixative : Left breast MRI lesion 2 biopsy, formalin. Quantity/Size: Multiple, ranging from 0.8-3.0 cm. Tissue Description: Yellow-white to red fibrofatty needle core biopsies, and a 1.7 x 1.5 x 0.2 cm aggregated yellow-pink fibrofatty tissue fragments and blood clot. Sections/Process ing: Entirely submitted in 4 cassettes labeled A1-A4. Ischemic Time: 10 minutes ??shb 09/19/2018 10:46 AM EST [facility] BREAST STRUCTURE / Unknown 09/18/2018 12:20 PM EST 09/18/2018 12:20 PM EST Zoltan Baldwin MD PATHOLOGY/CYTOLOGY O RDERABLES [facility] [place] [address] documented in this encounter Visit Diagnoses Diagnosis Abnormal finding on breast imaging Other (abnormal) findings on radiological examination of breast documented in this encounter Administered Medications Inactive Administered Medications - up to 3 most recent administrations Medication Order MAR Action Action Date Dose Rate Site gadoterate meglumine (DOTAREM) 0.5 mmol/mL (376.9 mg/mL) injection 18 mL 18 mL, Intravenous, ONCE PRN, 1 dose, Starting on Sun09/18/18 at 1251, Until Sun09/18/18 at 1152, Per Protocol, Routine Given 09/18/2018 11:52 AM EST 18 mLs lidocaine (XYLOCAINE) 10 mg/mL (1 %) injection 10 mg 10 mg, Intradermal, ONCE, 1 dose, On Sun09/18/18 at 1245, Routine Given 09/18/2018 12:00 PM EST 10 mg lidocaine-EPINEPHrine 1 %-1:100,000 injection 20 mL 20 mL, Intradermal, ONCE, 1 dose, On Sun09/18/18 at 1245, Warning Vesicant/Irritant Medication , Routine Given 09/18/2018 12:00 PM EST 20 mLs documented in this encounter Care Teams Manganese Wheeler Relationship Specialty Start Date End Date Jenise Huddleston APRN [address] [place] [address] PCP - General Family Medicine 09/11/18 documented as of this encounter
--- OUTSIDE RECORDS SUMMARY | 2024-07-10 15:30 | XMS_ITS | Encounter Summary ---
Author Organization [facility] [place] [address] Care Team Providers Care Senior Editor Name Role Phone Jenise Huddleston APRN Primary Care Provider [phone] Encounter Details Date Type Department Care Team (Late st Contact Info) Description 11/05/2018 External [place] [id number] Provider, Scanning Social History Tobacco Use Types Packs/Day Years [...] Procedure Name Priority Date/Time Associated Diagnosis Comments SURGICAL PATHOLOGY SCAN Routine 11/05/2018 documented in this encounter Results * Scan Doc: Surgical Pathology (11/05/2018) Historical Provider MD MEDIA MGR SCAN EX T ORDR/RSLT documented in this encounter Visit Diagnoses Not on filedocumented in this encounter Care Teams Senior Editor Relationship Specialty Start Date End Date Jenise Huddleston APRN [address] [place] [address] PCP - General Family Medicine 09/11/18 documented as of this encounter
--- OUTSIDE RECORDS SUMMARY | 2024-07-10 15:30 | XMS_ITS | Encounter Summary ---
Author Organization [facility] Address [facility] [place] [address] Care Team Providers Care Stores Despatch Hand Name Role Phone Xochitl Dominguez NATHANIEL Primary Care Provider [phone] Encounter Details Date Type Department Care Team (Late st Contact Info) Description 08/06/2018 Ancillary Procedure Radiology Library at [facility] [place] [address] Jenise Huddleston APRN [address] [place] [address] Social History Tobacco Use Types Packs/Day Years [...] Comments FILM LIBRARY STORAGE ONLY MAMMO Routine 08/06/2018 12:00 AM EST documented in this encounter Results * Film Library- Storage Only Mammo (08/06/2018 12:00 AM EST) Narrative VICTORIA - 08/21/2018 5:20 PM EST This exam is for storage only and is auto-finalizing. Jenise Huddleston APRN IMG FILM LIBRARY ORDERABLES [facility] [place] documented in this encounter Visit Diagnoses Not on filedocumented in this encounter Care Teams Stores Despatch Hand Relationship Specialty Start Date End Date Xochitl Dominguez APRN PCP - General 03/29/15 09/04/18 documented as of this encounter
--- OUTSIDE RECORDS SUMMARY | 2024-07-10 15:30 | XMS_ITS | Encounter Summary ---
Author Organization [facility] [place] [address] Care Team Providers Care National Recruiter Name Role Phone None Primary Care Provider Unavailabl e Reason for Referral * Diagnostic Test (Routine) - Closed Specialty Diagnoses / Procedures Referred By Contac t Referred To Contact Radiology Diagnoses Malignant neoplasm of left breast in female, estrogen receptor positive, unspecified site of breast Procedures MRI Breast WWO Contrast Jhonatan Rushing MD [facility] [place] [address] [place] [address] Referral ID Status Reason Start Date Expiration Date V isits Requested Visits Authorized [id number] Closed Specialty Service Requested 09/06/2018 09/06/2019 1 1 Encounter Details Date Type Department Care Team (Late st Contact Info) Description 09/06/2018 Orders [place] [address] Jhonatan Gilmore MD [facility] [place] [address] Malignant neoplasm of left breast in female, [...] of this encounter Results * MRI Breast WWO [...] INDICATION: Breast staging. Left breast lesion #1, Tierney clip/residual 1 cm mass, 6:00 radian, 4 cm from the nipple by ultrasound, biopsy proven IDC. TECHNIQUE: Multiplanar sequences were obtained pre- and post- Dotarem enhancement, to include SPGR weighted dynamic run-off and subtraction sequences obtained after the intravenous administration of 18 ccs of Dotarem. Computer algorithm analysis for lesion detection and kinetic contrast enhancement curve analysis was performed, using [employer] software. COMPARISON STUDIES: Compared and/or correlated with [...] skin.. Jhonatan Gilmore MD IMG MRI ORDERABLES * (ABNORMAL) Comprehensive metabolic panel (non-fasting) (09/11/2018 2:48 PM EST) Glucose 78 65 - 199 mg/dL [facility] Comment:Diabetes: >=200 mg/d L plus symptoms Blood Urea Nitrogen 14 8 - 18 mg/dL [facility] Creatinine 0.76 0.70 - 1.20 mg/dL [facility] Sodium 140 135 - 145 mmol/L [facility] Potassium 4.1 3.5 - 5.0 mmol/L [facility] Comment: Please note: ??Patients with WBC >100,000 may have falsely elevated Potassium levels. ??For accurate Potassium quantification in these patients send serum separator tube (gold top) for subsequent determinations. ??Contact the Clinical Chemistry Laboratory if there are any questions. Chloride 100 98 - 107 mmol/L [facility] Carbon Dioxide 24 22 - 31 mmol/L [facility] Anion Gap 16(H) 5 - 15 mmol/L [facility] Calcium 9.0 8.5 - 10.5 mg/dL [facility] Protein, Total 7.0 6.1 - 8.0 gm/dL [facility] Albumin 3.9 3.2 - 5.2 gm/dL [facility] Aspartate Aminotransferase 20 0 - 30 unit/L [facility] Alanine Aminotransferase 17 0 - 30 unit/L [facility] Alkaline Phosphatase 61 40 - 104 unit/L [facility] Bilirubin, Total 0.2 0.2 - 1.3 mg/dL [facility] Est Glomerular Filtration Rate 81 >=60 mL/min/1. 73 m?? [facility] Comment: The eGFR was calculated using the CKD-EPI equation. As with all creatinine based estimates of kidney function, eGFR values calculated with the CKD-EPI equation are not accurate in patients with acute kidney failure, extremes of body mass or the acutely ill. http://[employer]/[facility] – TULSAnkf eGFR 93 >=60 mL/min/1. 73 m?? [facility] Comment: The eGFR was calculated using the CKD-EPI equation. As with all creatinine based estimates of kidney function, eGFR values calculated with the CKD-EPI equation are not accurate in patients with acute kidney failure, extremes of body mass or the acutely ill. http://[employer]/[facility]MCnkf Blood specimen (specimen) 09/11/2018 2:48 PM EST 09/11/2018 3:06 PM EST Narrative Resulting Agency Comment Spec In Lab Jhonatan Gilmore MD CHEMISTRY ORDERABLES [facility] [place] [address] documented in this encounter Visit Diagnoses Diagnosis Malignant neoplasm of left breast in female, estrogen receptor positive, unspecified site of breast Malignant neoplasm of left breast in female, estrogen receptor positive, unspecified site of breast documented in this encounter Care Teams National Recruiter Relationship Specialty Start Date End Date None None PCP - General 09/05/18 09/10/18 documented as of this encounter
--- OUTSIDE RECORDS SUMMARY | 2024-07-10 15:30 | XMS_ITS | Encounter Summary ---
Author Organization [facility] Address [facility] [place] [address] Care Team Providers Care Fur Weigher Name Role Phone Jenise Huddleston Stefanie ARMSTRONG Primary Care Provider [phone] Reason for Referral * Consultation (Routine) - Closed Specialty Diagnoses / Procedures Referred By Petros shah Referred To Contact Dermatology Diagnoses Skin lesion Malignant neoplasm of central portion of left female breast, unspecified estrogen receptor status Abbey Renae MD [facility] [place] [address] Referral ID Status Reason Start Date Expiration Date V isits Requested Visits Authorized [id number] Closed Consult, Test & Treat 12/03/2018 06/01/2019 1 1 Reason for Visit * Reason Comments On Treatment Visit Encounter Details Date Type Department Care Team (Late st Contact Info) Description 12/03/2018 8:30 AM EDT Office Visit Radiation Oncology at [address] [id number] Abbey Renae MD [facility] [place] [address] Skin lesion; Malignant neoplasm of central portion of left [...] Sign Reading Time Taken Comments Blood Pressure 108/70 12/03/2018 9:00 AM EDT Pulse 68 12/03/2018 9:00 AM EDT Temperature 36.6 ??C (97.9 ??F) 12/03/2018 9:00 AM ED T Respiratory Rate 12 12/03/2018 9:00 AM EDT Oxygen Saturation 100% 12/03/2018 9:00 AM EDT Inhaled Oxygen Concentration - - Weight - - Height - - Body Mass Index - - documented in this encounter Progress Notes * Abbey Renae MD - 12/03/2018 8:30 AM EDT Images from the original note were not included. DIAGNOSIS: Breast ca, L, IDC, gr 2, ER+FL+, Her2 neg, s/p lumpectomy & SNB, pT1c pN1a, w/maycol deposits showing 2 different types of tumor, ER+FL+, Her2 neg & ER-FL-, Her2 neg. CURRENT TREATMENT DOSE: 18 Gy L supraclav, L axilla & L breast ANTICIPATED TOTAL DOSE: 50.4 Gy L supraclav, L axilla & L breast; 60.4 Gy lumpectomy bed Current # of xrt received: 10 L supraclav, L axilla & L breast Anticipated total # of xrt txs: 28 L supraclav, L axilla & L breast, 33 lumpectomy bed Evaluation of port verification films: Approved. For details, see electronic film record in [employer]. Changes in Medical Condition: Concerned about skin on inferior L breast. 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 Wants fu studies other thanmmgs. Pain?: No. Your Medications Accurate as of 12/03/18 9:18 AM. If you have any questions, ask [...] review them with you. Physical Exam: BP 108/70 (BP Location (NBP): Right arm, Patient Position: Sitting) Pulse 68 Temp 36.6 ??C (97.9 ??F) (Oral) Resp 12 SpO2 100% A&Ox3, NAD. 1 cm mildly hyperpigmented lesionLIQ L breast, parasternal, waxy stuck on appearance, [...] referral to Dr. Steve for eval & sheagrees. I rec'd that she discuss fu imaging w/Dr. Gilmore. We discussed CTsim showing LLL nodule & L adrenal nodule; will obtain fu CT in 4 mos. documented in this encounter Plan of Treatment Scheduled Referrals Name Type Priority Associated Diagnoses Orde r Schedule Referral to Dermatology Outpatient Referral Routine Skin lesion Malignant neoplasm of central portion of left female breast, unspecified estrogen receptor status Ordered: 12/03/2018 documented as of this encounter Visit Diagnoses Diagnosis Skin lesion Unspecified disorder of skin and subcutaneous tissue Malignant neoplasm of central portion of left female breast, unspecified estrogen receptor status documented in this encounter Care Teams Fur Weigher Relationship Specialty Start Date End Date Jenise Huddleston APRN [address] [place] [address] PCP - General Family Medicine 09/11/18 documented as of this encounter
--- OUTSIDE RECORDS SUMMARY | 2024-07-10 15:30 | XMS_ITS | Encounter Summary ---
Author Organization [facility] [place] [address] Care Team Providers Care Dredge Worker Name Role Phone FlaquitoMala hinsonhryn Stefanie ARMSTRONG Primary Care Provider [phone] Reason for Referral * Consultation (Routine) - Closed Specialty Diagnoses / Procedures Referred By Petros shah Referred To Contact Hematology and Oncology Diagnoses Breast cancer metastasized to axillary lymph node, left Family history of breast cancer Brian Frazier MD [facility] DR HEMATOLOGY/[place] [address] [facility] [address] [place] [phone] Referral ID Status Reason Start Date Expiration Date V isits Requested Visits Authorized [id number] Closed Consult, Test & Treat 10/25/2018 10/25/2019 1 1 Reason for Visit * Reason Comments Schedule Office Case Encounter Details Date Type Department Care Team (Late st Contact Info) Description 10/23/2018 10:00 AM EST Office Visit [place]ology [place] [address] Brian Frazier MD [facility] HEMATOLOGY/[place] [address] Leeanne Brown RN Breast cancer metastasized to axillary lymph node, left; Family history of breast cancer Social History Tobacco Use Types Packs/Day Years [...] Sign Reading Time Taken Comments Blood Pressure 121/75 10/23/2018 10:06 AM EST Pulse 72 10/23/2018 10:06 AM EST Temperature 37.2 ??C (99 ??F) 10/23/2018 10: 06 AM EST Respiratory Rate 20 10/23/2018 10:0 6 AM EST Oxygen Saturation 96% 10/23/2018 10: 06 AM EST Inhaled Oxygen Concentration - - Weight 82.5 kg (181 lb 12.8 oz) 019 10:06 AM EST Height 158 cm (5' 2.21) 10/23/2018 10: 06 AM EST Body Mass Index 33.03 10/23/2018 10:06 AM EST documented in this encounter Progress Notes * Brian Frazier MD - 10/23/2018 10:00 AM EST Initial Medical Oncology Visit New Breast Cancer Ms. Urias is a 67 year old female, here today in consultation at the request of Garima Adrian Dr. to review her status, and to discuss her options for further therapy. HPI: Screening mammogram showed a mass in her left breast (note: 8yr since prior mammo). 09/05/18 Left breast, core needle biopsy: ER immunoreactivity: Positive (>90% cancer cells with immunostaining) Stain intensity: Strong VT immunoreactivity: Positive (>90% cancer cells with immunostaining) Stain intensity: Strong HER2 FISH: NEGATIVE FOR HER2/ALVAREZ AMPLIFICATION 10/10/18 Surgery A -??Left breast, partial mastectomy: [...] carcinoma of no special type ?Histologic Grade (Elton Histologic Score) ? Glandular (Acinar)/Tubular Differentiation: Score [...] ? Extranodal Extension: ??Present ? Number of Erie Nodes Examined: ??6 pT1c pN1a DISCUSSION A single 1.5 cm tumor mass was grossly identified in the breast. Microscopically, the primary breast tumor is an intermediate grade invasive ductal carcinoma. Multiple deposits of metastatic carcinoma are present in two lymph nodes from the sentinel lymph node excision (/). The metastatic tumor deposits show distinct differences in morphology and biomarker expression. One tumor deposit is morphologically similar to the primary breast tumor and is strong and diffusely ER and VT positive, and HER2 negative (IHC score 1+, HER2 FISH pending). 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 This tumor is ER, VT, and HER2 negative(IHC score 0, HER2 FISH pending). On close examination, the primary breast tumor shows very focal areas where the tumor cells exhibit eosinophilic and vacuolated cytoplasm. Taken together, the tumor metastases are favored to represent different clones from a single primary tumor. Clinical and radiologic correlation is required. She has healed well since surgery. PMH: Patient Active Problem List Diagnosis Code ??? Milium L72.0 ??? History of SCC (squamous cell carcinoma) of skin Z85.828 ??? 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 Last DEXA [place] [facility]: told it was excellent. Soc Hx/Fam Hx: Lives in [facility]. Ashkenazi Sikh ancestry Family History Problem Relation Age of [...] sleeping, imbalance, falls. ROS otherwise neg. Exam: Most Recent Vitals: 10/23/18 1006 BP: 121/75 Pulse: 72 Resp: 20 Temp: 37.2 ??C (99 ??F) SpO2: 96% PERRL, EOMi, sclera nonicteric Oropharynx benign No ALFONSO No spine/rib tenderness Chest: clear to A and P Left breast with healing surgical sites, no e/o infection CV: RRR, no murmurs Abd: NT, no HSM, +BS Ext: no c/c/e Neuro: grossly nonfocal. Neg Romberg. Labs: Ref. Range 09/11/2018 WBC Latest Ref Range: 4.0 - 9.5 x10(3)/mcL 7.5 RBC Latest Ref Range: 4.00 - 5.21 x10(6)/mcL 4.49 Hemoglobin Latest Ref Range: 11.7 - 15.5 gm/dL 13.6 Hematocrit Latest Ref Range: 35.7 - 45.8 % 41.2 MCV Latest Ref Range: 82.6 - 94.4 fL 91.8 MCH Latest Ref Range: 27.1 - 32.0 pg 30.3 MCHC Latest Ref Range: 31.7 - 35.0 gm/dL 33.0 RDWSD Latest Ref Range: 37.0 - 46.0 fL 41.1 RDWCV Latest Ref Range: 11.5 - 14.1 % 12.3 Platelets Latest Ref Range: 145 - 357 x10(3)/mcL 247 MPV Latest Ref Range: 7.6 - 12.9 fL 10.8 nRBC % Auto Latest Units: % 0.0 nRBC Abs Auto Latest Ref Range: 0.000 - 0.000 x10(3)/mcL 0.000 Neutr Abs (ANC) Latest Ref Range: 1.70 - 6.10 x10(3)/mcL 4.23 Neutrophils % Latest Units: % 56.7 Immature Gran % Latest Units: % 0.40 Lymphocytes % Latest Units: % 32.5 Monocytes % Latest Units: % 7.6 Eosinophils % Latest Units: % 1.7 Basophils % Latest Units: % 1.1 Valerie Gran Abs Latest Ref Range: 0.00 - 0.04 x10(3)/mcL 0.03 Lymphocytes Abs Latest Ref Range: 0.9 - 3.2 x10(3)/mcL 2.4 Monocyte Abs Latest Ref Range: 0.3 - 0.9 x10(3)/mcL 0.6 Eosinophils Abs Latest Ref Range: 0.0 - 0.4 x10(3)/mcL 0.1 Basophils Abs Latest Ref Range: 0.0 - 0.1 x10(3)/mcL 0.1 Sodium Latest Ref Range: 135 - 145 mmol/L 140 Potassium Latest Ref Range: 3.5 - 5.0 mmol/L 4.1 Chloride Latest Ref Range: 98 - 107 mmol/L 100 CO2 Latest Ref Range: 22 - 31 mmol/L 24 Anion Gap Latest Ref Range: 5 - 15 mmol/L 16 (H) BUN Latest Ref Range: 8 - 18 mg/dL 14 Creatinine Latest Ref Range: 0.70 - 1.20 mg/dL 0.76 eGFR Latest Ref Range: >=60 mL/min/1.73 m?? 81 Glucose Lvl Latest Ref Range: 65 - 199 mg/dL 78 Calcium Latest Ref Range: 8.5 - 10.5 mg/dL 9.0 Total Protein Latest Ref Range: 6.1 - 8.0 gm/dL 7.0 Albumin Latest Ref Range: 3.2 - 5.2 gm/dL 3.9 Total Bilirubin Latest Ref Range: 0.2 - 1.3 mg/dL 0.2 Alk Phos Latest Ref Range: 40 - 104 unit/L 61 AST Latest Ref Range: 0 - 30 unit/L 20 ALT Latest Ref Range: 0 - 30 unit/L 17 I reviewed images of her Sep 11 bilateral breast MRI, showing the left breast lesions. Assessment/Rec: 67 yo female recently diagnosed with a node-positive left breast cancer. Tumor was 1.5cm, intermediate grade, involving 2 nodes. There was angiolymphatic invasion as well. ER and VT were strongly expressed; HER2 negative. She has an appointment with [facility]/Dr. Renae in [facility] on 11/11. Wants her care to be located there, so will arrange for follow-up there by med onc. We discussed the role of systemic adjuvant therapy so as to minimize the risk of a future metastatic recurrence. I reviewed the role of systemic endocrine therapy with an Aromatase inhibitor, and itsside effects and risks. Pointed out it starts after XRT. We then discussed the option of chemotherapy. Outlined typical regimens and side effects. In this context, I offered to send her tumor for OncotypeDx test, which she asked me to do. I will call her with the result ([phone]). Note: She has travel plans to [place] in January. ADDENDUM: OncotypeDx Recurrence Score = 16 (in intermediate range where adjuvant chemo not required/recommended). I left message on patient's Fort[employer] machine with this info. documented in this encounter Plan of Treatment Scheduled Referrals Name Type Priority Associated Diagnoses Orde r Schedule Referral to Familial Cancer Outpatient Referral Routine Breast cancer metastasized to axillary lymph node, left Family history of breast cancer Ordered: 10/25/2018 documented as of this encounter Visit Diagnoses Diagnosis Breast cancer metastasized to axillary lymph node, left Family history of breast cancer Family history of malignant neoplasm of breast documented in this encounter Care Teams Dredge Worker Relationship Specialty Start Date End Date Jenise Huddleston APRN [address] [place] [address] PCP - General Family Medicine 09/11/18 documented as of this encounter
--- OUTSIDE RECORDS SUMMARY | 2024-07-10 15:30 | XMS_ITS | Encounter Summary ---
[place] [address] Care Team Providers Care Charge Preparation Technician Name Role Phone Jenise Huddleston NATHANIEL Primary Care Provider [phone] Encounter Details Date Type Department Care Team (Late st Contact Info) Description 10/10/2018 10:58 AM EST - 10/10/2018 12:56 PM EST Surgery [place] [address] Jhonatan Gaines MD [facility] [place] [address] MASTECTOMY PARTIAL (WRVU 10.13) Social History Tobacco Use Types Packs/Day Years [...] Sign Reading Time Taken Comments Blood Pressure 129/65 10/10/2018 9:57 AM EST Pulse 71 10/10/2018 9:57 AM EST Temperature 37.1 ??C (98.8 ??F) 10/10/2018 9:57 AM ES T Respiratory Rate - - Oxygen Saturation 97% 10/10/2018 9:57 AM EST Inhaled Oxygen Concentration - - Weight 83.4 kg (183 lb 12.8 oz) 10/10/2018 9:57 AM EST Height 157.5 cm (5' 2.01) 10/10/2018 9:57 AM ES T Body Mass Index 33.61 10/10/2018 9:57 AM EST documented in this encounter Discharge Instructions * Discharge Instructions* Erika Monreal - 10/10/2018 3:47 PM EST Next dose of acetaminophen (tylenol) can be taken at . Next dose of ibuprofen (motrin) can be taken at . * Patient Instructions* Dominick Brown MD - 10/10/2018 2:05 PM EST Instructions following Breast Surgery Wound Care: Keep dressing on incision for the next 5 days, then you may remove and leave open to air. You may shower tomorrow morning with the Tegaderm covering the site. Do not scrub area vigorously for the next 1 week. Do not soak incision(s) under water for the next 2 weeks (i.e. soaking in bath or swimming) as this may promote a wound infection. You may remove dressing if it becomes saturated/wet and replace with dry gauze as needed for seepage/comfort. If there are pieces of tape directly on the incision (steri-strips), please leave them onuntil they fall off on their own. You may trim them back as they begin to peel up. ICE: You may apply ice to incision during the first 48 hours following surgery to help limit swelling, bruising, and discomfort. You may also find wearing a bra for the first two days following surgery will help with discomfort, although this is not absolutely necessary. Your stitches will dissolve and do not need to be removed. Activity: As tolerated by your comfort level. Call Doctor for: Please call if you notice worsening redness or drainage from incision(s) lasting longer than 5 days after your surgery, any foul-smelling drainage from the incision, pain not controlled by pain medications, persistent nausea and vomiting, or for any fevers greater than 101.3 F. The number for questions is [phone] before 5 PM weekdays. Pain Medication: Please use ibuprofen (motrin, advil) 600 mg three times per day with food and tylenol 650 mg every 8 hours between the ibuprofen doses. Follow-up: Follow-up appointment will be scheduled with in 1-2 weeks. Scheduled Appointments: The following appointment with Dr. Gaines has been scheduled on your behalf Please call [phone] (clinic number) if any changes need to be made to your appointment time. documented in this encounter Medications at Time of Discharge [...] as of this encounter Progress Notes * Erika Monreal - 10/10/2018 2:49 PM EST 1415: pt hypotensive; Anesthesia MD in room, would not like to treat at this time. Patient perfusedwell. 1430: Pt awake, soft BPs see flowsheet. Would still like to monitor patient as she is appropriate. 1500: Pt manual BP 106/64. Anesthesia aware and happy with increase. Patient appropriate, reports dizziness and dry eyes. Eye drops ordered for comfort. 1600: Pt up OOB without issue. AVS reviewed with patient and her visitor. Pain assessments documented (no pain). Patient also voided while OOB in toilet. No issues. Patient reports she is comfortablewith going home at this time. 1615: Reported off to JOSE MANUEL Breaux at change of shift. documented in this encounter H&P Notes * Jhonatan Gaines MD - 10/10/2018 11:29 AM EST I examined and marked this patient today and she is ready for surgery Left partial mastectomy and sentinel node excision for breast cancer. Full h and p by me 09/11/18 Lungs clear heart rhythm regular documented in this encounter Miscellaneous Notes * Op Note - Jhonatan Gaines MD - 10/10/2018 2:10 PM EST [facility] Operative Note Patient Name: Ursula Urias : [id number] MR#: [id number] Case Date: 10/10/2018 Surgeon: Surgeon(s) and Role: * Jhonatan Gaines MD - Primary * Dominick Brown MD - Resident-Surgeon Dwight Preoperative diagnosis: BREAST CANCER Postoperative diagnosis: BREAST CANCER Procedure(s) (LRB): MASTECTOMY PARTIAL (WRVU 10.13) (Left) BIOPSY OR EXCISION OF LYMPH NODE(S), OPEN, DEEP AXILLARY NODE(S) (WRVU 6.43) (Left) INTRAOPERATIVE ID (MAPPING) SENTINEL LYMPH NODE,INCLUDES INJECTION (WRVU 2.5) (Left) MODIFIER SENTINEL NODE EXCISION (Left) MODIFIER WITH NEEDLE LOC., LESION #1 (Left) PLUS: 84826: adjacent tissue rearrangement; 30 to 60 sq cm. Anesthesia: General Estimated Blood Loss: 30 ml Specimens removed during surgery: left partial mastectomy; left axillary sentinel nodes Surgical Closure: Primary Closure - skin incision is completely closed without any wires, erica, drains or other devices Indications for surgery: Ursula Urias is a 67-year-old woman with a left breast cancer. She has a1.2 cm mass at 6:00 about 4 cm from the nipple. On MRI there were 2 satellite lesions that are slightly medial to this. We are planning to resect them all with a wedge type excision of her inferior breast and an oncoplastic tissue rearrangement closure. We were able to detect a peak of radioactivity in the left axilla prior to surgery. Details of the operation: She was prepped with ChloraPrep and draped. She was given preoperative antibiotics. We started with her sentinel node excision. We anesthetized the skin and then made a 4 cmincision in the left axilla. We dissected through the axillary fascia and identified and excised two left axillary node sentinel nodes. Their ex vivo counts were 36,084 and 26,778. The remaining count was 2410. The sentinel nodes were sent to pathology. We obtained meticulous hemostasis in the axilla. We then anesthetized the skin and made a triangular incision in the skin from approximately 5:00 to7:00 in her left breast going from the inferior edge of the areola down to the inferior mammary fold. We also made an incision along the inferior mammary fold a distance of about 15 cm. We dissected in a triangular fashion directly down to the fascia. We therefore took out a wedge of of breast tissue between 5:00 and 7:00. This specimen was inked with 5 different colors of ink for orientation. A specimen mammogram was done which showed that the mass and clip were nicely contained right in the middle of the specimen. The specimen was then sent to pathology. We had a lot of tissue in the specimen in the expected location for where the 2 satellite MRI lesions were seen, and felt very confidentthat we removed those in this specimen. We obtained meticulous hemostasis. I then did a tissue rearrangement where I dissected the breast tissue off the underlying pectoralismajor muscle both medially and laterally. We ended up mobilizing an area that was about 10 x 5 cm. I then placed a couple of Vicryl sutures to bring the breast tissue itself together in the midline. I also placed a 2-0 Vicryl as a corner suture in the skin. We then used buried 3-0 Vicryls to bring all the deep dermis together. We then used 4-0 Monocryl on the skin. The axillary incision was closed with 3-0 Vicryl and 4-0 Monocryl. Left 3 mL's of Marcaine lidocaine solution in the left axilla and 5 mL's in the breast for postoperative pain control. Gauze and gauze and Tegaderm were placed. Infection Bundle used? N/A Attestation: Case Date: 10/10/2018 I was present and I participated during the entire procedure (does not need to include opening and closing). JHONATAN GAINES MD 10/10/2018 * Brief Op Note - Dominick Brown MD - 10/10/2018 2:02 PM EST Brief Operative Note Patient Name: Ursula Urias : [id number] MR#: [id number] Case Date: 10/10/2018 Surgeon: Surgeon(s) and Role: * Jhonatan Gaines MD - Primary * Dominick Brown MD - Resident-Surgeon Dwight Preoperative diagnosis: BREAST CANCER Postoperative diagnosis: BREAST CANCER Procedure(s) (LRB): MASTECTOMY PARTIAL (WRVU 10.13) (Left) BIOPSY OR EXCISION OF LYMPH NODE(S), OPEN, DEEP AXILLARY NODE(S) (WRVU 6.43) (Left) INTRAOPERATIVE ID (MAPPING) SENTINEL LYMPH NODE,INCLUDES INJECTION (WRVU 2.5) (Left) MODIFIER SENTINEL NODE EXCISION (Left) MODIFIER WITH NEEDLE LOC., LESION #1 (Left) Anesthesia: General Findings: Needle localized left breast tumor removed utilizing an oncoplastic resection. Wire notedto be intact and clip in good position on post resection mammography. Bow lyphm node resectionpreformed with the SLN being 36,000+ on count, with the residual count being less than 10%. Complications: none apparent Estimated Blood Loss: 30cc Specimens removed during surgery: Order Name Source Comment Collection Info Order Time SPECIMEN TO PATHOLOGY breat cancer left axillary sentinal nodes biopsy No 10/10/2018 12:56 PM Number of tissue samples (in container) 2 Time specimen removed from patient: 12:52 PM Biospecimen to store? No SPECIMEN TO PATHOLOGY 68416 BREAST CANCER LEFT partial mastectomy. resection Yes 10/10/2018 1:15 PM Number of tissue samples (in container) 1 Time specimen removed from patient: 1:14 PM Biospecimen to store? No Fluids: Intraprocedure Crystalloid Total lactated Ringers infusion 1,000 mL Volume (mL) 700 mL PRBCs: none (See Anesthesia Record/Report for Other Blood Products) Urine Output: (no urine output recorded) Drains: none Disposition: awakened from anesthesia, extubated and taken to the recovery room in a stable condition, having suffered no apparent untoward event. Condition: doing well without problems (Please see the Surgical Encounter Summary for any Implant and Specimen details pertinent to this patient.) Infection Bundle used? N/A documented in this encounter Plan of Treatment Not on file documented as of this encounter Procedures Procedure Name Priority Date/Time Associated Diagnosis Comments SPECIMEN TO PATHOLOGY Routine 10/10/2018 1:16 PM EST SPECIMEN TO PATHOLOGY Routine 10/10/2018 12:56 PM EST SURGICAL PATHOLOGY REPORT Routine 10/10/2018 12:52 PM EST MODIFIER WITH NEEDLE LOC., LESION #1 10/10/2018 12:06 PM EST BREAST CANCER MODIFIER SENTINEL NODE EXCISION 10/10/2018 12:06 PM EST BREAST CANCER INTRAOPERATIVE ID (MAPPING) SENTINEL LYMPH NODE,INCLUDES INJECTION (WRVU 2.5) 10/10/2018 12:06 PM EST BREAST CANCER BIOPSY OR EXCISION OF LYMPH NODE(S), OPEN, DEEP AXILLARY NODE(S) (WRVU 6.43) 10/10/2018 12:06 PM EST BREAST CANCER MASTECTOMY PARTIAL (WRVU 10.13) 10/10/2018 12:06 PM EST BREAST CANCER documented in this encounter Results * Specimen to Pathology (10/10/2018 1:16 PM EST) AP Specimen 10/10/2018 1:16 PM EST 10/10/2018 1:49 PM EST Narrative [facility] - 10/10/2018 1:49 PM EST Specimen requisition ordered. ??Separate Pathology report to follow Resulting Agency Comment Spec In Lab Jhonatan Gaines MD PATHOLOGY/CYTOLOGY O ADELAIDA Performing Organization Address [facility] Co de Phone Number [facility] [place] [address] * Specimen to Pathology (10/10/2018 12:56 PM EST) AP Specimen 10/10/2018 12:5 6 PM EST 10/10/2018 12:56 PM EST Narrative [facility] - 10/10/2018 12:56 PM EST Specimen requisition ordered. ??Separate Pathology report to follow Jhonatan Gaines MD PATHOLOGY/CYTOLOGY O ADELAIDA Performing Organization Address [facility] Co de Phone Number [facility] [place] [address] * Surgical Pathology Report (10/10/2018 12:52 PM EST) Final Diagnosis [id number] ? Location: [facility]; [facility]; A The signing pathologist has (i) examined the relevant preparation(s) for the specimen(s) and (ii) rendered or confirmed the diagnosis(es). . ? Addendum ADDENDUM DISCUSSION SPECIAL TEST PERFORMED: Test: ??Oncotype DX [facility] Case: ??[id number], block A13 Performing Lab: ??[facility] Performing Lab Case: ??[id number] Reported by: ??Brayan Villegas MD Date reported: ??11/05/18 For the full text of the [facility] report please refer to [facility] Pathology in the electronic health record (eDH). Electronically signed by: ??Becka Ovalle DO Verified: ??11/05/2018 ?Pathologist Performed at: ??-[facility] Dept. of Pathology, [place], [place] ?Molecular Genetics RESULTS TEST: HER2 (ERBB2) FISH, Lymph Node METHOD: Fluorescence in situ hybridization (FISH) with chromosome 17 centromere (17p11.1-q11.1) probe and a locus specific probe for the HER2 gene locus (17q11.2- q12). SAMPLE ANALYZED: B1-5, Tumor 1 (tumor with ?eosinophilic and vacuolated cytoplasm) RESULT: ?NEGATIVE FOR HER2/ALVAREZ AMPLIFICATION (see Note) ? TOTAL # SIGNALS/TOTAL # NUCLEI COUNTED FOR HER2 PROBE = 85 ? TOTAL # SIGNALS/TOTAL # NUCLEI COUNTED FOR CEP-17 PROBE = 81 ? HER2 TO CEP-17 RATIO = 1.0 ?(NORMAL RANGE <2.0) ? TOTAL # NUCLEI COUNTED = 40 ? AVERAGE # HER2 signals/cell = 2.1 SAMPLE ANALYZED: B1-5, Tumor 2 (more classic ductal histology) RESULT: ?NEGATIVE FOR HER2/ALVAREZ AMPLIFICATION (see Note) ? TOTAL # SIGNALS/TOTAL # NUCLEI COUNTED FOR HER2 PROBE = 117 ? TOTAL # SIGNALS/TOTAL # NUCLEI COUNTED FOR CEP-17 PROBE = 91 ? HER2 TO CEP-17 RATIO = 1.3 ?(NORMAL RANGE <2.0) ? TOTAL # NUCLEI COUNTED = 40 ? AVERAGE # HER2 signals/cell = 2.9 . RESULTS Interpretation: ??Paraffin-embedded tissue sections were submitted for HER2 (ERBB2) gene amplification analysis by FISH. ??Direct analysis was performed using the Netviewer Kit. ??Slide adequacy and signal enumeration were [...] FDA for clinical diagnostic use. Reference: Sean VU et al. Recommendations for human epidermal growth factor receptor 2 testing in breast cancer: [place] [employer] of [place] [employer] clinical practice guideline update. J Clin Oncol. 2013 Jul 04. Sean VU, et al. Human Epidermal Growth Factor Receptor 2 Testing in Breast Cancer: [place] [employer] of [place] [employer] Clinical Practice Guideline Focused Update. Arch Pathol Lab Med. 2017January 30/J Clin Oncol. 2017January 30. Reviewed by: Marily Radford MD Communications Supervisor, Molecular Pathology Electronically signed by: ??Marily Radford MD Verified: ??10/19/2018 ?Pathologist Performed at: ??-[facility] Dept. of Pathology, [place], [place] ?Surgical Pathology DIAGNOSIS A - Left breast, partial mastectomy: ??- Invasive ductal carcinoma (see Synoptic Report and Discussion) ??- Atypical ductal hyperplasia ??- Columnar cell change and fibrocystic changes ??- Biopsy site changes B - Left axillary sentinel lymph node, excision: ??- Metastatic carcinoma, multiple deposits with different ?morphology and biomarker expression, in two of six lymph nodes (2/6) ?- Largest metastatic deposit = 0.7 cm ?- Focal extranodal extension is present ??- See Synoptic Report and Discussion Synoptic Report Specimen ? Procedure: ??Excision (less than total mastectomy) ? Specimen Laterality: ?? Left Tumor ? Histologic Type: ?? Invasive carcinoma of no special type (ductal, not ?otherwise specified) ? Histologic Grade ([place] Histologic Score) ?Glandular (Acinar) / Tubular Differentiation: ?Score 3 ?Nuclear Pleomorphism: ?? Score 2 ?Diameter of Microscope Field in Millimeters (mm): ?0.55 mm ?Mitotic Rate: ?? Score 1 (<=3 mitoses per mm2) ?Overall Grade: ?? Grade 2 (scores of 6 or 7) . DIAGNOSIS ? Tumor Size: ?? 15 Millimeters (mm) ? Tumor Focality: ?? Single focus of invasive carcinoma ? Ductal Carcinoma In Situ (DCIS): ?Not identified ? Tumor Extent ?Skin: ??Invasive carcinoma does not invade into the dermis or epidermis ?Skin Satellite Foci: ?? Satellite foci not identified ?Skeletal Muscle: ?? No skeletal muscle is present ? Accessory Findings ?Lymphovascular Invasion: ?? Present ?Dermal Lymphovascular Invasion: ?? Not identified ?Microcalcification s: ?? Present in invasive carcinoma ?Treatment Effect: ?? No known presurgical therapy Margins ? Invasive Carcinoma Margins: ?? Uninvolved by invasive carcinoma ?Distance from Other Specified Margin: ?All margins >5 Millimeters (mm) Lymph Nodes ? Regional Lymph Nodes: ?? Involved by tumor cells ?Number of Lymph Nodes with Macrometastases: ?2 ?Number of Lymph Nodes with Micrometastases: ?0 ?Number of Lymph Nodes with Isolated Tumor Cells: ?0 ?Size of Largest Metastatic Deposit: ?7 Millimeters (mm) ?Extranodal Extension: ?? Present ?Number of Bow Nodes Examined: ?6 Pathologic Stage Classification (pTNM, AJCC 8th Edition) ? Primary Tumor (Invasive Carcinoma) (pT): ?pT1c ? Regional Lymph Nodes (pN) ?Category (pN): ?? pN1a Tumor Block(s): ?? A13 CAP eCC October 2017 Agile Release ER, ME, and HER2 studies (performed on prior biopsy, [id number]): ER: Positive (>90%, strong) ME: Positive (>90%, strong) HER2 FISH: Negative Electronically signed by: ??Becka Ovalle DO Verified: ??10/17/2018 ?Pathologist Performed at: ??-[facility] Dept. of Pathology, [place], [place] DISCUSSION A single 1.5 cm tumor mass was grossly identified in the breast. Microscopically, the primary breast tumor is an intermediate grade invasive ductal carcinoma. Multiple deposits of metastatic carcinoma are present in two lymph nodes from the sentinel lymph node excision (2/6). The metastatic tumor deposits show distinct differences in morphology and biomarker expression. One tumor deposit is morphologically similar to the primary breast tumor and is strong and diffusely ER and ME positive, and HER2 negative (IHC score 1+, HER2 FISH pending). Commingling within the same positive lymph nodes is a morphologically distinct metastatic invasive ductal tumor which exhibits ample eosinophilic and vacuolated cytoplasm. This tumor is ER, ME, and HER2 negative (IHC score 0, HER2 FISH pending). On close examination, the primary breast tumor shows very focal areas where the tumor cells exhibit eosinophilic and vacuolated cytoplasm. Taken together, the tumor metastases are favored to represent different clones from a single primary tumor. Clinical and radiologic correlation is required. ADDITIONAL STUDIES Immunohistochemistry Studies: Formalin-fixed, paraffin-embedded tissue sections are studied using the polymer technique with appropriate positive and negative controls. ?These IHC studies provide the pathologist with adjunctive diagnostic information. Antibody specificity . ADDITIONAL STUDIES has been verified by testing antibodies on a series of in-house tissues with known immunohistochemical performance characteristics. The clinical interpretation of any antibody positive staining or its absence is evaluated within the context of clinical presentation, morphology, histopathological criteria and other diagnostic tests. Block ? Antibody ?Result (Positive/Negative) B1 ? ER ? See Discussion B1 ? ME ? See Discussion B1 ? HER2 ? See Discussion B1 ? CK7 ?Positive in metastatic tumors B1 ? GATA3 ?Positive in metastatic tumors B1 ? CD68 ? Negative in metastatic tumors B1 ? TTF1 ? Negative in metastatic tumors B1 ? PAX8 ? Negative in metastatic tumors B2 ? ER ? See Discussion B2 ? ME ? See Discussion B2 ? HER2 ? See Discussion CLINICAL INFORMATION Specimen Submitted: A - Left partial mastectomy B - Left axillary sentinel nodes Clinical History and Diagnosis: Breast cancer SPECIMEN PROCESSING A - Labeled/Fixative: Left partial mastectomy, fresh. Quantity/Size/Weight : ??Single, ??12.5 x 4.0 x 3.0 cm, 94 g. SPECIMEN DESCRIPTION Resection Specimen: Intact, lumpectomy. Specimen radiograph: Shows localization wire and biopsy clip. Specimen Description: According to the established protocol the ink designations are red (medial), yellow (lateral), orange (cranial), green (caudal), black (deep) and blue (superficial). Tissue Sections: The specimen is serially sectioned perpendicular to the long axis from cranial-orange to caudal-green into XII slices, each averaging 0.6 cm in thickness. LESION ??Description: 1.5 x 1.1 x 0.7 cm, Pale bishop, firm, mass, with stellate borders. ??Location: In slices V through . ??Nearest Margin(s): 0.6 cm, lateral-yellow. ??Other Margin(s): 1.0 cm, deep-black. ??Wire/clip: The tip of the localization wire is encountered between slices three and four. The biopsy clip is visualized in slice six. Parenchyma: Fatty, with minimal fibrous tissue. Otherwise unremarkable. Sections/Processing: Stationary Equipment Mechanic sections in 31 cassettes as follows: ? A1: ??Stationary Equipment Mechanic perpendicular sections of slice I. [place] and black margins are present. ? A2-A3: ??Stationary Equipment Mechanic cross section of slice II, bisected. ??Black and orange margins, possibly with trace red and yellow. ? A4-A5: ??Stationary Equipment Mechanic sections of slice III, with detached skin from slice III. ??Black margin. ? A6-A9: ??Stationary Equipment Mechanic sections from slice IV; red, orange, yellow and black ink. ? A10-A13: ??Stationary Equipment Mechanic sections from slice V; black, red margins and skin surface. ? A14-A17: ??Stationary Equipment Mechanic sections from slice . The biopsy clip is removed from the vicinity of A14. ??Black, yellow, red and skin surface with possible blue ink. ? A18-A22: ??Stationary Equipment Mechanic sections from slice VII. ??Black and red margins with skin surface. ? A23-A24: ??Stationary Equipment Mechanic sections from slice VIII; skin surface, black ??and red margins. ? A25-A26: ??Stationary Equipment Mechanic sections from slice IX; black margin . SPECIMEN PROCESSING ? A27-A28: ??Stationary Equipment Mechanic sections from slice X; red, green and black margins ? A29-A30: ??Stationary Equipment Mechanic sections from slice XI; black with focal yellow and green margins ? A31: ??Perpendicular sections from slice XII; green, black and yellow margins. Ischemic Time: 1.35 hours( B - Labeled/Fixative: Left axillary sentinel nodes, fresh. Quantity/Size: Two, 5.0 x 3.5 x 1.0 cm. Tissue Description: Yellow adipose tissue overlying firm, pink-bishop nodules. Six candidate lymph nodes are identified. Sections/Processing: Stationary Equipment Mechanic sections in 8 cassettes as follows: ? B1: ??Single candidate lymph node, serially sectioned ? B2-B3: ??Single candidate lymph node, serially sectioned ? B4-B5: ??Single candidate lymph node, serially sectioned ? B6-B7: ??Additional firm structure, serially sectioned ? B8: ??Two whole candidate lymph nodes ?? 11/05/2018 2:43 PM [facility] SENTINEL LYMPH NODE / Unknown 10/10/2018 12:52 PM EST 10/10/2018 12:52 PM EST SENTINEL LYMPH NODE / Unknown 10/10/2018 12:52 PM EST 10/10/2018 12:52 PM EST Jhonatan Gaines MD PATHOLOGY/CYTOLOGY O ADELAIDA [facility] [place] [address] documented in this encounter Visit Diagnoses Not on filedocumented in this encounter Administered Medications Inactive Administered Medications - up to 3 most recent administrations Medication Order MAR Action Action Date Dose Rate Site acetaminophen (TYLENOL) tablet 650 mg 650 mg, Oral, 30 MIN PRE-OP, 1 dose, On Alena 10/10/18 at 1015, Maximum dose of acetaminophen is 4000 mg from all sources in 24 hours., Day of Surgery (Day of Procedure), Routine Given 10/10/2018 10:37 AM EST 650 mg acetaminophen (TYLENOL) tablet 650 mg 650 mg, Oral, EVERY 6 HOURS PRN, Starting on Alena 10/10/18 at 1407, Until Alena 10/10/18 at 1853, Pain, Maximum dose of acetaminophen is 4000 mg from all sources in 24 hours., Routine Given 10/10/2018 2:36 PM EST 650 mg BUpivacaine (PF) (MARCAINE) 0.5 % (5 mg/mL) injection ONCE PRN, Starting on Alena 10/10/18 at 1238, Until Alena 10/10/18 at 1853, Intra-Operative (Intra-Procedure), Routine Given 10/10/2018 1:41 PM EST 5 mLs 19- Surgical Site Given 10/10/2018 12:38 PM EST 11.5 mLs 1 9- Surgical Site carboxymethylcellulose (REFRESH CELLUVISC) 1 % ophthalmic drops 1 drop 1 drop, Both Eyes, 3 TIMES DAILY PRN, Starting on Alena 10/10/18 at 1546, Until Alena 10/10/18 at 1853, Dry Eyes, Routine lidocaine (PF) (XYLOCAINE) 10 mg/mL (1 %) injection ONCE PRN, Starting on Alena 10/10/18 at 1238, Until Alena 10/10/18 at 1853, Intra-Operative (Intra-Procedure), Routine Given 10/10/2018 1:41 PM EST 5 mLs 19- Surgical Site Given 10/10/2018 12:38 PM EST 11.5 mLs 1 9- Surgical Site documented in this encounter Active and Recently Administered Medications Times are shown in EST. Scheduled Medication Order 10/08/2018 10/09/2018 10/10/2018 acetaminophen (TYLENOL) tablet 650 mg (COMPLETED) 650 mg, Oral, 30 MIN PRE-OP, 1 dose, On Alena 10/10/18 at 1015, Maximum dose of acetaminophen is 4000 mg from all sources in 24 hours., Day of Surgery (Day of Procedure), Routine 1037 (Given - Provid er: Angi Riggs RN) cefTRIAXone (ROCEPHIN) 1 g vial attach to sodium chloride 0.9% 50 mL Mini-Bag Plus (CANCELED) 1 g, Intravenous, EVERY 24 HOURS, First dose on Alena 10/10/18 at 1015, Until Discontinued, Administer over 30 Minutes, Attach to 50 mL sodium chloride 0.9% Mini-Bag Plus , Intra-Operative (Intra-Procedure), Indication for (Active or Suspected): Prophylaxis 1228 (New Bag - Prov ider: Huey Fisher MD) Continuous Medication Order 10/08/2018 10/09/2018 10/10/2018 lactated Ringers infusion 1,000 mL (CANCELED) 1,000 mL, at 100 mL/hr, Intravenous, CONTINUOUS, Starting on Alena 10/10/18 at 1145, Until Alena 10/10/18 at 1651, Day of Surgery (Day of Procedure) 1204 (New Bag - Prov ider: Huey Fisher MD)1345 (Anesthesia Volume Adjustment - Provider: Silvana Lloyd CRNA) PRN Medication Order 10/08/2018 10/09/2018 10/10/2018 acetaminophen (TYLENOL) tablet 650 mg 650 mg, Oral, EVERY 6 HOURS PRN, Starting on Alena 10/10/18 at 1407, Until Alena 19 at 1853, Pain, Maximum dose of acetaminophen is 4000 mg from all sources in 24 hours., Routine 1436 (Given - Provid er: Erika Monreal) BUpivacaine (PF) (MARCAINE) 0.5 % (5 mg/mL) injection (CANCELED) ONCE PRN, Starting on Alena 10/10/18 at 1238, Until Alena 10/10/18 at 1853, Intra-Operative (Intra-Procedure), Routine 1238 (Given - Provid er: Dominick Brown MD - Comment: mixed 1:1 with 1% lidocaine)1341 (Given - Provider: Jhonatan Gaines MD - Comment: mixed 1:1 with 1% lidocaine) carboxymethylcellulose (REFRESH CELLUVISC) 1 % ophthalmic drops 1 drop 1 drop, Both Eyes, 3 TIMES DAILY PRN, Starting on Alena 10/10/18 at 1546, Until Alena 10/10/18 at 1853, Dry Eyes, Routine lidocaine (PF) (XYLOCAINE) 10 mg/mL (1 %) injection (CANCELED) ONCE PRN, Starting on Alena 10/10/18 at 1238, Until Alena 10/10/18 at 1853, Intra-Operative (Intra-Procedure), Routine 1238 (Given - Provid er: Dominick Brown MD - Comment: mixed 1:1 with 0.5% Bupivicaine for local injection)1341 (Given - Provider: Dominick Brown MD - Comment: mixed 1:1 with 0.5% Bupivicaine) documented in this encounter Care Teams Charge Preparation Technician Relationship Specialty Start Date End Date Jenise Huddleston APRN [address] [place] [address] PCP - General Family Medicine 09/11/18 documented as of this encounter
--- OUTSIDE RECORDS SUMMARY | 2024-07-10 15:30 | XMS_ITS | Encounter Summary ---
[facility] Address [facility] [place] [address] Care Team Providers Care Library Serials Assistant Name Role Phone FlaquitoJenise hinson Stefanie ARMSTRONG Primary Care Provider [phone] Reason for Visit * Consultation (Routine) - Closed Specialty Diagnoses / Procedures Referred By Petros t Referred To Contact Hematology and Oncology Diagnoses Malignant neoplasm of central portion of left female breast, unspecified estrogen receptor status Abbey Renae MD [facility] [place] [address] [facility] Hem Onc Office [address] [place] [phone] Referral ID Status Reason Start Date Expiration Date V isits Requested Visits Authorized [id number] Closed Continuity of Care 11/13/2018 11/13/2019 1 1 Encounter Details Date Type Department Care Team (Latest Contact Info) Description 12/09/2018 9:30 AM EDT Clinical Support Hematology/Oncology at [address] [phone] [facility] [place] [address] Breast cancer metastasized to axillary lymph node, [...] as of this encounter Progress Notes * Kenia Arreola RD - 12/09/2018 9:30 AM EDT [facility] Initial Dietitian Assessment Seen By: Thalia Arreola MS, RD, HAND SIZER, LD Referred by: Dr. Moody Reason for visit: questions regarding lifestyle vs. 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 Milium L72.0 ??? History of SCC (squamous cell carcinoma) of skin Z85.828 ??? Breast cancer metastasized to axillary lymph node, left C50.912, C77.3 Meds: reviewed Labs: NNL Estimated body mass index is 33.8 kg/m?? as calculated from the following: Height as of 11/14/18: 158 cm (5' 2.21). Weight as of 11/26/18: 84.4 kg (186 lb). Wt Readings from Last 3 Encounters: 11/26/18 84.4 kg (186 lb) 11/14/18 83.6 kg (184 lb 3.2 oz) 11/13/18 84.1 kg (185 lb 6.4 oz) Wt Hx: UBW: % UBW: IBW: +/- 10% % IBW: ___ Edema ___ Ascites ___Muscle wasting Calorie needs: Protein needs: Fluid needs: Food Intake: Organic, no plastic, she does have a green house and grows a lot of her vegetables. Prefers to follow a low CHO diet. Doesn't find a strict Keto diet is difficult for her. Am: Noon: Pm: Snacks: Fluids: Supplements/Frequency: ___ Ensure/Plus ___ Boost/Plus ___ CIB ___ Other: Teas, vitamins, or other nutritional supplements: see med list. Food allergies or avoidances: Appetite: Nausea: Vomiting: Chewing: Dentition: Swallowing: Denies Taste Changes: hypogeusia; metallic taste. Not currently doing bs/s rinses. Bowels: Other: Fatigued Food availability/purchasing, meal planning and preparation:She does Depression: n/a Social Support: daughter who live in [place] and many friends to support her. She would like to travel to [place] in February for her sister's memorial. 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 She has Medicare and [employer] for insurance. Physical Activity: n/a Level of Motivation/Readiness to Change: Nutrition Diagnosis: Met with Ursula after radiation. She is working with Farnaz Levy ND of [facility] in [place]. She is currently reading and following The Metabolic Approach to Cancer, Radha Soriano ND, which does advocate for ketogenic diet, increased physical activity, stress-reduction, and hot/cold therapies. Ursula reported she is Frustrated w/ MD's recommending Mediterranean diet, no mention of sugar[intake], and the use of invasive chemical therapies that could alternatively be addressed through nutrition. We discussed her diet preference, which there have been studies that have seen benefit in following a ketogenic diet during treatment; however, not many studies have looked at following the ketogenic diet for prolonged periods of time. We discussed likely side effects of fatigue, which she is already feeling and on where radiation is, she could likely experience esophagitis or dysphagia. Discussed ways to mitigate hypogeusia. Recommended baking soda/salt rinses to help with xerostomia and dysgeusia. Reviewed supplements, which all should be safe to consume while treatment. However, there are conflicting messages from studies looking at antioxidant intake from supplements, specifically O-3 while on treatment. This is typically in cCRT or chemotherapy. Recommended to abstain from O-3 during Rt. She reported she would ask her ND. Ursula is very keen on attempting lifestyle changes vs. Hormone therapy after radiation in completed. I encouraged her to discuss this with Dr. Frazier at her next visit. Ursula mentioned sugar and cancer and her strong disapproval that we offer hard candies at the cancer center, I provided her with contact information of the Consumer Marketing Specialist to offer a formal complaint. Nutrition Intervention: ? Baking soda/salt rinses Nutrition Goals: Educational Handouts provided: Oral care Other Recommendations: ? Monitoring and Evaluation: Will follow up with Ms. Urias romy. I have provided her with my card and contact information should she have any questions in the mean time. Thank you for this consult. documented in this encounter Plan of Treatment Scheduled Referrals Name Type Priority Associated Diagnoses Orde r Schedule Referral to Nutrition Services Outpatient Referral Routine Malignant neoplasm of central portion of left female breast, unspecified estrogen receptor status Ordered: 11/13/2018 documented as of this encounter Visit Diagnoses Diagnosis Breast cancer metastasized to axillary lymph node, left documented in this encounter Care Teams Library Serials Assistant Relationship Specialty Start Date End Date Jenise Huddleston, NATHANIEL [address] [place] [address] PCP - General Family Medicine 09/11/18 documented as of this encounter
--- OUTSIDE RECORDS SUMMARY | 2024-07-10 15:30 | XMS_ITS | Encounter Summary ---
Author Organization [facility] Address [facility] [place] [address] Care Team Providers Care Thermometer Production Worker Name Role Phone Jenise Huddleston NATHANIEL Primary Care Provider [phone] Encounter Details Date Type Department Care Team (Latest Contact Info) Description 10/10/2018 9:26 AM EST - 10/10/2018 4:35 PM EST Hospital En[place] [address] Jhonatan Gaines MD [facility] [address] Discharge Disposition: Home Social History Tobacco Use [...] Sign Reading Time Taken Comments Blood Pressure 103/54 10/10/2018 4:00 PM EST Pulse 63 10/10/2018 2:12 PM EST Temperature 37.1 ??C (98.8 ??F) 10/10/2018 9:57 AM ES T Respiratory Rate 16 10/10/2018 2:12 PM EST Oxygen Saturation 98% 10/10/2018 4:01 PM EST Inhaled Oxygen Concentration - - [...] 101.3 F. The number for questions is [phone] before 5 PM weekdays. Pain Medication: Please use ibuprofen (motrin, advil) 600 mg three times per day with food and tylenol 650 mg every 8 hours between the ibuprofen doses. Follow-up: Follow-up appointment will be scheduled with in 1-2 weeks. Scheduled Appointments: The following appointment with Dr. Gaines has been scheduled on your behalf Please call [phone] (clinic number) if any changes need to [...] Gaines MD - 10/10/2018 2:10 PM EST [facility] Operative Note Patient Name: Ursula Urias : [id number] MR#: [id number] Case Date: 10/10/2018 Surgeon: Surgeon(s) and Role: [...] WITH NEEDLE LOC., LESION #1 (Left) PLUS: [id number]: adjacent tissue rearrangement; 30 to 60 sq [...] Operative Note Patient Name: Ursula Urias : [id number] MR#: [id number] Case Date: 10/10/2018 Surgeon: Surgeon(s) and Role: [...] in good position on post resection mammography. Quincy lyphm node resectionpreformed with the SLN being [...] Biospecimen to store? No SPECIMEN TO PATHOLOGY 94491 BREAST CANCER LEFT partial mastectomy. resection Yes [...] PM EST 10/10/2018 1:49 PM EST Narrative [facility] - 10/10/2018 1:49 PM EST Specimen requisition ordered. ??Separate Pathology report to follow Resulting Agency Comment Spec In Lab Jhonatan Gaines MD PATHOLOGY/CYTOLOGY O ADELAIDA Performing Organization Address [facility] Co de Phone Number [facility] [place] [address] * Specimen to Pathology (10/10/2018 12:56 PM EST) AP Specimen 10/10/2018 12:5 6 PM EST 10/10/2018 12:56 PM EST Narrative [facility] - 10/10/2018 12:56 PM EST Specimen requisition ordered. ??Separate Pathology report to follow Jhonatan Gaines MD PATHOLOGY/CYTOLOGY O ADELAIDA Performing Organization Address [facility]/ZIP Co de Phone Number [facility] [place] [address] * Surgical Pathology Report (10/10/2018 12:52 PM EST) Final Diagnosis [id number] ? Location: [facility]; [facility]; A The signing pathologist has (i) examined the relevant preparation(s) for the specimen(s) and (ii) rendered or confirmed the diagnosis(es). . ? Addendum ADDENDUM DISCUSSION SPECIAL TEST PERFORMED: Test: ??Oncotype DX [facility] Case: ??[id number], block A13 Performing Lab: ??[facility] Performing Lab Case: ??[id number] Reported by: ??Brayan Villegas MD Date reported: ??11/05/18 For the full text of the [facility] report please refer to [facility] Pathology in the electronic health record (eDH). Electronically signed by: ??Becka Ovalle DO Verified: ??11/05/2018 ?Pathologist Performed at: ??-[facility] Dept. of Pathology, [place], [place] ?Molecular Genetics RESULTS TEST: HER2 (ERBB2) [...] FISH. ??Direct analysis was performed using the Spongecell Kit. ??Slide adequacy and signal enumeration were [...] factor receptor 2 testing in breast cancer: [place] Society of Clinical Oncology/College of [place] Pathologists clinical practice guideline update. J Clin Oncol. 2013 Jul 04. Sean VU et al. Human Epidermal Growth Factor Receptor 2 Testing in Breast Cancer: [place] Society of Clinical Oncology/College of [place] Pathologists Clinical Practice Guideline Focused Update. Arch Pathol Lab Med. 2017January 30/J Clin Oncol. 2017January 30. Reviewed by: Marily Radford MD Aviation Project Engineer, Molecular Pathology Electronically signed by: ??Marily Radford MD Verified: ??10/19/2018 ?Pathologist Performed at: ??-[facility] Dept. of Pathology, [place], [place] ?Surgical Pathology DIAGNOSIS A - Left [...] (ductal, not ?otherwise specified) ? Histologic Grade (Maxwell Histologic Score) ?Glandular (Acinar) / Tubular Differentiation: [...] (mm) ?Extranodal Extension: ?? Present ?Number of [place]cy Nodes Examined: ?6 Pathologic Stage Classification (pTNM, AJCC 8th Edition) ? Primary Tumor (Invasive Carcinoma) (pT): ?pT1c ? Regional Lymph Nodes (pN) ?Category (pN): ?? pN1a Tumor Block(s): ?? A13 CAP eCC October 2017 Agile Release ER, AL, and HER2 studies (performed on prior biopsy, [id number]): ER: Positive (>90%, strong) AL: Positive (>90%, strong) HER2 FISH: Negative Electronically signed by: ??Becka Ovalle DO Verified: ??10/17/2018 ?Pathologist Performed at: ??-[facility] Dept. of Pathology, [place], [place] DISCUSSION A single 1.5 cm tumor [...] and is strong and diffusely ER and AL positive, and HER2 negative (IHC score 1+, HER2 FISH pending). Commingling within the same positive lymph nodes is a morphologically distinct metastatic invasive ductal tumor which exhibits ample eosinophilic and vacuolated cytoplasm. This tumor is ER, AL, and HER2 negative (IHC score 0, HER2 [...] ? ER ? See Discussion B1 ? AL ? See Discussion B1 ? HER2 ? See Discussion B1 ? CK7 ?Positive in metastatic tumors B1 ? GATA3 ?Positive in metastatic tumors B1 ? CD68 ? Negative in metastatic tumors B1 ? TTF1 ? Negative in metastatic tumors B1 ? PAX8 ? Negative in metastatic tumors B2 ? ER ? See Discussion B2 ? AL ? See Discussion B2 ? HER2 ? [...] with minimal fibrous tissue. Otherwise unremarkable. Sections/Processing: Engineering Patternmaker sections in 31 cassettes as follows: ? A1: ??Engineering Patternmaker perpendicular sections of slice I. [place] and black margins are present. ? A2-A3: ??Engineering Patternmaker cross section of slice II, bisected. ??Black and orange margins, possibly with trace red and yellow. ? A4-A5: ??Engineering Patternmaker sections of slice III, with detached skin from slice III. ??Black margin. ? A6-A9: ??Engineering Patternmaker sections from slice IV; red, orange, yellow and black ink. ? A10-A13: ??Engineering Patternmaker sections from slice V; black, red margins and skin surface. ? A14-A17: ??Engineering Patternmaker sections from slice . The biopsy clip is removed from the vicinity of A14. ??Black, yellow, red and skin surface with possible blue ink. ? A18-A22: ??Engineering Patternmaker sections from slice VII. ??Black and red margins with skin surface. ? A23-A24: ??Engineering Patternmaker sections from slice VIII; skin surface, black ??and red margins. ? A25-A26: ??Engineering Patternmaker sections from slice IX; black margin . SPECIMEN PROCESSING ? A27-A28: ??Engineering Patternmaker sections from slice X; red, green and black margins ? A29-A30: ??Engineering Patternmaker sections from slice XI; black with focal yellow and green margins ? A31: ??Perpendicular sections from slice XII; green, black and yellow margins. Ischemic Time: 1.35 hours( B - Labeled/Fixative: Left axillary sentinel nodes, fresh. Quantity/Size: Two, 5.0 x 3.5 x 1.0 cm. Tissue Description: Yellow adipose tissue overlying firm, pink-bishop nodules. Six candidate lymph nodes are identified. Sections/Processing: Engineering Patternmaker sections in 8 cassettes as follows: ? B1: ??Single candidate lymph node, serially sectioned ? B2-B3: ??Single candidate lymph node, serially sectioned ? B4-B5: ??Single candidate lymph node, serially sectioned ? B6-B7: ??Additional firm structure, serially sectioned ? B8: ??Two whole candidate lymph nodes ?? 11/05/2018 2:43 PM [facility] SENTINEL LYMPH NODE / Unknown 10/10/2018 12:52 PM EST 10/10/2018 12:52 PM EST SENTINEL LYMPH NODE / Unknown 10/10/2018 12:52 PM EST 10/10/2018 12:52 PM EST Jhonatan Gaines MD PATHOLOGY/CYTOLOGY Mana SON [facility] [place] [address] documented in this encounter Visit Diagnoses Not [...] Given 10/10/2018 2:36 PM EST 650 mg carboxymethylcellulose (REFRESH CELLUVISC) 1 % ophthalmic drops 1 drop 1 drop, Both Eyes, 3 TIMES DAILY PRN, Starting on Alena 10/10/18 at 1546, Until Alena 10/10/18 at 1853, Dry Eyes, Routine documented in this encounter Active and Recently [...] Intravenous, EVERY 24 HOURS, First dose on Alean 10/10/18 at 1015, Until Discontinued, Administer over [...] Bupivicaine) documented in this encounter Care Teams Thermometer Production Worker Relationship Specialty Start Date End Date Jenise Huddleston APRN [address] [place] [address] PCP - General Family Medicine 09/11/18 documented as of this encounter
--- OUTSIDE RECORDS SUMMARY | 2024-07-10 15:30 | XMS_ITS | Encounter Summary ---
Author Organization [facility] [place] [address] Care Team Providers Care Passenger Flagman Name Role Phone Jenise Huddleston APRN Primary Care Provider [phone] Encounter Details Date Type Department Care Team (Late st Contact Info) Description 10/10/2018 12:04 PM EST Anesthesia Event [place] [address] [facility] [place] [address] Anesthesia Record Procedure Summary Procedure Name Responsible Anesthesiologist Anesthesia Start Time Anesthesia Stop Time MASTECTOMY PARTIAL (WRVU 10.13) (Left: Breast) Huey Fisher MD 10/10/18 1204 10/10/18 1419 Events Date Time Event Comment 10/10/2018 1141 1204 Start 1207 AN Verify 1207 An Start Data 1215 An Induction 1218 An Intubation 1220 Anesthesia Ready 1237 Procedure Start 1407 Extubation/LMA Out 1407 an stop data 1419 Recovery or ICU Handoff Rena ent care was transferred to the destination unit staff after review of the patient's medical history, current anesthetic/surgical status and plan, according to the Provider Handoff Checklist. 1419 Stop Meds Name Total fentaNYL 25 mcg IV Lidocaine 100 mg Propofol 300 mg PHENYLephrine 200 mcg Ondansetron 4 mg Dexamethasone 4 mg cefTRIAXone (ROCEPHIN) 1 g v ial attach to sodium chloride 0.9% 50 mL Mini-Bag Plus 1 g Propofol INF 683.88 mg Dexmedetomidine INF 78.4 mcg Ketorolac 30 mg lactated Ringers infusion 1,000 mL 700 m L * Agents Name O2 Air N2O Sevoflurane (et) * Blood No blood administrations on file. Lines, Drains, and Airways Type Details Placement Removal (RETIRED) Peripheral IV Line - Single Lumen 10/10/18; 1026; cephalic vein (lateral side of arm), right; [id number]-[id number] catheter system; 20 gauge; Angi Riggs; distraction, appears comfortable, tolerated well; 1; Location1: (select this item first), metacarpal vein (top of hand), right, no redness, ecchymosis, warmth, swelling, pain, drainage; 10/10/18; 1620 10/10/18 1026 by Angi Riggs RN 10/10/18 1620 by Deshawn Richards RN Supraglottic Mask Ventilation: Ea thanh (1); LMA Type: Unique; LMA Size: 3; Inserted by: MD Phillip; Removal Date: 10/10/18; Removal Time: 1407 10/10/18 1218 by Huey Fisher MD 10/10/18 1407 by Silvana Lloyd CRNA Incision 10/10/18; 1237; axilla; 05/01/22 (LDA cleanup utility RA#[id number]); 1715 (LDA cleanup utility RA#[id number]) 10/10/18 1237 by Nayeli Eugene RN 05/01/22 1715 by Pretty Ovalle Incision 10/10/18; 1310; breast; 05/01/22 (LDA cleanup utility RA#[id number]); 1715 (LDA cleanup utility RA#[id number]) 10/10/18 1310 by Nayeli Eugene RN 05/01/22 1715 by Pretty Ovalle documented in this encounter Social History Tobacco Use Types Packs/Day Years Used Date Smoking Tobacco: Never Smokeless Tobacco: Never Alcohol Use Standard Drinks/Week Comments Yes 0 (1 standard drink = 0.6 oz pur e alcohol) minimally Sex and Gender Information Value Date Recorded Sex Assigned at Not on file Gender Identity Not on file Sexual Orientation Not on file documented as of this encounter OR Notes * Anesthesia Postprocedure Evaluation - Huey Fisher MD - 10/10/2018 5:05 PM EST [facility] Department of Anesthesiology Post-procedure Note Patient: Ursula Urias Procedure Summary Date: 10/10/18 Room / Location: [address] MAIN OR Anesthesia Start: 1204 Anesthesia Stop: 1419 Procedures: MASTECTOMY PARTIAL (WRVU 10.13) (Left Breast) BIOPSY OR EXCISION OF LYMPH NODE(S), OPEN, DEEP AXILLARY NODE(S) (WRVU 6.43) (Left Axilla) INTRAOPERATIVE ID (MAPPING) SENTINEL LYMPH NODE,INCLUDES INJECTION (WRVU 2.5) (Left ) MODIFIER SENTINEL NODE EXCISION (Left ) MODIFIER WITH NEEDLE LOC., LESION #1 (Left ) Diagnosis: (BREAST CANCER) Surgeon: Jhonatan Gilmore MD Responsible Provider: Huey Fisher MD Anesthesia Type: general ASA Status: 2 All Anesthesia Providers: Anesthesiologist: Huey Fisher MD LAYAWAY CLERK: Silvana Lloyd CRNA Vitals Value Taken Time BP 103/54 10/10/2018 4:00 PM Temp Pulse Resp SpO2 98 % 10/10/2018 4:01 PM Pain Level 1 10/10/2018 2:36 PM Patient Location: PACU/[facility] Level of Consciousness: Conscious but Sleepy Pain Management: Satisfactory Analgesia PONV: None Cardiovascular Status: At Baseline and Hemodynamically Stable Respiratory Status: At Baseline and Room Air Postoperative Fluid Status: Intravascular EUvolemia Possible Anesthetic Complications: NONE apparent at time of evaluation Final Primary Anesthesia Type: General (The anesthetic type performed was the same as planned.) Comments: Patient doing well. She reports feeling a little foggy but no other complaints. Of note, she did complain of blurred vision in recovery, but this resolved once her glasses were put on. Otherwise, patient satisfied with her perioperative care. Huey Fisher MD * Anesthesia Preprocedure Evaluation - Huey Fisher MD - 10/09/2018 8:04 PM EST Pre-Anesthesia Evaluation for: Ursula Urias a 67 y.o. female. Procedure(s): MASTECTOMY PARTIAL (WRVU 10.13) BIOPSY OR EXCISION OF LYMPH NODE(S), OPEN, DEEP AXILLARY NODE(S) (WRVU 6.43) INTRAOPERATIVE ID (MAPPING) SENTINEL LYMPH NODE,INCLUDES INJECTION (WRVU 2.5) MODIFIER SENTINEL NODE EXCISION MODIFIER WITH NEEDLE LOC., LESION #1 Patient Active Problem List Diagnosis ??? Milium ??? History of SCC (squamous cell carcinoma) of skin No past medical history on file. Past Surgical History: Procedure Laterality Date ??? MAMMO US BIOPSY LEFT Left 09/05/2018 Mammo Us Biopsy Left 09/05/2018 Zoltan Baldwin MD [facility] RAD MAMMOGRAPHY ??? MRI BREAST BIOPSY VACUUM ASSIST LEFT Left 09/18/2018 MRI Breast Biopsy Vacuum Assist Left 09/18/2018 [facility] RAD MRI Social History Tobacco Use ??? Smoking status: Never Smoker ??? Smokeless tobacco: Never Used Substance Use Topics ??? Alcohol use: Not on file Social History Substance and Sexual Activity Drug Use Not on file No Known Allergies Medications: MAR and/or home medications have been reviewed. Physical Exam: There were no vitals filed for this visit. There is no height or weight on file to calculate BMI. Airway Assessment: Mallampati: II TM distance: >3 FB Neck ROM: full Cardiovascular Assessment: Rhythm: regular Rate: normal (-) murmur cardiovascular exam normal Pulmonary Assessment: breath sounds clear to auscultation pulmonary exam normal Dental Assessment: - normal exam Comment: Upper fillings on molars b/l Misc Assessment: IV access: Peripheral line Anesthesia Plan: ASA 2 general, with a(n) intravenous induction Ursula Urias is a 67 year old female with history of SCC, PHIL (non- compliant, but lost weight since diagnosis) and breast cancer here for left partial mastectomy with sentinel node excision. Lab Results Component Value Date WBC 7.5 09/11/2018 HGB 13.6 09/11/2018 HCT 41.2 09/11/2018 MCV 91.8 09/11/2018 PLATELET 247 09/11/2018 Lab Results Component Value Date NA 140 09/11/2018 K 4.1 09/11/2018 CL 100 09/11/2018 CO2 24 09/11/2018 BUN 14 09/11/2018 CREATININE 0.76 09/11/2018 GLUCOSE 78 09/11/2018 CALCIUM 9.0 09/11/2018 ESTGFR 81 09/11/2018 Lab Results Component Value Date ALT 17 09/11/2018 AST 20 09/11/2018 ALKPHOS 61 09/11/2018 BILITOT 0.2 09/11/2018 ALBUMIN 3.9 09/11/2018 PROT 7.0 09/11/2018 No results found for: TSH, B7KNPBG, TT4, THYROIDAB No results found for: HA1C Plan: GA LMA with 1 PIV and standard ASA monitors The patient was informed of the risks, benefits and alternatives of anesthesia. These risks included, but were not limited to, post-operative nausea and/or vomiting, pain, sore throat, dental/lip trauma, and other rare but serious complications such as major organ damage, awareness, severe allergicreactions, position-related nerve injuries, and need blood transfusions. All questions were sought and answered. Consent was signed and placed in chart. Region - Other Informed Consent: Anesthetic plan and risks discussed with patient. Use of blood products discussed with patient who consented to blood products. Plan discussed with LAYAWAY CLERK. PAT Staff Note documented in this encounter Plan of Treatment Not on file documented as of this encounter Visit Diagnoses Not on filedocumented in this encounter Administered Medications Inactive Administered Medications - up to 3 most recent administrations Medication Order MAR Action Action Date Dose Rate Site cefTRIAXone (ROCEPHIN) 1 g vial attach to sodium chloride 0.9% 50 mL Mini-Bag Plus 1 g, Intravenous, EVERY 24 HOURS, First dose on Alena 10/10/18 at 1015, Until Discontinued, Administer over 30 Minutes, Attach to 50 mL sodium chloride 0.9% Mini-Bag Plus , Intra-Operative (Intra-Procedure), Indication for (Active or Suspected): Prophylaxis New Bag 10/10/2018 12:28 PM EST 1 g dexamethasone (DECADRON) injection PRN, Starting on Alena 10/10/18 at 1216, Until Alena 10/10/18 at 1428, Anesthesia Intra-op, Routine Given 10/10/2018 12:16 PM EST 4 mg dexmedetomidine (PRECEDEX) 4 mcg/mL (standard Adult & Pedi greater than 20kg) infusion (premix) CONTINUOUS PRN, Starting on Alena 10/10/18 at 1220, Until Alena 10/10/18 at 1428, Anesthesia Intra-op Rate/Dose Change 10/10/2018 1:41 PM EST 0.6 mcg/kg/hr 12.5 mL/hr Rate/Dose Change 10/10/2018 1:33 PM EST 0.5 mcg/kg/hr 10.4 mL/hr Rate/Dose Change 10/10/2018 1:28 PM EST 0.4 mcg/kg/hr 8.3 mL/hr fentaNYL 50 mcg/mL multi-dose injection PRN, Starting on Alena 10/10/18 at 1333, Until Alena 10/10/18 at 1428, Anesthesia Intra-op, Routine Given 10/10/2018 1:33 PM EST 25 mcg ketorolac (TORADOL) injection PRN, Starting on Alena 10/10/18 at 1333, Until Alena 10/10/18 at 1428, Anesthesia Intra-op, Routine Given 10/10/2018 1:33 PM EST 30 mg lactated Ringers infusion 1,000 mL 1,000 mL, at 100 mL/hr, Intravenous, CONTINUOUS, Starting on Alena 10/10/18 at 1145, Until Alena 10/10/18 at 1651, Day of Surgery (Day of Procedure) New Bag 10/10/2018 12:04 PM EST lidocaine (PF) (XYLOCAINE) 100 mg/5 mL (2 %) injection PRN, Starting on Alena 10/10/18 at 1214, Until Alena 10/10/18 at 1428, Anesthesia Intra-op, Routine Given 10/10/2018 12:14 PM EST 100 mg ondansetron (ZOFRAN) injection PRN, Starting on Alena 10/10/18 at 1333, Until Alena 10/10/18 at 1428, Anesthesia Intra-op, Routine Given 10/10/2018 1:33 PM EST 4 mg PHENYLephrine in NS (PF) (GREGORY-SYNEPHRINE) 0.8 mg/10 mL (80 mcg/mL) multi-dose injection Syrg PRN, Starting on Alena 10/10/18 at 1241, Until Alena 10/10/18 at 1428, Anesthesia Intra-op, Routine Given 10/10/2018 12:55 PM EST 80 mcg Given 10/10/2018 12:53 PM EST 40 mcg Given 10/10/2018 12:41 PM EST 80 mcg propofol (DIPRIVAN) 10 mg/mL bolus injection (Anesthesia) PRN, Starting on Alena 10/10/18 at 1218, Until Alena 10/10/18 at 1428, Anesthesia Intra-op Given 10/10/2018 1:52 PM EST 40 mg Given 10/10/2018 1:47 PM EST 30 mg Given 10/10/2018 1:39 PM EST 30 mg propofol (DIPRIVAN) infusion CONTINUOUS PRN, Starting on Alena 10/10/18 at 1220, Until Alena 10/10/18 at 1428, Anesthesia Intra-op, Routine Rate/Dose Change 10/10/2018 1:28 PM EST 50 mcg/kg/min 25 mL/hr Rate/Dose Change 10/10/2018 1:13 PM EST 75 mcg/kg/min 37.5 mL/hr Rate/Dose Change 10/10/2018 12:59 PM EST 100 mcg/kg/min 50 mL/hr documented in this encounter Care Teams Passenger Flagman Relationship Specialty Start Date End Date Jenise Huddleston APRN [address] [place] [address] PCP - General Family Medicine 09/11/18 documented as of this encounter
--- OUTSIDE RECORDS SUMMARY | 2024-07-10 15:30 | XMS_ITS | Encounter Summary ---
Author Organization [facility] Address [facility] [place] [address] Care Team Providers Care Boiler Testing Technician Name Role Phone None Primary Care Provider Unavailabl e Encounter Details Date Type Department Care Team (Late st Contact Info) Description 09/09/2018 Telephone [place] [id number] Leeanne Brown RN Social History Tobacco Use Types Packs/Day Years Used Date Smoking Tobacco: Unknown Sex and Gender Information Value Date Recorded Sex Assigned at Not on file Gender Identity Not on file Sexual Orientation Not on file documented as of this encounter Miscellaneous Notes * Telephone Encounter - Leeanne Brown RN - 09/09/2018 11:19 AM EST Comprehensive Breast Program (CBP) Note ?? Reason for call: Contacted patient after Dr. Baldwin informed her that her breast biopsy results indicated she has invasive ductal carcinoma, to introduce her to the CBP. Ursula Urias is a 67 y.o. female with newly diagnosed ER/WA+/HER2 pending left breast cancer (left breast U/S guided biopsy 09/05/2018 at [facility]). Ursula sounds positive and has support. She will have someone accompany her to appointments. She appears to be coping well but is eager to meet with a breast surgeon to determine a treatment plan. 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 She is employed by [employer]. She has some work commitments scheduled through early October. Ursula is interested in having a trained volunteer from [employer] patient support corps accompany her to provider apt. if they can easily accommodate her. Requested someone from [employer] meet with her at her consultation. Ursula has access to [facility]. Plan: Appointments for breast MRI and surgical consult with a breast surgeon have been scheduled. She was introduced to the CBP and told she would receive information about her diagnosis and treatment for her review (will provide the Breast Cancer Treatment Handbook to her on 09/11 at her consultation; she has the link to the [facility] Early-Stage: Invasive Breast Cancer). Plan to meet with Ursula on the day of her consult apt. Addressed her questions and encouraged her to contact me with any additional questions or concerns.She has our contact information. FAMILY HISTORY Breast Cancer: 2 Paternal Cousins (twins) years ago and ?their mother. Laterality:Left Is this a recurrence:No Family history of breast cancer:Yes Family history of ovarian cancer: No Personal history or breast cancer:No Method of detection: Mammogram Method of diagnosis: Ultrasound Core Biopsy documented in this encounter Plan of Treatment Not on file documented as of this encounter Visit Diagnoses Not on filedocumented in this encounter Care Teams Boiler Testing Technician Relationship Specialty Start Date End Date None None PCP - General 09/05/18 09/10/18 documented as of this encounter
--- OUTSIDE RECORDS SUMMARY | 2024-07-10 15:30 | XMS_ITS | Encounter Summary ---
Author Organization [facility] [place] [address] Care Team Providers Care Decker Operator Name Role Phone None Primary Care Provider Unavailabl e Encounter Details Date Type Department Care Team (Latest Contact Info) Description 09/05/2018 1:16 PM EST Hospital [place] [id number] Akua Rodríguez MD [facility] [place] [place] [address] Abnormal finding on breast imaging Discharge Disposition: [...] Name Priority Date/Time Associated Diagnosis Comments MAMMO BREAST US LIMITED LEFT Routine 09/05/2018 1:39 PM EST Abnormal finding on breast imaging documented in this encounter Results * US Breast Limited Left (09/05/2018 1:39 PM EST) Anatomical Region Laterality Modality Breast Left Mammography Impressions 09/05/2018 2:08 PM EST Suspicious hypoechoic mass, 6:00, 4 cm from the nipple, with nearby simple and benign-appearing cysts. RECOMMENDATION: Left breast lesion 1, ultrasound-guided biopsy, 6:00, 4 cm from the nipple. The patient was subsequently consented, procedure to follow. Left breast: BI-RADS 4, suspicious Narrative 09/05/2018 2:08 PM EST EXAMINATION: US ??BREAST LIMITED LEFT CLINICAL HISTORY: abnormal finding. 67-year-old female returns for additional ultrasound, and biopsy of the left breast. TECHNIQUE: Personally directed and targeted high-resolution grayscale and color sonographic evaluation. COMPARISON: Outside mammography and ultrasound, 08/20/2018. FINDINGS: The hypoechoic and irregular left breast mass, 6:00, 4 cm from the nipple, measuring 1.1 cm again identified. Nearby tiny anechoic cysts, are benign-appearing. No additional findings. Akua Rodríguez MD IMG MAMMO ORDERABL ES documented in this encounter Visit Diagnoses Diagnosis Abnormal finding on breast imaging Other (abnormal) findings on radiological examination of breast documented in this encounter Care Teams Decker Operator Relationship Specialty Start Date End Date None None PCP - General 09/05/18 09/10/18 documented as of this encounter
--- OUTSIDE RECORDS SUMMARY | 2024-07-10 15:30 | XMS_ITS | Encounter Summary ---
Author Organization [facility] [place] [address] Care Team Providers Care Epic Application Coordinator Name Role Phone Xochitl Dominguez NATHANIEL Primary Care Provider [phone] Encounter Details Date Type Department Care Team (Late st Contact Info) Description 08/20/2018 Ancillary Procedure Radiology Library at [facility] [place] [phone] Jenise Huddleston APRN [address] [place] [address] Social History Tobacco Use Types Packs/Day Years Used Date Smoking Tobacco: Unknown Sex and Gender Information Value Date Recorded Sex Assigned at Not on file Gender Identity Not on file Sexual Orientation Not on file documented as of this encounter Plan of Treatment Not on file documented as of this encounter Procedures Procedure Name Priority Date/Time Associated Diagnosis Comments FILM LIBRARY-STORAGE ONLY US BREAST Routine 08/20/2018 12:00 AM EST documented in this encounter Results * Film Library Storage Only US Breast (08/20/2018 12:00 AM EST) Narrative VICTORIA - 08/21/2018 5:19 PM EST This exam is for storage only and is auto-finalizing. Jenise Huddleston APRN IMG FILM LIBRARY ORDERABLES [facility] [place] documented in this encounter Visit Diagnoses Not on filedocumented in this encounter Care Teams Epic Application Coordinator Relationship Specialty Start Date End Date Xochitl Dominguez APRN PCP - General 03/29/15 09/04/18 documented as of this encounter
--- OUTSIDE RECORDS SUMMARY | 2024-07-10 15:30 | XMS_ITS | Encounter Summary ---
Author Organization [facility] [place] [address] Care Team Providers Care [place] Ordinary Name Role Phone Jenise Huddleston Stefanie ARMSTRONG Primary Care Provider [phone] Encounter Details Date Type Department Care Team (Latest Contact Info) Description 09/16/2018 1:54 PM EST - 09/16/2018 11:59 PM EST Hospital [place] [address] Akua Rodríguez MD [facility] [place] [address] Abnormal MRI Discharge Disposition: Home Social History Tobacco Use [...] Comments MAMMO BREAST US LIMITED LEFT Routine 09/16/2018 2:49 PM EST Abnormal MRI documented in this encounter Results * US Breast Limited Left (09/16/2018 2:49 PM EST) Anatomical Region Laterality Modality Breast Left Mammography Narrative 09/16/2018 3:01 PM EST DIAGNOSTIC ULTRASOUND OF THE LEFT BREAST CLINICAL HISTORY: abnormal MRI. COMPARISONS: MRI from 09/11/2018 AREA SCANNED: 9:00 region FINDINGS: No abnormality was detected. In particular, the small focus of enhancement at 9:00 in the LEFT breast 4 cm the nipple was not identified. As per Dr. Gilmore's plans, an MR guided biopsy has been scheduled for Sunday this week. INTERPRETATION: BIRADS 1. Normal MANAGEMENT: MR guided biopsy: LEFT BREAST LESION #2 0.7 cm area enhancement ??inner Quadrant 9 OClock 4 cm from the nipple Akua Rodríguez MD IMG MAMMO ORDERABL ES documented in this encounter Visit Diagnoses Diagnosis Abnormal MRI Other nonspecific (abnormal) findings on radiological and other examinations of body structure documented in this encounter Care Teams [place] [employer] Relationship Specialty Start Date End Date Jenise Huddleston APRN [address] [place] [address] PCP - General Family Medicine 09/11/18 documented as of this encounter
--- OUTSIDE RECORDS SUMMARY | 2024-07-10 15:30 | XMS_ITS | Encounter Summary ---
Author Organization [facility] Address [facility] [place] [address] Care Team Providers Care Soubrette Name Role Phone Xochitl Dominguez NATHANIEL Primary Care Provider [phone] Encounter Details Date Type Department Care Team (Late st Contact Info) Description 08/22/2018 Ancillary Procedure Radiology Library at [facility] [place] [address] Jenise Huddleston APRN [address] [place] [address] Left breast mass Social History Tobacco Use Types Packs/Day Years Used Date Smoking Tobacco: Unknown Sex and Gender Information Value Date Recorded Sex Assigned at Not on file Gender Identity Not on file Sexual Orientation Not on file documented as of this encounter Plan of Treatment Not on file documented as of this encounter Procedures Procedure Name Priority Date/Time Associated Diagnosis Comments REQUEST FOR 2ND READ MAMMO Routine 08/21/2018 5:35 PM EST Left breast mass documented in this encounter Results * Request for 2nd read Mammo (08/21/2018 5:35 PM EST) Anatomical Region Laterality Modality SO Impressions 08/22/2018 9:18 AM EST Highly suspicious mass 1.2 cm left breast 6:00 radian 3 cm from the nipple by ultrasound with possible satellite lesions. RECOMMENDATION: Recommend repeat ultrasound to assess presence and number of potential satellite lesions at the left breast 6:00 radian. Recommend ultrasound-guided core biopsy of the suspicious 1.2 cm spiculated mass at the left breast 6:00 radian sonographically 3 cm from the nipple. Additional biopsies (of satellite lesions) could be performed as indicated by the repeat ultrasound. Please note: The interpretation of the [facility] Breast Imaging Radiologist subspecialist may differ from the original radiologist's interpretation. This is usually not due to a deficiency of the original interpreting radiologist, rather due to the greater skill level afforded by sub-specialization in the field and/or reasonable variations in interpretations. If you have a concern regarding the D- interpretation you may contact the Replaced By [facility] Breast Chemistry Technician Office at . Narrative 08/22/2018 9:18 AM EST INTERPRETATION OF OUTSIDE BREAST IMAGING I have been asked to consult on this patient by Dr. Jenise Huddleston because he/she believes a review of this study may change or alter the care of this patient. STUDIES FROM: [facility] please note: Report have not been provided. DATES: 08/06/2018 mammogram, 08/20/2018 mammogram and ultrasound CLINICAL HISTORY: LEFT BREAST MASS 6 O'CLOCK, CAT 0; ? BX, ?MORE IMAGING; What Modality is the exam? Mammography; Body Part (please add comments as necessary): LEFT BREAST; I believe a reinterpretation of this exam may alter care of Patient. Yes. ?? COMPARISONS: 06/21/2011, 02/09/2009, 03/23/2008, 03/18/2008 FINDINGS: 2-D direct digital capture, 3-D tomosynthesis and computer aided detection (CAD) were used. The subsequent diagnostic left breast mammogram consists of spot compression CC, spot compression MLO views with 2-D and 3-D tomosynthesis. Static ultrasound images provided. Bilateral mammogram: The breasts are heterogeneously dense, which may obscure small masses. There is a 1.2 cm lobulated spiculated mass in the left breast 6:00 radian 7.5 cm from the nipple. The right breast is unremarkable. Left breast diagnostic mammogram: Additional imaging confirms the spiculated mass without evidence of suspicious microcalcifications. Left breast ultrasound: Please note: Breast ultrasound is coat operator dependent. Complete assessment of the breast tissue is not possible through static images or cine loops. Because breast ultrasound is a dynamic process the interpretive value of outside images is limited. There is a heterogeneously hypoechoic mass with irregular angulated margins at the left breast 6:00 radian sonographically 3 cm from the nipple. There are hypoechoic subcentimeter masses depicted on the additional static images all labeled as 6:00 and within 2 cm of the index lesion. It is difficult to determine how many separate masses there are without the report. Procedure Note Akua Rodríguez MD - 08/22/2018 INTERPRETATION OF OUTSIDE BREAST IMAGING I have been asked to consult on this patient by Dr. Jenise Vázquez he/she believes a review of this study may change or alter the care ofthis patient. STUDIES FROM: [facility] please note: Reporthave not been provided. DATES: 08/06/2018 mammogram, 08/20/2018 mammogram and ultrasound CLINICAL HISTORY: LEFT BREAST MASS 6 O'CLOCK, CAT 0; ? BX, ?MORE IMAGING;What Modality is the exam? Mammography; Body Part (please add comments asnecessary): LEFT BREAST; I believe a reinterpretation of this exam may alter care of Patient. Yes. COMPARISONS: 06/21/2011, 02/09/2009, 03/23/2008, 03/18/2008 FINDINGS: 2-D direct digital capture, 3-D tomosynthesis and computer aided detection(CAD) were used. The subsequent diagnostic left breast mammogram consists ofspot compression CC, spot compression MLO views with 2-D and 3-Dtomosynthesis. Static ultrasound images provided. Bilateral mammogram: The breasts are heterogeneously dense, which mayobscure small masses. There is a 1.2 cm lobulated spiculated mass in the leftbreast 6:00 radian 7.5 cm from the nipple. The right breast is unremarkable. Left breast diagnostic mammogram: Additional imaging confirms thespiculated mass without evidence of suspicious microcalcifications. Left breast ultrasound: Please note: Breast ultrasound is operatordependent. Complete assessment of the breast tissue is not possible through staticimages or cine loops. Because breast ultrasound is a dynamic process theinterpretive value of outside images is limited. There is a heterogeneously hypoechoicmass with irregular angulated margins at the left breast 6:00 radiansonographically 3 cm from the nipple. There are hypoechoic subcentimeter masses depictedon the additional static images all labeled as 6:00 and within 2 cm of theindex lesion. It is difficult to determine how many separate masses there arewithout the report. IMPRESSION Highly suspicious mass 1.2 cm left breast 6:00 radian 3 cm from the nippleby ultrasound with possible satellite lesions. RECOMMENDATION: Recommend repeat ultrasound to assess presence and number of potentialsatellite lesions at the left breast 6:00 radian. Recommend ultrasound-guided core biopsy of the suspicious 1.2 cmspiculated mass at the left breast 6:00 radian sonographically 3 cm from the nipple.Additional biopsies (of satellite lesions) could be performed as indicated by therepeat ultrasound. Please note: The interpretation of the [facility] BreastImaging Radiologist subspecialist may differ from the original radiologist's interpretation. This is usually not due to a deficiency of the original interpreting radiologist, rather due to the greater skill level affordedby sub-specialization in the field and/or reasonable variations ininterpretations. If you have a concern regarding the H interpretation you may contact the[facility] Breast Chemistry Technician Office at [phone]. 9:18 AM Jenise Huddleston APRN IMG OUTSIDE INTER PRETATION ORDERABLES documented in this encounter Visit Diagnoses Diagnosis Left breast mass Lump or mass in breast documented in this encounter Care Teams Soubrette Relationship Specialty Start Date End Date Xochitl Dominguez APRN PCP - General 03/29/15 09/04/18 documented as of this encounter
--- OUTSIDE RECORDS SUMMARY | 2024-07-10 15:30 | XMS_ITS | Encounter Summary ---
Author Organization [facility] [place] [address] Care Team Providers Care Family Practice Doctor Name Role Phone Jenise Huddleston APRN Primary Care Provider [phone] Encounter Details Date Type Department Care Team (Late st Contact Info) Description 09/13/2018 Telephone Hematology [place] [address] Leeanne Brown, RN Social History Tobacco Use Types Packs/Day Years Used Date Smoking Tobacco: Never Smokeless Tobacco: Never Sex and Gender Information Value Date Recorded Sex Assigned at Not on file Gender Identity Not on file Sexual Orientation Not on file documented as of this encounter Miscellaneous Notes * Telephone Encounter - Leeanne Brown, RN - 09/13/2018 2:20 PM EST Comprehensive Breast Program (CBP) Note Ursula Urias is a 67 y.o. female with newly diagnosed ER/OR+/HER2 left breast cancer (left breast U/S guided biopsy 09/05/2018 at [facility]) scheduled for partial mastectomy and SLNB on 10/[address] Gilmore. ??Reason for call: Left message for Grace. Dr. Gilmore requested that we arrange for this pt to have an US of the lesion at 0900 4 cm from left nipple seen on MRI. If it is seen on US, then US biopsy;if not, then MRI biopsy. Surgery scheduled for Oct 10. Please get bx done before 09/25. She is out [facility] . Addendum 4:25 PM: Ursula will come on 09/16 at 2:15 PM for left breast U/S and possible biopsy. She understands that if MRI biopsy is recommended 09/18 is a potential date for same. She has Bindu's contact number in radiology should she need to get in touch. documented in this encounter Plan of Treatment Not on file documented as of this encounter Visit Diagnoses Not on filedocumented in this encounter Care Teams Family Practice Doctor Relationship Specialty Start Date End Date Jenise Huddleston APRN [address] [place] [address] PCP - General Family Medicine 09/11/18 documented as of this encounter
--- OUTSIDE RECORDS SUMMARY | 2024-07-10 15:30 | XMS_ITS | Encounter Summary ---
Author Organization [facility] Address [facility] [place] [address] Care Team Providers Care Director Funeral Name Role Phone Jenise Huddleston NATHANIEL Primary Care Provider [phone] Encounter Details Date Type Department Care Team (Late st Contact Info) Description 09/13/2018 Orders Only [place] [address] Jhonatan Gilmore MD [facility] [place] [address] Malignant neoplasm of left female breast, unspecified estrogen receptor status, unspecified site of breast (Primary Dx) Social History Tobacco Use Types Packs/Day Years Used Date Smoking Tobacco: Never Smokeless Tobacco: Never Sex and Gender Information Value Date Recorded Sex Assigned at Not on file Gender Identity Not on file Sexual Orientation Not on file documented as of this encounter Plan of Treatment Not on file documented as of this encounter Results * Mammo Specimen Left (10/10/2018 1:24 PM EST) Anatomical Region Laterality Modality Breast Left Mammography Impressions 10/10/2018 1:29 PM EST Positive specimen x-ray as described. Results phoned to the operating surgeon intraoperatively. Thank you for letting us participate in the care of this patient. For questions regarding this report, please contact the number below. ? Electronically signed by: Akua Rodríguez [facility] ([phone]), at 10/10/2018 1:29 PM Narrative 10/10/2018 1:29 [...] margins. Jhonatan Gilmore MD IMG MAMMO ORDERABLES * Mammo Rosalia Node Injection (10/10/2018 9:08 AM EST) Anatomical [...] Electronically signed by: Christina Torre [facility] ([phone]), at 10/10/2018 9:35 AM Narrative 10/10/2018 9:35 [...] approach with ultrasound guidance. A 5 cm Usabilla needle was used. After the needle was [...] PROCEDURAL ATTESTATION: Resident: Lars Diego DO Attending: RCISS Powers Jhonatan Gilmore MD IMG MAMMO ORDERABLES * Mammo US Needle Localization Left (10/10/2018 [...] approach with ultrasound guidance. A 5 cm Usabilla needle was used. After the needle was [...] unspecified estrogen receptor status, unspecified site of breast- Primary Malignant neoplasm of left female breast, unspecified estrogen receptor status, unspecified site of breast Malignant neoplasm of left female breast, unspecified estrogen receptor status, unspecified site of breast Malignant neoplasm of left female breast, unspecified estrogen receptor status, unspecified site of breast documented in this encounter Care Teams Director Funeral Relationship Specialty Start Date End Date Jenise Huddleston APRN [address] [place] [address] PCP - General Family Medicine 09/11/18 documented as of this encounter
--- OUTSIDE RECORDS SUMMARY | 2024-07-10 15:30 | XMS_ITS | Encounter Summary ---
Author Organization [facility] [place] [id number] Care Team Providers Care Transporter Radiology Name Role Phone Unavailable Primary Care Provider Unavailabl e Encounter Details Date Type Department Care Team (Late st Contact Info) Description 06/21/2011 Ancillary Procedure Radiology Library at [facility] [place] [address] Jenise Huddleston APRN [address] [place] [address] Social History Tobacco Use Types Packs/Day Years [...] Comments FILM LIBRARY STORAGE ONLY MAMMO Routine 06/21/2011 12:00 AM EDT documented in this encounter Results * Film Library- Storage Only Mammo (06/21/2011 12:00 AM EDT) Narrative VICTORIA - 08/21/2018 5:21 PM EST This exam is for storage only and is auto-finalizing. Jenise Huddleston APRN IMG FILM LIBRARY ORDERABLES [facility] [place] documented in this encounter Visit Diagnoses Not on filedocumented in this encounter
--- OUTSIDE RECORDS SUMMARY | 2024-07-10 15:31 | XMS_ITS | Encounter Summary ---
Author Organization [facility] Address [address] [place] [address] Care Team Providers Care Fourdrinier Wire Weaver Name Role Phone Marguerite Socorro GASTON Primary Care Provider [phone] Encounter Details Date Type Department Care Team (Late st Contact Info) Description 01/07/2013 Results Only [facility] Laboratory Services - [facility] ([facility] [address] [place], [place] [address] Socorro Everett FNP [address] [place] [address] Social History Tobacco Use Types Packs/Day Years Used Date Smoking Tobacco: Never Assessed Sex and Gender Information Value Date Recorded Sex Assigned at Not on file Gender Identity Not on file Sexual Orientation Not on file documented as of this encounter Plan of Treatment Not on file documented as of this encounter Procedures Procedure Name Priority Date/Time Associated Diagnosis Comments PAP TEST- RESULT ONLY Routine 01/07/2013 0:00 EDT documented in this encounter Results * PAP TEST- RESULT ONLY (01/07/2013 0:00 EDT) Pathology Report: CYTOPATHOLOGY REPORT Reports generated via electronic interface contain original data; however they are lacking the format of the original report. Caution should be taken when reading/interpreti ng unformatted reports. Name: ? MARI URIAS ? Accession #: ? [id number] : ? 1950 (Age: 62) ??F ?Collect Date: ? 01/07/2013 Location: ? [facility] ? Receive Date: ? 01/09/2013 Provider: ?SOCORRO EVERETT RELASTER Copy to: ? Specimen/Source: ?Pap Test, Cervix/Endocervix, ThinPrep Imaging System with manual evaluation Last Menstrual Period: ? SPECIMEN ADEQUACY ? Satisfactory for Evaluation - assessment of transformation zone component not applicable ( e.g. atrophy, vaginal sample, hysterectomy) GENERAL CATEGORIZATION ? Negative for Intraepithelial Lesion or Malignancy ? Document reviewed and electronically signed by: ? PEDRO Payan(ASCP)(IAC) ? Report Date: ??01/15/2013 16:04 End of Report NICOLE GERMAN 01/07/2013 01/09/2013 Socorro GASTON PATHOLOGY ORDERABLES Performing Organization Address City/State/[facility] Co de Phone Number [facility] [address] [place] [address] documented in this encounter Visit Diagnoses Not on filedocumented in this encounter Care Teams Fourdrinier Wire Weaver Relationship Specialty Start Date End Date Socorro Everett FNP [address] [place] [address] PCP - General 05/03/11 documented as of this encounter
--- OUTSIDE RECORDS SUMMARY | 2024-07-10 15:31 | XMS_ITS | Encounter Summary ---
Author Organization [facility] Address [address] [place] [address] Care Team Providers Care Polisher And Sander Name Role Phone Norma Everett SETTLEMENT PROCESSOR Primary Care Provider [phone] Encounter Details Date Type Department Care Team (Late st Contact Info) Description 03/06/2020 Lab Requisition [facility] Pathology & Laboratory Medicine - [address] [id number] Outr Resulting Lab, Provider Social History Tobacco Use Types Packs/Day Years Used Date Smoking Tobacco: Never Assessed Sex and Gender Information Value Date Recorded Sex Assigned at Not on file Gender Identity Not on file Sexual Orientation Not on file documented as of this encounter Plan of Treatment Not on file documented as of this encounter Procedures Procedure Name Priority Date/Time Associated Diagnosis Comments DO NOT ORDER STANDALONE - BROAD COVID TEST Today 03/06/2020 16:25 EDT COVID-19 TESTING Routine 03/06/2020 16:2 5 EDT documented in this encounter Results * DO NOT ORDER STANDALONE - BROAD COVID TEST (03/06/2020 16:25 EDT) COVID-19 rt-PCR Result NEGATIVE Negative 03/08/2020 4:45 EDT [facility] Comment: 2019-novel Coronavirus (2019-nCoV) not detected by the qRT-PCR assay. Consider testing for other respiratory viruses or re-collecting for 2019-nCoV testing. Note: Optimum timing for peak viral levels during infections caused by 2019-nCoV have not been determined. Collection of multiple specimens from the same patient may be necessary to detect the virus. Limitations Positive results are indicative of active infection with SARS-CoV-2 but do not rule out bacterial infection or co-infection with other viruses. The agent detected may not be the definite cause of disease. In addition, detection of viral RNA may not indicate the presence of infectious virus or that SARS-CoV-2 is the causative agent for clinical symptoms. Negative results do not preclude SARS-CoV-2 infection and should not be used as the sole basis for patient management decisions. Negative results must be combined with clinical observations, patient history, and epidemiological information. False negative results may also occur if amplification inhibitors are present in the specimen or if inadequate numbers of organisms are present in the specimen. Optimum specimen types and timing for peak viral levels during infections caused by SARS-CoV-2 have not been fully determined. Collection of multiple specimens (types and time points) from the same patient may be necessary to detect the virus. The test was validated for use with upper respiratory specimens obtained via nasopharyngeal or oropharyngeal swabs in VTM, UTM, M4, M5, M6, saline, and MTM media. The performance of this test has not been established for other specimens. Specimens collected using other FDA recommended Specimen Collection Materials listed in the FDA COVID-19 Diagnostic [employer] communication (2019) are processed with the caveat that they were not all validated for use with this test and the result must be interpreted in this context. Furthermore, a false negative results may occur if a specimen is improperly collected, transported or handled. If the virus mutates in the RT-PCR target region, SARS-CoV-2 may not be detected or may be detected less predictably. Inhibitors or other types of interference may produce a false negative result. An interference study evaluating the effect of common cold medications was not performed. This test is not FDA-cleared but its performance characteristics were established by our CLIA-certified, CAP-accredited, high complexity laboratory in accordance with CLIA regulations, [employer] [place] [employer] (CAP) guidelines (Nov 20, 2019), and FDA guidance (Nov 01, 2019). This test is only for use under the Food and Drug Administration's Emergency Use Authorization. Swab ENTIRE NASOPHARYNX / Unknown 03/06/2020 16:25 EDT 03/06/2020 21:50 EDT Provider Outr Resulting Lab MICROBIOLOGY - GENERAL ORDERABLES [facility] [place], [place] * COVID-19 TESTING (03/06/2020 16:25 EDT) COVID-19 rt-PCR Result NEGATIVE Negative 03/08/2020 6:54 EDT [facility] Comment: 2019-novel Coronavirus (2019-nCoV) not detected by the qRT-PCR assay. Consider testing for other respiratory viruses or re-collecting for 2019-nCoV testing. Note: Optimum timing for peak viral levels during infections caused by 2019-nCoV have not been determined. Collection of multiple specimens from the same patient may be necessary to detect the virus. Limitations Positive results are indicative of active infection with SARS-CoV-2 but do not rule out bacterial infection or co-infection with other viruses. The agent detected may not be the definite cause of disease. In addition, detection of viral RNA may not indicate the presence of infectious virus or that SARS-CoV-2 is the causative agent for clinical symptoms. Negative results do not preclude SARS-CoV-2 infection and should not be used as the sole basis for patient management decisions. Negative results must be combined with clinical observations, patient history, and epidemiological information. False negative results may also occur if amplification inhibitors are present in the specimen or if inadequate numbers of organisms are present in the specimen. Optimum specimen types and timing for peak viral levels during infections caused by SARS-CoV-2 have not been fully determined. Collection of multiple specimens (types and time points) from the same patient may be necessary to detect the virus. The test was validated for use with upper respiratory specimens obtained via nasopharyngeal or oropharyngeal swabs in VTM, UTM, M4, M5, M6, saline, and MTM media. The performance of this test has not been established for other specimens. Specimens collected using other FDA recommended Specimen Collection Materials listed in the FDA COVID-19 [employer] communication (2019) are processed with the caveat that they were not all validated for use with this test and the result must be interpreted in this context. Furthermore, a false negative results may occur if a specimen is improperly collected, transported or handled. If the virus mutates in the RT-PCR target region, SARS-CoV-2 may not be detected or may be detected less predictably. Inhibitors or other types of interference may produce a false negative result. An interference study evaluating the effect of common cold medications was not performed. This test is not FDA-cleared but its performance characteristics were established by our CLIA-certified, CAP-accredited, high complexity laboratory in accordance with CLIA regulations, [employer] [place] [employer] (CAP) guidelines (Nov 20, 2019), and FDA guidance (Nov 01, 2019). This test is only for use under the Food and Drug Administration's Emergency Use Authorization. Performing Lab [facility] 03/08/2020 6:54 EDT [facility] Swab 03/06/2020 16:2 5 EDT 03/06/2020 21:50 EDT Provider Outr Resulting Lab MICROBIOLOGY - GENERAL ORDERABLES [facility] [address] [place] [address] [facility] [place] [place] documented in this encounter Visit Diagnoses Not on filedocumented in this encounter Additional Health Concerns Infection Onset Date Last Indicated Resolved Time R/O COVID-19 03/06/2020 03/06/2020 03/11/2020 22:1 5 EDT documented as of this encounter Care Teams Polisher And Sander Relationship Specialty Start Date End Date Norma Everett FNP [address] [place], [place] [address] PCP - General 05/03/11 documented as of this encounter
--- OUTSIDE RECORDS SUMMARY | 2024-07-10 15:31 | XMS_ITS | Encounter Summary ---
Author Organization [facility] Address [address] [place] [address] Care Team Providers Care Cupola Patcher Helper Name Role Phone Unavailable Primary Care Provider Unavailabl e Encounter Details Date Type Department Care Team (Late st Contact Info) Description 03/18/2008 Before PRISM Converted Visit ([facility]) [facility] - Maple conversion [address] [place] [address] Katarzyna Jenkins MD [address] [place] [address] [place] [address] Social History Tobacco Use Types Packs/Day Years Used Date Smoking Tobacco: Never Assessed Sex and Gender Information Value Date Recorded Sex Assigned at Not on file Gender Identity Not on file Sexual Orientation Not on file documented as of this encounter Plan of Treatment Not on file documented as of this encounter Procedures Procedure Name Priority Date/Time Associated Diagnosis Comments SURGICAL PATHOLOGY Routine 03/18/2008 0:00 EDT documented in this encounter Results * SURGICAL PATHOLOGY (03/18/2008 0:00 EDT) Pathology Report: SURGICAL PATHOLOGY REPORT ? Reports generated via electronic interface contain original data; ? however they are lacking the format of the original report. ? Caution should be taken when reading/interpreti ng unformatted reports. ? Name: ? GERSHUNY, MARI ? Accession #: ? [id number] ? : ? 1950 (Age: 57) ??F ? Collect Date: ? 03/18/2008 ? Location: ? [facility] ? Receive Date: ? 03/18/2008 ? Provider: KATARZYNA RAFAEL MD ? Copy to: [facility] TECH CUSTOMER SERVICE ? Final Pathologic Diagnosis: ? A. ?Endocervix, curettage: ? 1. ?Acute and chronic cervicitis. ??See comment. ? 2. ? Squamous metaplasia with atypia, favor reactive. ? B. ?Cervix, 12 o'clock, biopsy: ? 1. ?Acute and chronic cervicitis. ??See comment. ? 2. ? Squamous metaplasia. ? Comment: ? The referring PAP test ([id number]) is reviewed and the diagnosis of low ? grade squamous intraepithelial lesion (LSIL) confirmed. ??Although the squamous ?? metaplasia within the ECC (A) is atypical, in the presence of inflammation, the atypia is favored to be reactive in origin. ?? Deeper sections of (A) and (B) ? were examined. ??(Dr. Rocha)/[facility] ? Document reviewed and electronically signed by: ? Lillian Rodriguez MD ? Report ??Date: 03/23/2008 13:09 ? By the signature above, the attending physician certifies that he/she has ? personally conducted a gross and/or microscopic examination of the described ? specimens and rendered or confirmed the above diagnosis. ? Specimen(s) Received: ? A. ?Endocervical curettage ? B. ? Cx bx @ 12:00 ? Clinical History: ? 06/04/08 Pap LSIL; LMP 2000 ? Gross Description: ? Received in formalin labelled Gershuny and endocervical curettage at ? 11:10 are scant fragments of light bishop mucoid material measuring 0.4 x 0.3 x ?? 0.2 cm in aggregate. ??The specimen is submitted entirely as (A). ? Received in formalin labelled Gershuny and cx bx @ 12:00 is a bishop-pink ? cervical biopsy measuring 0.3 x 0.3 x 0.1 cm. ??The specimen has a small amount ?? of attached clear colorless mucus and is submitted entirely as (B). ??(PITO ? Tessitore)/lgk ? End of Report ? [facility] 03/18/2008 03/18/2008 18: 01 EDT Katarzyna Jenkins MD PATHOLOGY ORDERABLES [facility] [address] [place] [address] documented in this encounter Visit Diagnoses Not on filedocumented in this encounter
--- OUTSIDE RECORDS SUMMARY | 2024-07-10 15:31 | XMS_ITS | Encounter Summary ---
Author Organization [facility] Address [address] [place] [address] Care Team Providers Care Braille Proofreader Name Role Phone Norma Everett MARILIN Primary Care Provider [phone] Encounter Details Date Type Department Care Team (Late st Contact Info) Description 01/22/2023 Lab Requisition [facility] Pathology & Laboratory Medicine - [address] [phone] Outr Resulting Lab, Provider Social History Tobacco [...] Procedure Name Priority Date/Time Associated Diagnosis Comments GIARDIA AND CRYPTOSPORIDIUM ANTIGENS Routine 01/22/2023 6:30 EDT documented in this encounter Results * GIARDIA AND CRYPTOSPORIDIUM ANTIGENS (01/22/2023 6:30 EDT) Giardia and Cryptosporidium Cryptosporidium Antigen Neg and Giardia Antigen Neg Cryptosporidium Antigen Neg and Giardia Antigen Neg 15:17 EDT [facility] Feces SPECIMEN FROM RECTUM / Unknown 01/22/2023 6:30 EDT 01/22/2023 21:10 EDT Provider Outr Resulting Lab MICROBIOLOGY - GENERAL ORDERABLES [facility] [address] [place] [address] documented in this encounter Visit Diagnoses Not on filedocumented in this encounter Care Teams Braille Proofreader Relationship Specialty Start Date End Date Norma Everett FNP [address] [place], [place] [address] PCP - General 05/03/11 documented as of this encounter
--- OUTSIDE RECORDS SUMMARY | 2024-07-10 15:31 | XMS_ITS | Encounter Summary ---
Author Organization [facility] Address [address] [place] [address] Care Team Providers Care Traffic Law Attorney Name Role Phone Norma Everett VAT TENDER Primary Care Provider [phone] Encounter Details Date Type Department Care Team (Late st Contact Info) Description 01/22/2023 Lab Requisition [facility] Pathology & Laboratory Medicine - [address] [phone] Outr Resulting Lab, Provider Social History Tobacco [...] Procedure Name Priority Date/Time Associated Diagnosis Comments FECAL BACTERIAL PATHOGENS BY PCR Routine 01/22/2023 6:30 EDT documented in this encounter Results * FECAL BACTERIAL PATHOGENS BY PCR (01/22/2023 6:30 EDT) Salmonella PCR Negative Negative 01/23/2023 11:44 EDT [facility] Shigella/Enteroin vasive E. coli Negative Negative 01/23/2023 11:44 EDT [facility] CAMPYLOBACTER PCR Negative Negative 01/23/2023 11:44 EDT [facility] Shiga Toxin PCR Negative Negative 11:44 EDT [facility] Feces SPECIMEN FROM RECTUM / Unknown 01/22/2023 6:30 EDT 01/22/2023 21:10 EDT Provider Outr Resulting Lab MICROBIOLOGY - GENERAL ORDERABLES [facility] [address] [place] [address] documented in this encounter Visit Diagnoses Not on filedocumented in this encounter Care Teams Traffic Law Attorney Relationship Specialty Start Date End Date Norma Everett FNP [address] [place], [place] [id number] PCP - General 05/03/11 documented as of this encounter
--- OUTSIDE RECORDS SUMMARY | 2024-07-10 15:31 | XMS_ITS | Encounter Summary ---
Author Organization [facility] Address [address] [place] [address] Care Team Providers Care Speech Lang Path Name Role Phone Norma Everett FIELD EVIDENCE TECHNICIAN Primary Care Provider [phone] Encounter Details Date Type Department Care Team (Late st Contact Info) Description 03/07/2020 Lab Requisition [facility] Pathology & Laboratory Medicine - [address] [phone] Outr Resulting Lab, Provider Social History Tobacco [...] Procedure Name Priority Date/Time Associated Diagnosis Comments ACUTE HEPATITIS PROFILE Routine 03/06/2020 16:25 EDT documented in this encounter Results * ACUTE HEPATITIS PROFILE (03/06/2020 16:25 EDT) Hep B Surface Ag Negative Negative 03/08/2020 9:42 EDT [facility] Hep C Antibody Negative Negative 03/08/2020 9:42 EDT [facility] Hepatitis A Antibody, IgM Negative Negative 03/08/2020 9:42 EDT [facility] Comment: The results of this assay can be falsely lowered due to the consumption of Biotin. Hepatitis B Core Ab, Total Negative Negative 03/08/2020 9:42 EDT [facility] Blood VENOUS BLOOD / Unknown 03/06/2020 16:25 EDT 03/07/2020 15:36 EDT Provider Outr Resulting Lab CHEMISTRY & BLOOD GAS ORDERABLES [facility] [address] [place] [address] documented in this encounter Visit Diagnoses Not on filedocumented in this encounter Additional Health Concerns Infection Onset Date Last Indicated Resolved Time R/O COVID-19 03/06/2020 03/06/2020 03/11/2020 22:1 5 EDT documented as of this encounter Care Teams Speech Lang Path Relationship Specialty Start Date End Date Norma Everett FNP [address] [place] [address] PCP - General 05/03/11 documented as of this encounter
--- OUTSIDE RECORDS SUMMARY | 2024-07-10 15:31 | XMS_ITS | Encounter Summary ---
Author Organization [facility] Address [address] [place] [address] Care Team Providers Care Obiee Obia Solution Architect Name Role Phone Unavailable Primary Care Provider Unavailabl e Encounter Details Date Type Department Care Team (Late st Contact Info) Description 12/08/2004 Results Only [facility] conversion [address] [place] [address] Socorro Everett FNP [address] [place], [place] [id number] Social History Tobacco Use Types Packs/Day Years Used Date Smoking Tobacco: Never Assessed Sex and Gender Information Value Date Recorded Sex Assigned at Not on file Gender Identity Not on file Sexual Orientation Not on file documented as of this encounter Plan of Treatment Not on file documented as of this encounter Procedures Procedure Name Priority Date/Time Associated Diagnosis Comments CYTOPATHOLOGY Routine 12/08/2004 0:00 EDT documented in this encounter Results * CYTOPATHOLOGY (12/08/2004 0:00 EDT) Pathology Report: CYTOPATHOLOGY REPORT Reports generated via electronic interface contain original data; however they are lacking the format of the original report. Caution should be taken when reading/interpreti ng unformatted reports. Name: ? MARI LI ? Accession #: ? [id number] : ? 1950 (Age: 54) ??F ?Collect Date: ? 12/08/2004 Location: ? [facility] ? Receive Date: ? 12/12/2004 Provider: ?SOCORRO EVERETT GIS INSTRUCTOR Copy to: ? Specimen/Source: ?ThinPrep Pap Test, Cervix/Endocervix Last Menstrual Period: ? none for 5 years Other: ? HPVA - HPV testing requested if ASC-US on the current ThinPrep Pap test. ? SPECIMEN ADEQUACY ? Satisfactory for Evaluation - transformation zone component present GENERAL CATEGORIZATION ? Negative for Intraepithelial Lesion or Malignancy ? Document reviewed and electronically signed by: ? PEDRO Remy(ASCP) ? Report Date: ??12/16/2004 10:04 End of Report [facility] 12/08/2004 12/12/2004 Socorro Everett GIS INSTRUCTOR PATHOLOGY ORDERABLES [facility] [address] [place] [address] documented in this encounter Visit Diagnoses Not on filedocumented in this encounter
--- OUTSIDE RECORDS SUMMARY | 2024-07-10 15:31 | XMS_ITS | Encounter Summary ---
Author Organization [facility] Address [address] [place] [address] Care Team Providers Care Senior Linux Unix Administrator Name Role Phone Unavailable Primary Care Provider Unavailabl e Encounter Details Date Type Department Care Team (Late st Contact Info) Description 05/01/2011 Results Only [facility] Laboratory Services - [facility] [address] [place] [id number] Americo Trujillo MD [address] [place] [address] Social History Tobacco Use Types Packs/Day Years Used Date Smoking Tobacco: Never Assessed Sex and Gender Information Value Date Recorded Sex Assigned at Not on file Gender Identity Not on file Sexual Orientation Not on file documented as of this encounter Plan of Treatment Not on file documented as of this encounter Procedures Procedure Name Priority Date/Time Associated Diagnosis Comments SURGICAL PATHOLOGY Routine 05/01/2011 0:00 EDT documented in this encounter Results * SURGICAL PATHOLOGY (05/01/2011 0:00 EDT) Pathology Report: SURGICAL PATHOLOGY REPORT ? Reports generated via electronic interface contain original data; ? however they are lacking the format of the original report. ? Caution should be taken when reading/interpreti ng unformatted reports. ? Name: ? GERSHUNY, MARI ? Accession #: ? [id number] ? : ? 1950 (Age: 60) ??F ? Collect Date: ? 05/01/2011 ? Location: ? [facility] ? Receive Date: ? 05/01/2011 ? Provider: AMERICO MADHAV MD ? Copy to: [facility] ON AIR TALENT ? Final Pathologic Diagnosis: ? Skin of ear, right, excision: ? 1. ??Irregular epidermal hyperplasia with mild atypia and associated ? inflammation. ??See comment. ? - Margins of excision negative. ? Comment: ? Present centrally within the excision specimen is irregular epidermal ? hyperplasia with associated mild atypia and dense dermal inflammation. ??The ? features may represent an inflamed seborrheic keratosis. ??In some foci, however, the lesion has a crater-like architecture with mild underlying dermal fibrosis. These findings raise a regressing keratoacanthoma as a consideration as well. ?? The lesion is well encompassed by the excision specimen. (Dr. Jha)/mpl ? Document reviewed and electronically signed by: ? DELL JHA MD ? Report ??Date: 05/03/2011 17:03 ? By the signature above, the attending physician certifies that he/she has ? personally conducted a gross and/or microscopic examination of the described ? specimens and rendered or confirmed the above diagnosis. ? Specimen(s) Received: ? Right ear lesion, suture superior ? Clinical History: ? SCC ? Gross Description: ? Received in formalin labelled Gershuny, Mari and right ear lesion ? suture superior is an oriented elliptical excision of bishop-white skin with a ? suture at one tip designating superior per the Surgical Pathology requisition. ?? The specimen measures 1.1 cm from superior to inferior, 0.8 cm from posterior to anterior and is excised to a depth of 0.1 cm. ??There is a central 0.8 x 0.7 x ?? 0.4 cm irregular bishop-white focally bishop-brown granular papule. ??The surgical ? margin of the anterior side is inked blue and the surgical margin of the ? posterior side is inked black. The specimen is serially sectioned and entirely ?? submitted as follows: ? BLOCK GONZÁLES ? A1 ?Superior tip, reverse en face ? A2 ?Central sections ? A3 ?Inferior tip, reverse en face ? (A. Craft)/mms ? End of Report ? [facility] 05/01/2011 05/01/2011 19: 35 EDT Americo Trujillo MD PATHOLOGY ORDERABLE S [facility] [address] [place] [address] documented in this encounter Visit Diagnoses Not on filedocumented in this encounter
--- OUTSIDE RECORDS SUMMARY | 2024-07-10 15:31 | XMS_ITS | Encounter Summary ---
Author Organization [facility] [place] [address] Care Team Providers Care Steward/Stewardess Bath Name Role Phone Unavailable Primary Care Provider Unavailabl e Encounter Details Date Type Department Care Team (Late st Contact Info) Description 03/23/2008 Ancillary Procedure Radiology Library at [facility] [place] [phone] Jenise Huddleston APRN [address] [place] [address] Social History Tobacco Use Types Packs/Day Years [...] Comments FILM LIBRARY STORAGE ONLY MAMMO Routine 03/23/2008 12:00 AM EDT documented in this encounter Results * Film Library- Storage Only Mammo (03/23/2008 12:00 AM EDT) Narrative VICTORIA - 08/21/2018 5:22 PM EST This exam is for storage only and is auto-finalizing. Jenise Huddleston APRN IMG FILM LIBRARY ORDERABLES MAHESH Puentes documented in this encounter Visit Diagnoses Not on filedocumented in this encounter
--- OUTSIDE RECORDS SUMMARY | 2024-07-10 15:31 | XMS_ITS | Encounter Summary ---
Author Organization [facility] [place] [address] Care Team Providers Care Machine Staker Name Role Phone Unavailable Primary Care Provider Unavailabl e Encounter Details Date Type Department Care Team (Late st Contact Info) Description 03/23/2008 12:05 AM EDT Ancillary Procedure Radiology Library at [facility] [place] [phone] Jenise Huddleston APRN [address] [place] [address] Social History Tobacco Use Types Packs/Day Years [...] Comments FILM LIBRARY-STORAGE ONLY US BREAST Routine 03/23/2008 12:05 AM EDT documented in this encounter Results * Film Library Storage Only US Breast (03/23/2008 12:05 AM EDT) Narrative VICTORIA - 08/21/2018 5:23 PM EST This exam is for storage only and is auto-finalizing. Jneise Huddleston APRN IMG FILM LIBRARY ORDERABLES [place]HESH Puentes documented in this encounter Visit Diagnoses Not on filedocumented in this encounter
--- OUTSIDE RECORDS SUMMARY | 2024-07-10 15:31 | XMS_ITS | Encounter Summary ---
Author Organization [facility] Address [address] [place] [address] Care Team Providers Care Health Outcomes Liaison Name Role Phone Norma Everett CONSULTING APPLICATION ENGINEER Primary Care Provider [phone] Encounter Details Date Type Department Care Team (Late st Contact Info) Description 03/07/2020 Lab Requisition [facility] Pathology & Laboratory Medicine - [address] [phone] Outr Resulting Lab, Provider Social History Tobacco [...] Procedure Name Priority Date/Time Associated Diagnosis Comments LYME AB Routine 03/06/2020 16:25 EDT ZZLYME IMMUNOBLOT CONFIRMATION Today 03/06/2020 16:25 EDT documented in this encounter Results * (ABNORMAL) LYME IMMUNOBLOT CONFIRMATION (03/06/2020 16:25 EDT) Lyme IGG ImmunoBlot Negative Negative 03/09/2020 15:43 EDT [facility] Lyme IGG Bands p41 p23 03/09/2020 15:43 EDT [facility] Lyme IgM ImmunoBlot Positive(A) Negative 03/09/2020 15:43 EDT [facility] Lyme IGM Band(s) p41 p39 p23 03/09/2020 15:43 EDT [facility] Lyme Immunoblot Interpretation See Comment 03/09/2020 15:43 EDT [facility] Blood VENOUS BLOOD / Unknown 03/06/2020 16:25 EDT 03/07/2020 15:36 EDT Narrative [facility] - 03/09/2020 15:43 EDT Indicative of early B. burgdorferi infection. ??A new serum specimen should be analyzed in 14-21 days to demonstrate seroconversion of IgG. IgM Immunoblot is of diagnostic utility only during the first four weeks after the onset of disease. ??Specimens collected more than 1 month following the onset of disease with positive IgM and negative IgG results more likely represent a false positive result. CDC criteria require greater than or equal to the presence of 5 bands for IgG or greater than or equal to 2 bands for IgM for the Immunoblot to be considered positive. Bands may be detected in patients without Lyme Disease. Patterns not meeting CDC criteria should be interpreted with caution. ??Per CDC guidelines, Immunoblot testing should only be performed on specimens that are positive or equivocal by Immunoassay. Performing only the Immunoblot increases the possibility of false positive results. Results should be considered positive only when both the Immunoassay and the Immunoblot are positive. Provider Outr Resulting Lab IMMUNOLOGY A ND SEROLOGY ORDERABLES Performing Organization Address City/[facility]/ZIP Co de Phone Number [facility] [address] [place] [address] * (ABNORMAL) LYME AB (03/06/2020 16:25 EDT) Lyme Ab Positive( A) Negative 03/08/2020 10:24 EDT [facility] Comment: Lyme Immunoblot confirmation added by reflex. New 3rd generation assay in use 02/11/2020 The [employer] Lyme Liaison Lyme Total Antibody Plus assay contains antigens from Borrelia burgdorferi, Borrelia garinii, and Borelia afzelli. ??Results from the second-step western blots that detect only B. burgdorferi specific antigens should be interpreted with caution. Blood VENOUS BLOOD / Unknown 03/06/2020 16:25 EDT 03/07/2020 15:36 EDT Provider Outr Resulting Lab IMMUNOLOGY A ND SEROLOGY ORDERABLES Performing Organization Address City/[facility]/ZIP Co de Phone Number [facility] [address] [place] [address] documented in this encounter Visit Diagnoses Not on filedocumented in this encounter Additional Health Concerns Infection Onset Date Last Indicated Resolved Time R/O COVID-19 03/06/2020 03/06/2020 03/11/2020 22:1 5 EDT documented as of this encounter Care Teams Health Outcomes Liaison Relationship Specialty Start Date End Date Norma Everett FNP [address] [place] [address] PCP - General 05/03/11 documented as of this encounter
--- OUTSIDE RECORDS SUMMARY | 2024-07-10 15:31 | XMS_ITS | Encounter Summary ---
Author Organization [facility] [place] [address] Care Team Providers Care Coin Machine Collector Supervisor Name Role Phone Unavailable Primary Care Provider Unavailabl e Encounter Details Date Type Department Care Team (Late st Contact Info) Description 03/18/2008 Ancillary Procedure Radiology Library at [facility] [place] [address] Jenise Huddleston APRN [address] [place] [address] Social History Tobacco Use Types Packs/Day Years [...] Comments FILM LIBRARY STORAGE ONLY MAMMO Routine 03/18/2008 12:00 AM EDT documented in this encounter Results * Film Library- Storage Only Mammo (03/18/2008 12:00 AM EDT) Narrative VICTORIA - 08/21/2018 5:23 PM EST This exam is for storage only and is auto-finalizing. Jenise Huddleston APRN IMG FILM LIBRARY ORDERABLES MAHESH Puentes documented in this encounter Visit Diagnoses Not on filedocumented in this encounter
--- OUTSIDE RECORDS SUMMARY | 2024-07-10 15:31 | XMS_ITS | Referral Summary ---
Author Organization [facility] Address [address] [place] [address] Care Team Providers Care Coater Name Role Phone Norma Everett Primary Care Provider [phone] Social History Tobacco Use Types Packs/Day Years Used Date Smoking Tobacco: Never Assessed Sex and Gender Information Value Date Recorded Sex Assigned at Not on file Gender Identity Not on file Sexual Orientation Not on file Plan of Treatment Not on file Care Teams Coater Relationship Specialty Start Date End Date Norma Everett FNP [address] [place], [place] [address] PCP - General 05/03/11
--- OUTSIDE RECORDS SUMMARY | 2024-07-10 15:31 | XMS_ITS | Encounter Summary ---
Author Organization [facility] Address [address] [place] [address] Care Team Providers Care Silk Opener Name Role Phone Unavailable Primary Care Provider Unavailabl e Encounter Details Date Type Department Care Team (Late st Contact Info) Description 06/08/2003 Results Only [facility] [place] conversion [address] [place] [address] Socorro Everett FNP [address] [place], [place] [id number] Social History Tobacco Use Types Packs/Day Years Used Date Smoking Tobacco: Never Assessed Sex and Gender Information Value Date Recorded Sex Assigned at Not on file Gender Identity Not on file Sexual Orientation Not on file documented as of this encounter Plan of Treatment Not on file documented as of this encounter Procedures Procedure Name Priority Date/Time Associated Diagnosis Comments CYTOPATHOLOGY Routine 06/08/2003 0:00 EDT documented in this encounter Results * CYTOPATHOLOGY (06/08/2003 0:00 EDT) Pathology Report: CYTOPATHOLOGY REPORT Reports generated via electronic interface contain original data; however they are lacking the format of the original report. Caution should be taken when reading/interpreti ng unformatted reports. Name: ? MARI LI ? Accession #: ? [id number] : ? 1950 (Age: 52) ??F ?Collect Date: ? 06/08/2003 Location: ? [facility] ? Receive Date: ? 06/10/2003 Provider: ?SOCORRO DEMPSEYP Copy to: ? Specimen/Source: ?ThinPrep Pap Test, Cervix/Endocervix Last Menstrual Period: ? 03 ? SPECIMEN ADEQUACY ? Satisfactory for Evaluation - transformation zone component present GENERAL CATEGORIZATION ? Negative for Intraepithelial Lesion or Malignancy ? Document reviewed and electronically signed by: ? KARMEN Solis(ASCP) ? Report Date: ??06/16/2003 07:41 End of Report NICOLE GERMAN 06/08/2003 06/10/2003 Socorro DEMPSEYP PATHOLOGY ORDERABLES NICOLE GERMAN [address] [place] [address] documented in this encounter Visit Diagnoses Not on filedocumented in this encounter
--- OUTSIDE RECORDS SUMMARY | 2024-07-10 15:31 | XMS_ITS | Encounter Summary ---
Author Organization [facility] Address [address] [place] [address] Care Team Providers Care Pastry Cook Apprentice Name Role Phone Unavailable Primary Care Provider Unavailabl e Encounter Details Date Type Department Care Team (Late st Contact Info) Description 05/24/2010 Results Only [facility] Laboratory Services - [facility] [address], [place] [phone] Socorro Everett FNP [address] [place], [place] [address] Social History Tobacco Use Types Packs/Day Years Used Date Smoking Tobacco: Never Assessed Sex and Gender Information Value Date Recorded Sex Assigned at Not on file Gender Identity Not on file Sexual Orientation Not on file documented as of this encounter Plan of Treatment Not on file documented as of this encounter Procedures Procedure Name Priority Date/Time Associated Diagnosis Comments CYTOPATHOLOGY Routine 05/24/2010 0:00 EDT documented in this encounter Results * CYTOPATHOLOGY (05/24/2010 0:00 EDT) Pathology Report: CYTOPATHOLOGY REPORT ? Reports generated via electronic interface contain original data; ? however they are lacking the format of the original report. ? Caution should be taken when reading/interpreti ng unformatted reports. ? Name: ? MARI URIAS ? Accession #: ? [id number] ? : ? 1950 (Age: 59) ??F ?Collect Date: ? 05/24/2010 ? Location: ? [facility] ? Receive Date: ? 05/26/2010 ? Provider: ?SOCORRO GASTON ? Copy to: ? Specimen/Source: ?Pap Test, Cervix/Endocervix, ThinPrep Imaging System ? with manual evaluation ? Last Menstrual Period: ? Menstrual/Pregnanc y Status: ? Menopausal ? Previous Gynecologic Pathology: ? LSIL: Hx ? Other: ? HPVA - HPV testing requested if ASC-US on the current ThinPrep Pap test. ? SPECIMEN ADEQUACY ? Satisfactory for Evaluation ? - transformation zone component present ? GENERAL CATEGORIZATION ? Negative for Intraepithelial Lesion or Malignancy ? Document reviewed and electronically signed by: ? Mariana Menchacalogg, [place](ASCP) ? Report Date: ??06/01/2010 13:50 ? End of Report ? NICOLE GERMAN 05/24/2010 05/26/2010 Socorro Everett KITCHEN DESIGNER PATHOLOGY ORDERABLES [facility] [address] [place] [address] documented in this encounter Visit Diagnoses Not on filedocumented in this encounter
--- OUTSIDE RECORDS SUMMARY | 2024-07-10 15:31 | XMS_ITS | Encounter Summary ---
Author Organization [facility] Address [address] [place] [address] Care Team Providers Care Asbestos Handler Name Role Phone Unavailable Primary Care Provider Unavailabl e Encounter Details Date Type Department Care Team (Late st Contact Info) Description 02/05/2008 Results Only [facility] [place] conversion [address] [place] [address] Socorro Everett FNP [address] [place], [place] [phone] Social History Tobacco Use Types Packs/Day Years Used Date Smoking Tobacco: Never Assessed Sex and Gender Information Value Date Recorded Sex Assigned at Not on file Gender Identity Not on file Sexual Orientation Not on file documented as of this encounter Plan of Treatment Not on file documented as of this encounter Procedures Procedure Name Priority Date/Time Associated Diagnosis Comments CYTOPATHOLOGY Routine 02/05/2008 0:00 EDT documented in this encounter Results * CYTOPATHOLOGY (02/05/2008 0:00 EDT) Pathology Report: CYTOPATHOLOGY REPORT Reports generated via electronic interface contain original data; however they are lacking the format of the original report. Caution should be taken when reading/interpreti ng unformatted reports. Name: ? MARI LI ? Accession #: ? [id number] : ? 1950 (Age: 57) ??F ?Collect Date: ? 02/05/2008 Location: ? [facility] ? Receive Date: ? 02/06/2008 Provider: ?SOCORRO DEMPSEYP Copy to: ? Specimen/Source: ?ThinPrep Pap Test, Cervix/Endocervix, processed on [employer] ThinPrep Imaging System, with manual evaluation Last Menstrual Period: ? ZACHARY Other: ? HPVA - HPV testing requested if ASC-US on the current ThinPrep Pap test. ? SPECIMEN ADEQUACY ? Satisfactory for Evaluation - transformation zone component present GENERAL CATEGORIZATION ? Epithelial Cell Abnormality INTERPRETATION ? Squamous Cell Abnormality - Low grade squamous intraepithelial lesion (LSIL). EDUCATIONAL NOTES/RECOMMENDATI ONS ? [facility] recommends following the 2006 Consensus Guidelines for the Management of Women with Abnormal Cervical Cancer Screening Tests (JLGTD, 2007;11(4):201-222 ). ??Consensus guidelines are available online at www.ASCCP.org. ? Document reviewed and electronically signed by: ? Hermann Gutierrez MD ? Report Date: ??02/11/2008 09:26 End of Report NICOLE GERMAN 02/05/2008 02/06/2008 Socorro GASTON PATHOLOGY ORDERABLES NICOLE GERMAN [address] [place] [address] documented in this encounter Visit Diagnoses Not on filedocumented in this encounter
--- OUTSIDE RECORDS SUMMARY | 2024-07-10 15:31 | XMS_ITS | Encounter Summary ---
Author Organization [facility] Address [address] [place] [address] Care Team Providers Care Miller First Name Role Phone Unavailable Primary Care Provider Unavailabl e Encounter Details Date Type Department Care Team (Late st Contact Info) Description 06/12/2002 Results Only [facility] conversion [address] [place] [address] Socorro Everett FNP [address] [place], [place] [phone] Social History Tobacco Use Types Packs/Day Years Used Date Smoking Tobacco: Never Assessed Sex and Gender Information Value Date Recorded Sex Assigned at Not on file Gender Identity Not on file Sexual Orientation Not on file documented as of this encounter Plan of Treatment Not on file documented as of this encounter Procedures Procedure Name Priority Date/Time Associated Diagnosis Comments CYTOPATHOLOGY Routine 06/12/2002 0:00 EDT documented in this encounter Results * CYTOPATHOLOGY (06/12/2002 0:00 EDT) Pathology Report: CYTOPATHOLOGY REPORT Reports generated via electronic interface contain original data; however they are lacking the format of the original report. Caution should be taken when reading/interpreti ng unformatted reports. Name: ? MARI LI ? Accession #: ? [id number] : ? 1950 (Age: 51) ??F ?Collect Date: ? 06/12/2002 Location: ? [facility] ? Receive Date: ? 06/16/2002 Provider: ?SOCORRO EVERETT STRUCTURAL STEEL TRADES WORKER Copy to: ? [facility] ?[address] ?[place] [address] ? Specimen/Source: ?ThinPrep Pap Test, Cervix/Endocervix Last Menstrual Period: ? Many Years Ago ? SPECIMEN ADEQUACY ? Satisfactory for Evaluation - transformation zone component present GENERAL CATEGORIZATION ? Negative for Intraepithelial Lesion or Malignancy ? Document reviewed and electronically signed by: ? Kelvin Desai, PEDRO(ASCP) ? Report Date: ??06/20/2002 08:15 End of Report NICOLE GERMAN 06/12/2002 06/16/2002 Socorro Everett STRUCTURAL STEEL TRADES WORKER PATHOLOGY ORDERABLES [facility] [address] [place] [address] documented in this encounter Visit Diagnoses Not on filedocumented in this encounter
--- OUTSIDE RECORDS SUMMARY | 2024-07-10 15:31 | XMS_ITS | Clinical Summary ---
Author Organization [facility] Address [address] [place] [address] Care Team Providers Care Roll On Man Name Role Phone Norma Everett Primary Care Provider [phone] Social History Tobacco Use Types Packs/Day Years Used Date Smoking Tobacco: Never Assessed Sex and Gender Information Value Date Recorded Sex Assigned at Not on file Gender Identity Not on file Sexual Orientation Not on file Plan of Treatment Health Maintenance Due Date Last Done Comments Hepatitis C Screen 1950 RSV Immunization ( o r 60+ Years) (1 - 1-dose 60+ series) 2009 Fall Risk Screening 2014 COVID-19 Vaccine (2022-24 season) 2023 Care Teams Roll On Man Relationship Specialty Start Date End Date Norma Everett FNP [address] [place], [place] [phone] PCP - General 05/03/11
--- OUTSIDE RECORDS SUMMARY | 2024-07-10 15:31 | XMS_ITS | Encounter Summary ---
Author Organization [facility] Address [address] [place] [address] Care Team Providers Care Transformer Molder Name Role Phone Norma Everett HAND BOBBIN CLEANER Primary Care Provider [phone] Encounter Details Date Type Department Care Team (Late st Contact Info) Description 12/12/2022 Lab Requisition [facility] Pathology & Laboratory Medicine - [address] [phone] Outr Resulting Lab, Provider Social History Tobacco [...] Associated Diagnosis Comments ACUTE HEPATITIS PROFILE Routine 12/12/2022 13:45 EDT documented in this encounter Results * ACUTE HEPATITIS PROFILE (12/12/2022 13:45 EDT) Hep B Surface Ag Negative Negative 12/14/2022 9:55 EDT [facility] Hep C Antibody Negative Negative 12/14/2022 9:55 EDT [facility] Hepatitis A Antibody, IgM Negative Negative 12/14/2022 9:55 EDT [facility] Comment:The results of this assay can be falsely lowered due to the consumption of Biotin. Hepatitis B Core Ab, Total Negative Negative 12/14/2022 9:55 EDT [facility] Blood VENOUS BLOOD / Unknown 12/12/2022 13:45 EDT 12/13/2022 17:01 EDT Provider Outr Resulting Lab CHEMISTRY & BLOOD GAS ORDERABLES [facility] [address] [place] [address] documented in this encounter Visit Diagnoses Not on filedocumented in this encounter Care Teams Transformer Molder Relationship Specialty Start Date End Date Norma Everett FNP [address] [place], [place] [address] PCP - General 05/03/11 documented as of this encounter
--- OUTSIDE RECORDS SUMMARY | 2024-07-10 15:31 | XMS_ITS | Encounter Summary ---
Author Organization [facility] Address [address] [place] [address] Care Team Providers Care Television Servicer Name Role Phone Norma Everett PATTERN MAKER Primary Care Provider [phone] Encounter Details Date Type Department Care Team (Late st Contact Info) Description 07/10/2023 Lab Requisition [facility] Pathology & Laboratory Medicine - [address] [phone] Outr Resulting Lab, Provider Social History Tobacco [...] Procedure Name Priority Date/Time Associated Diagnosis Comments HIGH SENSITIVITY C-REACTIVE PROTEIN (CARDIOVASCULAR DISEASE) Routine 07/10/2023 12:25 EST documented in this encounter Results * HIGH SENSITIVITY C-REACTIVE PROTEIN (CARDIOVASCULAR DISEASE) (07/10/2023 12:25 EST) High Sensitivity CRP 1.80 See Note mg/L 07/10/2023 21:50 EST [facility] Comment: Reference Range: ??Low Risk: ? <1.0 mg/L ??Average Risk: ?? 1.0 - 3.0 mg/L ??High Risk: ?>3.0 mg/L ??Indeterminate*: >10.0 mg/L ??*May be an indication of another source of inflammation or infection Blood VENOUS BLOOD / Unknown 07/10/2023 12:25 EST 07/10/2023 21:23 EST Provider Outr Resulting Lab CHEMISTRY & BLOOD GAS ORDERABLES [facility] [address] [place] [address] documented in this encounter Visit Diagnoses Not on filedocumented in this encounter Care Teams Television Servicer Relationship Specialty Start Date End Date Norma Everett FNP [address] [place], [place] [phone] PCP - General 05/03/11 documented as of this encounter
[2024-07-10 22:09] LABS: TSH 1.33 uIU/mL (0.36-3.74)
[2024-07-10 22:25] LABS: FREE T4 0.91 ng/dL (0.76-1.46)
[2024-07-11 18:19] LABS: T3,Free 4.4 pg/mL (2.8-5.3)
== END 2024-07-10 15:28 | disposition home or self-care (01) ==
LOC: NCHCN 15:27
PROVIDERS: PCP Nurse Practitioner Family; Visit Provider Nurse Practitioner Family
DX: E04.1 Nontoxic single thyroid nodule (principal)
CPT/HCPCS: 84439; 84443; 84481

== ENCOUNTER 2024-07-23 01:35 | Outpatient (CLI) | payer MEDICARE, SELFPAY ==
--- NOTE | 2024-07-23 12:55 | DI.US_ITS ---
Exam(s) US THYROID EXAM: US THYROID CLINICAL HISTORY: Non-toxic uninodular goiter, E04.1. TECHNIQUE: Ultrasound thyroid performed using standard protocol. COMPARISON: US THYROID ULTRASOUND from 01/17/2013 US US ABDOMEN from 12/04/2022 FINDINGS: Thyroid lobes as well as the isthmus again exhibit normal size. 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 No solid nodules ISTHMUS: Normal thickness. One of the benign colloid cyst is at the junction of the right lobe and i sthmus. LEFT THYROID LOBE: Measures 0.7 cm AP x 1.1 wide x 3.4 cm craniocaudal There are no cysts or nodules in left lobe. LYMPH NODES: There is no significant adenopathy. IMPRESSION: 1. When compared to the prior ultrasound of 2002 there again noted multiple benign colloid cysts in t he right thyroid lobe as well as at the junction of the right thyroid lobe and isthmus. These all me asure less than 1 cm, the largest measuring 7 x 6 x 6 mm. 2. There are no solid nodules in the thyroid gland 3. There is no significant lymphadenopathy. DATA REPOSITORY:
== END 2024-07-23 01:55 ==
LOC: DI 01:35
PROVIDERS: PCP Nurse Practitioner Family; Visit Provider Nurse Practitioner Family
DX: E04.1 Nontoxic single thyroid nodule (principal)
CPT/HCPCS: 76536

== ENCOUNTER 2024-08-29 12:57 | Outpatient (REF) | payer MEDICARE, SELFPAY ==
--- OUTSIDE RECORDS SUMMARY | 2024-08-29 12:59 | XMS_ITS | Data Portability ---
Author Organization [place] [facility], [facility] [place] [address] Care Team Providers Care Corporate Administrative Assistant Name Role Phone [facility] Dentist Assessment Encounter Date Assessment Date Assessment LastModified by Organization Details LastModified Time 07/10/2024 07/10/2024 Flu vaccine: provide today Comirnaty: provide today Td: current- due 2030 PCV20: completed Shingrix: zostervax. Can get at local shingrix RSV: counseled to get at local pharmacy as desires Pap/ HPV: aged out Mammogram: Current- march 2024 CRC: last was 2016 DEXA: last 2017, normal findings Follow-up in March for yearly chronic care.. Call or RTO sooner if needs arise. Not available 07/10/2024 15:37:30 08/29/2024 08/29/2024 Ursula presents with a persistent cough and congestion, worsening at night, along with sinus congestion, runny nose, post-nasal drip, and possible loss of smell and taste. She denies other symptoms such as sore throat or shortness of breath. Physical examination reveals significant post-nasal drip and clear lungs. A pertussis test was performed, and results are pending. She is advised to continue symptomatic management and monitor for worsening symptoms. [email or web address] Not available 08/29/2024 12:42:39 Plan of Treatment Reminders Order Date Submit Date Provider Last Modified By Organization Details Last Modified Time Details Appointments Acute 20 2023 11:30A Mickie WRIGHT Not available Not available Not available Annual Chronic Care (65+) 40 2024 01:30P M JENISE WRIGHT Not available Not available Not available Lab T4, free, serum 2023 [facility] (Registration ), [address] [place] [address] [place] [facility] [place], [address], 07/10/2024 22:32:48 T3, free, serum or plasma 2023 024 [facility] (Registration ), [address] [place] [address] [place] [facility] [place], [address], 07/14/2024 09:05:50 TSH, serum or plasma 2023 [facility] (Registration ), [address] [place] [address] [place], [address], 07/11/2024 10:51:56 bordetell a pertussis DNA, respirato ry 2023 024 [facility] (Registration ), [address] [place] [address] [place] [facility] [place], [address], 08/29/2024 12:35:23 Referral None recorded. Procedures None recorded. Surgeries None recorded. Imaging US, thyroid - thyroid [address] [facility] (Radiology), [address] [place] [address] [place], [address], 07/28/2024 10:23:52 Medication Orders benzonata te 200 mg capsule 2023 024 [id number], [address] [place], [address], 08/26/2024 14:05:02 Patient TargetsNo targets recorded. Patient Instructions Encounter Date Encounter Id Patient Instructions Last Modified By Organization Details Last Modified Time 07/10/2024 [id number] starting a weigh t loss plan: care instructions Not available 07/10/2024 14:19:56 diet Not available 2023 14:19:56 exercise Not available 2023 14:19:56 Dear Ursula, Thank you for visiting us on Alena Jul 10, 2024. We appreciate your dedication to maintaining and improving your health. Here is a summary of the jaramillo instructions and recommendations from today's consultation: - Continue with pelvic floor exercises to manage minor bladder leakage. - Flu shot and COVID-19 vaccine to be administered today. - Consider the new shingles vaccine and RSV vaccine available at your local pharmacy. - Thyroid ultrasound to be scheduled at [facility] to monitor previously noted nodules. - Maintain a healthy lifestyle with active living, good food choices. - Use of herbal knee patches and exercises for knee care to continue. - Monitor and manage arthritis in hands and occasional leg cramps. - No changes needed for current bowel condition management. - continue current management strategies for your cholesterol - Follow-up appointment to be scheduled in March, coinciding with your mammogram. Best regards, Lilliana [email or web address] Not available 07/10/2024 14:18:49 08/29/2024 [id number] Dear Ursula, Thank you for visiting on August 29, 2024. We appreciate your commitment to improving your health and addressing your current symptoms. Here is a summary of the jaramillo instructions from today's consultation: - Continue using inmz-jzf-edeptbn cough medicine and humidifier. - Implement saltwater gargles to help clear mucus from your throat. - Maintain use of Vicks VapoRub and steam inhalation. - Increase intake of vitamin C and ensure you are drinking plenty of water. - A pertussis test has been conducted to rule out whooping cough, and we will review the results to determine the next steps. - No antibiotics are recommended at this time as you are showing signs of improvement. Please continue to monitor your symptoms and let us know if there are any changes or if your condition worsens. We will follow up once your test results are available. Best regards, Lilliana [email or web address] Not available 08/29/2024 12:42:42 Reason for Referral None Reported. Results Created Date Observation Date Name Description Value Unit Range Abnormal Flag Note LastModifiedBy Organization Detail LastModifiedTime 07/10/20 24 07/10/2024 TSH TSH 1.33 uIU/m L 0.36-3 .74 normal NOTE: Supra -phys iolog ic doses of Bioti n(B7) may cause false negat claudia resul ts. Not Available [facility] (Registration ) [address] [place] [address] [place], [address], 07/10/2024 22:11:50 07/10/20 24 07/10/2024 FREE T4 free T4 0.91 NG/dL 0.76-1 .46 normal Not Available [address] [place], [address] 07/10/2024 22:32:48 07/10/2007/11/2024 T3,FR EE T3,free 4.4 pg/mL 2.8-5. 3 Test perfo rmed or refer red by [facility] [address] [place] [address] Not Available [address] [place], [address] 07/14/2024 09:05:50 07/23/20 24 07/23/2024 US, thyro id Patisammi t Name: Gaye Savage Unit #: [id number] Loc: DI Orderi ng Provid er: Sherrill Brooks Accoun t #: [id number] Status : REG CLI Primar y Care Provid er: Sherrill Brooks Date of Exam: Sex: F Admiss ion Date: : 1950 Age: 73 Exam(s ) US THYROI D EXAM: US THYROI D CLINIC AL HISTOR Y: Non-to xic uninod ular goiter , E04.1. TECHNI QUE: Ultras ound thyroi d perfor med using standa rd protoc ol. COMPAR KENYATTA: US THYROI D ULTRAS OUND from 2012 US US ABDOME N from 2022 FINDIN GS: Thyroi d lobes as well as the isthmu s again exhibi t normal size. RIGHT THYROI D LOBE: Measur es 1.1 cm AP x 2.3 cm wide x 4 cm cranio caudal There are multip le small benign colloi d cysts in the right thyroi d lobe, the larges t measur ing 7 x 6 x 6 mm. No solid nodule s ISTHMU S: Normal thickn ess. One of the benign colloi d cyst is at the juncti on of the right lobe and isthmu s. LEFT THYROI D LOBE: Measur es 0.7 cm AP x 1.1 wide x 3.4 cm cranio caudal There are no cysts or nodule s in left lobe. LYMPH NODES: There is no signif icant adenop athy. IMPRES FRANKIE: 1. When compar ed to the prior ultras ound of 2002 there again noted multip le benign colloi d cysts in the right thyroi d lobe as well as at the juncti on of the right thyroi d lobe and isthmu s. These all measur e less than 1 cm, the larges t measur ing 7 x 6 x 6 mm. 2. There are no solid nodule s in the thyroi d gland 3. There is no signif icant lympha denopa thy. DATA REPOSI TORY: Noée d By: Sherrill Brooks CC: ------ ------ ------ ------ ------ ------ ------ ------ ------ ------ ------ ------ - Dictat ed By: Quincy Gutierrez M.D. 1648 Transc ribed By: Matt JURADO,Leonor main 1648 This is privil eged, confid ential inform ation intend ed only for the [facility] named. Any use or distri bution by any person other than this [facility] er is strict ly prohib ited. If you receiv e this report in error, please notify us immedi ately at and return the origin al report to us at the addres s above. Thank- you. [email or web address] [facility] (Radiology) [facility] [place], [address], 07/28/2024 10:23:52 Result Notes None recorded. 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 No desires for statin. Check lipids today. Problem Code: E78.5; Problem Code Type: ICD-10; [address], [facility] [address] , [facility] 4 05:09:18 Overweig ht 113660702 Active 200706/27/20 18 - Comments only - Jenise Wright APRN - Encourag ed weight loss through diet and exercise . Problem Code: E66.3; Problem Code Type: ICD-10; [address], [place], [address] , [facility] 4 05:09:18 Sleep apnea 58659717 Active 201006/27/20 18 - Comments only - Jenise Wright CORPORATE LIBRARIAN - No desires for re-evalu ation of this. Monitor for symptoms . Problem Code: G47.30; Problem Code Type: ICD-10; [address], [place], [address] , [facility] 4 05:09:19 Non-toxi c uninodul ar goiter 009200343 Active 201206/27/20 18 - Comments only - Jenise Wright APRN - Check TSH with reflex. Discusse d doing ultrasou nd, she will consider if TSH is abnormal . Problem Code: E04.1; Problem Code Type: ICD-10; JENISE WRIGHT APRN [address], [place], [address] , [facility] 4 05:09:18 Cramp in lower limb associat ed with sleep 59852845271 4104 Active 201206/27/20 18 - Comments only - Jenise Wright CORPORATE LIBRARIAN - overall stable. continue magnesiu m at bedtime. [facility] ed staying hydratio n during the day. stretch at bedtime. Problem Code: G47.62; Problem Code Type: ICD-10; JENISE WRIGHT APRN [address], [place], [address] , [facility] 4 05:09:18 Traumati c or non-trau matic injury 421088525 Completed 201405/13/2015 04/29/20 15 - Comments only - Jenise Wright CORPORATE LIBRARIAN - With large local reaction . unknown vector. Do not think abx are indicate d. She would like the swelling to resolve quickly, discusse d use of low-dose Benadryl , ibuprofe n, ice, elevatio n. discusse d starting predniso ne, but after going over side effects she declined . [facility] ed symptom manageme nt as above. Declined tetanus shot, but is due. Problem Code: T14.8; Problem Code Type: ICD-10; Not Available [facility] 3 05:10:13 Adult health examinat ion Active 201606/27/20 18 - Comments only - Jenise Wright CORPORATE LIBRARIAN - annual exam complete d today. Order mammogra m. Order DEXA scan. UTD on colonosc opy. Declined pneumoni a vaccines . Flu shot today. Hep C screenin g. Problem Code: Z00.00; Problem Code Type: ICD-10; JENISE WRIGHT APRN [address], [place], [address] , [facility] 4 05:09:18 Genuine stress incontin ence 57368914 Active 201606/27/20 18 - Comments only - Jenise Wright APRN - [facility] ed pelvic floor exercise s. Problem Code: N39.3; Problem Code Type: ICD-10; [address], [place] [address] , [facility] 4 05:09:18 Osteoart hritis 320882275 Active 201606/27/20 18 - Comments only - Jenise Wright APRN - Symptom mgmt as needed and stay active. Problem Code: M19.90; Problem Code Type: ICD-10; [address], [address] 4 05:09:18 Senile hyperker atosis 200665297 Active 201605/29/20 17 - Comments only - Jenise Wright APRN - treatmen t with cryother apy. hopefull y will not need further treatmen ts. To make an appt if still present over the next few weeks. Problem Code: L82.1; Problem Code Type: ICD-10; [address], [place] [address] , [facility] 4 05:09:18 Screenin g mammogra phy Active 2017 Problem Code: Z12.31; Problem Code Type: ICD-10; [address], [facility] [address] , [facility] 4 05:09:18 Menopaus e present 109087457 Active 2017 Problem Code: Z78.0; Problem Code Type: ICD-10; [address], [facility] [address] , [facility] 4 05:09:18 Acute conjunct ivitis 40651929 Completed 201807/03/2019 Problem Code: H10.30; Problem Code Type: ICD-10; Not Available [facility] 3 05:10:13 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 845011873 Completed 201807/03/2019 Problem Code: H74.8x3; Problem Code Type: ICD-10; Not Available [facility] 3 05:10:13 Liver enzymes level above referenc e range 455126628 Completed 201906/05/2023 Not Available [facility] 4 05:38:02 Hypo-osm olality and or hyponatr emia 146156734 Completed 201906/05/2023 Problem Code: E87.1; Problem Code Type: ICD-10; Not Available [facility] 4 05:38:02 Lyme disease 99703097 Completed 201906/05/2023 Problem Code: A69.20; Problem Code Type: ICD-10; Not Available [facility] 4 05:38:02 Hypertro phic conditio n of skin 40575100 Completed 202110/20/2021 09/19/19 22 - Comments only - Jenise Wright CORPORATE LIBRARIAN - Removed today. Cautery utilized . Reviewed good wound care until healed. Reviewed symptoms of infectio n, when to call. Problem Code: L91.8; Problem Code Type: ICD-10; Not Available [facility] 3 05:10:14 Altered bowel function 41826274 Active 202210/05/19 23 - Comments only - Jenise Wright CORPORATE LIBRARIAN - yellow stool, more loose. Since COVID19, did take paxlvoid . Differen tials include hepatiti s, gall stones/ gallblad jose, pancreat itis, malabsor ption in origin. Reassuri ng CBCD, CMP. Discusse d checking lipase, urine for bilirubi n. Urine was normal and reassuri ng. Hold on checking lipase, if starts to have pain, she will call and will proceed with checking this and a repeat CBCD. Hold on diagnost ics. She is taking prebioti c but no probioti c, she may consider doing. Discusse d trial of metamcui l, she will trial this; she will purchase OTC. Avoid fatty foods for now, continue with increase in veggies. Problem Code: R19.4; Problem Code Type: ICD-10; JENISE WRIGHT, CORPORATE LIBRARIAN [address], [place], [address] , [facility] 4 05:09:19 Cirrhosi s of liver 63858996 Active 2022 low fib score, per gastro not cirrhosi s. leave on problem list so if imaging shows this, will have a referenc e. JENISE WRIGHT, NATHANIEL [address], [place], [address] , [facility] 4 05:11:11 Tick bite Completed 201406/19/2019 Not Available [facility] 3 05:10:15 Cramp in limb 022028646 Completed 201205/30/2023 Problem Code: 729.82; Problem Code Type: ICD-9; Not Available [facility] 3 05:10:15 Spasm 75627370 Completed 201205/30/2023 Problem Code: R25.2; Problem Code Type: ICD-10; Not Available [facility] 3 05:10:15 Thyroid nodule 431258364 Completed 201205/30/2023 Not Available [facility] 3 05:10:15 Melena 2375382 Completed 201606/27/2018 Problem Code: K92.1; Problem Code Type: ICD-10; Not Available [facility] 3 05:10:15 Mass of left breast 43056137743 438970 Completed 201705/30/2023 Not Available [facility] 3 05:10:15 Disorder of skin and/or subcutan eous tissue 27764129 Completed 201406/27/2018 Problem Code: L98.9; Problem Code Type: ICD-10; Not Available [facility] 3 05:10:16 Pain of right knee joint 05830592427 4100 Active 2022 Problem Code: M25.561; Problem Code Type: ICD-10; JENISE WRIGHT APRN [address], [place], [address] , [facility] 4 05:09:18 Pain of left knee region 71722477578 4109 Active 2023 osteoarh tritis; saw ortho 11.24. JENISE WRIGHT APRN [address], [place], [address] , [facility] 4 12:53:14 Problem Notes None recorded. Procedures Surgical History None recorded. Imaging Results Imaging Date Name Status LastModified by Organiz ation Details LastModified Time 07/23/2024 US, thyroid completed [facility] (Radiology) [address], [place], [address], 07/28/2024 10:23:52 Procedure Notes None recorded. Medical Equipment None Reported. Allergies No known drug allergies Medications Name Sig Start Date Stop Date Status Note LastModified by Organization Details LastModified Time benzonatate 200 mg capsule Take 1 capsule 3 times a day by oral route as needed for 5 days, for cough. 2023 active Not Available Not Available Not Avai lable milk thistle 150 mg capsule active Not Available Not Available Not Available meclizine 25 mg tablet 1 TAB Q6H 05/25 completed Not Available Not Available Not Available Vitamin C 100 mg tablet active Not Available Not Available Not Available doxycycline hyclate 100 mg tablet Take 1 tab by mouth twice daily 2019 active ER Not Available Not Available Not Avai lable magnesium 250 mg (as magnesium oxide) tablet Take 1 tab by mouth daily 2012 active Not Available Not Available Not Avai lable Fish Oil 1,000 mg capsule 1 tab qd 2013 active Not Available Not Available Not Avai lable evening primrose oil 1 capsule QD 05/15 completed Not Available Not Available Not Available L-Carnitine active Not Available Not A vailable Not Available cholecalcife rol (vitamin D3) 25 mcg (1,000 unit) tablet Take 2 tablet by mouth once a day 2013 active Not Available Not Available Not Avai lable Fish Oil 340 mg-1,000 mg capsule 1 capsule by mouth once a day 2013 active Not Available Not Available Not Avai lable CoQ-10 active Not Available Not Availa ble Not Available oregano oil 1,500 mg capsule active Not Available Not Available Not Available resveratrol 12/12 completed Not Available Not Available Not Available green tea extract (bulk) 100 % powder active Not Available Not Available Not Available Multi Vitamin 9 mg iron/15 mL oral liquid active Not Available Not Available Not Available vitamin E acetate 134 mg (200 unit) capsule active Not Available Not Available Not Available vitamin B12 1,000 mcg-folic acid 400 mcg sublingual lozenge active Not Available Not Available Not Available [place] MonoPure Curcumin EC 417 mg-120 mg-276 mg-600 mg capsule active Not Available Not Available Not Available Paxlovid 300 mg (150 mg x 2)-100 mg tablets in a dose pack 09/07 completed Not Available Not Available Not Available Culturelle Probiotic-Pr ebiotic 1 billion cell-1 gram-15 mg chew tablet active Not Available Not Available Not Available Vitals Date Recorded Body height Body mass index (BMI) Body weight Body temperature Oxygen saturation Oxygen saturation in Arterial blood by Pulse oximetry Heart rate Systolic blood pressure Diastolic blood pressure Provider Name and Address Organization Details Last Updated DateTime 4 159.258 cm 31.1 kg/m2 10928.0 7 g 97.1 [degF] 98 % 98 % 85 /min 130 mm[Hg] 80 mm[Hg] OSEAS DE LA GARZA CMA [facility], [facility] 4 13:52:39 Date Recorded Body height Body mass index (BMI) Body weight Respiratory rate Oxygen saturation Oxygen saturation in Arterial blood by Pulse oximetry Heart rate Body temperature Systolic blood pressure Diastolic blood pressure Provider Name and Address Organization Details Last Updated DateTime 4 159.258 cm 31.1 kg/m2 37285.0 7 g 17 /min 99 % 99 % 66 /min 97.3 [degF] 130 mm[Hg] 84 mm[Hg] Siri Spence RN [facility] 13:32:07 Date Recorded Body height Body mass index (BMI) Body weight Body temperature Oxygen saturation Oxygen saturation in Arterial blood by Pulse oximetry Heart rate Respiratory rate Systolic blood pressure Diastolic blood pressure Provider Name and Address Organization Details Last Updated DateTime 159.258 cm 31.4 kg/m2 39671.4 6 g 96.7 [degF] 95 % 95 % 95 /min 16 /min 140 mm[Hg] 80 mm[Hg] OSEAS DE LA GARZA CMA [facility] 11:30:51 Social History Question Answer Notes LastModified by Organizat ion Details LastModified Time Tobacco Smoking Status Never Smoker MEHRDAD QUINTANA, [facility] 07/10/2024 13:50:18 Would You Say That, In General, Your Health Is Excellent Information not available 07/10/2024 How Often Does Anyone, Including Family, Physically Hurt You? Never Information not available 07/10/2024 How Often Does Anyone, Including Family, Insult Or Talk Down To You? Rarely Information no t available 07/10/2024 How Often Does Anyone, Including Family, Threaten You With Harm? Never Information not available 07/10/2024 How Often Does Anyone, Including Family, Scream Or Curse At You? Never Information not available 07/10/2024 Within The Past 12 Months, You Worried That Your Food Would Run Out Before You Got Money To Buy More. Never True Information n ot available 07/10/2024 Within The Past 12 Months, The Food You Bought Just Didn't Last And You Didn't Have Money To Get More. Never True Information n ot available 07/10/2024 How Hard Is It For You To Pay For The Very Basics Like Food, Housing, Medical Care, And Heating? Would You Say It Is: Not Hard At All Information not available 07/10/2024 In The Past 12 Months, Has Lack Of Reliable Transportation Kept You From Medical Appointments, Meetings, Work Or From Getting Things Needed For Daily Living? No Information not available 07/10/2024 How Often In The Past Year Have You Used Marijuana (including Smoking, Vaping, Dabbing, Or Edibles)? Monthly Or Less Information not available 07/10/2024 How Often In The Past Year Have You Used Prescription Medications That Were Not Prescribed To You? Never Information n ot available 07/10/2024 How Often In The Past Year Have You Taken Your Own Prescription Medication More Than The Way It Was Prescribed Or For Different Reasons Than Its Intended Purpose? Never Information no t available 07/10/2024 How Often In The Past Year Have You Used Other Drugs (for Example, Heroin, Cocaine, Meth, Salvia, Inhalants)? Never Information not available 07/10/2024 Have You Ever Used IV Drugs? No Information not available 07/10/2024 Date Of Most Recent SBINS 07/10/2024 Information not available 07/10/2024 What Was The Date Of Your Most Recent Tobacco Screening? 08/26/2024 Information not available 08/26/2024 Has Tobacco Cessation Counseling Been Provided? Yes Information not available 08/26/2024 On What Date Was Tobacco Cessation Counseling Provided? 08/26/2024 Information not available 08/26/2024 Do You Or Have You Ever Used Any Other Forms Of Tobacco Or Nicotine? No Information not available 07/10/2024 Sex: Female Functional Status None recorded. Mental Status None recorded. Family History Relationship Description Onset Age of this Age Resolved Age Notes LastModified by Organization Details LastModified Time Sister Family history of malignant neoplasm skin [email or web address] Not available 2022 04:00:55 Notes:*Problem: Mom- d- mental health problems, CHF, obesity, CVA, asthma Dad- - CVA. 2 sisters - youngest eldest sister (79) aortic valve disease, skin CA. Older sister has skin CA, early onset Alzheimer's/ dementia, stroke in her 50-60s r/t heart valve malfunction. Children - adopted child HTN: yes HLD: yes CAD:yes DM: yes Breast CA: no Colon CA:no Uterine/Ovarian CA: no Medical History No medical history recorded. Gynecological HistoryNo gynecological history recorded. Obstetrics History GPAL:G 0 P 0 0 0 0 Immunizations Vaccine Type Date Status Note Provider Nam e and Address Organization Details Recorded Time Influenza, high-dose, trivalent, PF 4 completed OSEAS DE LA GARZA CMA null, [facility] 07/10/2024 15:20:09 COVID-19, mRNA, LNP-S, PF, bradford-sucrose, 30 mcg/0.3 mL 4 completed OSEAS DE LA GARZA CMA null, [facility] 07/10/2024 15:20:09 Td (adult), 2 Lf tetanus toxoid, preservative free, adsorbed 1 completed Not Available [facility] 07/13/2023 06:29:58 zoster live 3 completed Not Available [facility] 07/13/2023 06:29:58 Influenza, high-dose, trivalent, PF 8 completed Not Available [facility] 07/13/2023 06:29:58 Td(adult) unspecified formulation 5 completed Not Available [facility] 07/13/2023 06:29:58 Influenza, high-dose, quadrivalent, PF 1 completed Not Available [facility] 07/13/2023 06:29:58 Influenza, high-dose, quadrivalent, PF 2 completed Not Available [facility] 07/13/2023 06:29:58 COVID-19, mRNA, LNP-S, PF, 100 mcg/0.5mL dose or 50 mcg/0.25mL dose 1 completed Not Available [facility] 07/13/2023 06:29:58 COVID-19, mRNA, LNP-S, PF, 100 mcg/0.5mL dose or 50 mcg/0.25mL dose 1 completed Not Available [facility] 07/13/2023 06:29:58 COVID-19, mRNA, LNP-S, PF, 100 mcg/0.5mL dose or 50 mcg/0.25mL dose 1 completed Not Available [facility] 07/13/2023 06:29:58 COVID-19, mRNA, LNP-S, bivalent, PF, 10 mcg/0.2 mL 2 completed Not Available [facility] 07/13/2023 06:29:59 pneumococcal polysaccharide PPV23 1 completed Not Available [facility] 07/13/2023 06:29:59 Influenza, high-dose, quadrivalent, PF 3 completed Not Available [facility] 09/14/2023 05:31:45 Pneumococcal conjugate PCV20, polysaccharide MOV679 conjugate, adjuvant, PF 3 completed Not Available [facility] 09/14/2023 05:31:45 COVID-19, mRNA, LNP-S, PF, bradford-sucrose, 30 mcg/0.3 mL 3 completed Not Available [facility] 09/14/2023 05:31:45 Past Encounters Encounter ID Performer Location Encounter Start Date Encounter Closed Date Diagnosis/Indication Diagnosis SNOMED-CT Code Diagnosis ICD10 Code [id number] JENISE WRIGHT[address] [address] 07/10/2024 13:47:18 07/10/2024 14:31:27 Primary malignant neoplasm of breast 341751523 C50.919 Non-toxic uninodular goiter 404614593 E04.1 Cirrhosis of liver [address] ress incontinence 20711854 N39.3 Overweight 035787121 E66 .3 Osteoarthritis 695949227 M19.90 Cramp in l ower limb associated with sleep 1600393722 86112 G47.62 Sleep apnea 56430854 G47 .30 Hyperlipidemia 90163692 E78.5 Altered alyssia wel function 27712993 R19.4 Active or passive immunization 127169749 Z23 [id number] MARILIN GARCÍA [address],[facility] [address] [place] [address] 08/26/2024 13:23:35 08/26/2024 14:18:35 Viral upper respiratory tract infection 715431853 J06.9 [id number] [address] WR[address] [address] 08/29/2024 11:21:06 08/29/2024 12:28:52 Upper respiratory infection 91682361 J06.9 Health Concerns Section Related Observation LastModified by Organization Detai ls LastModified Time None Recorded Concern Status LastModified by Organization Details LastModified Time None Recorded Advance Directives Directive None Recorded Payers Encounter Date Sequence Insurance Name Policy Number Policy Lane Covered Member ID Lane Member ID Guarantor Name 07/10/2024 1 [place]ANT[place] - [place]PO) [id number] Ursula Urias [id number] Ursula Urias 08/26/2024 1 [place] - [place]) [id number] Ursula Urias [id number] Ursula Urias 08/29/2024 1 [place] - [place]) [id number] Ursula Urias [id number] Ursula Urias Notes Date Note Type Note Provider Name and Address Organization Details Recorded Time 07/10/2024 text/html Is here for FU: HLD. Working on lifestyle. Takes supplements. Overweight. Working on lifestyle. is active. Sleep apnea. Untreated. no desires to treat. Thyroid nodule. monitor for now. leg cramps, nocturnal. see ROS. Stress incont. feels mild. OA. Hands. OA to knees. See ROS. Breast CA. has been discharged from oncology. Change in stool habits. Cirrhosis of liver. Does not have cirrhosis. have left this on problem list so that if imaging is done, there is mention of it and notes stating not cirrhosis, has seen gastro. JENISE WRIGHT, CORPORATE LIBRARIAN [address], [place], [address], [facility]. 07/10/2024 15:38:36 08/26/2024 text/html Patient with ons et of symptoms 8 days ago, with sore throat, nasal congestion, sneezing (symptoms appeared after travelling home from [place] where she was visiting a family member who had been symptomatic with viral URI symptoms). No body aches, sweats, or chills at onset.Symptoms felt they were improving, was able to return to work, but then 4 days ago, with worsening cough, that is manageable when up during the day, but will feel progressively worse into the afternoon and evening. Cough is at it's worse when laying down at night. Not sleeping well due to cough.Reports nasal congestion is improving, denies sinus pressure, headaches, or tooth pain. No fevers. Denies chest pain or tightness/wheezing. Took negative home COVID test at onset of symptoms. Using cough drops, and using OTC cough syrup with mucolytic. Has taken extra vitamin C, echinacea. Has trialed CBD gummies to help with sleep. Denies any history of chronic lung issues, never smoker. 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 08/26/2024 14:31:15 08/29/2024 text/html Is here for FU cough. was seen 08.26. dx with viral upper respiratory infection. She had 2 negative home COVID19 tests. Symptoms initially started .16. She has concerns that she has pertusis and wants to be tested. Ursula states her symptoms started .06.26.her current symptoms include cough, lung congestion. Sinuses relatively clear. + rhinitis. +sneezing. Denies post nasal drip. Denies sore throat, had this previously and it has resolved. Cough is productive, yellow and gummy. Denies dyspnea. Denies wheezing. She is not sure if she has had loss of smell or taste since having covid 2 years ago. Denies nausea, vomiting. Some diarrhea last 1-2 days, but not serious. Denies aches/ pains out of the ordinary. Caffeine demand headaches. Denies ear pain. Denies fevers, chills. When she lays down, struggles with more coughing. Symptom mgmt OTC cough medicine, cough drops, steam that is mentholated. Feels this is helping. Using humidifier and feels this is improving her symptoms. Feels better today. Had been traveling, + ill contacts while traveling to [place].No known exposure to pertusis. JENISE WRIGHT, CORPORATE LIBRARIAN [address], [place], [address], [facility]. 08/29/2024 12:42:57 OBGyn Episode No OBEpisode recorded.
--- OUTSIDE RECORDS SUMMARY | 2024-08-29 12:59 | XMS_ITS | Encounter Summary ---
Author Organization [place] [address] Care Team Providers Care Chief Medical Officer Name Role Phone Jenise Huddleston APRN Primary Care Provider [phone] [phone] Encounter Details Date Type Department Care Team [...] on filedocumented in this encounter Care Teams Chief Medical Officer Relationship Specialty Start Date End Date Jenise Huddleston APRN [address] [place] [address] PCP - General Family Medicine 09/11/18 documented as of this encounter
--- OUTSIDE RECORDS SUMMARY | 2024-08-29 12:59 | XMS_ITS | Encounter Summary ---
[place] [address] Care Team Providers Care Food Safety Technician Name Role Phone Jenise Huddleston NATHANIEL Primary Care Provider +1 [phone] Encounter Details Date Type Department Care Team (Late st Contact Info) Description 03/05/2023 11:30 AM EDT Office [place] [address] Viktoriya Patricia APRN [facility] [place] [address] Encounter for follow-up surveillance of breast cancer; [...] biopsy revealed invasive ductal carcinoma, intermediate grade, ER/MT strongly positive, HER-2 negative. Ursula opted for [...] and is strong and diffusely ER and MT positive, and HER-2 negative. Commingling within the same positive lymph nodes is a morphologically distinct metastatic invasive ductal tumor which exhibits ample eosinophilic and vacuolated cytoplasm. This tumor is ER, MT, andHER-2 negative. OncotypeDx Recurrence Score - 16; 15% distant recurrence at 10 years. Chemotherapy was not recommended. [facility]. An aromatase inhibitor was recommended, [...] mm Grade Intermediate Margins Negative ER Positive MT Positive HER-2 Negative OncotypeDx Recurrence Score 16 [...] No mutations detected. Declined add'l testing. 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 She has never smoked; ETOH - [...] situation. Results: Imaging performed (bilateral mammogram) at [facility] today shows no evidence of malignancy, BI-RADS [...] free apps for your cell phone from [employer] ([employer]) and [employer] (X[employer]). All questions were answered to the patient's satisfaction and they state understanding and agreement with today's treatment plan. They are encouraged to follow up sooner if they develop any new or concerning symptoms. Viktoriya Patricia APRN Surgical Oncology P [phone] F [phone] [facility] documented in this encounter Plan of Treatment [...] documented in this encounter Care Teams Food Safety Technician Relationship Specialty Start Date End Date Jenise Huddleston APRN [address] [place] [address] PCP - General Family Medicine 09/11/18 documented as of this encounter
--- OUTSIDE RECORDS SUMMARY | 2024-08-29 12:59 | XMS_ITS | Encounter Summary ---
Author Organization [facility] Address [facility] [place] [address] Care Team Providers Care Garbage Man Name Role Phone Jenise Huddleston NATHANIEL Primary Care Provider [phone] [phone] Encounter Details Date Type Department Care Team (Late st Contact Info) Description 09/20/2023 1:30 PM EST Office Visit Hematology/Oncology at [address] [id number] Wilmar Moody MD [facility] [address] HEMAT[place]Y [place] [address] Malignant neoplasm of breast in female, estrogen [...] biopsy 09/05/18 Invasive ductal carcinoma ER positive, PA positive, HER-2/ryan negative Partial mastectomy 10/10/18 Invasive carcinoma, grade 2 Tumor size 15 mm 2/6 lymph nodes positive( 2 sub clones from 1 primary?) LVI + Oncotype score 16, no benefit to chemotherapy Complete RT 01/19 Decline hormone treatment 01/19 Neg Genetic testing 02/19 Last mammo-03/25 with DH surgery The patient is seen in the [facility]. She had a node positive left [...] Mushroom blend, Disp: , Rfl: Green Tea [place] Extract Capsule, Take 1 capsule by mouth [...] was angiolymphatic invasion as well. ER and PA were strongly expressed; HER2 negative. OncotypeDx Recurrence [...] breast documented in this encounter Care Teams Garbage Man Relationship Specialty Start Date End Date Jenise Huddleston APRN [address] [place] [address] PCP - General Family Medicine 09/11/18 documented as of this encounter
--- OUTSIDE RECORDS SUMMARY | 2024-08-29 12:59 | XMS_ITS | Encounter Summary ---
Author Organization [facility] Address [facility] [place] [address] Care Team Providers Care Turbogenerator Operator Name Role Phone Jenise Huddleston NATHANIEL Primary Care Provider [phone] [phone] Reason for Visit * Reason Comments Follow-up Encounter Details Date Type Department Care Team (Late st Contact Info) Description 12/05/2021 2:30 PM EDT Office Visit Radiation Oncology at [address] [address] Abbey Renae MD [facility] [place] [address] Malignant neoplasm of central portion of left [...] (01/03/19) for breast ca, L,IDC, gr 2, ER+MI+, Her2 neg, s/p lumpectomy [...] for which she was seen yesterday @ [facility] ED & will be undergoing a scan of R knee today @ [facility]; PCP's office called her today about the [...] Biopsy Left 09/05/[address] [facility] RAD MAMMOGRAPHY ??? MAMMO US NEEDLE LOCALIZATION LEFT Left 10/10/2018 Mammo US Needle Localization Left 10/10/[address] [facility] RAD MAMMOGRAPHY ??? MRI GUIDED BIOPSY BREAST VACUUM ASSISTED LEFT Left 09/18/2018 MRI Breast Biopsy Vacuum Assist Left 09/18/2018 [facility] RAD MRI ??? PRO BX/REMV, LYMPH NODE, DEEP AXILL Left 10/10/2018 BIOPSY OR EXCISION OF LYMPH NODE(S), OPEN, DEEP AXILLARY NODE(S) (WRVU 6.43) performed by Jhonatan Gilmore MD at [facility] MAIN OR ??? PRO INTRAOP SENTINEL LYMPH ID W/DYE INJECTION Left 10/10/2018 INTRAOPERATIVE ID (MAPPING) SENTINEL LYMPH NODE,INCLUDES INJECTION (WRVU 2.5) performed by Jhonatan Gilmore MD at [facility] MAIN OR ??? PRO MASTECTOMY PARTIAL Left 10/10/2018 MASTECTOMY PARTIAL (WRVU 10.13) performed by Jhonatan Gilmore MD at [facility] MAIN OR Ectopic pregnancies. Your Medications [...] by mouth daily. Generic drug: Green Tea [place] Extract 1 capsule Refills: 0 MAGNESIUM CITRATE [...] negative documented in this encounter Care Teams Turbogenerator Operator Relationship Specialty Start Date End Date Jenise Huddleston APRN [address] [place] [address] PCP - General Family Medicine 09/11/18 documented as of this encounter
--- OUTSIDE RECORDS SUMMARY | 2024-08-29 12:59 | XMS_ITS | Encounter Summary ---
Author Organization [facility] [place] [address] Care Team Providers Care Flavor Tank Tender Name Role Phone Jenise Huddleston APRN Primary Care Provider [phone] [phone] Encounter Details Date Type Department Care Team [...] on filedocumented in this encounter Care Teams Flavor Tank Tender Relationship Specialty Start Date End Date Jenise Huddleston APRN [address] [place] [address] PCP - General Family Medicine 09/11/18 documented as of this encounter
--- OUTSIDE RECORDS SUMMARY | 2024-08-29 12:59 | XMS_ITS | Encounter Summary ---
[place] [address] Care Team Providers Care Assistant Principal Name Role Phone Jenise Huddleston APRN Primary Care Provider [phone] [phone] Reason for Visit * Consultation (Routine) - Closed Specialty Diagnoses / Procedures Referred By Petros shah Referred To Contact Gastroenterology Diagnoses Hepatic cirrhosis, unspecified hepatic cirrhosis type, unspecified whether ascites present Abdominal discomfort Change in stool habits hepatic cirrhosis/ abd discomfort /change in stool Jenise Huddleston APRN [address] [place] [address] [facility] [address] [place] [address] Referral ID Status Reason Start Date Expiration Date V isits Requested Visits Authorized [id number] Closed Consult, Test & Treat PCP Updated and/or Approved 12/08/2022 12/08/2023 12 12 Encounter Details Date Type Department Care Team (Late st Contact Info) Description 01/16/2023 3:00 PM EDT Office Visit [place] [address] Karlo Alfaro PA [address] [place] [address] [place] [address] Change in bowel habits (Primary Dx); Abnormal [...] Urias Sex: female Date of : 1950 [employer] RET[employer] SERVICE MERCHANDISER: Karlo Alfaro PA-C PCP: Jenise Huddleston APRN [...] was able to travel, she flew to [place] to be with her sister andwhere she [...] did eat a variety of foods in [place]. No one else that she was with [...] mouth daily. Mushroom blend ??? 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 Non- Laboratory: @ [facility]: FIB-4 = 1.41 Imaging: Ultrasound 12/04/22 @ [facility]: Fibroscan Results Today: Median kPa: 4.5 Mean [...] considering that it began when traveling to [place]. She states that she has not had [...] done at local lab. Faxed orders to [facility]. -Follow-up with primary care as needed/planned. -Liver/GI [...] Alfaro PA-C Section of Gastroenterology [place] [address] Copy: NATHANIEL Jeronimo documented in this encounter Procedure Notes * Karlo Alfaro PA - 01/16/2023 3:00 PM EDTAssociated Order(s): FIBROSCAN Procedure(s): FIBROSCAN Pre-Procedure Diagnose(s): Abnormal finding on imaging of liver [facility] Liver Fibrosis Assessment Report Indication: Concern for cirrhosis on recent imaging Performed by: ANDRES Sawyer Procedure: Vibration Controlled Transient Elastography (VCTE) or Fibroscan [place] Protocol: Patient's identity, procedure and site were [...] Procedure Name Priority Date/Time Associated Diagnosis Comments [id number] Routine 01/16/2023 3:00 PM EDT Abnormal finding on imaging of liver documented in this encounter Results * [id number] (01/16/2023 3:00 PM EDT) Narrative Karlo Alfaro PA - 01/16/2023 3:00 PM EDT Karlo Alfaro PA ? 01/16/2023 ??6:05 PM [facility] Liver Fibrosis Assessment Report Indication: ?? Concern for cirrhosis on recent imaging Performed by: ??ANDRES Sawyer Procedure: Vibration Controlled Transient Elastography (VCTE) or Fibroscan [place] Protocol: Patient's identity, procedure and site were [...] liver documented in this encounter Care Teams Assistant Principal Relationship Specialty Start Date End Date Jenise Huddleston APRN [address] [place] [address] PCP - General Family Medicine 09/11/18 documented as of this encounter
--- OUTSIDE RECORDS SUMMARY | 2024-08-29 12:59 | XMS_ITS | Encounter Summary ---
[place] [address] Care Team Providers Care Metalizing Machine Operator Automatic Name Role Phone Jenise Huddleston NATHANIEL Primary Care Provider [phone] [phone] Encounter Details Date Type Department Care Team (Late st Contact Info) Description 11/22/2021 11:00 AM EDT [place] [address] Viktoriya Patricia APRN [facility] [place] [address] Encounter for follow-up surveillance of breast cancer; [...] biopsy revealed invasive ductal carcinoma, intermediate grade, ER/OR strongly positive, HER-2 negative. Ursula opted for [...] and is strong and diffusely ER and OR positive, and HER-2 negative. Commingling within the same positive lymph nodes is a morphologically distinct metastatic invasive ductal tumor which exhibits ample eosinophilic and vacuolated cytoplasm. This tumor is ER, OR, andHER-2 negative. OncotypeDx Recurrence Score - 16; 15% distant recurrence at 10 years. Chemotherapy was not recommended. She completed XRT in [facility] on 01/03/2019. An aromatase inhibitor [...] mm Grade Intermediate Margins Negative ER Positive OR Positive HER-2 Negative OncotypeDx Recurrence Score 16 [...] cancer No Known genetic mutation 02/12/19 - [employer]'s BRCA 1/2 STAT Panel showed No mutations detected. Declined add'l testing. Hx Ashkenazi Congregational heritage Yes Family History Problem (# of [...] XC skiing, and working with a personal financial advisor. She has never smoked; ETOH - none. [...] situation. Results: Imaging performed (bilateral mammogram) at [facility] today shows no evidence of malignancy, BIRADS [...] free apps for your cell phone from [employer] (OMNI[employer] science) and [employer] ([employer]). All questions were answered to the patient's satisfaction and they state understanding and agreement with today's treatment plan. They are encouraged to follow up sooner if they develop any new or concerning symptoms. Viktoriya Patricia APRN Surgical Oncology P [phone] F [phone] [facility] documented in this encounter Plan of [...] Center. BIRADS CATEGORY 2: BENIGN FINDINGS The [employer] and The Society of [...] mammogram documented in this encounter Care Teams Metalizing Machine Operator Automatic Relationship Specialty Start Date End Date Jenise Huddleston APRN [address] [place] [address] PCP - General Family Medicine 09/11/18 documented as of this encounter
--- OUTSIDE RECORDS SUMMARY | 2024-08-29 12:59 | XMS_ITS | Encounter Summary ---
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 Mushroom blend Green Tea [employer] [facility] Extract Capsule Take 1 capsule by mouth [...] who have questions please contact the health care aide that requested your imaging first. ? Viktoriya Patricia APRN IMG MAMMO ORD ERABLES documented in this encounter Visit Diagnoses Diagnosis Breast cancer metastasized to axillary lymph node, left Breast cancer screening by mammogram documented in this encounter Care Teams Ela Teacher Relationship Specialty Start Date End Date Jenise Huddleston APRN [address] [place] [address] PCP - General Family Medicine 09/11/18 documented as of this encounter
--- OUTSIDE RECORDS SUMMARY | 2024-08-29 12:59 | XMS_ITS | Encounter Summary ---
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 Mushroom blend Green Tea [place] Extract Capsule Take 1 capsule by mouth [...] Center. BIRADS CATEGORY 2: BENIGN FINDINGS The [employer] and The Society of [...] mammogram documented in this encounter Care Teams Tanning Consultant Relationship Specialty Start Date End Date Jenise Huddleston APRN [address] [place] [address] PCP - General Family Medicine 09/11/18 documented as of this encounter
--- OUTSIDE RECORDS SUMMARY | 2024-08-29 12:59 | XMS_ITS | Encounter Summary ---
Author Organization [facility] [place] [address] Care Team Providers Care Hedge Fund Trader Name Role Phone Jenise Huddleston APRN Primary Care Provider +1 -[phone] Encounter Details Date Type Department Care Team [...] on filedocumented in this encounter Care Teams Hedge Fund Trader Relationship Specialty Start Date End Date Jenise Huddleston APRN [address] [place] [address] PCP - General Family Medicine 09/11/18 documented as of this encounter
--- OUTSIDE RECORDS SUMMARY | 2024-08-29 12:59 | XMS_ITS | Clinical Summary ---
Author Organization [facility]ly [facility], Later [facility] Address [place] [place] [address] Care Team Providers Care Salesforce Consultant Name Role Phone Jenise Huddleston APRN Primary Care Provider [phone] [phone] Allergies No known active allergies Medications Medication [...] Take by mouth. Acti ve Green Tea [place] Extract Capsule Take 1 capsule by mouth [...] Unsigned Pathologic:Stage IA(pT1c, pN1a(sn), cM0, G2, ER+, OK+, HER2-) - Signed by Brian Frazier MD on 10/23/2018 Overview (11/17/2020): A mammogram on 08/06/2018 showed a 1.2-cm mass in the left breast at 6:00. US showed a 1.1-cm mass at 6:00, 4 cm from the nipple. A core biopsy revealed invasive ductal carcinoma, intermediate grade, ER/OK strongly positive, Her2 negative. Pathology showed that [...] and is strong and diffusely ER and OK positive, and HER2 negative. Commingling within the same positive lymph nodes is a morphologically distinct metastatic invasive ductal tumor which exhibits ample eosinophilic and vacuolated cytoplasm. This tumor is ER, OK, and HER2 negative. OncotypeDx Recurrence Score - 16; 15% distant recurrence at 10 years. Chemotherapy was not recommended. She completed XRT in [facility] on 01/03/2019. An aromatase inhibitor was [...] 1968 Breast Cancer Share Decision Needed 1989 Pneumoccocal Vaccine: 65+ (1 of 1 - PCV) 11/28/1999 Zoster vaccine (1 of 2) 11/28/1999 Advance Directive 2004 Bone Density Scan 2014 Covid-19 Vaccine (1 - 2023-2 5 season) 2024 Influenza (Flu) vaccine (1 o f 1 - Influenza standard series) 05/04/2024 Breast Cancer screening 03/05/2025 03/05/20 23, 11/22/2021, 11/18/2020, Additional history exists Diabetes Screening (HgbA1C o r Glucose) Discontinued 09/11/2018 Medical Devices Implanted Type Area [facility] Medical And Lab Director Device Identifier Shelf Expiration Date Model / Serial / Lot Breast Clip-09/05/2018 Implanted:11/2018 by Zoltan Baldwin MD (Quantity not on file) Breast Clip Left: Breast Bard - 0614 S[employer]OMARK ULTRACOR ULTRSOUND ENHANCED LISA / / [id number] Description:LISA Breast Clip- 9 Implanted:Qty : 1 on 09/18/2018 by Zoltan Baldwin MD Breast Clip Left: Breast [id number] / [id number] GSS / Description:senomark ultraco [...] Center. BIRADS CATEGORY 2: BENIGN FINDINGS The [place] [employer] and The Society of [...] of body mass or the acutely ill. [email or web address] eGFR 93 >=60 mL/min/1. 73 m?? [facility] Comment: The eGFR was calculated using the CKD-EPI equation. As with all creatinine based estimates of kidney function, eGFR values calculated with the CKD-EPI equation are not accurate in patients with acute kidney failure, extremes of body mass or the acutely ill. [email or web address] Blood specimen (specimen) 09/11/2018 2:48 PM EST 09/11/2018 3:06 PM EST Narrative Resulting Agency Comment Spec In Lab Jhonatan Gilmore MD CHEMISTRY ORDERABLES [facility] [place] [address] from Last 3 Months or Most Recently Relevant to Health Maintenance Advance Directives * Full Code (Latest Code Status on File) Date Activated Date Inactivated Comments 10/10/2018 11:30 AM 10/10/2018 6:58 PM Question Answer Comments Does patient have capacity to make decision: Yes Care Teams Salesforce Consultant Relationship Specialty Start Date End Date Jenise Huddleston APRN [address] [place] [address] PCP - General Family Medicine 09/11/18
--- OUTSIDE RECORDS SUMMARY | 2024-08-29 12:59 | XMS_ITS | Encounter Summary ---
Author Organization [facility] Address [facility] [place] [address] Care Team Providers Care Finance Administrator Name Role Phone Jenise Huddleston NATHANIEL Primary Care Provider [phone] [phone] Encounter Details Date Type Department Care Team (Late st Contact Info) Description 03/16/2022 3:00 PM EDT Office Visit Hematology/Oncology at [address] [phone] Wilmar Moody MD [facility] [address] HEMATOLOGY [place] [address] Malignant neoplasm of breast in female, estrogen [...] biopsy 09/05/18 Invasive ductal carcinoma ER positive, MI positive, 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 She had a node positive left [...] was angiolymphatic invasion as well. ER and MI were strongly expressed; HER2 negative. OncotypeDx Recurrence [...] breast documented in this encounter Care Teams Finance Administrator Relationship Specialty Start Date End Date Jenise Huddleston APRN [address] [place] [address] PCP - General Family Medicine 09/11/18 documented as of this encounter
--- OUTSIDE RECORDS SUMMARY | 2024-08-29 12:59 | XMS_ITS | Encounter Summary ---
Author Organization [facility] Address [facility] [place] [address] Care Team Providers Care Wax Pourer Name Role Phone Jenise Huddleston NATHANIEL Primary Care Provider [phone] Reason for Visit * Reason Comments Follow-up Encounter Details Date Type Department Care Team (Late st Contact Info) Description 09/18/2022 4:30 PM EST Office Visit Radiation Oncology at [address] [phone] Abbey Renae MD [facility] [place] [address] S/P radiotherapy Social History Tobacco Use Types [...] for breast ca, L, IDC, gr 2, ER+IA+, Her2 neg, s/p lumpectomy & SNB, pT1c pN1a, w/maycol deposits showing 2 different types of tumor, ER+IA+, Her2 neg & ER-IA-, Her2 neg. 01/23/[address] Moody for hormonal tx, which she declined. 02/20/19 genetic testing, neg. 04/30/19 L mmg: Benign 04/30/19 MRI B breasts: Benign 11/18/20 B mmg: Neg. 11/18/20 Krishna Patricia APRN Gen Surg, rtc 1 yr w/mmg. 02/17/21 Dr. Mooyd, confirmed decision to not take hormonal tx, [...] Us Biopsy Left 09/05/2018 Zoltan Baldwin MD [facility] RAD MAMMOGRAPHY ??? MAMMO US NEEDLE LOCALIZATION LEFT Left 10/10/2018 Mammo US Needle Localization Left 10/10/2018 Christina Torre MD [facility] RAD MAMMOGRAPHY ??? MRI GUIDED BIOPSY BREAST VACUUM ASSISTED LEFT Left 09/18/2018 MRI Breast Biopsy Vacuum Assist Left 09/18/2018 [facility] RAD MRI ??? PRO BX/REMV, LYMPH NODE, DEEP AXILL Left 10/10/2018 BIOPSY OR EXCISION OF LYMPH NODE(S), OPEN, DEEP AXILLARY NODE(S) (WRVU 6.43) performed by Jhonatan Gilmore MD at [facility] MAIN OR ??? PRO INTRAOP SENTINEL LYMPH ID W/DYE INJECTION Left 10/10/2018 INTRAOPERATIVE ID (MAPPING) SENTINEL LYMPH NODE,INCLUDES INJECTION (WRVU 2.5) performed by Jhonatan Gilmore MD at [facility] MAIN OR ??? PRO MASTECTOMY PARTIAL Left 10/10/2018 MASTECTOMY PARTIAL (WRVU 10.13) performed by Jhonatan Gilmore MD at [facility] MAIN OR Ectopic pregnancies. Your [...] daily 6 Units Refills: 0 Green Tea [place] Extract Cap Take 1 capsule by mouth [...] radiotherapy documented in this encounter Care Teams Wax Pourer Relationship Specialty Start Date End Date Jenise Huddleston APRN [address] [place] [address] PCP - General Family Medicine 09/11/18 documented as of this encounter
--- OUTSIDE RECORDS SUMMARY | 2024-08-29 12:59 | XMS_ITS | Encounter Summary ---
Author Organization Formerly [facility] Address [facility] [place] [place] [address] Care Team Providers Care Family Services Assistant Name Role Phone FlaquitoJenise hinson NATHANIEL Primary Care Provider [phone] [phone] Encounter Details Date Type Department Care Team (Late st Contact Info) Description 09/01/2021 3:00 PM EST Office Visit Hematology/Oncology at [address] [phone] Jacqueline Rose LINE DECORATOR [address] [place] [address] HEMATOLOGY ONCOLOGY [place], [place] [phone] Malignant neoplasm of breast in female, estrogen [...] ?? The patient is seen in the [facility]. She had a node positive [...] in 09/21 with left breast IDC; ER/WA+; Her2 ryan negative. Ursula had a partial mastectomy followed by radiation completed 01/19. (See history as summarized above.). She declines hormonal therapy and is followed by her legal research analyst. She uses supplements including curcumin, vitamins C, D, E, green tea leaf extract and probiotics. She returns to the [facility] oncology clinic today for Q6 month follow-up alternating with [facility]. She is also followed by [facility] breast oncology, who manages her mammograms. This [...] her left breast seems to be getting grip boss in color. Ursula denies lymphedema in her [...] MISC) ??? NONFORMULARY REQUEST ??? Green Tea [place] Extract (GREEN TEA) Capsule ??? niacin 500 [...] in 09/21 with left breast IDC; ER/WA+; Sww7yma negative. Ursula had a partial mastectomy followed [...] left documented in this encounter Care Teams Family Services Assistant Relationship Specialty Start Date End Date Jenise Huddleston APRN [address] [place] [address] PCP - General Family Medicine 09/11/18 documented as of this encounter
--- OUTSIDE RECORDS SUMMARY | 2024-08-29 12:59 | XMS_ITS | Encounter Summary ---
Author Organization [facility] [place] [address] Care Team Providers Care Mold Yard Worker Name Role Phone Jenise Huddleston APRN Primary Care Provider [phone] [phone] Encounter Details Date Type Department Care Team (Late st Contact Info) Description 02/04/2024 [place] [address] Genesis Vora Social History Tobacco Use Types [...] on filedocumented in this encounter Care Teams Mold Yard Worker Relationship Specialty Start Date End Date Jenise Huddleston APRN [address] [place] [address] PCP - General Family Medicine 09/11/18 documented as of this encounter
--- OUTSIDE RECORDS SUMMARY | 2024-08-29 12:59 | XMS_ITS | Continuity of Care Document ---
Author Organization [place] [facility] Address [address] [place] [address] Care Team Providers Care Laborer Electroplating Name Role Phone [facility] Dentist Assessment Encounter Date Assessment Date Assessment LastModified by Organization Details LastModified Time 08/29/2024 08/29/2024 Ursula presents with a persistent [...] symptomatic management and monitor for worsening symptoms. Not available 08/29/2024 12:42:39 Plan of Treatment Reminders Order Date Submit Date Provider Last Modified By Organization Details Last Modified Time Details Appointments Acute 20 2023 11:30A M MARNIE WRIGHT Not available Not available Not available Annual Chronic Care (65+) 40 2024 01:30P M MARNIE KYLE Not available Not available Not available Lab bordetell a pertussis DNA, respirato ry 2023 024 ATHENAFA[facility] (Registration ), [address] [place] [address] [place], [address], 08/29/2024 12:35:23 Referral None recorded. Procedures None recorded. Surgeries None recorded. Imaging None recorded. Medication Orders None recorded. Patient TargetsNo targets recorded. Patient Instructions Encounter Date Encounter Id Patient Instructions Last Modified By Organization Details Last Modified Time 08/29/2024 [id number] Dear Ursula, Thank you for visiting on August 29, 2024. We appreciate your commitment to improving your health and addressing your current symptoms. Here is a summary of the jaramillo instructions from today's consultation: - Continue using xnea-oyq-vskhbiy cough medicine and humidifier. - Implement saltwater [...] test results are available. Best regards, Lilliana chung Not available 08/29/2024 12:42:42 Reason for Referral None Reported. Problems Name Problem SNOMED Code Status Onset Date Resolution Date Notes Provider Name and Address Organization Details Recorded Time Primary malignan t neoplasm of breast 698981536 Active 2023 estrogen receptor positive in 2019 MARNIE WRIGHT APRN [address], [place], [address] , [facility] 4 05:17:03 Upper respirat ory infectio n 21628839 Active 2023 MARNIE WRIGHT APRN [address], [place], [address] , [facility] 4 11:46:22 Hyperlip idemia 58526870 Active 201206/27/20 18 - Comments only - Marnie Wright APRN - diet managed in the past. No desires for statin. Check lipids today. Problem Code: E78.5; Problem Code Type: ICD-10; [address], [place], [address] , [facility] 4 05:09:18 Overweig ht 846701399 Active 200706/27/20 18 - Comments only - Marnie Wright NURSE STAFF INDUSTRIAL - [facility] ed weight loss through diet and exercise . Problem Code: E66.3; Problem Code Type: ICD-10; [address], [place], [address] , [facility] 4 05:09:18 Sleep apnea 13452861 Active 201006/27/20 18 - Comments only - Marnie Wright NURSE STAFF INDUSTRIAL - No desires for re-evalu ation of this. Monitor for symptoms . Problem Code: G47.30; Problem Code Type: ICD-10; [address], [place], [address] , [facility] 4 05:09:19 Non-toxi c uninodul ar goiter 773388856 Active 201206/27/20 18 - Comments only - Marnie Wright NURSE STAFF INDUSTRIAL - Check TSH with reflex. Discusse d doing ultrasou nd, she will consider if TSH is abnormal . Problem Code: E04.1; Problem Code Type: ICD-10; [address], [place], [address] , [facility] 4 05:09:18 Cramp in lower limb associat ed with sleep 50984575172 4104 Active 201206/27/20 18 - Comments only - Mranie Wright NURSE STAFF INDUSTRIAL - overall stable. continue magnesiu m at bedtime. [facility] staying hydratio n during the day. stretch at bedtime. Problem Code: G47.62; Problem Code Type: ICD-10; [address], [place], [address] , [facility] 4 05:09:18 Traumati c or non-trau matic injury 005385545 Completed 201405/13/2015 04/29/20 15 - Comments only - Marnie Wright APRN - With large local reaction . unknown vector. Do not think abx are indicate d. She would like the swelling to resolve quickly, discusse d use of low-dose Benadryl , ibuprofe n, ice, elevatio n. discusse d starting predniso ne, but after going over side effects she declined . [facility] symptom manageme nt as above. Declined tetanus shot, but is due. Problem Code: T14.8; Problem Code Type: ICD-10; Not Available [facility] 3 05:10:13 Adult health examinat ion Active 201606/27/20 18 - Comments only - Marnie Wright APRN - annual exam complete d today. Order mammogra m. Order DEXA scan. UTD on colonosc opy. Declined pneumoni a vaccines . Flu shot today. Hep C screenin g. Problem Code: Z00.00; Problem Code Type: ICD-10; MARNIE WRIGHT APRN [address], [place], [address] , [facility] 4 05:09:18 Genuine stress incontin ence 44259982 Active 201606/27/20 18 - Comments only - Marnie Wright APRN - [facility] ed pelvic floor exercise s. Problem Code: N39.3; Problem Code Type: ICD-10; [address], [place], [address] , [facility] 4 05:09:18 Osteoart hritis 155632081 Active 201606/27/20 18 - Comments only - Marnie Wright APRN - Symptom mgmt as needed and stay active. Problem Code: M19.90; Problem Code Type: ICD-10; [address], [place], [address] , [facility] 4 05:09:18 Senile hyperker atosis 553304090 Active 201605/29/20 17 - Comments only - Marnie Wright APRN - treatmen t with cryother apy. hopefull y will not need further treatmen ts. To make an appt if still present over the next few weeks. Problem Code: L82.1; Problem Code Type: ICD-10; [address], [place] [phone] , [facility] 4 05:09:18 Screenin g mammogra phy Active 2017 Problem Code: Z12.31; Problem Code Type: ICD-10; [address], [place] [address] , [facility] 4 05:09:18 Menopaus e present 944402232 Active 2017 Problem Code: Z78.0; Problem Code Type: ICD-10; [address], [address] 4 05:09:18 Acute conjunct ivitis 77114654 Completed 201807/03/2019 Problem Code: H10.30; Problem Code Type: ICD-10; Not Available [facility] 3 05:10:13 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 842448093 Completed 201807/03/2019 Problem Code: H74.8x3; Problem Code Type: ICD-10; Not Available [facility] 3 05:10:13 Liver enzymes level above referenc e range 155339825 Completed 201906/05/2023 Not Available [facility] 4 05:38:02 Hypo-osm olality and or hyponatr emia 425781659 Completed 201906/05/2023 Problem Code: E87.1; Problem Code Type: ICD-10; Not Available [facility] 4 05:38:02 Lyme disease 49975146 Completed 201906/05/2023 Problem Code: A69.20; Problem Code Type: ICD-10; Not Available [facility] 4 05:38:02 Hypertro phic conditio n of skin 83955671 Completed 202110/20/2021 09/19/19 22 - Comments only - Marnie Kyle NURSE STAFF INDUSTRIAL - Removed today. Cautery utilized . Reviewed good wound care until healed. Reviewed symptoms of infectio n, when to call. Problem Code: L91.8; Problem Code Type: ICD-10; Not Available [facility] 3 05:10:14 Altered bowel function 41118144 Active 202210/05/19 23 - Comments only - Marnie Kyle NURSE STAFF INDUSTRIAL - yellow stool, more loose. Since COVID19, [...] Problem Code: R19.4; Problem Code Type: ICD-10; MARNIE WRIGHT APRN [address], [place], [address] , [facility]. 4 05:09:19 Cirrhosi s of liver 69121094 Active 2022 low fib score, per gastro not cirrhosi s. leave on problem list so if imaging shows this, will have a referenc e. MARNIE WRIGHT APRN [address], [place], [address] , [facility]. 4 05:11:11 Tick bite Completed 201406/19/2019 Not Available [facility] 3 05:10:15 Cramp in limb 783336019 Completed 201205/30/2023 Problem Code: 729.82; Problem Code Type: ICD-9; Not Available [facility] 3 05:10:15 Spasm 09263716 Completed 201205/30/2023 Problem Code: R25.2; Problem Code Type: ICD-10; Not Available [facility] 3 05:10:15 Thyroid nodule 499551329 Completed 201205/30/2023 Not Available [facility] 3 05:10:15 Melena 8201078 Completed 201606/27/2018 Problem Code: K92.1; Problem Code Type: ICD-10; Not Available [facility] 3 05:10:15 Mass of left breast 16421007570 064599 Completed 201705/30/2023 Not Available [facility] 3 05:10:15 Disorder of skin and/or subcutan eous tissue 58774711 Completed 201406/27/2018 Problem Code: L98.9; Problem Code Type: ICD-10; Not Available [facility] 3 05:10:16 Pain of right knee joint 21437137245 4100 Active 2022 Problem Code: M25.561; Problem Code Type: ICD-10; [address], [place], [address] , [facility] 4 05:09:18 Pain of left knee region 23232878732 4109 Active 2023 osteoarh tritis; saw ortho 11.24. [address], [place], [address] , [facility] 4 12:53:14 Problem Notes None recorded. Medical Equipment None Reported. [...] active Not Available Not Available Not Available [place] MonoPure Curcumin EC 417 mg-120 mg-276 mg-600 [...] Details Last Updated DateTime 4 159.258 cm 31.4 kg/m2 49104.4 6 g 96.7 [degF] 95 % 95 % 95 /min 16 /min 140 mm[Hg] 80 mm[Hg] OSEAS DE LA GARZA CMA [facility] 11:30:51 Social History Question Answer Notes LastModified by Organizat ion Details LastModified Time Tobacco Smoking Status Never Smoker OSEAS DE LA GARZA CMA null, [facility]. 07/10/2024 13:50:18 Would You Say That, In [...] completed OSEAS DE LA GARZA CMA null, [place] - [facility]. 07/10/2024 15:20:09 COVID-19, mRNA, LNP-S, PF, bradford-sucrose, 30 mcg/0.3 mL 4 completed OSEAS DE LA GARZA, KETTLE HAND null, [place] - [facility]. 07/10/2024 15:20:09 Td (adult), 2 Lf tetanus toxoid, preservative free, adsorbed 1 completed Not Available [facility] 07/13/2023 06:29:58 zoster live 3 completed Not Available [facility] 07/13/2023 06:29:58 Influenza, high-dose, trivalent, PF 8 completed Not Available [facility] 07/13/2023 06:29:58 Td(adult) unspecified formulation 5 completed Not Available [facility] 07/13/2023 06:29:58 Influenza, high-dose, quadrivalent, PF 1 completed Not Available [facility] 07/13/2023 06:29:58 Influenza, high-dose, quadrivalent, PF 2 completed Not Available [facility] 07/13/2023 06:29:58 COVID-19, mRNA, LNP-S, PF, 100 mcg/0.5mL dose or 50 mcg/0.25mL dose 1 completed Not Available [facility] 07/13/2023 06:29:58 COVID-19, mRNA, LNP-S, PF, 100 mcg/0.5mL dose or 50 mcg/0.25mL dose 1 completed Not Available [facility] 07/13/2023 06:29:58 COVID-19, mRNA, LNP-S, PF, 100 mcg/0.5mL dose or 50 mcg/0.25mL dose 1 completed Not Available [facility] 07/13/2023 06:29:58 COVID-19, mRNA, LNP-S, bivalent, PF, 10 mcg/0.2 mL 2 completed Not Available [facility] 07/13/2023 06:29:59 pneumococcal polysaccharide PPV23 1 completed Not Available [facility] 07/13/2023 06:29:59 Influenza, high-dose, quadrivalent, PF 3 completed Not Available [facility] 09/14/2023 05:31:45 Pneumococcal conjugate PCV20, polysaccharide HNE900 conjugate, adjuvant, PF 3 completed Not Available [facility] 09/14/2023 05:31:45 COVID-19, mRNA, LNP-S, PF, bradford-sucrose, 30 mcg/0.3 mL 3 completed Not Available [facility] 09/14/2023 05:31:45 Past Encounters Encounter ID Performer Location Encounter Start Date Encounter Closed Date Diagnosis/Indication Diagnosis SNOMED-CT Code Diagnosis ICD10 Code [id number] MARILIN GARCÍA [address] [place] [address] 08/26/2024 13:23:35 08/26/2024 14:18:35 Viral upper respiratory tract infection 140546616 J06.9 [id number] MARNIE WRIGHT NURSE STAFF INDUSTRIAL [address] [address] 08/29/2024 11:21:06 08/29/2024 12:28:52 Upper respiratory infection 42171567 J06.9 Health Concerns Section Related Observation LastModified by Organization Detai ls LastModified Time None Recorded Concern Status LastModified by Organization Details LastModified Time None Recorded Payers Encounter Date Sequence Insurance Name Policy Number Policy Lane Covered Member ID Lane Member ID Guarantor Name 08/29/2024 1 [id number]MEDIC[place]/ [place]VANTAGE - PPO) [id number] Ursula Urias [id number] Ursula Urias Notes Date Note Type Note Provider Name and Address Organization Details Recorded Time 08/29/2024 text/html Is here for FU cough. was seen 08.26. dx with viral upper respiratory infection. She had 2 negative home COVID19 tests. Symptoms initially started 16. She has concerns that she has pertusis and wants to be tested. Ursula states her symptoms started 08.12.24.her current symptoms include cough, lung congestion. Sinuses [...] traveling, + ill contacts while traveling to [place].No known exposure to pertusis. MARNIE WRIGHT, NURSE STAFF INDUSTRIAL [address], [place], [address], [facility]. 08/29/2024 12:42:57 OBGyn Episode No OBEpisode recorded.
--- OUTSIDE RECORDS SUMMARY | 2024-08-29 12:59 | XMS_ITS | Continuity of Care Document ---
Author Organization [facility], [facility] Address [address] [place] [address] Care Team Providers Care Office Coordinator Receptionist Name Role Phone [facility] Dentist Assessment No assessment recorded. Plan of Treatment Reminders Order Date Submit Date Provider Last Modified By Organization Details Last Modified Time Details Appointments Acute 20 2023 11:30A M MARNIE WRIGHT Not available Not available Not available Annual Chronic Care (65+) 40 2024 01:30P M MARNIE WRIGHT Not available Not available Not available Lab None recorded. Referral None recorded. Procedures None recorded. Surgeries None recorded. Imaging None recorded. Medication Orders benzonata te 200 mg capsule 2023 024 [id number] [address] [place], [address], 08/26/2024 14:05:02 Patient TargetsNo targets recorded. Patient InstructionsNo instructions recorded. Reason for Referral None Reported. Problems Name Problem SNOMED Code Status Onset Date Resolution Date Notes Provider Name and Address Organization Details Recorded Time Primary malignan t neoplasm of breast 918228257 Active 2023 estrogen receptor positive in 2019 MARNIE WRIGHT APRN [address], [place], [address] , [facility] 05:17:03 Upper respirat ory infectio n 78411241 Active 2023 MARNIE WRIGHT APRN [address], [place], [address] , [facility] 4 11:46:22 Hyperlip idemia 80125495 Active 201206/27/20 18 - Comments only - Marnie Wright APRN - diet managed in the past. No desires for statin. Check lipids today. Problem Code: E78.5; Problem Code Type: ICD-10; [address], [place], [address] , [facility] 4 05:09:18 Overweig ht 630815419 Active 200706/27/20 18 - Comments only - Marnie Wright APRN - Encourag ed weight loss through diet and exercise . Problem Code: E66.3; Problem Code Type: ICD-10; [address], [place], [address] , [facility] 4 05:09:18 Sleep apnea 31187748 Active 201006/27/20 18 - Comments only - Marnie Wright AUTO DESIGN CHECKER - No desires for re-evalu ation of this. Monitor for symptoms . Problem Code: G47.30; Problem Code Type: ICD-10; [address], [place], [address] , [facility] 4 05:09:19 Non-toxi c uninodul ar goiter 989312721 Active 201206/27/20 18 - Comments only - Marnie Wright APRN - Check TSH with reflex. Discusse d doing ultrasou nd, she will consider if TSH is abnormal . Problem Code: E04.1; Problem Code Type: ICD-10; [address], [place], [address] , [facility] 4 05:09:18 Cramp in lower limb associat ed with sleep 96406848560 4104 Active 201206/27/20 18 - Comments only - Marnie Flaquito AUTO DESIGN CHECKER - overall stable. continue magnesiu m at bedtime. [facility] ed staying hydratio n during the day. stretch at bedtime. Problem Code: G47.62; Problem Code Type: ICD-10; MARNIE WRIGHT APRN [address], [place], [address] , [facility] 4 05:09:18 Traumati c or non-trau matic injury 500616196 Completed 201405/13/2015 04/29/20 15 - Comments only - Marnie Wright AUTO DESIGN CHECKER - With large local reaction . unknown vector. Do not think abx are indicate d. She would like the swelling to resolve quickly, discusse d use of low-dose Benadryl , ibuprofe n, ice, elevatio n. discusse d starting predniso ne, but after going over side effects she declined . [facility] ed symptom manageme nt as above. Declined tetanus shot, but is due. Problem Code: T14.8; Problem Code Type: ICD-10; Not Available [facility] 3 05:10:13 Adult health examinat ion Active 201606/27/20 18 - Comments only - Marnie Wright APRN - annual exam complete d today. Order mammogra m. Order DEXA scan. UTD on colonosc opy. Declined pneumoni a vaccines . Flu shot today. Hep C screenin g. Problem Code: Z00.00; Problem Code Type: ICD-10; [address], [place], [address] , [facility] 4 05:09:18 Genuine stress incontin ence 07482881 Active 201606/27/20 18 - Comments only - Marnie Wright APRN - [facility] ed pelvic floor exercise s. Problem Code: N39.3; Problem Code Type: ICD-10; MARNIE WRIGHT APRN [address], [place], [address] , [facility] 4 05:09:18 Osteoart hritis 886716516 Active 201606/27/20 18 - Comments only - Marnie Wright APRN - Symptom mgmt as needed and stay active. Problem Code: M19.90; Problem Code Type: ICD-10; [address], [place] [address] , [facility] 4 05:09:18 Senile hyperker atosis 335352546 Active 201605/29/20 17 - Comments only - Marnie Wright APRN - treatmen t with cryother apy. hopefull y will not need further treatmen ts. To make an appt if still present over the next few weeks. Problem Code: L82.1; Problem Code Type: ICD-10; [address], [place] [address] , [facility] 4 05:09:18 Screenin g mammogra phy Active 2017 Problem Code: Z12.31; Problem Code Type: ICD-10; [address], [place] [address] , [facility] 4 05:09:18 Menopaus e present 192429389 Active 2017 Problem Code: Z78.0; Problem Code Type: ICD-10; [address], [place] [address] , [facility] 4 05:09:18 Acute conjunct ivitis 16381756 Completed 201807/03/2019 Problem Code: H10.30; Problem Code Type: ICD-10; Not Available [facility] 3 05:10:13 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 175447954 Completed 201807/03/2019 Problem Code: H74.8x3; Problem Code Type: ICD-10; Not Available [facility] 3 05:10:13 Liver enzymes level above referenc e range 515880526 Completed 201906/05/2023 Not Available [facility] 4 05:38:02 Hypo-osm olality and or hyponatr emia 040589270 Completed 201906/05/2023 Problem Code: E87.1; Problem Code Type: ICD-10; Not Available [facility] 4 05:38:02 Lyme disease 47673322 Completed 201906/05/2023 Problem Code: A69.20; Problem Code Type: ICD-10; Not Available [facility] 4 05:38:02 Hypertro phic conditio n of skin 53017360 Completed 202110/20/2021 09/19/19 22 - Comments only - Marnie Wright AUTO DESIGN CHECKER - Removed today. Cautery utilized . Reviewed good wound care until healed. Reviewed symptoms of infectio n, when to call. Problem Code: L91.8; Problem Code Type: ICD-10; Not Available [facility] 3 05:10:14 Altered bowel function 52935573 Active 202210/05/19 23 - Comments only - Marnie Wright AUTO DESIGN CHECKER - yellow stool, more loose. Since COVID19, [...] Code: R19.4; Problem Code Type: ICD-10; MARNIE WRIGHT, AUTO DESIGN CHECKER [address], [place], [address] , [facility]. 4 05:09:19 Cirrhosi s of liver 99541781 Active 2022 low fib score, per gastro not cirrhosi s. leave on problem list so if imaging shows this, will have a referenc e. MARNIE WRIGHT APRN [address], [place], [address] , [facility]. 4 05:11:11 Tick bite Completed 201406/19/2019 Not Available [facility] 3 05:10:15 Cramp in limb 248170481 Completed 201205/30/2023 Problem Code: 729.82; Problem Code Type: ICD-9; Not Available [facility] 3 05:10:15 Spasm 44307083 Completed 201205/30/2023 Problem Code: R25.2; Problem Code Type: ICD-10; Not Available [facility] 3 05:10:15 Thyroid nodule 838057428 Completed 201205/30/2023 Not Available [facility] 3 05:10:15 Melena 7855354 Completed 201606/27/2018 Problem Code: K92.1; Problem Code Type: ICD-10; Not Available [facility] 3 05:10:15 Mass of left breast 03498030926 763108 Completed 201705/30/2023 Not Available [facility] 3 05:10:15 Disorder of skin and/or subcutan eous tissue 09845989 Completed 201406/27/2018 Problem Code: L98.9; Problem Code Type: ICD-10; Not Available [facility] 3 05:10:16 Pain of right knee joint 22559063210 4100 Active 2022 Problem Code: M25.561; Problem Code Type: ICD-10; MARNIE WRIGHT APRN [address], [place], [address] , [facility]. 4 05:09:18 Pain of left knee region 51928860260 4109 Active 2023 osteoarh tritis; saw ortho 11.24. MARNIE WRIGHT, AUTO DESIGN CHECKER [address], [place], [address] , [facility]. 12:53:14 Problem Notes None recorded. Medical Equipment [...] active Not Available Not Available Not Available [place] MonoPure Curcumin EC 417 mg-120 mg-276 mg-600 [...] Updated DateTime 4 159.258 cm 31.1 kg/m2 38369.0 7 g 17 /min 99 % 99 % 66 /min 97.3 [degF] 130 mm[Hg] 84 mm[Hg] Siri Spence RN [facility] 13:32:07 Social History Question Answer Notes LastModified by Organizat ion Details LastModified Time Tobacco Smoking Status Never Smoker OSEAS DE LA GARZA CMA null, [facility] 07/10/2024 13:50:18 Would You Say That, In [...] completed OSEAS DE LA GARZA CMA null, [facility] 07/10/2024 15:20:09 COVID-19, mRNA, LNP-S, PF, bradford-sucrose, 30 mcg/0.3 mL 4 completed OSEAS DE LA GARZA CMA null, [facility] 07/10/2024 15:20:09 Td (adult), 2 Lf tetanus toxoid, preservative free, adsorbed 1 completed Not Available [facility] 07/13/2023 06:29:58 zoster live 3 completed Not Available [facility] 07/13/2023 06:29:58 Influenza, high-dose, trivalent, PF 8 completed Not Available [facility] 07/13/2023 06:29:58 Td(adult) unspecified formulation 5 completed Not Available [facility] 07/13/2023 06:29:58 Influenza, high-dose, quadrivalent, PF 1 completed Not Available [facility] 07/13/2023 06:29:58 Influenza, high-dose, quadrivalent, PF 2 completed Not Available [facility] 07/13/2023 06:29:58 COVID-19, mRNA, LNP-S, PF, 100 mcg/0.5mL dose or 50 mcg/0.25mL dose 1 completed Not Available [facility] 07/13/2023 06:29:58 COVID-19, mRNA, LNP-S, PF, 100 mcg/0.5mL dose or 50 mcg/0.25mL dose 1 completed Not Available [facility] 07/13/2023 06:29:58 COVID-19, mRNA, LNP-S, PF, 100 mcg/0.5mL dose or 50 mcg/0.25mL dose 1 completed Not Available [facility] 07/13/2023 06:29:58 COVID-19, mRNA, LNP-S, bivalent, PF, 10 mcg/0.2 mL 2 completed Not Available [facility] 07/13/2023 06:29:59 pneumococcal polysaccharide PPV23 1 completed Not Available [facility] 07/13/2023 06:29:59 Influenza, high-dose, quadrivalent, PF 3 completed Not Available [facility] 09/14/2023 05:31:45 Pneumococcal conjugate PCV20, polysaccharide NVK559 conjugate, adjuvant, PF 3 completed Not Available [facility] 09/14/2023 05:31:45 COVID-19, mRNA, LNP-S, PF, bradford-sucrose, 30 mcg/0.3 mL 3 completed Not Available [facility] 09/14/2023 05:31:45 Past Encounters Encounter ID Performer Location Encounter Start Date Encounter Closed Date Diagnosis/Indication Diagnosis SNOMED-CT Code Diagnosis ICD10 Code [id number] MARILIN GARCÍA [address],[facility] [address] [place] [address] 08/26/2024 13:23:35 08/26/2024 14:18:35 Viral upper respiratory tract infection [id number] J06.9 Health Concerns Section Related Observation LastModified by Organization Detai ls LastModified Time None Recorded Concern Status LastModified by Organization Details LastModified Time None Recorded Payers Encounter Date Sequence Insurance Name Policy Number Policy Lane Covered Member ID Lane Member ID Guarantor Name 08/26/2024 1 [id number] (MEDICARE [place]/ [place]VANTAGE - PPO) [id number] Ursula Urias [id number] Ursula Urias Notes Date Note Type Note Provider Name and Address Organization Details Recorded Time 08/26/2024 text/html Patient with ons et of symptoms 8 days ago, with sore throat, nasal congestion, sneezing (symptoms appeared after travelling home from [place] where she was visiting a family member [...] chronic lung issues, never smoker. KUSH DECKER, REIMBURSEMENT DIRECTOR [address], [place], [address], [facility]. 08/26/2024 14:31:15 OBGyn Episode No OBEpisode recorded.
--- OUTSIDE RECORDS SUMMARY | 2024-08-29 12:59 | XMS_ITS | Encounter Summary ---
Author Organization [facility] [place] [address] Care Team Providers Care Emery Grinder Name Role Phone Jenise Huddleston APRN Primary Care Provider [phone] Encounter Details Date Type Department Care Team [...] on filedocumented in this encounter Care Teams Emery Grinder Relationship Specialty Start Date End Date Jenise Huddleston APRN [address] [place] [address] PCP - General Family Medicine 09/11/18 documented as of this encounter
--- OUTSIDE RECORDS SUMMARY | 2024-08-29 12:59 | XMS_ITS | Encounter Summary ---
[place] [address] Care Team Providers Care Health Information Technologist Name Role Phone Jenise Huddleston APRN Primary Care Provider [phone] Reason for Referral * Consultation (Routine) - Closed Specialty Diagnoses / Procedures Referred By Petros shah Referred To Contact Gastroenterology Diagnoses Hepatic cirrhosis, unspecified hepatic cirrhosis type, unspecified whether ascites present Abdominal discomfort Change in stool habits hepatic cirrhosis/ abd discomfort /change in stool Jenise Huddleston APRN [address] [place] [address] [facility] [address] [address] Referral ID Status Reason Start Date Expiration Date V isits Requested Visits Authorized [id number] Closed Consult, Test & Treat PCP Updated and/or Approved 12/08/2022 12/08/2023 12 12 Encounter Details Date Type Department Care Team (Latest Contact Info) Description 12/08/2022 Transcribe Orders eDH Incoming Referrals [phone] Jenise Huddleston APRN [address] [place], [place] [address] Hepatic cirrhosis, unspecified hepatic cirrhosis type, unspecified [...] system documented in this encounter Care Teams Health Information Technologist Relationship Specialty Start Date End Date Jenise Huddleston APRN [address] [place] [address] PCP - General Family Medicine 09/11/18 documented as of this encounter
--- OUTSIDE RECORDS SUMMARY | 2024-08-29 12:59 | XMS_ITS | Encounter Summary ---
Author Organization [facility] [place] [address] Care Team Providers Care Operations And Intelligence Assistant Name Role Phone Jenise Huddleston APRN Primary Care Provider [phone] Encounter Details Date Type Department Care Team (Late st Contact Info) Description 12/04/2022 Ancillary Procedure Radiology Library at [facility] [place] [phone] Jenise Huddleston APRN [address] [place], [place] [address] Social History Tobacco Use Types Packs/Day Years [...] Ultrasound Study (12/04/2022 12:00 AM EDT) Narrative [facility] - 12/07/2022 9:07 PM EDT This exam is auto-finalizing. It's purpose is for storage only. Jenise Huddleston APRN IMFrida FILM LIBRARY ORDERABLES Performing Organization Address City/State/[facility] Co de Phone Number [place], [place] documented in this encounter Visit Diagnoses Not on filedocumented in this encounter Care Teams Operations And Intelligence Assistant Relationship Specialty Start Date End Date Jensie Huddleston APRN [address] [place] [address] PCP - General Family Medicine 09/11/18 documented as of this encounter
--- OUTSIDE RECORDS SUMMARY | 2024-08-29 12:59 | XMS_ITS | Encounter Summary ---
Author Organization [facility] [place] [address] Care Team Providers Care Count Room Clerk Name Role Phone Jenise Huddleston APRN Primary Care Provider [phone] Encounter Details Date Type Department Care Team (Late st Contact Info) Description 02/16/2022 Telephone Hematology/Oncology at [address] [phone] Jenise Ashton Social History Tobacco Use Types [...] on filedocumented in this encounter Care Teams Count Room Clerk Relationship Specialty Start Date End Date Jenise Huddleston APRN [address] [place] [address] PCP - General Family Medicine 09/11/18 documented as of this encounter
--- OUTSIDE RECORDS SUMMARY | 2024-08-29 12:59 | XMS_ITS | Continuity of Care Document ---
Author Organization [place] [facility] Address [address] [place] [address] Care Team Providers Care Hand Kiss Setter Name Role Phone [facility] Dentist Assessment Encounter Date Assessment Date Assessment [...] if needs arise. Not available 07/10/2024 15:37:30 Plan of Treatment Reminders Order Date Submit Date Provider Last Modified By Organization Details Last Modified Time Details Appointments Acute 20 2023 11:30A Mickie WRIGHT Not available Not available Not available Annual Chronic Care (65+) 40 2024 01:30P Mickie WRIGHT Not available Not available Not available Lab T4, free, serum 2023 024 [facility] (Registration ), [address] [place] [address] [place], [address], 07/10/2024 22:32:48 T3, free, serum or plasma 2023 024 [facility] (Registration ), [address] [place] [address] [place], [address], 07/14/2024 09:05:50 TSH, serum or plasma 2023 [facility] (Registration ), [address] [facility] [place], [address], 07/11/2024 10:51:56 Referral None recorded . Procedures None recorded . Surgeries None recorded . Imaging US, thyroid - thyroid 2023 [facility] (Radiology), [address] [place] [address] [place], [address], 07/28/2024 10:23:52 Medication Orders None recorded . Patient TargetsNo targets recorded. Patient Instructions Encounter Date Encounter Id Patient Instructions Last Modified By Organization Details Last Modified Time 07/10/2024 [id number] starting a weigh t loss plan: care instructions [email or web address] Not available 07/10/2024 14:19:56 diet [email or web address] Not available 2023 14:19:56 exercise [email or web address] Not available 2023 14:19:56 Dear Ursula, Thank you for visiting us on SunJul 10, 2024. We appreciate your dedication to [...] - Thyroid ultrasound to be scheduled at [facility] to monitor previously noted nodules. - Maintain [...] coinciding with your mammogram. Best regards, Lilliana juliet Not available 07/10/2024 14:18:49 Reason for Referral None Reported. Results Created Date Observation Date Name Description Value Unit Range Abnormal Flag Note LastModifiedBy Organization Detail LastModifiedTime 07/23/20 24 07/23/2024 US, thyro id Patisammi t Name: Gaye Savage Unit #: [id number] Loc: DI Orderi ng Provid er: Sherrill Brooks Accoun t #: [id number] Status : REG CLI Primar [...] icant lympha denopa thy. DATA REPOSI TORY: Ordere d By: Sherrill Brooks CC: ------ ------ ------ ------ ------ ------ ------ ------ ------ ------ ------ ------ - Dictat ed By: Quincy Gutierrez M.D. 1648 Transc ribed By: Matt JURADO,Leonor main 1648 This is privil eged, confid ential inform ation intend ed only for the provid er named. Any use or distri bution by any person other than this provid er is strict ly prohib ited. If you receiv e this report in error, please notify us immedi carlos eduardoly at and return the origin al report to us at the addres s above. Thank- you. [email or web address] [facility] (Radiology) [address] [place] [address] , [place], [address], 07/28/2024 10:23:52 Result Notes None recorded. Problems Name Problem SNOMED Code Status Onset Date Resolution Date Notes Provider Name and Address Organization Details Recorded Time Primary malignan t neoplasm of breast 803942008 Active 2023 estrogen receptor positive in 2019 JENISE WRIGHT APRN [address], [place], [address] , [facility] 4 05:17:03 Upper respirat ory infectio n 75576174 Active 2023 JENISE WRIGHT APRN [address], [place], [address] , [facility] 4 11:46:22 Hyperlip idemia 78041656 Active 201206/27/20 18 - Comments only - Jenise Wright APRN - diet managed in the past. No desires for statin. Check lipids today. Problem Code: E78.5; Problem Code Type: ICD-10; JENISE WRIGHT APRN [address], [place], [address] , [facility] 4 05:09:18 Overweig ht 706360447 Active 200706/27/20 18 - Comments only - Jenise Wright PARTS FACILITATOR - [facility] ed weight loss through diet and exercise . Problem Code: E66.3; Problem Code Type: ICD-10; JENISE WRIGHT APRN [address], [place], [address] , [facility] 4 05:09:18 Sleep apnea 60002025 Active 201006/27/20 18 - Comments only - Jenise Wright PARTS FACILITATOR - No desires for re-evalu ation of this. Monitor for symptoms . Problem Code: G47.30; Problem Code Type: ICD-10; [address], [place], [address] , [facility] 4 05:09:19 Non-toxi c uninodul ar goiter 122885693 Active 201206/27/20 18 - Comments only - Jenise Wright PARTS FACILITATOR - Check TSH with reflex. Discussdallin zuleta doing ultrasou nd, she will consider if TSH is abnormal . Problem Code: E04.1; Problem Code Type: ICD-10; [address], [place], [address] , [facility] 4 05:09:18 Cramp in lower limb associat ed with sleep 29324563830 4104 Active 201206/27/20 18 - Comments only - Jenise Wright PARTS FACILITATOR - overall stable. continue magnesiu m at bedtime. [facility] ed staying hydratio n during the day. stretch at bedtime. Problem Code: G47.62; Problem Code Type: ICD-10; [address], [place], [address] , [facility] 4 05:09:18 Traumati c or non-trau matic injury 144936294 Completed 201405/13/2015 04/29/20 15 - Comments only - Jeinse Wright APRN - With large local reaction . unknown vector. Do not think abx are indicate d. She would like the swelling to resolve quickly, discusse d use of low-dose Benadryl , ibuprofe n, ice, elevatio n. discusse d starting predniso ne, but after going over side effects she declined . [facility] ed symptom manageme nt as above. Declined tetanus shot, but is due. Problem Code: T14.8; Problem Code Type: ICD-10; Not Available [facility] 3 05:10:13 Adult health examinat ion Active 201606/27/20 18 - Comments only - Jenise Wright APRN - annual exam complete d today. Order mammogra m. Order DEXA scan. UTD on colonosc opy. Declined pneumoni a vaccines . Flu shot today. Hep C screenin g. Problem Code: Z00.00; Problem Code Type: ICD-10; [address], [place], [address] , [facility] 4 05:09:18 Genuine stress incontin ence 91421862 Active 201606/27/20 18 - Comments only - Jenise Wright APRN - [facility] ed pelvic floor exercise s. Problem Code: N39.3; Problem Code Type: ICD-Jose; [address], [place], [address] , [facility] 4 05:09:18 Osteoart hritis 883639272 Active 201606/27/20 18 - Comments only - Jenise Wright APRN - Symptom mgmt as needed and stay active. Problem Code: M19.90; Problem Code Type: ICD-Jose; [address], [place], [address] , [facility] 4 05:09:18 Senile hyperker atosis 989818521 Active 201605/29/20 17 - Comments only - Jenise Wright PARTS FACILITATOR - treatmen t with cryother apy. hopefull y will not need further treatmen ts. To make an appt if still present over the next few weeks. 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 719260861 Completed 201807/03/2019 Problem Code: H74.8x3; Problem Code Type: ICD-10; Not Available [facility] 3 05:10:13 Liver enzymes level above referenc e range 218674116 Completed 201906/05/2023 Not Available [facility] 4 05:38:02 Hypo-osm olality and or hyponatr emia 210997387 Completed 201906/05/2023 Problem Code: E87.1; Problem Code Type: ICD-10; Not Available [facility] 4 05:38:02 Lyme disease 33168542 Completed 201906/05/2023 Problem Code: A69.20; Problem Code Type: ICD-10; Not Available [facility] 4 05:38:02 Hypertro phic conditio n of skin 19813191 Completed 202110/20/2021 09/19/19 22 - Comments only - Jenise Flaquito PARTS FACILITATOR - Removed today. Cautery utilized . Reviewed good wound care until healed. Reviewed symptoms of infectio n, when to call. Problem Code: L91.8; Problem Code Type: ICD-10; Not Available [facility] 3 05:10:14 Altered bowel function 97214479 Active 202210/05/19 23 - Comments only - Jenise Flaquito PARTS FACILITATOR - yellow stool, more loose. Since COVID19, [...] no probioti c, she may consider doing. Discussdallin d trial of metamcui l, she will trial this; she will purchase OTC. Avoid fatty foods for now, continue with increase in veggies. Problem Code: R19.4; Problem Code Type: ICD-10; JENISE WRIGHT APRN [address], [place], [address] , [facility]. 4 05:09:19 Cirrhosi s of liver 95264508 Active 2022 low fib score, per gastro not cirrhosi s. leave on problem list so if imaging shows this, will have a referenc e. JENISE WRIGHT APRN [address], [place], [address] , [facility]. 4 05:11:11 Tick bite Completed 201406/19/2019 Not Available [facility] 3 05:10:15 Cramp in limb 323984834 Completed 201205/30/2023 Problem Code: 729.82; Problem Code Type: ICD-9; Not Available [facility] 3 05:10:15 Spasm 66547826 Completed 201205/30/2023 Problem Code: R25.2; Problem Code Type: ICD-10; Not Available [facility] 3 05:10:15 Thyroid nodule 501573735 Completed 201205/30/2023 Not Available [facility] 3 05:10:15 Melena 2763083 Completed 201606/27/2018 Problem Code: K92.1; Problem Code Type: ICD-10; Not Available [facility] 3 05:10:15 Mass of left breast 61987772013 407053 Completed 201705/30/2023 Not Available [facility] 3 05:10:15 Disorder of skin and/or subcutan eous tissue 80855377 Completed 201406/27/2018 Problem Code: L98.9; Problem Code Type: ICD-10; Not Available [facility] 3 05:10:16 Pain of right knee joint 01462514830 4100 Active 2022 Problem Code: M25.561; Problem Code Type: ICD-10; JENISE WRIGHT APRN [address], [place], [address] , [facility]. 4 05:09:18 Pain of left knee region 80101414525 4109 Active 2023 osteoarh tritis; saw ortho 11.24. JENISE WRIGHT APRN [address], [place], [address] , [facility] 4 12:53:14 Problem Notes None recorded. Medical [...] active Not Available Not Available Not Available [place] MonoPure Curcumin EC 417 mg-120 mg-276 mg-600 [...] Organization Details Last Updated DateTime 159.258 cm 31.1 kg/m2 93423.0 7 g 97.1 [degF] 98 % 98 % 85 /min 130 mm[Hg] 80 mm[Hg] OSEAS DE LA GARZA CMA [facility] 13:52:39 Social History Question Answer Notes LastModified by Organizat ion Details LastModified Time Tobacco Smoking Status Never Smoker OSEAS DE LA GARZA CMA null, [facility] 07/10/2024 13:50:18 Would You Say That, [...] GARZA CMA null, [place] [facility] 07/10/2024 15:20:09 COVID-19, mRNA, LNP-S, PF, bradford-sucrose, 30 mcg/0.3 mL 4 completed MEHRDAD [place], [place] - [facility]. 07/10/2024 15:20:09 Td (adult), 2 Lf tetanus toxoid, preservative free, adsorbed 1 completed Not Available [facility] 07/13/2023 06:29:58 zoster live 3 completed Not Available [facility] 07/13/2023 06:29:58 Influenza, high-dose, trivalent, PF 8 completed Not Available [facility] 07/13/2023 06:29:58 Td(adult) unspecified formulation 5 completed Not Available [facility] 07/13/2023 06:29:58 Influenza, high-dose, quadrivalent, PF 1 completed Not Available [facility] 07/13/2023 06:29:58 Influenza, high-dose, quadrivalent, PF 2 completed Not Available [facility] 07/13/2023 06:29:58 COVID-19, mRNA, LNP-S, PF, 100 mcg/0.5mL dose or 50 mcg/0.25mL dose 1 completed Not Available [facility] 07/13/2023 06:29:58 COVID-19, mRNA, LNP-S, PF, 100 mcg/0.5mL dose or 50 mcg/0.25mL dose 1 completed Not Available [facility] 07/13/2023 06:29:58 COVID-19, mRNA, LNP-S, PF, 100 mcg/0.5mL dose or 50 mcg/0.25mL dose 1 completed Not Available [facility] 07/13/2023 06:29:58 COVID-19, mRNA, LNP-S, bivalent, PF, 10 mcg/0.2 mL 2 completed Not Available [facility] 07/13/2023 06:29:59 pneumococcal polysaccharide PPV23 1 completed Not Available [facility] 07/13/2023 06:29:59 Influenza, high-dose, quadrivalent, PF 3 completed Not Available [facility] 09/14/2023 05:31:45 Pneumococcal conjugate PCV20, polysaccharide DRX506 conjugate, adjuvant, PF 3 completed Not Available [facility] 09/14/2023 05:31:45 COVID-19, mRNA, LNP-S, PF, bradford-sucrose, 30 mcg/0.3 mL 3 completed Not Available [facility] 09/14/2023 05:31:45 Past Encounters Encounter ID Performer Location Encounter Start Date Encounter Closed Date Diagnosis/Indication Diagnosis SNOMED-CT Code Diagnosis ICD10 Code [id number] JENISE WRIGHT [address] [address] 07/10/2024 13:47:18 07/10/2024 14:31:27 Primary malignant neoplasm of breast 090692115 C50.919 Non-toxic uninodular goiter 114333519 E04.1 Cirrhosis of liver [address] ress incontinence 00381728 N39.3 Overweight 069774379 E66 .3 Osteoarthritis 914757168 M19.90 Cramp in l ower limb associated with sleep 9491221091 06564 G47.62 Sleep apnea 90245710 G47 .30 Hyperlipidemia 77556277 E78.5 Altered alyssia wel function 35186946 R19.4 Active or passive immunization 192336198 Z23 Health Concerns Section Related Observation LastModified by Organization Detai ls LastModified Time None Recorded Concern Status LastModified by Organization Details LastModified Time None Recorded Payers Encounter Date Sequence Insurance Name Policy Number Policy Lane Covered Member ID Lane Member ID Guarantor Name 07/10/2024 1 [id number] (MEDICARE [place]AC[place]/ [place]VANTAGE - PPO) [id number] Ursula Urias [id number] Ursula Urias Notes Date Note Type [...] not cirrhosis, has seen gastro. JENISE WRIGHT, PARTS FACILITATOR [address], [place], [address], [facility]. 07/10/2024 15:38:36 OBGyn Episode No OBEpisode recorded.
--- OUTSIDE RECORDS SUMMARY | 2024-08-29 13:00 | XMS_ITS | Encounter Summary ---
Author Organization [facility] Address [facility] [place] [address] Care Team Providers Care Insurance Examining Clerk Name Role Phone Jenise uHddleston APRN Primary Care Provider [phone] Reason for Visit * Reason Comments Follow-up Skin Check * Consultation (Routine) - Specialty Diagnoses / Procedures Referred By Petros shah Referred To Contact Dermatology Diagnoses Disorder of the skin and subcutaneous tissue, unspecified Patient concerned about lesion LIQ Left breast Seborrheic keratosis Procedures Consult Abbey Renae MD [facility] [place] [address] Alfred Steve MD [address] [place] [address], [facility] [place] [address] Referral ID Status Reason Start Date Expiration Date V isits Requested Visits Authorized [id number] 12/10/2018 12/10/2019 1 1 Encounter Details Date Type Department Care Team (Late st Contact Info) Description 12/24/2018 4:00 PM EDT Office Visit Dermatology at [address] [phone] Alfred Steve MD [address] [place] [address], [facility] [place], [place] [id number] Seborrheic keratosis; History of SCC (squamous cell [...] skin documented in this encounter Care Teams Insurance Examining Clerk Relationship Specialty Start Date End Date Jenise Huddleston APRN [address] [place] [address] PCP - General Family Medicine 09/11/18 documented as of this encounter
--- OUTSIDE RECORDS SUMMARY | 2024-08-29 13:00 | XMS_ITS | Encounter Summary ---
Author Organization [facility] [place] [address] Care Team Providers Care Security Specialist Name Role Phone Jenise Huddleston NATHANIEL Primary Care Provider [phone] Encounter Details Date Type Department Care Team (Late st Contact Info) Description 08/14/2019 10:30 AM EST Office Visit Hematology/Oncology at [address] [phone] Wilmar Moody MD [facility] DR [place] [address] Vangie James RN [facility] [place] [address] Malignant neoplasm of breast in female, estrogen [...] biopsy 09/05/18 Invasive ductal carcinoma ER positive, MS positive, 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 Gilmore The patient is seen in the [facility]. She had a node positive [...] was angiolymphatic invasion as well. ER and MS were strongly expressed; HER2 negative. OncotypeDx Recurrence [...] will plan to see her back in [place] and February 2020 for continued follow-up. She knows to report if she develops new symptoms or findings concerning for recurrence of cancer documented in this encounter Plan of Treatment Not on file documented as of this encounter Visit Diagnoses Diagnosis Malignant neoplasm of breast in female, estrogen receptor positive, unspecified laterality, unspecified site of breast documented in this encounter Care Teams Security Specialist Relationship Specialty Start Date End Date Jenise Huddleston APRN [address] [place] [address] PCP - General Family Medicine 09/11/18 documented as of this encounter
--- OUTSIDE RECORDS SUMMARY | 2024-08-29 13:00 | XMS_ITS | Encounter Summary ---
Author Organization [facility] Address [facility] [place] [address] Care Team Providers Care Heel Layer Name Role Phone FlaquitoJenise hinson NATHANIEL Primary Care Provider [phone] [phone] Encounter Details Date Type Department Care Team (Late st Contact Info) Description 02/17/2021 2:30 PM EDT Office Visit Hematology/Oncology at [address] [phone] Wilmar Moody MD [facility] DR [place] [address] Jacqueline Rose CLOTH HANDLER [address] [place] [address] DR HEMATOLOGY ONCOLOGY [place], [place] [id number] Malignant neoplasm of breast in female, estrogen [...] biopsy 09/05/18 Invasive ductal carcinoma ER positive, DC positive, 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 She had a node positive left [...] was angiolymphatic invasion as well. ER and DC were strongly expressed; HER2 negative. OncotypeDx Recurrence [...] left documented in this encounter Care Teams Heel Layer Relationship Specialty Start Date End Date Jenise Huddleston, CLOTH HANDLER [address] [place] [address] PCP - General Family Medicine 09/11/18 documented as of this encounter
--- OUTSIDE RECORDS SUMMARY | 2024-08-29 13:00 | XMS_ITS | Encounter Summary ---
Author Organization [facility] Address [facility] [place] [address] Care Team Providers Care Castables Worker Name Role Phone Jenise Huddleston NATHANIEL Primary Care Provider [phone] Reason for Visit * Reason Comments Radiation Follow-up Encounter Details Date Type Department Care Team (Late st Contact Info) Description 06/06/2021 2:30 PM EDT Office Visit Radiation Oncology at [address] [phone] Abbey Renae MD [facility] [place] [address] Malignant neoplasm of central portion of left [...] for breast ca, L, IDC, gr 2, ER+RI+, Her2 neg, s/p lumpectomy & SNB, pT1c pN1a, w/maycol deposits showing 2 different types of tumor, ER+RI+, Her2 neg & ER-RI-, Her2 neg. 01/23/[address] Moody [...] Us Biopsy Left 09/05/2018 Zoltan Baldwin MD [facility] RAD MAMMOGRAPHY ??? MAMMO US NEEDLE LOCALIZATION LEFT Left 10/10/2018 Mammo US Needle Localization Left 10/10/2018 Christina Torre MD [facility] RAD MAMMOGRAPHY ??? MRI GUIDED BIOPSY BREAST VACUUM ASSISTED LEFT Left 09/18/2018 MRI Breast Biopsy Vacuum Assist Left 09/18/2018 [facility] RAD MRI ??? PRO BX/REMV, LYMPH NODE, DEEP AXILL Left 10/10/2018 BIOPSY OR EXCISION OF LYMPH NODE(S), OPEN, DEEP AXILLARY NODE(S) (WRVU 6.43) performed by Jhonatan Gilmore MD at [facility] MAIN OR ??? PRO INTRAOP SENTINEL LYMPH ID W/DYE INJECTION Left 10/10/2018 INTRAOPERATIVE ID (MAPPING) SENTINEL LYMPH NODE,INCLUDES INJECTION (WRVU 2.5) performed by Jhonatan Gilmore MD at [facility] MAIN OR ??? PRO MASTECTOMY PARTIAL Left 10/10/2018 MASTECTOMY PARTIAL (WRVU 10.13) performed by Jhonatan Gilmore MD at [facility] MAIN OR Ectopic pregnancies. Your Medications [...] by mouth daily. Generic drug: Green Tea Selman Extract 1 capsule Refills: 0 MAGNESIUM CITRATE [...] status documented in this encounter Care Teams Castables Worker Relationship Specialty Start Date End Date Jenise Huddleston APRN [address] [place] [address] PCP - General Family Medicine 09/11/18 documented as of this encounter
--- OUTSIDE RECORDS SUMMARY | 2024-08-29 13:00 | XMS_ITS | Encounter Summary ---
Author Organization [facility] Address [facility] [place] [address] Care Team Providers Care Prepared Foods Supervisor Name Role Phone Jenise Huddleston NATHANIEL Primary Care Provider [phone] Reason for Visit * Reason Comments On Treatment Visit Encounter Details Date Type Department Care Team (Late st Contact Info) Description 11/26/2018 8:30 AM EDT Office Visit Radiation Oncology at [address] [phone] Abbey Renae MD [facility] [place] [address] Malignant neoplasm of central portion of left [...] & ER-TN-, Her2 neg. CURRENT TREATMENT DOSE: 9 Gy L supraclav, L axilla & L breast ANTICIPATED TOTAL DOSE: 50.4 Gy L supraclav, L axilla & L breast; 60.4 Gy lumpectomy bed Current # of xrt received: 5 Anticipated total # of xrt txs: 33 Evaluation of port verification films: Approved. For details, see electronic film record in [employer]. Changes in Medical Condition: None. Pain?: [...] status documented in this encounter Care Teams Prepared Foods Supervisor Relationship Specialty Start Date End Date Jenise Huddleston APRN [address] [place] [address] PCP - General Family Medicine 09/11/18 documented as of this encounter
--- OUTSIDE RECORDS SUMMARY | 2024-08-29 13:00 | XMS_ITS | Encounter Summary ---
Author Organization [facility] Address [facility] [place] [address] Care Team Providers Care Chrome Tanner Name Role Phone Jenise Huddleston Stefanie ARMSTRONG Primary Care Provider +1 -[phone] Encounter Details Date Type Department Care Team (Late st Contact Info) Description 12/31/2018 2:30 PM EDT Office Visit Radiation Oncology at [address] [phone] Charli Cano MD Malignant neoplasm of central portion of left [...] & ER-ME-, Her2 neg. CURRENT TREATMENT DOSE: 50.4 Gy [...] For details, see electronic film record in [facility]. Changes in Medical Condition: Finds skin [...] status documented in this encounter Care Teams Chrome Tanner Relationship Specialty Start Date End Date Jenise Huddleston APRN [address] [place] [address] PCP - General Family Medicine 09/11/18 documented as of this encounter
--- OUTSIDE RECORDS SUMMARY | 2024-08-29 13:00 | XMS_ITS | Encounter Summary ---
Author Organization [facility] Address [facility] [place] [address] Care Team Providers Care Pinion Staker Name Role Phone Jenise Huddleston Stefanie ARMSTRONG Primary Care Provider +1 -[phone] Reason for Referral * Consultation (Routine) - Closed Specialty Diagnoses / Procedures Referred By Petros shah Referred To Contact Dermatology Diagnoses Skin lesion Malignant neoplasm of central portion of left female breast, unspecified estrogen receptor status Abbey Renae MD [facility] [address] Referral ID Status Reason Start Date Expiration Date V isits Requested Visits Authorized [id number] Closed Consult, Test & Treat 12/03/2018 06/01/2019 1 1 Reason for Visit * Reason Comments On Treatment Visit Encounter Details Date Type Department Care Team (Late st Contact Info) Description 12/03/2018 8:30 AM EDT Office Visit Radiation Oncology at [address] [phone] Abbey Renae MD [facility] [address] Skin lesion; Malignant neoplasm of central portion [...] DIAGNOSIS: Breast ca, L, IDC, gr 2, ER+RI+, Her2 neg, s/p lumpectomy & SNB, pT1c pN1a, w/maycol deposits showing 2 different types of tumor, ER+RI+, Her2 neg & ER-RI-, Her2 neg. CURRENT TREATMENT DOSE: 18 Gy [...] status documented in this encounter Care Teams Pinion Staker Relationship Specialty Start Date End Date Jenise Huddleston APRN [address] [place] [address] PCP - General Family Medicine 09/11/18 documented as of this encounter
--- OUTSIDE RECORDS SUMMARY | 2024-08-29 13:00 | XMS_ITS | Encounter Summary ---
Author Organization [facility] [place] [address] Care Team Providers Care Pin Puller Name Role Phone Flaquito Jenisechavez Watts APRN Primary Care Provider +1 -[phone] Reason for Referral * Diagnostic Test (Routine) - Closed Specialty Diagnoses / Procedures Referred By Contac t Referred To Contact Radiology Diagnoses Malignant neoplasm of left breast in female, estrogen receptor positive, unspecified site of breast Procedures MRI Breast WWO Contrast Jhonatan Rushing MD [facility] [place] [address] [place] [address] Referral ID Status Reason Start Date Expiration Date V isits Requested Visits Authorized [id number] Closed Specialty Service Requested 10/24/2018 10/24/2019 1 1 Reason for Visit * Diagnostic Test (Routine) - Closed Specialty Diagnoses / Procedures Referred By Contlouisa t Referred To Contact Radiology Diagnoses Malignant neoplasm of left breast in female, estrogen receptor positive, unspecified site of breast Procedures MRI Breast WWO Contrast Jhonatan Rushing MD [facility] [place] [place] [address] [place] [address] Referral ID Status Reason Start Date Expiration Date V isits Requested Visits Authorized [id number] Closed Specialty Service Requested 10/24/2018 10/24/2019 1 1 Encounter Details Date Type Department Care Team (Latest Contact Info) Description 04/30/2019 1:09 PM EDT - 04/30/2019 11:59 PM EDT Hospital Encounter [facility] [place] [address] Jhonatan Gilmore MD [facility] [place] [address] Malignant neoplasm of left breast in female, [...] contrast enhancement curve analysis was performed, using Guver[employer] software. COMPARISON STUDIES: Compared and/or correlated with [...] mLs documented in this encounter Care Teams Pin Puller Relationship Specialty Start Date End Date Jenise Huddleston APRN [address] [place] [address] PCP - General Family Medicine 09/11/18 documented as of this encounter
--- OUTSIDE RECORDS SUMMARY | 2024-08-29 13:00 | XMS_ITS | Encounter Summary ---
Author Organization [facility] Address [facility] [place] [address] Care Team Providers Care Cop Breaker Name Role Phone Jenise Huddleston Stefanie ARMSTRONG Primary Care Provider +1 -[phone] Encounter Details Date Type Department Care Team (Latest Contact Info) Description 10/10/2018 8:42 AM EST Hospital Encounter [place] [address] Jhonatan Gilmore MD [facility] [place] [address] Malignant neoplasm of left female breast, unspecified [...] documented in this encounter Results * Mammo [place] Node Injection (10/10/2018 9:08 AM EST) Anatomical [...] mCi documented in this encounter Care Teams Cop Breaker Relationship Specialty Start Date End Date Jenise Huddleston APRN [address] [place] [address] PCP - General Family Medicine 09/11/18 documented as of this encounter
--- OUTSIDE RECORDS SUMMARY | 2024-08-29 13:00 | XMS_ITS | Encounter Summary ---
Author Organization [facility] [place] [address] Care Team Providers Care Job Site Supervisor Name Role Phone Jenise Huddleston Stefanie ARMSTRONG Primary Care Provider +1 -[phone] Reason for Referral * Diagnostic Test (Routine) - Closed Specialty Diagnoses / Procedures Referred By Petros shah Referred To Contact Radiology Diagnoses Malignant neoplasm of left breast in female, estrogen receptor positive, unspecified site of breast Procedures MRI Breast WWO Contrast Nanda Rushing MD [facility] [place] [address] [place] [address] Referral ID Status Reason Start Date Expiration Date V isits Requested Visits Authorized [id number] Closed Specialty Service Requested 10/24/2018 10/24/2019 1 1 Encounter Details Date Type Department Care Team (Late st Contact Info) Description 10/23/2018 11:00 AM EST Office Visit Hematology [place] [address] Nanda Gaines MD [facility] [place] [address] Malignant neoplasm of left breast [...] left breast: fibroadenoma. She is of Ashkenazi Nondenominational heritage. I encouraged her to have genetic [...] contrast enhancement curve analysis was performed, using Gladitood software. COMPARISON STUDIES: Compared and/or correlated with [...] breast documented in this encounter Care Teams Job Site Supervisor Relationship Specialty Start Date End Date Jenise Huddleston APRN [address] [place] [address] PCP - General Family Medicine 09/11/18 documented as of this encounter
--- OUTSIDE RECORDS SUMMARY | 2024-08-29 13:00 | XMS_ITS | Encounter Summary ---
Author Organization [facility] Address [facility] [place] [address] Care Team Providers Care World Designer Name Role Phone Jenise Huddleston APRN Primary Care Provider +1 -[phone] Encounter Details Date Type Department Care Team (Late st Contact Info) Description 01/03/2019 Notes Only Radiation Oncology at [address] [address] Abbey Renae MD [facility] [place] [address] Social History Tobacco Use Types Packs/Day Years [...] ER+MI+, Her2 neg & ER-MI-, Her2 neg. The course of xrt is [...] on filedocumented in this encounter Care Teams World Designer Relationship Specialty Start Date End Date Jenise Huddleston APRN [address] [place] [address] PCP - General Family Medicine 09/11/18 documented as of this encounter
--- OUTSIDE RECORDS SUMMARY | 2024-08-29 13:00 | XMS_ITS | Encounter Summary ---
Author Organization [facility] Address 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 She completed her radiation therapy and [...] left documented in this encounter Care Teams Gymnasium Teacher Relationship Specialty Start Date End Date Jenise Huddleston APRN [address] [place] [address] PCP - General Family Medicine 09/11/18 documented as of this encounter
--- OUTSIDE RECORDS SUMMARY | 2024-08-29 13:00 | XMS_ITS | Encounter Summary ---
Author Organization [facility] Address [facility] [place] [address] Care Team Providers Care Automotive Teacher Name Role Phone Jenise Huddleston NATHANIEL Primary Care Provider +1 -[phone] Encounter Details Date Type Department Care Team (Late st Contact Info) Description 04/24/2019 1:00 PM EDT Office Visit Hematology/Oncology at [address] [phone] Wilmar Moody MD [facility] DR HEMATOLOGY [place] [address] Malignant neoplasm of breast in female, estrogen [...] 02/19 The patient is seen in the [facility] [...] breast documented in this encounter Care Teams Automotive Teacher Relationship Specialty Start Date End Date Jenise Huddleston APRN [address] [place] [address] PCP - General Family Medicine 09/11/18 documented as of this encounter
--- OUTSIDE RECORDS SUMMARY | 2024-08-29 13:00 | XMS_ITS | Encounter Summary ---
Author Organization [facility] Address [facility] [place] [address] Care Team Providers Care Chief Fundraising Officer Name Role Phone Jenise Huddleston NATHANIEL Primary Care Provider +1 -[phone] Reason for Visit * Reason Comments Follow-up Encounter Details Date Type Department Care Team (Late st Contact Info) Description 04/30/2019 3:00 PM EDT Office Visit [place] [address] Jhonatan Gilmore MD [facility] [address] Malignant neoplasm of left female breast, unspecified [...] breast documented in this encounter Care Teams Chief Fundraising Officer Relationship Specialty Start Date End Date Jenise Huddleston APRN [address] [place] [address] PCP - General Family Medicine 09/11/18 documented as of this encounter
--- OUTSIDE RECORDS SUMMARY | 2024-08-29 13:00 | XMS_ITS | Encounter Summary ---
Author Organization [facility] Address [facility] [place] [address] Care Team Providers Care Scrub Nurse Name Role Phone FlaquitoJenise hinson Stefanie ARMSTRONG Primary Care Provider +1 -[phone] Encounter Details Date Type Department Care Team (Late st Contact Info) Description 08/16/2020 1:30 PM EST Office Visit Hematology/Oncology at [address] [phone] Jacqueline Rose APRN [address] [place] [address] HEMATOLOGY ONCOLOGY [place], [place] [id number] Malignant neoplasm of breast in female, estrogen [...] this encounter Progress Notes * Jacqueline Rose, SAP FICO ARCHITECT - 08/16/2020 1:30 PM EST Subjective: Patient ID: Ursula Urias is a 69 y.o. female. 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 Gilmore ?? The patient is seen in the [place] [...] diagnosed in 09/21 with left breast IDC; ER/NV+; Her2 ryan negative. Ursula had a partial mastectomy followed by radiation completed 01/19. (See history as summarized above.). She declines hormonal therapy and is followed by her ice cream mixer. She uses supplements including curcumin, vitamins C, D, E, green tea leaf extract and probiotics. She returns to the [facility] oncology clinic today for Q3 month follow-up alternating with [facility]. She is also followed by [facility] breast oncology, who manages her mammograms. Ursula reports feeling quite well today. She had been dealing with a Lyme disease diagnosis in March.She reports no recurrence of symptoms. She denies fevers, chills or ongoing joint pain. She remains active, walks a lot, and participates in online [employer]. Ursula is looking forward to cross country skiing this winter. She denies any breast masses or skin changes or breast pain. She does note the areola on her left breast seems to be getting lumber sorter in color. She denies nausea, constipation, diarrhea, shortness of breath or chest pain. No cough. She says her appetite is good, and her partner likes to cook so she eats well. She denies vaginal bleeding or difficulty with urination. She denies any numbness, tingling or extremity swelling. No Known Allergies Current Medications ??? Green Tea Callery Extract (GREEN TEA) Capsule ??? niacin 500 [...] diagnosed in 09/21 with left breast IDC; ER/NV+; Gxy2llg negative. Ursula had a partial mastectomy followed [...] left documented in this encounter Care Teams Scrub Nurse Relationship Specialty Start Date End Date Jenise Huddleston APRN [address] [place] [address] PCP - General Family Medicine 09/11/18 documented as of this encounter
--- OUTSIDE RECORDS SUMMARY | 2024-08-29 13:00 | XMS_ITS | Encounter Summary ---
Author Organization [place] [address] Care Team Providers Care Public Speaking Professor Name Role Phone Jenise Huddleston Stefanie ARMSTRONG Primary Care Provider +1 -[phone] Encounter Details Date Type Department Care Team (Latest Contact Info) Description 11/18/2020 10:10 AM EDT - 11/18/2020 11:59 PM EDT Hospital Encounter Mammography/[place] [address] Jhonatan Gilmore MD [facility] [place] [address] Breast cancer screening by mammogram Discharge Disposition: [...] OIL ORAL oregano oil 04/17/2020 Green Tea [place] Extract Capsule Take 1 capsule by mouth [...] mammogram documented in this encounter Care Teams Public Speaking Professor Relationship Specialty Start Date End Date Jenise Huddleston, INCOMING FREIGHT CLERK [address] [place] [address] PCP - General Family Medicine 09/11/18 documented as of this encounter
--- OUTSIDE RECORDS SUMMARY | 2024-08-29 13:00 | XMS_ITS | Encounter Summary ---
[place] [address] Care Team Providers Care Security Supervisor Name Role Phone Jenise Huddleston NATHANIEL Primary Care Provider +1 -[phone] Reason for Visit * Reason Comments Follow-up Encounter Details Date Type Department Care Team (Late st Contact Info) Description 11/18/2020 11:10 AM EDT Office [place] [address] Viktoriya Patricia APRN [facility] [place] [address] Encounter for follow-up surveillance of breast cancer; [...] care products are available for free at [employer]) and [employer]. documented [...] biopsy revealed invasive ductal carcinoma, intermediate grade, ER/WY strongly positive, Her2 negative. Pathology showed that [...] and is strong and diffusely ER and WY positive, andHER2 negative. Commingling within the same positive lymph nodes is a morphologically distinct metastatic invasive ductal tumor which exhibits ample eosinophilic and vacuolated cytoplasm. This tumor is ER, WY, and HER2 negative. OncotypeDx Recurrence Score - 16; 15% distant recurrence at 10 years. Chemotherapy was not recommended. She completed XRT in [facility] on 01/03/2019. An aromatase inhibitor was recommended, [...] ? Extranodal Extension: ??Present ? Number of [place] Nodes Examined: ??6 pT1c pN1a Comprehensive Breast [...] cancer No Known genetic mutation 02/12/19 - Editoriallyitae's BRCA 1/2 STAT Panel showed No mutations detected. Declined add'l testing. Hx Ashkenazi Baptist heritage Yes Family History Problem (# of [...] situation. Results: Imaging performed (bilateral mammogram) at [facility] today shows no evidence of malignancy, BI-RADS [...] symptoms. Viktoriya Patricia APRN Surgical Oncology P [phone] F [phone] [facility] documented in this encounter Plan of [...] who have questions please contact the health healthcare educator that requested your imaging first. ? Electronically signed by: Akua Rodríguez MD, [facility] ([phone]), at 11/22/2021 10:56 AM Viktoriya Patricia APRN IMG MAMMO ORD ERABLES documented in this encounter Visit Diagnoses Diagnosis Encounter for follow-up surveillance of breast cancer Unspecified follow-up examination Breast cancer metastasized to axillary lymph node, left Breast cancer screening by mammogram Breast cancer metastasized to axillary lymph node, left Breast cancer screening by mammogram documented in this encounter Care Teams Security Supervisor Relationship Specialty Start Date End Date Jenise Huddleston APRN [address] [place] [address] PCP - General Family Medicine 09/11/18 documented as of this encounter
--- OUTSIDE RECORDS SUMMARY | 2024-08-29 13:00 | XMS_ITS | Encounter Summary ---
Author Organization [facility] Address [facility] [place] [address] Care Team Providers Care Field Contractor Name Role Phone Jenise Huddleston NATHANIEL Primary Care Provider +1 -[phone] Encounter Details Date Type Department Care Team (Late st Contact Info) Description 03/04/2019 Orders Only [place] [address] Jhonatan Gilmore MD [facility] [place] [address] Encounter for mammogram to establish baseline mammogram [...] BIRADS CATEGORY 2: BENIGN FINDINGS * ??The [employer] and The Society of [...] mammogram documented in this encounter Care Teams Field Contractor Relationship Specialty Start Date End Date Jenise Huddleston, WHARF HELPER [address] [place] [address] PCP - General Family Medicine 09/11/18 documented as of this encounter
--- OUTSIDE RECORDS SUMMARY | 2024-08-29 13:00 | XMS_ITS | Encounter Summary ---
Author Organization [facility] Address [facility] [place] [address] Care Team Providers Care Freight Engineer Name Role Phone Jenise Huddleston NATHANIEL Primary Care Provider +1 -[phone] Encounter Details Date Type Department Care Team (Late st Contact Info) Description 11/14/2018 1:00 PM EDT Office Visit Hematology/Oncology at [address] [phone] Wilmar Moody MD [facility] DR HEMATOLOGY [place] [address] Malignant neoplasm of left breast in female, [...] in this encounter Progress Notes * Katarzyna Vega, RN - 11/14/2018 1:00 PM EDT MEDICAL [...] in the [facility]. She is referred by Dr. Frazier. She had an evaluation down at [place]. Her Oncotype score returned at 16 so [...] was excellent. Soc Hx/Fam Hx: Lives in [facility]. Ashkenazi Zoroastrianism ancestry Family History Problem Relation Age of [...] was angiolymphatic invasion as well. ER and ND were strongly expressed; HER2 negative. OncotypeDx Recurrence [...] breast documented in this encounter Care Teams Freight Engineer Relationship Specialty Start Date End Date Jenise Huddleston APRN [address] [place] [address] PCP - General Family Medicine 09/11/18 documented as of this encounter
--- OUTSIDE RECORDS SUMMARY | 2024-08-29 13:00 | XMS_ITS | Encounter Summary ---
Author Organization [facility] Address [facility] [place] [address] Care Team Providers Care Chemical Technician Name Role Phone Jenise Huddleston NATHANIEL Primary Care Provider +1 -[phone] Reason for Visit * Reason Comments On Treatment Visit Encounter Details Date Type Department Care Team (Late st Contact Info) Description 12/17/2018 1:00 PM EDT Office Visit Radiation Oncology at [address] [phone] Abbey Renae MD [facility] [place] [address] Malignant neoplasm of central portion of left [...] DIAGNOSIS: Breast ca, L, IDC, gr 2, ER+NJ+, Her2 neg, s/p lumpectomy & SNB, pT1c pN1a, w/maycol deposits showing 2 different types of tumor, ER+NJ+, Her2 neg & ER-NJ-, Her2 neg. CURRENT TREATMENT DOSE: 34.2 Gy [...] For details, see electronic film record in [employer] System. Changes in Medical Condition: Seeing Dr. 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 Conts fu w/her emergency response coordinator, Dr. Farnaz Levy, [place] this wk. Wants fu studies other than [...] status documented in this encounter Care Teams Chemical Technician Relationship Specialty Start Date End Date Jenise Huddleston APRN [address] [place] [address] PCP - General Family Medicine 09/11/18 documented as of this encounter
--- OUTSIDE RECORDS SUMMARY | 2024-08-29 13:00 | XMS_ITS | Encounter Summary ---
Author Organization [facility] Address [facility] [place] [address] Care Team Providers Care Glass Belt Sander Name Role Phone Jenise Huddleston NATHANIEL Primary Care Provider +1 -[phone] Reason for Visit * Reason Comments Radiation Follow-up Encounter Details Date Type Department Care Team (Late st Contact Info) Description 03/10/2019 2:00 PM EDT Office Visit Radiation Oncology at [address] [phone] Abbey Renae MD [facility] [place] [address] Malignant neoplasm of central portion of left [...] for breast ca, L, IDC, gr 2, ER+MN+, Her2 neg, s/p lumpectomy & SNB, pT1c pN1a, w/maycol deposits showing 2 different types of tumor, ER+MN+, Her2 neg & ER-MN-, Her2 neg. 01/23/[address] Moody [...] Us Biopsy Left 09/05/2018 Zoltan Baldwin MD [facility] MAMMOGRAPHY ??? MAMMO US NEEDLE LOCALIZATION LEFT Left 10/10/2018 Mammo US Needle Localization Left 10/10/2018 Christina Torre MD [facility] MAMMOGRAPHY ??? MRI BREAST BIOPSY VACUUM ASSIST LEFT Left 09/18/2018 MRI Breast Biopsy Vacuum Assist Left 09/18/2018 [facility] MRI ??? PRO BX/REMV, LYMPH NODE, DEEP AXILL Left 10/10/2018 BIOPSY OR EXCISION OF LYMPH NODE(S), OPEN, DEEP AXILLARY NODE(S) (WRVU 6.43) performed by Jhonatan Gilmore MD at [facility] OR ??? PRO INTRAOP SENTINEL LYMPH ID W/DYE INJECTION Left 10/10/2018 INTRAOPERATIVE ID (MAPPING) SENTINEL LYMPH NODE,INCLUDES INJECTION (WRVU 2.5) performed by Jhonatan Gilmore MD at [facility] OR ??? PRO MASTECTOMY, PARTIAL Left 10/10/2018 MASTECTOMY PARTIAL (WRVU 10.13) performed by Jhonatan Gilmore MD at [facility] OR Ectopic pregnancies. Your Medications [...] status documented in this encounter Care Teams Glass Belt Sander Relationship Specialty Start Date End Date Jenise Huddleston APRN [address] [place] [address] PCP - General Family Medicine 09/11/18 documented as of this encounter
--- OUTSIDE RECORDS SUMMARY | 2024-08-29 13:00 | XMS_ITS | Encounter Summary ---
Author Organization [facility] Address [facility] [place] [address] Care Team Providers Care Customs Inspector Name Role Phone FlaquitoJenise hinson Stefanie ARMSTRONG Primary Care Provider +1 -[phone] Reason for Visit * Consultation (Routine) - Closed Specialty Diagnoses / Procedures Referred By Petros t Referred To Contact Hematology and Oncology Diagnoses Malignant neoplasm of central portion of left female breast, unspecified estrogen receptor status Abbey Renae MD [facility] [place] [address] [facility] Hem Onc Office [address] [place] [phone] Referral ID Status Reason Start Date Expiration Date V isits Requested Visits Authorized [id number] Closed Continuity of Care 11/13/2018 11/13/2019 1 1 Encounter Details Date Type Department Care Team (Latest Contact Info) Description 12/09/2018 9:30 AM EDT Clinical Support Hematology/Oncology at [address] [address] [facility] [place] [address] Breast cancer metastasized to axillary lymph node, [...] Arreola RD - 12/09/2018 9:30 AM EDT [facility] Initial Dietitian Assessment Seen By: Thalia Arreola MS, RD, HYDRAULIC BARKER OPERATOR, LD Referred by: Dr. Moody Reason for [...] n/a Social Support: daughter who live in [facility] and many friends to support her. She would like to travel to [place] in February for her sister's memorial. 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 She has Medicare and [employer] for insurance. Physical Activity: n/a Level of Motivation/Readiness to Change: Nutrition Diagnosis: Met with Ursula after radiation. She is working with Farnaz Levy ND of [facility] in [place]. She is currently reading and following The [...] provided her with contact information of the Acetylene Cylinder Packing Mixer to offer a formal complaint. Nutrition Intervention: [...] left documented in this encounter Care Teams Customs Inspector Relationship Specialty Start Date End Date Jenise Huddleston, NATHANIEL [address] [place] [address] PCP - General Family Medicine 09/11/18 documented as of this encounter
--- OUTSIDE RECORDS SUMMARY | 2024-08-29 13:00 | XMS_ITS | Encounter Summary ---
Author Organization [facility] Address [facility] [place] [address] Care Team Providers Care Back Hoe Machine Operator Name Role Phone Jenise Huddleston APRN Primary Care Provider +1 [phone] Reason for Visit * Reason Comments Genetic Evaluation * Consultation (Routine) - Closed Specialty Diagnoses / Procedures Referred By Petros shah Referred To Contact Hematology and Oncology Diagnoses Breast cancer metastasized to axillary lymph node, left Family history of breast cancer Brian Frazier MD [facility] DR HEMATOLOGY/[place] [address] St Hem Onc Office [address] [place] [phone] Referral ID Status Reason Start Date Expiration Date V isits Requested Visits Authorized [id number] Closed Consult, Test & Treat 10/25/2018 10/25/2019 1 1 Encounter Details Date Type Department Care Team (Late st Contact Info) Description 02/12/2019 3:00 PM EDT TH Visit (TeleHealth) [place] [address] Peace Bazan, [facility] Family history of malignant neoplasm of breast; [...] Urias was seen by Yuliana Bazan MS [facility] in consultation at the request of Dr. [...] of breast cancer, as well as Ashkenazi Yazdanism ancestry. Medical history Cancer hx and treatment: Ursula was recently diagnosed with invasive ductal carcinoma of the left breast at age 68. Her tumor was ER+/NV+/Her2-. She underwent a partial mastectomy, followed by [...] Both sides of the family are Ashkenzi Yazdanism. Genetic risk assessment Panel genetic testing for [...] genetic testing. Ursula opted for testing with [employer]'s BRCA1 and BRCA2 STAT Panel, a next generation sequencingpanel that simultaneously analyzes the BRCA1 and BRCA2 genes. Ursula declined additional genetic testing. She was consented. Her blood sample was drawn and sent to [facility]. Testing will take approximately 3 weeks. Ursula [...] breast documented in this encounter Care Teams Back Hoe Machine Operator Relationship Specialty Start Date End Date Jenise Huddleston APRN [address] [place] [address] PCP - General Family Medicine 09/11/18 documented as of this encounter
--- OUTSIDE RECORDS SUMMARY | 2024-08-29 13:00 | XMS_ITS | Encounter Summary ---
Author Organization [facility] Address [facility] [place] [address] Care Team Providers Care Custodian Blood Bank Name Role Phone Jenise Huddleston Stefanie ARMSTRONG Primary Care Provider +1 [phone] Encounter Details Date Type Department Care Team (Latest Contact Info) Description 04/30/2019 11:21 AM EDT - 04/30/2019 1:08 PM EDT Hospital Encounter Mammography/[place] [address] Jhonatan Gilmore MD [facility] [place] [address] Encounter for mammogram to establish baseline mammogram [...] BIRADS CATEGORY 2: BENIGN FINDINGS * ??[employer] and The Society of [...] mammogram documented in this encounter Care Teams Custodian Blood Bank Relationship Specialty Start Date End Date Jenise Huddleston, WEBLOGIC DEVELOPER [address] [place] [address] PCP - General Family Medicine 09/11/18 documented as of this encounter
--- OUTSIDE RECORDS SUMMARY | 2024-08-29 13:00 | XMS_ITS | Encounter Summary ---
Author Organization [facility] Address [facility] [place] [address] Care Team Providers Care Ampoule Sealer Name Role Phone Flaquito Jenisechavez Watts APRN Primary Care Provider +1 [phone] Reason for Referral * Consultation (Routine) - Closed Specialty Diagnoses / Procedures Referred By Contac t Referred To Contact Hematology and Oncology Diagnoses Malignant neoplasm of central portion of left female breast, unspecified estrogen receptor status Abbey Renae MD [facility] [place] [address] [facility] Hem Onc Office [address] [place] [phone] Referral ID Status Reason Start Date Expiration Date V isits Requested Visits Authorized [id number] Closed Continuity of Care 11/13/2018 11/13/2019 1 1 * Consultation (Routine) - Closed Specialty Diagnoses / Procedures Referred By Contac t Referred To Contact Diagnoses Malignant neoplasm of central portion of left female breast, unspecified estrogen receptor status Abbey Renae MD [facility] [place] [address] [facility] [address] [place] [phone] Referral ID Status Reason Start Date Expiration Date V isits Requested Visits Authorized [id number] Closed Consult, Test & Treat 11/13/2018 11/13/2019 1 1 * Consultation (Routine) - Closed Specialty Diagnoses / Procedures Referred By Contac t Referred To Contact Radiation Oncology Diagnoses Malignant neoplasm of central portion of left female breast, unspecified estrogen receptor status Procedures Simulation for Radiation Therapy Planning Abbey Renae MD [facility] RADIATION ONCOLOG[place] [id number] [facility] Rad Onc Office [address] [place] [phone] Referral ID Status Reason Start Date Expiration Date V isits Requested Visits Authorized [id number] Closed Consult, Test & Treat 11/13/2018 11/13/2019 1 1 Reason for Visit * Reason Comments Radiation Consult * Consultation (Routine) - Closed Specialty Diagnoses / Procedures Referred By Contac t Referred To Contact Radiation Oncology Diagnoses Breast cancer Jhonatan Gilmore MD [facility] [place] [address] Abbey Renae MD [facility] [place] [address] Referral ID Status Reason Start Date Expiration Date Visits Re quested Visits Authorized [id number] Closed 09/23/2018 09/23/2019 1 1 Encounter Details Date Type Department Care Team (Late st Contact Info) Description 11/13/2018 9:00 AM EDT Office Visit Radiation Oncology at [address] [address] Abbey Renae MD [facility] [place] [address] Malignant neoplasm of central portion of left [...] alone. Barriers to treatment: Has trip to [place] planned for late December-early January to [place] to attend her sisters [facility] service. Referrals/Interventions: SURGERY TEACHER per routine. RADIATION SPECIFIC TEACHING: [facility] Radiation [...] L breast mass @ 6:00. Path: IDC, ER+SC+, Her2 neg. 09/11/[address] Gilmore [...] & is strong & diffusely ER & SC positive, & Her2 neg. Commingling w/in same positive lymph node is a morphologically distinct met invasive ductal tumor which exhibits ample eosinophilic & vacuolated cytoplasm; this tumor is ER, SC & Her2 neg. On close exam, the [...] Us Biopsy Left 09/05/2018 Zoltan Baldwin MD [facility] RAD MAMMOGRAPHY ??? MAMMO US NEEDLE LOCALIZATION LEFT Left 10/10/2018 Mammo US Needle Localization Left 10/10/2018 Christina Torre MD [facility] RAD MAMMOGRAPHY ??? MRI BREAST BIOPSY VACUUM ASSIST LEFT Left 09/18/2018 MRI Breast Biopsy Vacuum Assist Left 09/18/2018 [facility] RAD MRI ??? PRO BX/REMV, LYMPH NODE, DEEP AXILL Left 10/10/2018 BIOPSY OR EXCISION OF LYMPH NODE(S), OPEN, DEEP AXILLARY NODE(S) (WRVU 6.43) performed by Jhonatan Gilmore MD at [facility] MAIN OR ??? PRO INTRAOP SENTINEL LYMPH ID W/DYE INJECTION Left 10/10/2018 INTRAOPERATIVE ID (MAPPING) SENTINEL LYMPH NODE,INCLUDES INJECTION (WRVU 2.5) performed by Jhonatan Gilmore MD at [facility] MAIN OR ??? PRO MASTECTOMY, PARTIAL Left 10/10/2018 MASTECTOMY PARTIAL (WRVU 10.13) performed by Jhonatan Gilmore MD at [facility] MAIN OR Ectopic pregnancies Your [...] A: Breast ca, L, IDC, gr 2, ER+SC+ Her2 neg, s/p lumpectomy & SNB, pT1c pN1a, w/maycol deposits showing 2 different types of tumor, ER+SC+ Her2 neg & ER-SC- Her2 neg. P: Xrt to L supraclav, [...] extremity turns pink or starts to swell. Late/snf side effects of xrt discussed include: Treated [...] CTsim today. She has been seeing a commercial lawn specialist & receives HBO through the commercial lawn specialist. I recommended that she not undergo any more HBO until after xrt completion & that she discuss with Dr. Moody (appt 11/14/18) whether he thinks it would be ok for her to undergo HBO after xrt completion. I also recommended that she see the HBO specialist, Dr. Mcbride, @ [facility], for consultation as to whether he [...] status documented in this encounter Care Teams Ampoule Sealer Relationship Specialty Start Date End Date Jenise Huddleston APRN [address] [place] [address] PCP - General Family Medicine 09/11/18 documented as of this encounter
--- OUTSIDE RECORDS SUMMARY | 2024-08-29 13:00 | XMS_ITS | Encounter Summary ---
Author Organization [facility] Address [facility] [place] [address] Care Team Providers Care Clinical Nurse Specialist Name Role Phone Jenise Huddleston NATHANIEL Primary Care Provider +1 [phone] Reason for Visit * Reason Comments Radiation Follow-up Encounter Details Date Type Department Care Team (Late st Contact Info) Description 11/10/2019 4:30 PM EDT Office Visit Radiation Oncology at [address] [phone] Abbey Renae MD [facility] [place] [address] Malignant neoplasm of central portion of left [...] months with me or a Radiation Oncology resistor tester. documented in this encounter Progress Notes * Abbey Renae MD - 11/10/2019 4:30 PM EDT Images from the original note were not included. CC: Sched'd fu s/p xrt completion. HPI: 68 y/o f who completed xrt to L breast 10 mos ago (01/03/19) for breast ca, L, IDC, gr 2, ER+MT+, Her2 neg, s/p lumpectomy & SNB, pT1c pN1a, w/maycol deposits showing 2 different types of tumor, ER+MT+, Her2 neg & ER-MT-, Her2 neg. 01/23/[address] Moody [...] Us Biopsy Left 09/05/2018 Zoltan Baldwin MD [facility] RAD MAMMOGRAPHY ??? MAMMO US NEEDLE LOCALIZATION LEFT Left 10/10/2018 Mammo US Needle Localization Left 10/10/2018 Christina Torre MD [facility] RAD MAMMOGRAPHY ??? MRI GUIDED BIOPSY BREAST VACUUM ASSISTED LEFT Left 09/18/2018 MRI Breast Biopsy Vacuum Assist Left 09/18/2018 [facility] RAD MRI ??? PRO BX/REMV, LYMPH NODE, DEEP AXILL Left 10/10/2018 BIOPSY OR EXCISION OF LYMPH NODE(S), OPEN, DEEP AXILLARY NODE(S) (WRVU 6.43) performed by Jhonatan Gilmore MD at [facility] MAIN OR ??? PRO INTRAOP SENTINEL LYMPH ID W/DYE INJECTION Left 10/10/2018 INTRAOPERATIVE ID (MAPPING) SENTINEL LYMPH NODE,INCLUDES INJECTION (WRVU 2.5) performed by Jhonatan Gilmore MD at [facility] MAIN OR ??? PRO MASTECTOMY, PARTIAL Left 10/10/2018 MASTECTOMY PARTIAL (WRVU 10.13) performed by Jhonatan Gilmore MD at [facility] MAIN OR Ectopic pregnancies. Your Medications [...] by mouth daily. Generic drug: Green Tea [place] Extract 1 capsule Refills: 0 MAGNESIUM CITRATE [...] status documented in this encounter Care Teams Clinical Nurse Specialist Relationship Specialty Start Date End Date Jenise Huddlestno APRN [address] [place] [address] PCP - General Family Medicine 09/11/18 documented as of this encounter
--- OUTSIDE RECORDS SUMMARY | 2024-08-29 13:00 | XMS_ITS | Encounter Summary ---
Author Organization [place] [address] Care Team Providers Care Mortgage Closer Name Role Phone Jenise Huddleston APRN Primary Care Provider +1 [phone] Encounter Details Date Type Department Care Team (Late st Contact Info) Description 11/05/2018 External Results [place] [phone] Provider, Scanning Social History Tobacco Use Types [...] on filedocumented in this encounter Care Teams Mortgage Closer Relationship Specialty Start Date End Date Jenise Huddleston APRN [address] [place] [address] PCP - General Family Medicine 09/11/18 documented as of this encounter
--- OUTSIDE RECORDS SUMMARY | 2024-08-29 13:00 | XMS_ITS | Encounter Summary ---
Author Organization [facility] [place] [address] Care Team Providers Care Drug Counselor Name Role Phone Jenise Huddleston APRN Primary Care Provider +1 -[phone] Encounter Details Date Type Department Care Team (Late st Contact Info) Description 03/04/2019 Abstract [place] [address] Bina Russell Social History Tobacco Use Types [...] on filedocumented in this encounter Care Teams Drug Counselor Relationship Specialty Start Date End Date Jenise Huddleston APRN [address] [place] [address] PCP - General Family Medicine 09/11/18 documented as of this encounter
--- OUTSIDE RECORDS SUMMARY | 2024-08-29 13:00 | XMS_ITS | Encounter Summary ---
Author Organization [facility] Address [facility] [place] [address] Care Team Providers Care Culinary Intern Name Role Phone Jenise Huddleston NATHANIEL Primary Care Provider +1 [phone] Reason for Visit * Reason Comments Radiation Follow-up Encounter Details Date Type Department Care Team (Late st Contact Info) Description 05/17/2020 4:30 PM EDT Office Visit Radiation Oncology at [address] [phone] Abbey Renae MD [facility] [place] [address] Malignant neoplasm of central portion of left [...] Us Biopsy Left 09/05/2018 Zoltan Baldwin MD [facility] RAD MAMMOGRAPHY ??? MAMMO US NEEDLE LOCALIZATION LEFT Left 10/10/2018 Mammo US Needle Localization Left 10/10/2018 Christina Torre MD [facility] RAD MAMMOGRAPHY ??? MRI GUIDED BIOPSY BREAST VACUUM ASSISTED LEFT Left 09/18/2018 MRI Breast Biopsy Vacuum Assist Left 09/18/2018 [facility] RAD MRI ??? PRO BX/REMV, LYMPH NODE, DEEP AXILL Left 10/10/2018 BIOPSY OR EXCISION OF LYMPH NODE(S), OPEN, DEEP AXILLARY NODE(S) (WRVU 6.43) performed by Jhonatan Gilmore MD at [facility] MAIN OR ??? PRO INTRAOP SENTINEL LYMPH ID W/DYE INJECTION Left 10/10/2018 INTRAOPERATIVE ID (MAPPING) SENTINEL LYMPH NODE,INCLUDES INJECTION (WRVU 2.5) performed by Jhonatan Gilmore MD at [facility] MAIN OR ??? PRO MASTECTOMY PARTIAL Left 10/10/2018 MASTECTOMY PARTIAL (WRVU 10.13) performed by Jhonatan Gilmore MD at [facility] MAIN OR Ectopic pregnancies. Your Medications [...] by mouth daily. Generic drug: Green Tea [place] Extract 1 capsule Refills: 0 MAGNESIUM CITRATE [...] status documented in this encounter Care Teams Culinary Intern Relationship Specialty Start Date End Date Jenise Huddleston APRN [address] [place] [address] PCP - General Family Medicine 09/11/18 documented as of this encounter
--- OUTSIDE RECORDS SUMMARY | 2024-08-29 13:00 | XMS_ITS | Encounter Summary ---
Author Organization [facility] Address [facility] [place] [address] Care Team Providers Care Vocational Childcare Teacher Name Role Phone Jenise Huddleston Stefanie ARMSTRONG Primary Care Provider +1 [phone] Encounter Details Date Type Department Care Team (Latest Contact Info) Description 10/10/2018 8:42 AM EST Hospital [place] [address] Jhonatan Gilmore MD [facility] [place] [address] Malignant neoplasm of left female breast, unspecified [...] below. ? Electronically signed by: Akua Rodríguez [facility] ([phone]), at 10/10/2018 1:29 PM Narrative 10/10/2018 1:29 [...] breast documented in this encounter Care Teams Vocational Childcare Teacher Relationship Specialty Start Date End Date Jenise Huddleston APRN [address] [place] [address] PCP - General Family Medicine 09/11/18 documented as of this encounter
--- OUTSIDE RECORDS SUMMARY | 2024-08-29 13:00 | XMS_ITS | Encounter Summary ---
Author Organization [facility] Address [facility] [place] [address] Care Team Providers Care Vice President Quality Improvement Name Role Phone Flaquito Jenisechavez Watts APRN Primary Care Provider +1 -[phone] Reason for Visit * Consultation (Routine) - Closed Specialty Diagnoses / Procedures Referred By Petros shah Referred To Contact Radiation Oncology Diagnoses Malignant neoplasm of central portion of left female breast, unspecified estrogen receptor status Procedures Simulation for Radiation Therapy Planning Abbey Renae MD [facility] [place] [address] [facility] Rad Onc Office [address] [place] [phone] Referral ID Status Reason Start Date Expiration Date V isits Requested Visits Authorized [id number] Closed Consult, Test & Treat 11/13/2018 11/13/2019 1 1 Encounter Details Date Type Department Care Team (Latest Contact Info) Description 11/13/2018 10:00 AM EDT Ancillary Appointment Radiation Oncology at [address] [address] Abbey Renae MD [facility] [place] [address] Malignant neoplasm of central portion of left [...] your treatment to your nurse or doctor. [facility] Radiation Oncology Our normal business hours are: Sunday - Sunday 8 AM to 5 PM [place], [place], [place] For emergent situations after hours please call for either location and ask for the Radiation Oncologist garage construction equipment mechanic. documented in this encounter Progress Notes * [...] Patient does have a trip planned to [place] late December -early January for her sister's [facility] service. Patient confirms they can have no difficulties lying flat. pre- medication plan made: None needed. Referrals: CHARGING MACHINE OPERATOR per routine * Abbey Renae MD - [...] status documented in this encounter Care Teams Vice President Quality Improvement Relationship Specialty Start Date End Date Jenise Huddleston, CAR REPAIRER APPRENTICE [address] [place] [address] PCP - General Family Medicine 09/11/18 documented as of this encounter
--- OUTSIDE RECORDS SUMMARY | 2024-08-29 13:00 | XMS_ITS | Encounter Summary ---
Author Organization [facility] Address [facility] [place] [address] Care Team Providers Care Electrical Worker Name Role Phone Jenise Huddleston NATHANIEL Primary Care Provider +1 -[phone] Encounter Details Date Type Department Care Team (Late st Contact Info) Description 11/19/2019 Orders [place] [address] Jhonatan Gilmore MD [facility] [place] [address] Breast cancer screening by mammogram (Primary Dx) [...] mammogram documented in this encounter Care Teams Electrical Worker Relationship Specialty Start Date End Date Jenise Huddleston APRN [address] [place] [address] PCP - General Family Medicine 09/11/18 documented as of this encounter
--- OUTSIDE RECORDS SUMMARY | 2024-08-29 13:00 | XMS_ITS | Encounter Summary ---
Author Organization [facility] [place] [address] Care Team Providers Care Barrel Tester And Drainer Name Role Phone Jenise Huddleston APRN Primary Care Provider +1 [phone] Encounter Details Date Type Department Care Team (Late st Contact Info) Description 02/24/2019 Telephone [place]ematology [place] [address] Peace Bazan LGC Social History Tobacco Use Types Packs/Day Years [...] is provided below. Please be advised that [place] law requires that allhealth care workers respect the confidentiality of this information and not pass it along to other health care providers, insurance companies, or individuals without the written permission of the patient. The Familial Cancer Program welcomes any questions about these matters. Our phone number is: [phone]. On February 12, 2019, Ursula underwent genetic [...] test result does not necessarily mean that Albertos cancer was sporadic (i.e. not attributable to [...] screening studies in addition to an annual FELT HAT INSPECTOR AND PACKER exam at this time. Other cancer screening ?? Periodic colonoscopy screening as recommended by Ursula's credit support specialist. ?? Periodic dermatologic/skin exams documented in this encounter Plan of Treatment Not on file documented as of this encounter Visit Diagnoses Not on filedocumented in this encounter Care Teams Barrel Tester And Drainer Relationship Specialty Start Date End Date Jenise Huddleston APRN [address] [place] [address] PCP - General Family Medicine 09/11/18 documented as of this encounter
--- OUTSIDE RECORDS SUMMARY | 2024-08-29 13:00 | XMS_ITS | Encounter Summary ---
Author Organization [facility] Address [facility] [place] [place] [address] Care Team Providers Care Passenger Service Manager Name Role Phone Jenise Huddleston NATHANIEL Primary Care Provider +1 -[phone] Encounter Details Date Type Department Care Team (Late st Contact Info) Description 11/13/2018 Notes Only Radiation Oncology at [address] [address] Jacklyn Dale MSW OFFICE OF CARE MANAGEMENT [...] Pt has a daughter who live in [facility]. She reports she has many friends who have offered to assist her. Living Situation/Daily Activities/Transportation: Pt reports she manages her daily chores and activities. She lives about 15 minutes from this facility. She does not expect any problems with transportation. 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 She is trying to make plans and is waiting for her treatment schedule so she can book her flights. The memorial has been planned for some time. Identified Needs: Pt did not identify ele specific needs at this time. Referrals: None at this time. Plan: Informed pt of [facility] availability and will follow for support and resources. documented in this encounter Plan of Treatment Not on file documented as of this encounter Visit Diagnoses Not on filedocumented in this encounter Care Teams Passenger Service Manager Relationship Specialty Start Date End Date Jenise Huddleston APRN [address] [place] [address] PCP - General Family Medicine 09/11/18 documented as of this encounter
--- OUTSIDE RECORDS SUMMARY | 2024-08-29 13:00 | XMS_ITS | Encounter Summary ---
Author Organization [facility] [place] [address] Care Team Providers Care Gauge And Weigh Machine Operator Name Role Phone Jenise Huddleston APRN Primary Care Provider +1 -[phone] Encounter Details Date Type Department Care Team (Late st Contact Info) Description 11/19/2018 Telephone Hematology [place] [phone] Lynnette Landers Social History Tobacco Use Types [...] on filedocumented in this encounter Care Teams Gauge And Weigh Machine Operator Relationship Specialty Start Date End Date Jenise Huddleston APRN [address] [place] [address] PCP - General Family Medicine 09/11/18 documented as of this encounter
--- OUTSIDE RECORDS SUMMARY | 2024-08-29 13:00 | XMS_ITS | Encounter Summary ---
Author Organization [facility] Address [facility] [place] [address] Care Team Providers Care Enterprise Data Architect Name Role Phone Jenise Huddleston NATHANIEL Primary Care Provider +1 [phone] Encounter Details Date Type Department Care Team (Latest Contact Info) Description 10/10/2018 8:43 AM EST - 10/10/2018 9:25 AM EST Hospital En[place] [address] Jhonatan Gilmore MD [facility] [place] [address] [place] [address] Malignant neoplasm of left female breast, unspecified [...] residents interpretation and agree with the findings, Chirstina Torre at 10/10/2018 9:35 AM Thank you for letting us participate in the care of this patient. For questions regarding this report, please contact the number below. ? Electronically signed by: Christina Torre [facility] ([phone]), at 10/10/2018 9:35 AM Narrative 10/10/2018 9:35 [...] approach with ultrasound guidance. A 5 cm [employer] Bard needle was used. After the needle [...] mg documented in this encounter Care Teams Enterprise Data Architect Relationship Specialty Start Date End Date Jenise Huddleston APRN [address] [place] [address] PCP - General Family Medicine 09/11/18 documented as of this encounter
--- OUTSIDE RECORDS SUMMARY | 2024-08-29 13:00 | XMS_ITS | Encounter Summary ---
Author Organization [place] [address] Care Team Providers Care Needle Grader Name Role Phone Jenise Huddleston APRN Primary Care Provider +1 -[phone] Encounter Details Date Type Department Care Team (Late st Contact Info) Description 02/06/2019 Notes Only [place]ology [place] [address] Brian Frazier MD Social History Tobacco Use Types Packs/Day Years [...] on filedocumented in this encounter Care Teams Needle Grader Relationship Specialty Start Date End Date Jenise Huddleston APRN [address] [place], [place] [address] PCP - General Family Medicine 09/11/18 documented as of this encounter
--- OUTSIDE RECORDS SUMMARY | 2024-08-29 13:00 | XMS_ITS | Encounter Summary ---
Author Organization [facility] Address [facility] [place] [address] Care Team Providers Care Steward/Stewardess Night Name Role Phone Jenise Huddleston Stefanie ARMSTRONG Primary Care Provider +1 -[phone] Encounter Details Date Type Department Care Team (Latest Contact Info) Description 11/19/2019 10:18 AM EDT - 11/19/2019 11:59 PM EDT Hospital Encounter Mammography/[place] [address] Jhonatan Gilmore MD [facility] [place] [address] Malignant neoplasm of left female breast, unspecified [...] Refills Start Date End Date Green Tea [place] Extract Capsule Take 1 capsule by mouth [...] Electronically signed by: Akua Rodríguez [facility] ([phone]), at 11/19/2019 11:06 AM Jhonatan Gilmore MD IMG MAMMO ORDERABLES documented in this encounter Visit Diagnoses Diagnosis Malignant neoplasm of left female breast, unspecified estrogen receptor status, unspecified site of breast documented in this encounter Care Teams Steward/Stewardess Night Relationship Specialty Start Date End Date Jenise Huddleston APRN [address] [place] [address] PCP - General Family Medicine 09/11/18 documented as of this encounter
--- OUTSIDE RECORDS SUMMARY | 2024-08-29 13:00 | XMS_ITS | Encounter Summary ---
Author Organization [facility] Address [facility] [place] [address] Care Team Providers Care Heating And Refrigeration Inspector Name Role Phone Jenise Huddleston NATHANIEL Primary Care Provider +1 [phone] Reason for Visit * Reason Comments On Treatment Visit Encounter Details Date Type Department Care Team (Late st Contact Info) Description 12/25/2018 8:30 AM EDT Office Visit Radiation Oncology at [address] [phone] Abbey Renae MD [facility] [place] [address] Malignant neoplasm of central portion of left [...] DIAGNOSIS: Breast ca, L, IDC, gr 2, ER+MN+, Her2 neg, s/p lumpectomy & SNB, pT1c pN1a, w/maycol deposits showing 2 different types of tumor, ER+MN+, Her2 neg & ER-MN-, Her2 neg. CURRENT TREATMENT DOSE: 45 Gy [...] For details, see electronic film record in [employer] System. Changes in Medical Condition: Seen by Dr. Steve yesterday & told lesion on medial L breast benign seborrheic keratosis. Conts fu w/her outside rigger, Dr. Farnaz Levy, [place] this wk. Wants fu studies other than [...] status documented in this encounter Care Teams Heating And Refrigeration Inspector Relationship Specialty Start Date End Date Jenise Huddleston APRN [address] [place] [address] PCP - General Family Medicine 09/11/18 documented as of this encounter
--- OUTSIDE RECORDS SUMMARY | 2024-08-29 13:00 | XMS_ITS | Encounter Summary ---
Author Organization [facility] [place] [address] Care Team Providers Care Automotive Consultant Name Role Phone Flaquito Jenisechavez Watts APRN Primary Care Provider +1 -[phone] Reason for Referral * Consultation (Routine) - Closed Specialty Diagnoses / Procedures Referred By Petros shah Referred To Contact Hematology and Oncology Diagnoses Breast cancer metastasized to axillary lymph node, left Family history of breast cancer Brian rFazier MD [facility] DR HEMATOLOGY/[place] [address] [facility] Hem Onc Office [address] [place] [id number] Referral ID Status Reason Start Date Expiration Date V isits Requested Visits Authorized [id number] Closed Consult, Test & Treat 10/25/2018 10/25/2019 1 1 Reason for Visit * Reason Comments Schedule Office Case Encounter Details Date Type Department Care Team (Late st Contact Info) Description 10/23/2018 10:00 AM EST Office Visit Hematology [place] [phone] Brian Frazier MD Maynard, Kimberly J, RN Breast cancer metastasized to axillary lymph [...] cancer cells with immunostaining) Stain intensity: Strong WA immunoreactivity: Positive (>90% cancer cells with immunostaining) [...] ? Extranodal Extension: ??Present ? Number of Merrillan Nodes Examined: ??6 pT1c pN1a DISCUSSION A [...] and is strong and diffusely ER and WA positive, and HER2 negative (IHC score 1+, HER2 FISH pending). 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 This tumor is ER, WA, and HER2 negative(IHC score 0, HER2 FISH [...] No h/o thromboembolic events. Last DEXA in [facility]: told it was excellent. Soc Hx/Fam Hx: Lives in [facility]. Ashkenazi Christianity ancestry Family History Problem Relation Age of [...] was angiolymphatic invasion as well. ER and WA were strongly expressed; HER2 negative. She has an appointment with XRT/Dr. Renae in [facility] on 11/11. Wants her care to [...] I will call her with the result ([phone]). Note: She has travel plans to [place] in January. ADDENDUM: OncotypeDx Recurrence Score = 16 (in intermediate range where adjuvant chemo not required/recommended). I left message on patient's answered machine with this info. documented in this [...] documented in this encounter Care Teams Automotive Consultant Relationship Specialty Start Date End Date Jenise Huddleston APRN [address] [place] [address] PCP - General Family Medicine 09/11/18 documented as of this encounter
--- OUTSIDE RECORDS SUMMARY | 2024-08-29 13:00 | XMS_ITS | Encounter Summary ---
Author Organization [facility] Address [facility] [place] [address] Care Team Providers Care Communications Planner Name Role Phone Jenise Huddleston NATHANIEL Primary Care Provider +1 [phone] Encounter Details Date Type Department Care Team (Late st Contact Info) Description 11/19/2019 11:30 AM EDT Office Visit Hematology [place] [address] Jhonatan Gilmore MD [facility] [place] [address] Malignant neoplasm of breast in female, estrogen [...] Gilmore MD - 11/19/2019 11:30 AM EDT Ursula Urias is a 68-year-old woman [...] will schedule her to see our Breast MEASUREMENT COORDINATOR in 1 year with a bilateral mammogram. documented in this encounter Plan of Treatment Not on file documented as of this encounter Visit Diagnoses Diagnosis Malignant neoplasm of breast in female, estrogen receptor positive, unspecified laterality, unspecified site of breast documented in this encounter Care Teams Communications Planner Relationship Specialty Start Date End Date Jenise Huddleston APRN [address] [place] [address] PCP - General Family Medicine 09/11/18 documented as of this encounter
--- OUTSIDE RECORDS SUMMARY | 2024-08-29 13:00 | XMS_ITS | Encounter Summary ---
Author Organization [facility] Address [facility] [place] [address] Care Team Providers Care Roundhouse Supervisor Name Role Phone FlaquitoJenise hinson Stefanie ARMSTRONG Primary Care Provider +1 -[phone] Encounter Details Date Type Department Care Team (Late st Contact Info) Description 05/17/2020 2:00 PM EDT Office Visit Hematology/Oncology at [address] [phone] Jacqueline Rose APRN [address] [place] [address] HEMATOLOGY ONCOLOGY [place], [place] [id number] Malignant neoplasm of breast in female, estrogen [...] this encounter Progress Notes * Jacqueline Rose, BUDGET DIRECTOR - 05/17/2020 2:00 PM EDT Subjective: Patient [...] ?? The patient is seen in the [facility]. She had a node positive [...] diagnosed in 09/21 with left breast IDC; ER/PA+; Nkg5imh negative. Ursula had a partial mastectomy followed by radiation completed 01/19. (See history as summarized above.). She declines hormonal therapy. She returns to the [facility]- oncology clinic today for Q3 month follow-up alternating with [facility]. Today Ursula also has a visit scheduled with Dr. Renae. Ursula reports feeling pretty well with a good energy level. 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 She tells me initially the radiation treatments knocked me for a loop, but now she feels back to normal. She states she was diagnosed on March 06, 2020 with Lyme disease. She says she also has anaplasmosis.She states she took Doxycycline for a month. She sees a lyme specialist in [place] and also sees a sterile processing tech at [facility]. She reports finding no new lumps or masses in her breasts. She has not noticed any lymphedema. She denies fevers or night sweats since March 06. She denies constipation or diarrhea, or difficulty urinating. Ursula denies any respiratory or cardiac problems. She reports a good appetite. She does like to walk and swim. ?? No Known Allergies Current Medications ??? Green Tea [place] Extract (GREEN TEA) Capsule ??? niacin 500 [...] Thought content normal. [facility]. [facility] Vitals for [facility] [...] diagnosed in 09/21 with left breast IDC; ER/PA+; Uqx0sss negative. Ursula had a partial mastectomy followed [...] breast documented in this encounter Care Teams Roundhouse Supervisor Relationship Specialty Start Date End Date Jenise Huddleston APRN [address] [place] [address] PCP - General Family Medicine 09/11/18 documented as of this encounter
--- OUTSIDE RECORDS SUMMARY | 2024-08-29 13:00 | XMS_ITS | Encounter Summary ---
Author Organization [facility] Address [facility] [place] [address] Care Team Providers Care Press Tender Short Goods Name Role Phone Jenise Huddleston NATHANIEL Primary Care Provider +1 -[phone] Reason for Visit * Reason Comments On Treatment Visit Encounter Details Date Type Department Care Team (Late st Contact Info) Description 12/10/2018 9:00 AM EDT Office Visit Radiation Oncology at [address] [phone] Abbey Renae MD [facility] [place] [address] Malignant neoplasm of central portion of left [...] in this encounter Progress Notes * Abbey Rneae MD - 12/10/2018 9:00 AM EDT Images from the original note were not included. DIAGNOSIS: Breast ca, L, IDC, gr 2, ER+HI+, Her2 neg, s/p lumpectomy & SNB, pT1c pN1a, w/maycol deposits showing 2 different types of tumor, ER+HI+, Her2 neg & ER-HI-, Her2 neg. CURRENT TREATMENT DOSE: 25.2 Gy [...] For details, see electronic film record in [employer] System. Changes in Medical Condition: Seeing her manager chemical, Dr. Farnaz Levy, [place] this wk. Skin lesion LIQ L breast [...] status documented in this encounter Care Teams Press Tender Short Goods Relationship Specialty Start Date End Date Jenise Huddleston, NATHANIEL [address] [place] [address] PCP - General Family Medicine 09/11/18 documented as of this encounter
--- OUTSIDE RECORDS SUMMARY | 2024-08-29 13:00 | XMS_ITS | Encounter Summary ---
Author Organization [facility] Address [facility] [place] [address] Care Team Providers Care Advanced Seal Delivery System Name Role Phone Jenise Huddleston NATHANIEL Primary Care Provider +1 -[phone] Reason for Visit * Reason Comments Radiation Follow-up Encounter Details Date Type Department Care Team (Late st Contact Info) Description 11/08/2020 3:00 PM EST Office Visit Radiation Oncology at [address] [phone] Abbey Renae MD [facility] [place] [address] Malignant neoplasm of central portion of left [...] (01/03/19) for breast ca, L,IDC, gr 2, ER+OK+, Her2 neg, s/p lumpectomy & SNB, pT1c pN1a, w/maycol deposits showing 2 different types of tumor, ER+OK+, Her2 neg & ER-OK-, Her2 neg. 01/23/[address] Moody [...] Us Biopsy Left 09/05/2018 Zoltan Baldwin MD [facility] RAD MAMMOGRAPHY ??? MAMMO US NEEDLE LOCALIZATION LEFT Left 10/10/2018 Mammo US Needle Localization Left 10/10/2018 Christina Torre MD [facility] RAD MAMMOGRAPHY ??? MRI GUIDED BIOPSY BREAST VACUUM ASSISTED LEFT Left 09/18/2018 MRI Breast Biopsy Vacuum Assist Left 09/18/2018 [facility] RAD MRI ??? PRO BX/REMV, LYMPH NODE, DEEP AXILL Left 10/10/2018 BIOPSY OR EXCISION OF LYMPH NODE(S), OPEN, DEEP AXILLARY NODE(S) (WRVU 6.43) performed by Jhonatan Gilmore MD at [facility] MAIN OR ??? PRO INTRAOP SENTINEL LYMPH ID W/DYE INJECTION Left 10/10/2018 INTRAOPERATIVE ID (MAPPING) SENTINEL LYMPH NODE,INCLUDES INJECTION (WRVU 2.5) performed by Jhonatan Gilmore MD at [facility] MAIN OR ??? PRO MASTECTOMY PARTIAL Left 10/10/2018 MASTECTOMY PARTIAL (WRVU 10.13) performed by Jhonatan Gilmore MD at [facility] MAIN OR Ectopic pregnancies. Your [...] by mouth daily. Generic drug: Green Tea [place] Extract 1 capsule Refills: 0 MAGNESIUM CITRATE [...] status documented in this encounter Care Teams Advanced Seal Delivery System Relationship Specialty Start Date End Date Jenise Huddleston APRN [address] [place] [address] PCP - General Family Medicine 09/11/18 documented as of this encounter
--- OUTSIDE RECORDS SUMMARY | 2024-08-29 13:00 | XMS_ITS | Encounter Summary ---
Author Organization [facility] Address [facility] [place] [address] Care Team Providers Care Bilingual Counter Sales Retail Name Role Phone Jenise Huddleston NATHANIEL Primary Care Provider +1 -[phone] Encounter Details Date Type Department Care Team (Latest Contact Info) Description 10/10/2018 8:43 AM EST - 10/10/2018 9:25 AM EST Hospital En[place] [address] Jhonatan Gilmore MD [facility] [place] [address] Malignant neoplasm of left female breast, unspecified [...] below. ? Electronically signed by: ANN Powers [facility] ([phone]), at 10/10/2018 9:35 AM Narrative 10/10/2018 9:35 [...] approach with ultrasound guidance. A 5 cm [email or web address] needle was used. After the needle was [...] breast documented in this encounter Care Teams Bilingual Counter Sales Retail Relationship Specialty Start Date End Date Jenise Huddleston, COLORING MACHINE OPERATOR [address] [place] [address] PCP - General Family Medicine 09/11/18 documented as of this encounter
--- OUTSIDE RECORDS SUMMARY | 2024-08-29 13:00 | XMS_ITS | Encounter Summary ---
Author Organization [facility] [place] [address] Care Team Providers Care Supervisor Line Department Name Role Phone Jenise Huddleston APRN Primary Care Provider +1 [phone] Encounter Details Date Type Department Care Team (Late st Contact Info) Description 02/20/2019 Telephone Hematology [place] [phone] Peace Bazan LGC Social History Tobacco Use [...] on filedocumented in this encounter Care Teams Supervisor Line Department Relationship Specialty Start Date End Date Jenise Huddleston APRN [address] [place], [place] [address] PCP - General Family Medicine 09/11/18 documented as of this encounter
--- OUTSIDE RECORDS SUMMARY | 2024-08-29 13:01 | XMS_ITS | Encounter Summary ---
Author Organization [facility] [place] [address] Care Team Providers Care Supervisor Metal Furniture Fabrication Name Role Phone None Primary Care Provider Unavailabl e Reason for Referral * Diagnostic Test (Routine) - Closed Specialty Diagnoses / Procedures Referred By Contac t Referred To Contact Radiology Diagnoses Malignant neoplasm of left breast in female, estrogen receptor positive, unspecified site of breast Procedures MRI Breast WWO Contrast Jhonatan Rushing MD [facility] [place] [address] [place] [address] Referral ID Status Reason Start Date Expiration Date V isits Requested Visits Authorized [id number] Closed Specialty Service Requested 09/06/2018 09/06/2019 1 1 Encounter Details Date Type Department Care Team (Late st Contact Info) Description 09/06/2018 Orders [place] [address] Jhonatan Gilmore MD [facility] [place] [place] [address] Malignant neoplasm of left breast in female, [...] INDICATION: Breast staging. Left breast lesion #1, Wisner clip/residual 1 cm mass, 6:00 radian, 4 cm from the nipple by ultrasound, biopsy proven IDC. TECHNIQUE: Multiplanar sequences were obtained pre- and post- Dotarem enhancement, to include SPGR weighted dynamic run-off and subtraction sequences obtained after the intravenous administration of 18 ccs of Dotarem. Computer algorithm analysis for lesion detection and kinetic contrast enhancement curve analysis was performed, using [employer]epLike! software. COMPARISON STUDIES: Compared and/or correlated with [...] EST) Glucose 78 65 - 199 mg/dL [facility] Comment:Diabetes: >=200 mg/d L plus symptoms Blood Urea Nitrogen 14 8 - 18 mg/dL [facility] Creatinine 0.76 0.70 - 1.20 mg/dL [facility] Sodium 140 135 - 145 mmol/L [facility] Potassium 4.1 3.5 - 5.0 mmol/L [facility] Comment: Please note: ??Patients with WBC >100,000 may have falsely elevated Potassium levels. ??For accurate Potassium quantification in these patients send serum separator tube (gold top) for subsequent determinations. ??Contact the Clinical Chemistry Laboratory if there are any questions. Chloride 100 98 - 107 mmol/L [facility] Carbon Dioxide 24 22 - 31 mmol/L [facility] Anion Gap 16(H) 5 - 15 mmol/L [facility] Calcium 9.0 8.5 - 10.5 mg/dL [facility] Protein, Total 7.0 6.1 - 8.0 gm/dL [facility] Albumin 3.9 3.2 - 5.2 gm/dL [facility] Aspartate Aminotransferase 20 0 - 30 unit/L [facility] Alanine Aminotransferase 17 0 - 30 unit/L [facility] Alkaline Phosphatase 61 40 - 104 unit/L [facility] Bilirubin, Total 0.2 0.2 - 1.3 mg/dL [facility] Est Glomerular Filtration Rate 81 >=60 mL/min/1. 73 m?? [facility] Comment: The eGFR was calculated using the CKD-EPI equation. As with all creatinine based estimates of kidney function, eGFR values calculated with the CKD-EPI equation are not accurate in patients with acute kidney failure, extremes of body mass or the acutely ill. http://[employer]/[facility] CITYnkf eGFR 93 >=60 mL/min/1. 73 m?? [facility] Comment: The eGFR was calculated using the CKD-EPI equation. As with all creatinine based estimates of kidney function, eGFR values calculated with the CKD-EPI equation are not accurate in patients with acute kidney failure, extremes of body mass or the acutely ill. http://[employer]/DHMCnkf Blood specimen (specimen) 09/11/2018 2:48 PM EST 09/11/2018 3:06 PM EST Narrative Resulting Agency Comment Spec In Lab Jhonatan Gilmore MD CHEMISTRY ORDERABLES [facility] [place] [address] documented in this encounter Visit Diagnoses Diagnosis Malignant neoplasm of left breast in female, estrogen receptor positive, unspecified site of breast Malignant neoplasm of left breast in female, estrogen receptor positive, unspecified site of breast documented in this encounter Care Teams Supervisor Metal Furniture Fabrication Relationship Specialty Start Date End Date None None PCP - General 09/05/18 09/10/18 documented as of this encounter
--- OUTSIDE RECORDS SUMMARY | 2024-08-29 13:01 | XMS_ITS | Encounter Summary ---
Author Organization [facility] Address [address] [place] [address] Care Team Providers Care Pilot Teacher Name Role Phone Norma Everett SPOON MAKER Primary Care Provider [phone] Encounter Details Date Type Department Care Team (Late st Contact Info) Description 03/07/2020 Lab Requisition [facility] Pathology & Laboratory Medicine - [address] [id number] Outr Resulting Lab, Provider Social History Tobacco Use Types Packs/Day Years Used Date Smoking Tobacco: Never Assessed Comments Unknown Sex and Gender Information Value Date Recorded Sex Assigned at Not on file Legal Sex Female 17:43 EST Gender Identity Not on file Sexual Orientation Not on file documented as of this encounter Plan of Treatment Not on file documented as of this encounter Procedures Procedure Name Priority Date/Time Associated Diagnosis Comments ACUTE HEPATITIS PROFILE Routine 03/06/2020 16:25 EDT documented in this encounter Results * ACUTE HEPATITIS PROFILE (03/06/2020 16:25 EDT) Hep B Surface Ag Negative Negative 03/08/2020 9:42 EDT [facility] Hep C Antibody Negative Negative 03/08/2020 9:42 EDT [facility] Hepatitis A Antibody, IgM Negative Negative 03/08/2020 9:42 EDT [facility] Comment: The results of this assay can be falsely lowered due to the consumption of Biotin. Hepatitis B Core Ab, Total Negative Negative 03/08/2020 9:42 EDT [facility] Blood VENOUS BLOOD / Unknown 03/06/2020 16:25 EDT 03/07/2020 15:36 EDT us Provider Outr Resulting Lab CHEMISTRY & BLOOD GA S ORDERABLES Final Result [facility] [address] [place] [address] documented in this encounter Visit Diagnoses Not on filedocumented in this encounter Additional Health Concerns Infection Onset Date Last Indicated Resolved Time R/O COVID-19 03/06/2020 03/06/2020 03/11/2020 22:1 5 EDT documented as of this encounter Care Teams Pilot Teacher Relationship Specialty Start Date End Date Norma Everett FNP [address] [place], [place] [address] PCP - General 05/03/11 documented as of this encounter
--- OUTSIDE RECORDS SUMMARY | 2024-08-29 13:01 | XMS_ITS | Encounter Summary ---
Author Organization [facility] [place] [address] Care Team Providers Care Silk Spreader Name Role Phone Jenise Huddleston APRN Primary Care Provider [phone] Encounter Details Date Type Department Care Team (Late st Contact Info) Description 10/07/2018 Telephone Hematology [place] [address] Leeanne Brown, RN Social History Tobacco Use [...] Link to the Rest Easy information from [facility] was e- mailed to her ([email or web address]). Plan: Ursula Urias plans for surgery on 10/10 and states she has the information she needs at this time. documented in this encounter Plan of Treatment Not on file documented as of this encounter Visit Diagnoses Not on filedocumented in this encounter Care Teams Silk Spreader Relationship Specialty Start Date End Date Jenise Huddleston APRN [address] [place] [address] PCP - General Family Medicine 09/11/18 documented as of this encounter
--- OUTSIDE RECORDS SUMMARY | 2024-08-29 13:01 | XMS_ITS | Encounter Summary ---
Author Organization [facility] [place] [address] Care Team Providers Care Electric Arc Furnace Operator Name Role Phone Jenise Huddleston NATHANIEL Primary Care Provider [phone] Encounter Details Date Type Department Care Team (Latest Contact Info) Description 09/18/2018 11:31 AM EST - 09/18/2018 11:59 PM EST Hospital [place] [address] Christina Torre MD [facility] [place] [address] Abnormal finding on breast imaging Discharge Disposition: [...] below. ? Electronically signed by: Zoltan Baldwin [facility] ([phone]), at 09/19/2018 3:46 PM Narrative 09/19/2018 3:46 [...] and post- intravenous administration of 18cc's Dotarem. [employer] localizing software was used to identify and [...] breast documented in this encounter Care Teams Electric Arc Furnace Operator Relationship Specialty Start Date End Date Jenise Huddleston APRN [address] [place] [address] PCP - General Family Medicine 09/11/18 documented as of this encounter
--- OUTSIDE RECORDS SUMMARY | 2024-08-29 13:01 | XMS_ITS | Encounter Summary ---
Author Organization [facility] [place] [address] Care Team Providers Care Logistics Tech Name Role Phone Xochitl Dominguez NATHANIEL Primary Care Provider [phone] Encounter Details Date Type Department Care Team (Late st Contact Info) Description 08/20/2018 Ancillary Procedure Radiology Library at [facility] [place] [address] Jenise Huddleston APRN [address] [place] [address] Social History Tobacco Use Types Packs/Day Years [...] Jenise Huddleston APRN IMG FILM LIBRARY ORDERABLES [facility] [place] documented in this encounter Visit Diagnoses Not on filedocumented in this encounter Care Teams Logistics Tech Relationship Specialty Start Date End Date Xochitl Dominguez APRN PCP - General 03/29/15 09/04/18 documented as of this encounter
--- OUTSIDE RECORDS SUMMARY | 2024-08-29 13:01 | XMS_ITS | Encounter Summary ---
Author Organization [facility] Address [address] [place] [address] Care Team Providers Care Cashier Wrapper Name Role Phone Unavailable Primary Care Provider Unavailabl e Encounter Details Date Type Department Care Team (Late st Contact Info) Description 03/18/2008 Before PRISM Converted Visit (Maple) [facility] - Maple conversion [address] [place] [address] Katarzyna Jenkins MD [address] [place] [address] [place] [address] Social History Tobacco Use Types Packs/Day Years [...] ? GERSHUNY, MARI ? Accession #: ? [id number] ? : ? 1950 (Age: 57) ??F ? Collect Date: ? 03/18/2008 ? Location: ? [facility] ? Receive Date: ? 03/18/2008 ? Provider: KATARZYNA RAFAEL MD ? Copy to: SOCORRO DSYON BUSINESS WRITER ? Final Pathologic Diagnosis: ? A. ?Endocervix, curettage: ? 1. ?Acute and chronic cervicitis. ??See comment. ? 2. ? Squamous metaplasia with atypia, favor reactive. ? B. ?Cervix, 12 o'clock, biopsy: ? 1. ?Acute and chronic cervicitis. ??See comment. ? 2. ? Squamous metaplasia. ? Comment: ? The referring PAP test ([id number]) is reviewed and the diagnosis of low ? grade squamous intraepithelial lesion (LSIL) confirmed. ??Although the squamous ?? metaplasia within the ECC (A) is atypical, in the presence of inflammation, the atypia is favored to be reactive in origin. ?? Deeper sections of (A) and (B) ? were examined. ??(Dr. Rocha)/[facility] ? Document reviewed and electronically signed by: [...] Tessitore)/lgk ? End of Report ? NICOLE GERMAN 03/18/2008 03/18/2008 18: 01 EDT us Katarzyna Jenkins MD PATHOLOGY ORDERABLES Final Resu lt [facility] [address] [place] [address] documented in this encounter Visit Diagnoses Not on filedocumented in this encounter
--- OUTSIDE RECORDS SUMMARY | 2024-08-29 13:01 | XMS_ITS | Encounter Summary ---
Author Organization [facility] Address [address] [place] [address] Care Team Providers Care Health It Specialist Name Role Phone Norma Everett BED MACHINE OPERATOR Primary Care Provider [phone] Encounter Details Date Type Department Care Team (Late st Contact Info) Description 07/10/2023 Lab Requisition [facility] Pathology & Laboratory Medicine - [address] [id number] Outr Resulting Lab, Provider Social History Tobacco [...] 1.80 See Note mg/L 07/10/2023 21:50 EST [facility] Comment: Reference Range: ??Low Risk: ? <1.0 mg/L ??Average Risk: ?? 1.0 - 3.0 mg/L ??High Risk: ?>3.0 mg/L ??Indeterminate*: >10.0 mg/L ??*May be an indication of another source of inflammation or infection Blood VENOUS BLOOD / Unknown 07/10/2023 12:25 EST 07/10/2023 21:23 EST us Provider Outr Resulting Lab CHEMISTRY & BLOOD GA S ORDERABLES Final Result [facility] [address] [place] [address] documented in this encounter Visit Diagnoses Not on filedocumented in this encounter Care Teams Health It Specialist Relationship Specialty Start Date End Date Norma Everett FNP [address] [place], [place] [id number] PCP - General 05/03/11 documented as of this encounter
--- OUTSIDE RECORDS SUMMARY | 2024-08-29 13:01 | XMS_ITS | Encounter Summary ---
Author Organization [facility] [place] [address] Care Team Providers Care Genetic Technologist Name Role Phone Flaquito Jenisechavez [place] APRN Primary Care Provider [phone] Reason for Referral * Diagnostic Test (Routine) - Closed Specialty Diagnoses / Procedures Referred By Petros shah Referred To Contact Radiology Diagnoses Abnormal finding on breast imaging Procedures MRI Breast Biopsy Vacuum Assist Left MRI Additional Views - Breast Christina Torre MD [facility] [place] [address] [place] [address] Referral ID Status Reason Start Date Expiration Date V isits Requested Visits Authorized [id number] Closed Specialty Service Requested 09/16/2018 09/16/2019 1 1 Reason for Visit * Diagnostic Test (Routine) - Closed Specialty Diagnoses / Procedures Referred By Petros shah Referred To Contact Radiology Diagnoses Abnormal finding on breast imaging Procedures MRI Breast Biopsy Vacuum Assist Left MRI Additional Views - Christina Minaya MD [facility] [place] [address] [place] [address] Referral ID Status Reason Start Date Expiration Date V isits Requested Visits Authorized [id number] Closed Specialty Service Requested 09/16/2018 09/16/2019 1 1 Encounter Details Date Type Department Care Team (Latest Contact Info) Description 09/18/2018 10:52 AM EST - 09/18/2018 11:30 AM EST Hospital [place] [address] Christina Torre MD [facility] [place] [address] Abnormal finding on breast imaging Discharge Disposition: [...] and post- intravenous administration of 18cc's Dotarem. [employer] localizing software was used to identify and [...] PM EST 09/18/2018 1:04 PM EST Narrative [facility] - 09/18/2018 1:04 PM EST Specimen requisition ordered. ??Separate Pathology report to follow Resulting Agency Comment Spec In Lab Zoltan Baldwin MD PATHOLOGY/CYTOLOGY O ADELAIDA Performing Organization Address City/State/[facility] Co de Phone Number [facility] [place] [address] * Surgical Pathology Report (09/18/2018 12:20 PM EST) Final Diagnosis [id number] ? Location: 3ZM The signing pathologist has [...] Ovalle DO Verified: ??09/19/2018 ?Pathologist Performed at: ??-[facility] Dept. of Pathology, [place], [place] CLINICAL INFORMATION Specimen Submitted: A - [...] 10 minutes ??shb 09/19/2018 10:46 AM EST [facility] BREAST STRUCTURE / Unknown 09/18/2018 12:20 PM EST 09/18/2018 12:20 PM EST Zoltan Baldwin MD PATHOLOGY/CYTOLOGY O RDERABLES [facility] [place] [address] documented in this encounter Visit Diagnoses Diagnosis [...] mLs documented in this encounter Care Teams Genetic Technologist Relationship Specialty Start Date End Date Jenise Huddleston APRN [address] [place] [address] PCP - General Family Medicine 09/11/18 documented as of this encounter
--- OUTSIDE RECORDS SUMMARY | 2024-08-29 13:01 | XMS_ITS | Encounter Summary ---
Author Organization [facility] [place] [address] Care Team Providers Care Records Management Technician Name Role Phone Unavailable Primary Care Provider Unavailabl e Encounter Details Date Type Department Care Team (Late st Contact Info) Description 02/09/2009 Ancillary Procedure Radiology Library at [facility] [place] [address] Jenise Huddleston APRN [address] [place] [address] Social History Tobacco Use Types Packs/Day Years [...]
--- OUTSIDE RECORDS SUMMARY | 2024-08-29 13:01 | XMS_ITS | Encounter Summary ---
Author Organization [facility] Address [address] [place] [address] Care Team Providers Care Art Dealer Name Role Phone Norma Everett ELECTRIC POWERLINE EXAMINER Primary Care Provider [phone] Encounter Details Date Type Department Care Team (Late st Contact Info) Description 01/22/2023 Lab Requisition [facility] Pathology & Laboratory Medicine - [address] [phone] Outr Resulting Lab, Provider Social History Tobacco [...] Salmonella PCR Negative Negative 01/23/2023 11:44 EDT [facility] Shigella/Enteroin vasive E. coli Negative Negative 01/23/2023 11:44 EDT [facility] HN LAB CAMPYLOBACTER PCR Negative Negative 01/23/2023 11:44 EDT [facility] Shiga Toxin PCR Negative Negative 11:44 EDT [facility] Feces SPECIMEN FROM RECTUM / Unknown 01/22/2023 6:30 EDT 01/22/2023 21:10 EDT us Provider Outr Resulting Lab MICROBIOLOGY - GENER AL ORDERABLES Final Result [facility] [address] [place] [address] documented in this encounter Visit Diagnoses Not on filedocumented in this encounter Care Teams Art Dealer Relationship Specialty Start Date End Date Norma Everett FNP [address] [place], [place] [id number] PCP - General 05/03/11 documented as of this encounter
--- OUTSIDE RECORDS SUMMARY | 2024-08-29 13:01 | XMS_ITS | Encounter Summary ---
Author Organization [facility] [place] [address] Care Team Providers Care Textile Technologist Name Role Phone Unavailable Primary Care Provider Unavailabl e Encounter Details Date Type Department Care Team (Late st Contact Info) Description 06/21/2011 Ancillary Procedure Radiology Library at [facility] [place] [address] Jenise Huddleston APRN [address] [place] [address] Social History Tobacco Use Types Packs/Day Years [...] Jenise Huddleston APRN IMG FILM LIBRARY ORDERABLES [facility] [place] documented in this encounter Visit Diagnoses Not on filedocumented in this encounter
--- OUTSIDE RECORDS SUMMARY | 2024-08-29 13:01 | XMS_ITS | Encounter Summary ---
[place] [address] Care Team Providers Care Pedigree Researcher Name Role Phone Xochitl Dominguez APRN Primary Care Provider [phone] Reason for Visit * Reason Comments Skin Lesion Encounter Details Date Type Department Care Team (Late st Contact Info) Description 07/12/2015 8:45 AM EST Office Visit Dermatology at [place] [address] [facility] [place] [address] Alfred Steve MD [address] [facility] [place] [address] Milium; History of SCC (squamous cell carcinoma) [...] from the original note were not included. [facility] Skin Lesions: After Your Visit Your Care [...] until the bleeding stops. ?? Take an [id number] pain medicine, such as acetaminophen (Tylenol), ibuprofen [...] more? Visit our health information library at [email or web address] You can also view health information on [employer], your personal patient account. Log in or sign up today. Enter E372 in the search box to learn more about Skin Lesions: After Your Visit. ?? [phone] [employer]. Care instructions adapted under license by [facility]. This care instruction is for use with your licensed healthcare professional. If you have questions about a medical condition or this instruction, always ask your healthcare professional. [employer] disclaims any warranty or liability for your use of this information. Content Version: 10.4.539154; Current as of: November 12, 2013 documented [...] skin documented in this encounter Care Teams Pedigree Researcher Relationship Specialty Start Date End Date Xochitl Dominguez, NATHANIEL PCP - General 03/29/15 09/04/18 documented as of this encounter
--- OUTSIDE RECORDS SUMMARY | 2024-08-29 13:01 | XMS_ITS | Encounter Summary ---
Author Organization [facility] [place] [address] Care Team Providers Care Victorian Literature Professor Name Role Phone Jenise Hudldeston APRN Primary Care Provider [phone] Encounter Details Date Type Department Care Team (Late st Contact Info) Description 09/13/2018 Telephone Hematology [place] [address] Leeanne Brown, RN Social History Tobacco Use [...] a 67 y.o. 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 She is out [facility] [address] . Addendum 4:25 PM: Ursula will come [...] on filedocumented in this encounter Care Teams Victorian Literature Professor Relationship Specialty Start Date End Date Jenise Huddleston APRN [address] [place] [address] PCP - General Family Medicine 09/11/18 documented as of this encounter
--- OUTSIDE RECORDS SUMMARY | 2024-08-29 13:01 | XMS_ITS | Encounter Summary ---
Author Organization [facility] [place] [address] Care Team Providers Care Boom Crane Operator Name Role Phone None Primary Care Provider Unavailabl e Encounter Details Date Type Department Care Team (Late st Contact Info) Description 09/06/2018 Orders [place] [address] Samia Alex MD [facility] [place] [address] Malignant neoplasm of left breast in female, [...] breast documented in this encounter Care Teams Boom Crane Operator Relationship Specialty Start Date End Date None None PCP - General 09/05/18 09/10/18 documented as of this encounter
--- OUTSIDE RECORDS SUMMARY | 2024-08-29 13:01 | XMS_ITS | Encounter Summary ---
Author Organization [facility] Address [facility] [place] [address] Care Team Providers Care Mini Bar Attendant Name Role Phone Jenise Huddleston NATHANIEL Primary Care Provider [phone] Encounter Details Date Type Department Care Team (Latest Contact Info) Description 10/10/2018 9:26 AM EST - 10/10/2018 4:35 PM EST Hospital Encounter [place] [address] Jhonatan Gaines MD [facility] [place] [address] Discharge Disposition: Home Social History Tobacco Use [...] 101.3 F. The number for questions is [phone] before 5 PM weekdays. Pain Medication: Please use ibuprofen (motrin, advil) 600 mg three times per day with food and tylenol 650 mg every 8 hours between the ibuprofen doses. Follow-up: Follow-up appointment will be scheduled with in 1-2 weeks. Scheduled Appointments: The following appointment with Dr. Gaines has been scheduled on your behalf Please call [phone] (clinic number) if any changes need to [...] Gaines MD - 10/10/2018 2:10 PM EST [facility] Operative Note Patient Name: Ursula Urias : [id number] MR#: [id number] Case Date: 10/10/2018 Surgeon: Surgeon(s) and Role: [...] WITH NEEDLE LOC., LESION #1 (Left) PLUS: 13277: adjacent tissue rearrangement; 30 to 60 sq [...] Operative Note Patient Name: Ursula Urias : [id number] MR#: [id number] Case Date: 10/10/2018 Surgeon: Surgeon(s) and Role: [...] in good position on post resection mammography. Alabaster lyphm node resectionpreformed with the SLN being [...] Biospecimen to store? No SPECIMEN TO PATHOLOGY 07171 BREAST CANCER LEFT partial mastectomy. resection Yes [...] PM EST 10/10/2018 1:49 PM EST Narrative [facility] - 10/10/2018 1:49 PM EST Specimen requisition ordered. ??Separate Pathology report to follow Resulting Agency Comment Spec In Lab Jhonatan Gaines MD PATHOLOGY/CYTOLOGY O ADELAIDA Performing Organization Address [facility] Co de Phone Number [facility] [place] [address] * Specimen to Pathology (10/10/2018 12:56 PM EST) AP Specimen 10/10/2018 12:5 6 PM EST 10/10/2018 12:56 PM EST Narrative [facility] - 10/10/2018 12:56 PM EST Specimen requisition ordered. ??Separate Pathology report to follow Jhonatan Gaines MD PATHOLOGY/CYTOLOGY O ADELAIDA Performing Organization Address [facility]/ZIP Co de Phone Number [facility] [place] [address] * Surgical Pathology Report (10/10/2018 12:52 PM EST) Final Diagnosis [id number] ? Location: [facility]; [facility]; A The signing pathologist has (i) examined the relevant preparation(s) for the specimen(s) and (ii) rendered or confirmed the diagnosis(es). . ? Addendum ADDENDUM DISCUSSION SPECIAL TEST PERFORMED: Test: ??Oncotype DX [facility] Case: ??[id number], block A13 Performing Lab: ??[facility] Performing Lab Case: ??[id number] Reported by: ??Brayan Villegas MD Date reported: ??11/05/18 For the full text of the [facility] report please refer to [facility] Pathology in the electronic health record (eDH). Electronically signed by: ??Becka Ovalle DO Verified: ??11/05/2018 ?Pathologist Performed at: ??-[facility] Dept. of Pathology, [place], [place] ?Molecular Genetics RESULTS TEST: HER2 (ERBB2) [...] FISH. ??Direct analysis was performed using the [employer] Kit. ??Slide adequacy and signal enumeration were [...] factor receptor 2 testing in breast cancer: [place] Society of Clinical Oncology/College of [place] Pathologists clinical practice guideline update. J Clin Oncol. 2013 Jul 04. Sean VU et al. Human Epidermal Growth Factor Receptor 2 Testing in Breast Cancer: [place] Society of Clinical Oncology/College of [place] Pathologists Clinical Practice Guideline Focused Update. Arch Pathol Lab Med. 2017January 30/J Clin Oncol. 2017January 30. Reviewed by: Marily Radford MD Childrens Club Attendant, Molecular Pathology Electronically signed by: ??Marily Radford MD Verified: ??10/19/2018 ?Pathologist Performed at: ??-[facility] Dept. of Pathology, [place], [place] ?Surgical Pathology DIAGNOSIS A - Left [...] (ductal, not ?otherwise specified) ? Histologic Grade (Elton Histologic Score) ?Glandular (Acinar) / Tubular Differentiation: [...] (mm) ?Extranodal Extension: ?? Present ?Number of [place]abaster Nodes Examined: ?6 Pathologic Stage Classification (pTNM, AJCC 8th Edition) ? Primary Tumor (Invasive Carcinoma) (pT): ?pT1c ? Regional Lymph Nodes (pN) ?Category (pN): ?? pN1a Tumor Block(s): ?? A13 CAP eCC October 2017 Agile Release ER, HI, and HER2 studies (performed on prior biopsy, [id number]): ER: Positive (>90%, strong) HI: Positive (>90%, strong) HER2 FISH: Negative Electronically signed by: ??Becka Ovalle DO Verified: ??10/17/2018 ?Pathologist Performed at: ??-[facility] Dept. of Pathology, [place], [place] DISCUSSION A single 1.5 cm tumor [...] and is strong and diffusely ER and HI positive, and HER2 negative (IHC score 1+, HER2 FISH pending). Commingling within the same positive lymph nodes is a morphologically distinct metastatic invasive ductal tumor which exhibits ample eosinophilic and vacuolated cytoplasm. This tumor is ER, HI, and HER2 negative (IHC score 0, HER2 [...] ? ER ? See Discussion B1 ? HI ? See Discussion B1 ? HER2 ? See Discussion B1 ? CK7 ?Positive in metastatic tumors B1 ? GATA3 ?Positive in metastatic tumors B1 ? CD68 ? Negative in metastatic tumors B1 ? TTF1 ? Negative in metastatic tumors B1 ? PAX8 ? Negative in metastatic tumors B2 ? ER ? See Discussion B2 ? HI ? See Discussion B2 ? HER2 ? [...] with minimal fibrous tissue. Otherwise unremarkable. Sections/Processing: Base Ply Hand sections in 31 cassettes as follows: ? A1: ??Base Ply Hand perpendicular sections of slice I. [place] and black margins are present. ? A2-A3: ??Base Ply Hand cross section of slice II, bisected. ??Black and orange margins, possibly with trace red and yellow. ? A4-A5: ??Base Ply Hand sections of slice III, with detached skin from slice III. ??Black margin. ? A6-A9: ??Base Ply Hand sections from slice IV; red, orange, yellow and black ink. ? A10-A13: ??Base Ply Hand sections from slice V; black, red margins and skin surface. ? A14-A17: ??Base Ply Hand sections from slice . The biopsy clip is removed from the vicinity of A14. ??Black, yellow, red and skin surface with possible blue ink. ? A18-A22: ??Base Ply Hand sections from slice VII. ??Black and red margins with skin surface. ? A23-A24: ??Base Ply Hand sections from slice VIII; skin surface, black ??and red margins. ? A25-A26: ??Base Ply Hand sections from slice IX; black margin . SPECIMEN PROCESSING ? A27-A28: ??Base Ply Hand sections from slice X; red, green and black margins ? A29-A30: ??Base Ply Hand sections from slice XI; black with focal yellow and green margins ? A31: ??Perpendicular sections from slice XII; green, black and yellow margins. Ischemic Time: 1.35 hours( B - Labeled/Fixative: Left axillary sentinel nodes, fresh. Quantity/Size: Two, 5.0 x 3.5 x 1.0 cm. Tissue Description: Yellow adipose tissue overlying firm, pink-bishop nodules. Six candidate lymph nodes are identified. Sections/Processing: Base Ply Hand sections in 8 cassettes as follows: ? B1: ??Single candidate lymph node, serially sectioned ? B2-B3: ??Single candidate lymph node, serially sectioned ? B4-B5: ??Single candidate lymph node, serially sectioned ? B6-B7: ??Additional firm structure, serially sectioned ? B8: ??Two whole candidate lymph nodes ?? 11/05/2018 2:43 PM [facility] SENTINEL LYMPH NODE / Unknown 10/10/2018 12:52 PM EST 10/10/2018 12:52 PM EST SENTINEL LYMPH NODE / Unknown 10/10/2018 12:52 PM EST 10/10/2018 12:52 PM EST Jhonatan Gaines MD PATHOLOGY/CYTOLOGY Mana SON [facility] [place] [address] documented in this encounter Visit Diagnoses Not [...] Bupivicaine) documented in this encounter Care Teams Mini Bar Attendant Relationship Specialty Start Date End Date Jenise Huddleston APRN [address] [place] [address] PCP - General Family Medicine 09/11/18 documented as of this encounter
--- OUTSIDE RECORDS SUMMARY | 2024-08-29 13:01 | XMS_ITS | Encounter Summary ---
Author Organization [facility] Address [facility] [place] [address] Care Team Providers Care Tax Examiner Name Role Phone Jenise Huddleston PRICER Primary Care Provider [phone] Encounter Details Date Type Department Care Team (Late st Contact Info) Description 09/16/2018 Orders [place] [address] Brabara Torre MD [facility] [place] [address] Social History Tobacco Use Types Packs/Day Years [...] on filedocumented in this encounter Care Teams Tax Examiner Relationship Specialty Start Date End Date Jenise Huddleston APRN [address] [place] [address] PCP - General Family Medicine 09/11/18 documented as of this encounter
--- OUTSIDE RECORDS SUMMARY | 2024-08-29 13:01 | XMS_ITS | Encounter Summary ---
Author Organization [facility] Address [facility] [place] [address] Care Team Providers Care Research Physician Name Role Phone Xochitl Dominguez NATHANIEL Primary Care Provider [phone] Encounter Details Date Type Department Care Team (Late st Contact Info) Description 08/22/2018 Ancillary Procedure Radiology Library at [facility] [place] [place] [address] Jenise Huddleston APRN [address] [place] [address] Left breast mass Social History Tobacco Use [...] ultrasound. Please note: The interpretation of the [facility] Breast Imaging Radiologist subspecialist may differ from the original radiologist's interpretation. This is usually not due to a deficiency of the original interpreting radiologist, rather due to the greater skill level afforded by sub-specialization in the field and/or reasonable variations in interpretations. If you have a concern regarding the D- interpretation you may contact the [facility] Breast Tool Salvage Worker Office at . Narrative 08/22/2018 9:18 AM EST INTERPRETATION OF OUTSIDE BREAST IMAGING I have been asked to consult on this patient by Dr. Jenise Huddleston because he/she believes a review of this study may change or alter the care of this patient. STUDIES FROM: [facility] please note: Report have not been [...] breast ultrasound: Please note: Breast ultrasound is anvil seating press operator dependent. Complete assessment of the breast [...] alter the care ofthis patient. STUDIES FROM: [facility] please note: Reporthave not been provided. [...] ultrasound. Please note: The interpretation of the [facility] BreastImaging Radiologist subspecialist may differ from the original radiologist's interpretation. This is usually not due to a deficiency of the original interpreting radiologist, rather due to the greater skill level affordedby sub-specialization in the field and/or reasonable variations ininterpretations. If you have a concern regarding the H interpretation you may [facility] Breast Tool Salvage Worker Office at [phone]. 9:18 AM Jenise Huddleston APRN IMG OUTSIDE INTER PRETATION ORDERABLES documented in this encounter Visit Diagnoses Diagnosis Left breast mass Lump or mass in breast documented in this encounter Care Teams Research Physician Relationship Specialty Start Date End Date Xochitl Dominguez APRN PCP - General 03/29/15 09/04/18 documented as of this encounter
--- OUTSIDE RECORDS SUMMARY | 2024-08-29 13:01 | XMS_ITS | Clinical Summary ---
Author Organization [facility] Address [address] [place] [address] Care Team Providers Care Truck Repair Service Estimator Name Role Phone Norma Everett COLD ROLL OPERATOR Primary Care Provider [phone] Encounters Date Type Department Care Team Description 07/11/2024 Lab Requisition [facility] Pathology & Laboratory Medicine - [address] [address] Outr Resulting Lab, Provider from Last 3 Months Social History Tobacco Use Types Packs/Day Years Used Date Smoking Tobacco: Never Assessed Comments Unknown Sex and Gender Information Value Date Recorded Sex Assigned at Not on file Legal Sex Female 17:43 EST Gender Identity Not on file Sexual Orientation Not on file Plan of Treatment Health Maintenance Due Date Last Done Comments Hepatitis C Screen 1950 Fall Risk Screening 2014 COVID-19 Vaccine ( season) 2024 RSV Immunization ( o r 60+ Years) (1 - 1-dose 75+ series) 2024 Procedures Procedure Name Priority Date/Time Associated Diagnosis Comments T3 FREE Routine 07/10/2024 14:50 EST from Last 3 Months Results * T3 FREE (07/10/2024 14:50 EST) T3, Free 4.4 2.8 - 5.3 pg/mL 07/11/2024 18:14 EST [facility] Blood VENOUS BLOOD / Unknown 07/10/2024 14:50 EST 07/11/2024 17:21 EST us Provider Outr Resulting Lab CHEMISTRY & BLOOD GA S ORDERABLES Final Result Performing Organization Address City/State/[facility] Co de Phone Number [facility] [address] [place] [address] from Last 3 Months Care Teams Truck Repair Service Estimator Relationship Specialty Start Date End Date Norma Everett FNP [address] [place], [place] [id number] PCP - General 05/03/11
--- OUTSIDE RECORDS SUMMARY | 2024-08-29 13:01 | XMS_ITS | Encounter Summary ---
Author Organization [facility] Address [facility] [place] [address] Care Team Providers Care Cemetery Manager Name Role Phone Jenise Huddleston NATHANIEL Primary Care Provider [phone] Encounter Details Date Type Department Care Team (Late st Contact Info) Description 09/11/2018 3:45 PM EST Office [place] [address] Jhonatan Gilmore MD [facility] [place] [address] Leeanne Brown, RN Malignant neoplasm of left [...] of ovarian cancer. She is of Ashkenazi Islam heritage. I gave her a copy of [...] friends with Laura Alonzo. She lives near [facility]. She has a female friend with her [...] have her see a radiation oncologist in [facility] to discus the side effects of radiation [...] 8 years rather than 3%, from the [facility] database) if she has multicentric disease. 09/19/18 [...] I met with the patient and her [facility]. 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 SPECIFIC TEACHIN. Breast Cancer Treatment Handbook (Georgina Mckay, 2012) was provided to her. 2. Information from our [facility] on Early-Stage Breast Cancer previously provided. 3. She understands she will meet with a medical oncologist ([place] [facility] and radiationoncologist ([facility]) after surgery. 4. Contact phone number for questions or concerns in the immediate post- operative period. 5. Comprehensive Breast Program Binder provided. 6. Post Breast Surgery Exercises handout created by physical therapists at [facility] to begin after partial mastectomy and continue until she is back to her baseline. 7. Breast Cancer Treatment Process care map provided and reviewed. 8. Things to Consider...What I Wish I Knew advice from breast cancer patients handout provided. 9. Contact information for the General Surgery Clinic Nurses was given and the Doctor electron microscopist system explained. 10. We discussed the recommended 150 minutes of aerobic exercise and two strength training sessionsper week after a breast cancer diagnosis. She verbalized understanding of the plan of care and states all her questions were answered. Fifteen minutes was spent in education and providing support. She has our contact information. paper tube cutter will call her to schedule surgery. She prefers first week of October if possible. Pre-op MRI: planned 09/11/18 documented in this encounter Plan of Treatment Not on file documented as of this encounter Visit Diagnoses Diagnosis Malignant neoplasm of left breast in female, estrogen receptor positive, unspecified site of breast documented in this encounter Care Teams Cemetery Manager Relationship Specialty Start Date End Date Jenise Huddleston APRN [address] [place] [address] PCP - General Family Medicine 09/11/18 documented as of this encounter
--- OUTSIDE RECORDS SUMMARY | 2024-08-29 13:01 | XMS_ITS | Encounter Summary ---
Author Organization [facility] Address [facility] [place] [address] Care Team Providers Care Cloth Wire Weaver Name Role Phone None Primary Care Provider Unavailabl e Encounter Details Date Type Department Care Team (Late st Contact Info) Description 09/09/2018 Telephone [place]ology [place] [phone] Leeanne Brown RN Social History Tobacco Use [...] a 67 y.o. female with newly diagnosed ER/CO+/HER2 pending left breast cancer ([place] breast U[place] guided [place] [facility] Ursula sounds positive and has support. She will have someone accompany her to appointments. She appears to be coping well but is eager to meet with a breast surgeon to determine a treatment plan. 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 She is employed by [employer]. She has some work commitments scheduled through early October. Ursula is interested in having a trained volunteer from [employer] ([employer]) patient support corps accompany her to provider apt. if they can easily accommodate her. Requested someone from [employer] Patient [employer] meet with her at her consultation. Ursula has access to [facility]. Plan: Appointments for breast MRI and surgical consult with a breast surgeon have been scheduled. She was introduced to the [facility] and told she would receive information about her diagnosis and treatment for her review (will provide the Breast Cancer Treatment Handbook to her on 09/11 at her consultation; she has the link to the [facility] Early-Stage: Invasive Breast Cancer). Plan to meet [...] on filedocumented in this encounter Care Teams Cloth Wire Weaver Relationship Specialty Start Date End Date None None PCP - General 09/05/18 09/10/18 documented as of this encounter
--- OUTSIDE RECORDS SUMMARY | 2024-08-29 13:01 | XMS_ITS | Encounter Summary ---
Author Organization [facility] Address [address] [place] [address] Care Team Providers Care Service Operator Name Role Phone Unavailable Primary Care Provider Unavailabl e Encounter Details Date Type Department Care Team (Late st Contact Info) Description 02/05/2008 Results Only [facility] [address] [place] [address] Socorro Everett FNP [address] [place], [place] [id number] Social History Tobacco Use Types Packs/Day Years [...] ? MARI LI ? Accession #: ? [id number] : ? 1950 (Age: 57) ??F ?Collect Date: ? 02/05/2008 Location: ? [facility] ? Receive Date: ? 02/06/2008 Provider: ?SOCORRO GASTON Copy to: ? Specimen/Source: ?ThinPrep Pap Test, Cervix/Endocervix, processed on [employer] ThinPrep Imaging System, with manual evaluation Last Menstrual Period: ? ZACHARY Other: ? HPVA - HPV testing requested if ASC-US on the current ThinPrep Pap test. ? SPECIMEN ADEQUACY ? Satisfactory for Evaluation - transformation zone component present GENERAL CATEGORIZATION ? Epithelial Cell Abnormality INTERPRETATION ? Squamous Cell Abnormality - Low grade squamous intraepithelial lesion (LSIL). EDUCATIONAL NOTES/RECOMMENDATI ONS ? [facility] recommends following the 2006 Consensus Guidelines for the Management of Women with Abnormal Cervical Cancer Screening Tests (JLGTD, 2007;11(4):201-222 ). ??Consensus guidelines are available online at www.ASCCP.org. ? Document reviewed and electronically signed by: ? Hermann Gutierrez MD ? Report Date: ??02/11/2008 09:26 End of Report NICOLE GERMAN 02/05/2008 02/06/2008 us Socorro DEMPSEYP PATHOLOGY ORDERABLES Final Resul t NICOLE GERMAN [address] [place] [address] documented in this encounter Visit Diagnoses Not on filedocumented in this encounter
--- OUTSIDE RECORDS SUMMARY | 2024-08-29 13:01 | XMS_ITS | Encounter Summary ---
[place] [address] Care Team Providers Care Cigar Packer Name Role Phone Jenise Huddleston NATHANIEL Primary Care Provider [phone] Encounter Details Date Type Department Care Team (Late st Contact Info) Description 10/10/2018 10:58 AM EST - 10/10/2018 12:56 PM EST Surgery [place] [address] Jhonatan Gaines MD [facility] [place] [address] MASTECTOMY PARTIAL (WRVU 10.13) Social History Tobacco [...] 101.3 F. The number for questions is [phone] before 5 PM weekdays. Pain Medication: Please use ibuprofen (motrin, advil) 600 mg three times per day with food and tylenol 650 mg every 8 hours between the ibuprofen doses. Follow-up: Follow-up appointment will be scheduled with in 1-2 weeks. Scheduled Appointments: The following appointment with Dr. Gaines has been scheduled on your behalf Please call [phone] (clinic number) if any changes need to [...] Gaines MD - 10/10/2018 2:10 PM EST [facility] Operative Note Patient Name: Ursula Urias : [id number] MR#: [id number] Case Date: 10/10/2018 Surgeon: Surgeon(s) and Role: [...] WITH NEEDLE LOC., LESION #1 (Left) PLUS: 00097: adjacent tissue rearrangement; 30 to 60 sq [...] Operative Note Patient Name: Ursula Urias : [id number] MR#: [id number] Case Date: 10/10/2018 Surgeon: Surgeon(s) and Role: [...] in good position on post resection mammography. Wortham lyphm node resectionpreformed with the SLN being [...] Biospecimen to store? No SPECIMEN TO PATHOLOGY 33575 BREAST CANCER LEFT partial mastectomy. resection Yes [...] PM EST 10/10/2018 1:49 PM EST Narrative [facility] - 10/10/2018 1:49 PM EST Specimen requisition ordered. ??Separate Pathology report to follow Resulting Agency Comment Spec In Lab Jhonatan Gaines MD PATHOLOGY/CYTOLOGY O ADELAIDA Performing Organization Address [facility] Co de Phone Number [facility] [place] [address] * Specimen to Pathology (10/10/2018 12:56 PM EST) AP Specimen 10/10/2018 12:5 6 PM EST 10/10/2018 12:56 PM EST Narrative [facility] - 10/10/2018 12:56 PM EST Specimen requisition ordered. ??Separate Pathology report to follow Jhonatan Gaines MD PATHOLOGY/CYTOLOGY O ADELAIDA Performing Organization Address [facility] Co de Phone Number [facility] [place] [address] * Surgical Pathology Report (10/10/2018 12:52 PM EST) Final Diagnosis [id number] ? Location: [facility]; [facility]; A The signing pathologist has (i) examined the relevant preparation(s) for the specimen(s) and (ii) rendered or confirmed the diagnosis(es). . ? Addendum ADDENDUM DISCUSSION SPECIAL TEST PERFORMED: Test: ??Oncotype DX [facility] Case: ??[id number], block A13 Performing Lab: ??[facility] Performing Lab Case: ??[id number] Reported by: ??Brayan Villegas MD Date reported: ??11/05/18 For the full text of the [facility] report please refer to [facility] Pathology in the electronic health record (eDH). Electronically signed by: ??Becka Ovalle DO Verified: ??11/05/2018 ?Pathologist Performed at: ??-[facility] Dept. of Pathology, [place], [place] ?Molecular Genetics RESULTS TEST: HER2 (ERBB2) [...] FISH. ??Direct analysis was performed using the [employer] Kit. ??Slide adequacy and signal enumeration were [...] factor receptor 2 testing in breast cancer: [place] Society of Clinical Oncology/College of [place] Pathologists clinical practice guideline update. J Clin Oncol. 2013 Jul 04. Sean VU, et al. Human Epidermal Growth Factor Receptor 2 Testing in Breast Cancer: [place] Society of Clinical Oncology/College of [place] Pathologists Clinical Practice Guideline Focused Update. Arch Pathol Lab Med. 2017January 30/J Clin Oncol. 2017January 30. Reviewed by: Marily Radford MD Server Assistant, Molecular Pathology Electronically signed by: ??Marily Radford MD Verified: ??10/19/2018 ?Pathologist Performed at: ??-[facility] Dept. of Pathology, [place], [place] ?Surgical Pathology DIAGNOSIS A - Left [...] (mm) ?Extranodal Extension: ?? Present ?Number of Wortham Nodes Examined: ?6 Pathologic Stage Classification (pTNM, AJCC 8th Edition) ? Primary Tumor (Invasive Carcinoma) (pT): ?pT1c ? Regional Lymph Nodes (pN) ?Category (pN): ?? pN1a Tumor Block(s): ?? A13 CAP eCC October 2017 Ag[employer] Release ER, ND, and HER2 studies (performed on prior biopsy, [id number]): ER: Positive (>90%, strong) ND: Positive (>90%, strong) HER2 FISH: Negative Electronically signed by: ??Becka Ovalle DO Verified: ??10/17/2018 ?Pathologist Performed at: ??-[facility] Dept. of Pathology, [place], [place] DISCUSSION A single 1.5 cm tumor [...] and diffusely ER and ND positive, and HER2 negative (IHC score 1+, HER2 FISH pending). Commingling within the same positive lymph nodes is a morphologically distinct metastatic invasive ductal tumor which exhibits ample eosinophilic and vacuolated cytoplasm. This tumor is ER, ND, and HER2 negative (IHC score 0, HER2 [...] ? ER ? See Discussion B1 ? ND ? See Discussion B1 ? HER2 ? See Discussion B1 ? CK7 ?Positive in metastatic tumors B1 ? GATA3 ?Positive in metastatic tumors B1 ? CD68 ? Negative in metastatic tumors B1 ? TTF1 ? Negative in metastatic tumors B1 ? PAX8 ? Negative in metastatic tumors B2 ? ER ? See Discussion B2 ? ND ? See Discussion B2 ? HER2 ? [...] with minimal fibrous tissue. Otherwise unremarkable. Sections/Processing: Slip Sheeter sections in 31 cassettes as follows: ? A1: ??Slip Sheeter perpendicular sections of slice I. Aragon and black margins are present. ? A2-A3: ??Slip Sheeter cross section of slice II, bisected. ??Black and orange margins, possibly with trace red and yellow. ? A4-A5: ??Slip Sheeter sections of slice III, with detached skin from slice III. ??Black margin. ? A6-A9: ??Slip Sheeter sections from slice IV; red, orange, yellow and black ink. ? A10-A13: ??Slip Sheeter sections from slice V; black, red margins and skin surface. ? A14-A17: ??Slip Sheeter sections from slice . The biopsy clip is removed from the vicinity of A14. ??Black, yellow, red and skin surface with possible blue ink. ? A18-A22: ??Slip Sheeter sections from slice VII. ??Black and red margins with skin surface. ? A23-A24: ??Slip Sheeter sections from slice VIII; skin surface, black ??and red margins. ? A25-A26: ??Slip Sheeter sections from slice IX; black margin . SPECIMEN PROCESSING ? A27-A28: ??Slip Sheeter sections from slice X; red, green and black margins ? A29-A30: ??Slip Sheeter sections from slice XI; black with focal yellow and green margins ? A31: ??Perpendicular sections from slice XII; green, black and yellow margins. Ischemic Time: 1.35 hours( B - Labeled/Fixative: Left axillary sentinel nodes, fresh. Quantity/Size: Two, 5.0 x 3.5 x 1.0 cm. Tissue Description: Yellow adipose tissue overlying firm, pink-bishop nodules. Six candidate lymph nodes are identified. Sections/Processing: Slip Sheeter sections in 8 cassettes as follows: ? B1: ??Single candidate lymph node, serially sectioned ? B2-B3: ??Single candidate lymph node, serially sectioned ? B4-B5: ??Single candidate lymph node, serially sectioned ? B6-B7: ??Additional firm structure, serially sectioned ? B8: ??Two whole candidate lymph nodes ?? 11/05/2018 2:43 PM [facility] SENTINEL LYMPH NODE / Unknown 10/10/2018 12:52 PM EST 10/10/2018 12:52 PM EST SENTINEL LYMPH NODE / Unknown 10/10/2018 12:52 PM EST 10/10/2018 12:52 PM EST Jhonatan Gaines MD PATHOLOGY/CYTOLOGY O ADELAIDA [facility] [place] [address] documented in this encounter Visit Diagnoses Not [...] Bupivicaine) documented in this encounter Care Teams Cigar Packer Relationship Specialty Start Date End Date Jenise Huddleston APRN [address] [place] [address] PCP - General Family Medicine 09/11/18 documented as of this encounter
--- OUTSIDE RECORDS SUMMARY | 2024-08-29 13:01 | XMS_ITS | Encounter Summary ---
Author Organization [facility] Address [address] [place] [address] Care Team Providers Care Stroboscope Operator Name Role Phone Norma Everett CASE TECHNICIAN Primary Care Provider [phone] Encounter Details Date Type Department Care Team (Late st Contact Info) Description 03/06/2020 Lab Requisition [facility] Pathology & Laboratory Medicine - [address] [id number] Outr Resulting Lab, Provider Social History Tobacco [...] rt-PCR Result NEGATIVE Negative 03/08/2020 4:45 EDT [facility] Comment: 2019-novel Coronavirus (2019-nCoV) not [...] in accordance with CLIA regulations, College of [place] Pathologists (CAP) guidelines (Nov 20, 2019), and FDA guidance (Nov 01, 2019). This test is only for use under the Food and Drug Administration's Emergency Use Authorization. Swab ENTIRE NASOPHARYNX / Unknown 03/06/2020 16:25 EDT 03/06/2020 21:50 EDT us Provider Outr Resulting Lab MICROBIOLOGY - GENER AL ORDERABLES Final Result [facility] [place], [place] * COVID-19 TESTING (03/06/2020 16:25 EDT) COVID-19 rt-PCR Result NEGATIVE Negative 03/08/2020 6:54 EDT [facility] Comment: 2019-novel Coronavirus (2019-nCoV) [...] in accordance with CLIA regulations, College of [place] Pathologists (CAP) guidelines (Nov 20, 2019), and FDA guidance (Nov 01, 2019). This test is only for use under the Food and Drug Administration's Emergency Use Authorization. Performing Lab [facility] 03/08/2020 6:54 EDT [facility] Swab 03/06/2020 16:2 5 EDT 03/06/2020 21:50 EDT us Provider Outr Resulting Lab MICROBIOLOGY - GENER AL ORDERABLES Final Result [facility] [address] [place] [address] [facility] [place], [place] documented in this encounter Visit Diagnoses Not on filedocumented in this encounter Additional Health Concerns Infection Onset Date Last Indicated Resolved Time R/O COVID-19 03/06/2020 03/06/2020 03/11/2020 22:1 5 EDT documented as of this encounter Care Teams Stroboscope Operator Relationship Specialty Start Date End Date Norma Everett FNP [address] [place], [place] [address] PCP - General 05/03/11 documented as of this encounter
--- OUTSIDE RECORDS SUMMARY | 2024-08-29 13:01 | XMS_ITS | Encounter Summary ---
Author Organization [facility] Address [facility] [place] [address] Care Team Providers Care Parts Cleaner Name Role Phone Jenise Huddleston NATHANIEL Primary Care Provider [phone] Encounter Details Date Type Department Care Team (Late st Contact Info) Description 09/13/2018 Orders [place] [address] Jhonatan Gilmore MD [facility] [place] [address] [place] [address] Malignant neoplasm of left female breast, unspecified [...] contact the number below. ? Narrative 10/10/2018 1:29 PM EST EXAMINATION: Specimen [...] Gilmore MD IMG MAMMO ORDERABLES * Mammo [place] Node Injection (10/10/2018 9:08 AM EST) Anatomical [...] approach with ultrasound guidance. A 5 cm Immunologix needle was used. After the needle was [...] approach with ultrasound guidance. A 5 cm Immunologix needle was used. After the needle was [...] breast documented in this encounter Care Teams Parts Cleaner Relationship Specialty Start Date End Date Jenise Huddleston APRN [address] [place] [address] PCP - General Family Medicine 09/11/18 documented as of this encounter
--- OUTSIDE RECORDS SUMMARY | 2024-08-29 13:01 | XMS_ITS | Encounter Summary ---
Author Organization [facility] Address [address] [place] [address] Care Team Providers Care Audit Spec Name Role Phone Unavailable Primary Care Provider Unavailabl e Encounter Details Date Type Department Care Team (Late st Contact Info) Description 06/12/2002 Results Only [facility] conversion [address] [place] [address] Socorro Everett FNP [address] [place], [place] [id number] Social History Tobacco Use Types Packs/Day Years [...] ? MARI LI ? Accession #: ? [id number] : ? 1950 (Age: 51) ??F ?Collect Date: ? 06/12/2002 Location: ? [facility] ? Receive Date: ? 06/16/2002 Provider: ?SOCORRO EVERETT SINTER PRESS OPERATOR Copy to: ? [facility] ? [facility] ?[address] ?[place] [address] ? Specimen/Source: ?ThinPrep Pap Test, Cervix/Endocervix Last Menstrual Period: ? Many Years Ago ? SPECIMEN ADEQUACY ? Satisfactory for Evaluation - transformation zone component present GENERAL CATEGORIZATION ? Negative for Intraepithelial Lesion or Malignancy ? Document reviewed and electronically signed by: ? Kelvin Desai, PEDRO(ASCP) ? Report Date: ??06/20/2002 08:15 End of Report [facility]ICO[facility] GERMAN 06/12/2002 06/16/2002 us Socorro DEMPSEYP PATHOLOGY ORDERABLES Final Resul t [facility] [address] [place] [address] documented in this encounter Visit Diagnoses Not on filedocumented in this encounter
--- OUTSIDE RECORDS SUMMARY | 2024-08-29 13:01 | XMS_ITS | Encounter Summary ---
Author Organization [facility] [place] [address] Care Team Providers Care Real Estate Leasing Agent Name Role Phone None Primary Care Provider Unavailabl e Encounter Details Date Type Department Care Team (Latest Contact Info) Description 09/05/2018 1:17 PM EST - 09/05/2018 11:59 PM EST Hospital En[place] [address] Akua Rodríguez MD [facility] [place] [address] Abnormal finding on breast imaging Discharge Disposition: [...] obtained using a 14-gauge automated device. A [employer] [place] 14G marker clip was placed. The clip [...] breast documented in this encounter Care Teams Real Estate Leasing Agent Relationship Specialty Start Date End Date None None PCP - General 09/05/18 09/10/18 documented as of this encounter
--- OUTSIDE RECORDS SUMMARY | 2024-08-29 13:01 | XMS_ITS | Encounter Summary ---
Author Organization [facility] [place] [address] Care Team Providers Care Office Services Representative Name Role Phone Unavailable Primary Care Provider Unavailabl e Encounter Details Date Type Department Care Team (Late st Contact Info) Description 03/23/2008 Ancillary Procedure Radiology Library at [facility] [place] [address] Jenise Huddleston APRN [address] [place] [address] Social History Tobacco Use Types Packs/Day Years [...]
--- OUTSIDE RECORDS SUMMARY | 2024-08-29 13:01 | XMS_ITS | Encounter Summary ---
Author Organization [facility] Address [address] [place] [address] Care Team Providers Care Contract Technician Name Role Phone Norma Everett MARILIN Primary Care Provider [phone] Encounter Details Date Type Department Care Team (Late st Contact Info) Description 07/11/2024 Lab Requisition [facility] Pathology & Laboratory Medicine - [address] [phone] Outr Resulting Lab, Provider Social History Tobacco [...] Comments T3 FREE Routine 07/10/2024 14:50 EST documented in this encounter Results * T3 FREE (07/10/2024 14:50 EST) T3, Free 4.4 2.8 - 5.3 pg/mL 07/11/2024 18:14 EST [facility] Blood VENOUS BLOOD / Unknown 07/10/2024 14:50 EST 07/11/2024 17:21 EST us Provider Outr Resulting Lab CHEMISTRY & BLOOD GA S ORDERABLES Final Result [facility] [address] [place] [address] documented in this encounter Visit Diagnoses Not on filedocumented in this encounter Care Teams Contract Technician Relationship Specialty Start Date End Date Norma Everett FNP [address] [place], [place] [address] PCP - General 05/03/11 documented as of this encounter
--- OUTSIDE RECORDS SUMMARY | 2024-08-29 13:01 | XMS_ITS | Encounter Summary ---
Author Organization [facility] [place] [address] Care Team Providers Care Business System Consultant Name Role Phone None Primary Care Provider Unavailabl e Encounter Details Date Type Department Care Team (Latest Contact Info) Description 09/05/2018 1:00 PM EST - 09/05/2018 1:15 PM EST Hospital [place] [address] Akua Rodríguez MD [facility] [place] [address] Abnormal finding on breast imaging Discharge Disposition: [...] plan approved by Dr. Denny Ryan MD [employer] Programmer documented in this encounter Plan of Treatment [...] obtained using a 14-gauge automated device. A [employer] [place] 14G marker clip was placed. The clip [...] PM EST 09/05/2018 2:00 PM EST Narrative [facility] - 09/05/2018 2:00 PM EST Specimen requisition ordered. ??Separate Pathology report to follow Zoltan Baldwin MD PATHOLOGY/CYTOLOGY O ADELAIDA [facility] [place] [address] * Surgical Pathology Report (09/05/2018 1:55 PM EST) Final Diagnosis [id number] ? Location: 3L The signing pathologist has [...] FISH. ??Direct analysis was performed using the [employer] Kit. ??Slide adequacy and signal enumeration were [...] factor receptor 2 testing in breast cancer: [place] Society of Clinical Oncology/College of [place] Pathologists clinical practice guideline update. J Clin Oncol. 2013 Jul 04. Sean VU, et al. Human Epidermal Growth Factor Receptor 2 Testing in Breast Cancer: [place] Society of Clinical Oncology/College of [place] Pathologists Clinical Practice Guideline Focused Update. Arch Pathol Lab Med. 2017January 30/J Clin Oncol. 2017January 30. Electronically signed by: ??Marily Radford MD Verified: ??09/18/2018 ?Pathologist Performed at: ??-[facility] Dept. of Pathology, [place], [place] ? Addendum ADDENDUM DISCUSSION Immunohistochemist ry Studies . ADDENDUM DISCUSSION Specimen: Left breast, core needle biopsy (A1) ER immunoreactivity: Positive (>90% cancer cells with immunostaining) Stain intensity: Strong ND immunoreactivity: Positive (>90% cancer cells with immunostaining) [...] ??The assays were performed according to the health careers instructor ??'s instructions using Anti-ER (SP1) and Anti-ND (16) antibodies. Electronically signed by: ??Becka Ovalle DO Verified: ??09/06/2018 ?Pathologist Performed at: ??-[facility] Dept. of Pathology, [place], [place] ?Surgical Pathology DIAGNOSIS Needle biopsies: ?Left breast Diagnosis: ?Invasive ductal carcinoma (see Discussion) ?Intermediate grade, modified SBR score = 6 Microcalcification s: ??Focal, associated with invasive ductal carcinoma Electronically signed by: ??Becka Ovalle DO Verified: ??09/06/2018 ?Pathologist Performed at: ??-[facility] Dept. of Pathology, [place], [place] DISCUSSION Studies for ER, ND, and HER2 have been ordered; results will [...] 5 minutes ??casa 09/18/2018 1:07 PM EST [facility] BREAST STRUCTURE / Unknown 09/05/2018 1:55 PM EST 09/05/2018 1:55 PM EST Zoltan Baldwin MD PATHOLOGY/CYTOLOGY O ADELAIDA [facility] [place] [address] documented in this encounter Visit Diagnoses Diagnosis [...] mg documented in this encounter Care Teams Business System Consultant Relationship Specialty Start Date End Date None None PCP - General 09/05/18 09/10/18 documented as of this encounter
--- OUTSIDE RECORDS SUMMARY | 2024-08-29 13:01 | XMS_ITS | Encounter Summary ---
Author Organization [facility] Address [address] [place] [address] Care Team Providers Care Field Agronomist Name Role Phone Norma Everett GIS DEVELOPER Primary Care Provider [phone] Encounter Details Date Type Department Care Team (Late st Contact Info) Description 12/12/2022 Lab Requisition [facility] Pathology & Laboratory Medicine - [address] [phone] Outr Resulting Lab, Provider Social History Tobacco [...] Ag Negative Negative 12/14/2022 9:55 EDT [facility] Hep C Antibody Negative Negative 12/14/2022 9:55 EDT [facility] Hepatitis A Antibody, IgM Negative Negative 12/14/2022 9:55 EDT [facility] Comment:The results of this assay can be falsely lowered due to the consumption of Biotin. Hepatitis B Core Ab, Total Negative Negative 12/14/2022 9:55 EDT [facility] Blood VENOUS BLOOD / Unknown 12/12/2022 13:45 EDT 12/13/2022 17:01 EDT us Provider Outr Resulting Lab CHEMISTRY & BLOOD GA S ORDERABLES Final Result [facility] [address] [place] [address] documented in this encounter Visit Diagnoses Not on filedocumented in this encounter Care Teams Field Agronomist Relationship Specialty Start Date End Date Norma Everett FNP [address] [place] [address] PCP - General 05/03/11 documented as of this encounter
--- OUTSIDE RECORDS SUMMARY | 2024-08-29 13:01 | XMS_ITS | Encounter Summary ---
Author Organization [facility] Address [address] [place] [address] Care Team Providers Care Sort Worker Name Role Phone Unavailable Primary Care Provider Unavailabl e Encounter Details Date Type Department Care Team (Late st Contact Info) Description 06/08/2003 Results Only [facility] conversion [address] [place] [address] Scoorro Everett FNP [address] [place], [place] [id number] Social History Tobacco Use Types Packs/Day Years [...] ? MARI LI ? Accession #: ? [id number] : ? 1950 (Age: 52) ??F ?Collect Date: ? 06/08/2003 Location: ? [facility] ? Receive Date: ? 06/10/2003 Provider: ?SOCORRO GASTON Copy to: ? Specimen/Source: ?ThinPrep Pap Test, Cervix/Endocervix Last Menstrual Period: ? 03/ ? SPECIMEN ADEQUACY ? Satisfactory for Evaluation - transformation zone component present GENERAL CATEGORIZATION ? Negative for Intraepithelial Lesion or Malignancy ? Document reviewed and electronically signed by: ? KARMEN Solis(ASCP) ? Report Date: ??06/16/2003 07:41 End of Report NICOLE GERMAN 06/08/2003 06/10/2003 us Socorro GASTON PATHOLOGY ORDERABLES Final Resul t [facility]ICOLE [facility]ER[facility] [address] [place] [address] documented in this encounter Visit Diagnoses Not on filedocumented in this encounter
--- OUTSIDE RECORDS SUMMARY | 2024-08-29 13:01 | XMS_ITS | Encounter Summary ---
Author Organization [facility] Address [address] [place] [address] Care Team Providers Care Medical Research Tech Name Role Phone Unavailable Primary Care Provider Unavailabl e Encounter Details Date Type Department Care Team (Late st Contact Info) Description 05/24/2010 Results Only [facility] - [facility] ([facility] [address] [place], [place] [id number] Socorro Everett FNP [address] [place], [place] [phone] Social History Tobacco Use Types Packs/Day Years [...] ? MARI URIAS ? Accession #: ? [id number] ? : ? 1950 (Age: 59) ??F [...] 13:50 ? End of Report ? [facility] 05/24/2010 05/26/2010 us Socorro Everett DIE POLISHER PATHOLOGY ORDERABLES Final Resul t [facility] [address] [place] [address] documented in this encounter Visit Diagnoses Not on filedocumented in this encounter
--- OUTSIDE RECORDS SUMMARY | 2024-08-29 13:01 | XMS_ITS | Encounter Summary ---
[place] [address] Care Team Providers Care Director Center Name Role Phone Flaquito Jenisechavez Watts APRN Primary Care Provider [phone] Encounter Details Date Type Department Care Team (Latest Contact Info) Description 09/11/2018 2:45 PM EST Laboratory Appointment Lab [address] [id number] Malignant neoplasm of left breast in female, [...] 2:48 PM EST) Neutrophil % 56.7 % [facility] Neutrophil Absolute 4.23 1.70 - 6.10 x10(3)/[facility] Lymph % 32.5 % [facility] Lymphocytes Abs 2.4 0.9 - 3.2 x10(3)/[facility]OR[facility] Monocyte % 7.6 % [facility] Monocyte Abs 0.6 0.3 - 0.9 x10(3)/[facility]OR[facility] Eos % 1.7 % [facility] Eosinophils Abs 0.1 0.0 - 0.4 x10(3)/[facility] Basophil % 1.1 % [facility] Baso Absolute 0.1 0.0 - 0.1 x10(3)/[facility] Immature Gran % 0.40 % [facility] Comment: Immature granulocytes(IG's)percentage and absolute count will include metamyelocytes, myelocytes, and promyelocytes. Blood smears from CBCs yielding IG's will be scanned manually for concordance. If this scan disagrees with the automated IG or if promyelocytes are noted, a manual differential will be performed. Immature Gran Absolute 0.03 0.00 - 0.04 x10(3)/[facility] Blood specimen (specimen) 09/11/2018 2:48 PM EST 09/11/2018 3:06 PM EST Narrative Resulting Agency Comment Spec In Lab Jhonatan Gilmore MD HEMATOLOGY ORDERABLE S [facility] [place] [address] * Hemogram (09/11/2018 2:48 PM EST) White Blood Cell 7.5 4.0 - 9.5 x10(3)/[facility] Red Blood Cell 4.49 4.00 - 5.21 x10(6)/[facility] Hemoglobin 13.6 11.7 - 15.5 gm/dL [facility] Hematocrit 41.2 35.7 - 45.8 % [facility] Mean Cell Volume 91.8 82.6 - 94.4 fL [facility] Mean Cell Hemoglobin 30.3 27.1 - 32.0 pg [facility] Mean Cell Hemoglobin Concentration 33.0 31.7 - 35.0 gm/dL [facility] Platelet 247 145 - 357 x10(3)/[facility] LABOR[facility] RDW Standard Deviation 41.1 37.0 - 46.0 [facility] RDW coefficient of variation 12.3 11.5 - 14.1 % [facility] Mean Platelet Volume 10.8 7.6 - 12.9 [facility]ORY NRBC% auto 0.0 % [facility] NRBC Absolute 0.000 0.000 - 0.000 x10(3)/[facility] Blood specimen (specimen) 09/11/2018 2:48 PM EST 09/11/2018 3:06 PM EST Narrative Resulting Agency Comment Spec In Lab Jhonatan Gilmore MD HEMATOLOGY ORDERABLE S [facility] [place] [address] * (ABNORMAL) Comprehensive metabolic panel (non-fasting) (09/11/2018 2:48 PM EST) Glucose 78 65 - 199 mg/dL [facility] Comment:Diabetes: >=200 mg/d L plus symptoms Blood Urea Nitrogen 14 8 - 18 mg/dL [facility] Creatinine 0.76 0.70 - 1.20 mg/dL [facility] Sodium 140 135 - 145 mmol/L [facility] Potassium 4.1 3.5 - 5.0 mmol/L [facility] Comment: Please note: ??Patients with WBC >100,000 may have falsely elevated Potassium levels. ??For accurate Potassium quantification in these patients send serum separator tube (gold top) for subsequent determinations. ??Contact the Clinical Chemistry Laboratory if there are any questions. Chloride 100 98 - 107 mmol/L [facility] Carbon Dioxide 24 22 - 31 mmol/L [facility] Anion Gap 16(H) 5 - 15 mmol/L [facility] Calcium 9.0 8.5 - 10.5 mg/dL [facility] Protein, Total 7.0 6.1 - 8.0 gm/dL [facility] Albumin 3.9 3.2 - 5.2 gm/dL [facility] Aspartate Aminotransferase 20 0 - 30 unit/L [facility] Alanine Aminotransferase 17 0 - 30 unit/L [facility] Alkaline Phosphatase 61 40 - 104 unit/L [facility] Bilirubin, Total 0.2 0.2 - 1.3 mg/dL [facility] Est Glomerular Filtration Rate 81 >=60 mL/min/1. 73 m?? [facility] Comment: The eGFR was calculated using the CKD-EPI equation. As with all creatinine based estimates of kidney function, eGFR values calculated with the CKD-EPI equation are not accurate in patients with acute kidney failure, extremes of body mass or the acutely ill. http://[facility] eGFR 93 >=60 mL/min/1. 73 m?? [facility] Comment: The eGFR was calculated using the CKD-EPI equation. As with all creatinine based estimates of kidney function, eGFR values calculated with the CKD-EPI equation are not accurate in patients with acute kidney failure, extremes of body mass or the acutely ill. http://[facility] Blood specimen (specimen) 09/11/2018 2:48 PM EST 09/11/2018 3:06 PM EST Narrative Resulting Agency Comment Spec In Lab Jhonatan Gilmore MD CHEMISTRY ORDERABLES [facility] [place] [address] documented in this encounter Visit Diagnoses Diagnosis Malignant neoplasm of left breast in female, estrogen receptor positive, unspecified site of breast documented in this encounter Care Teams Director Center Relationship Specialty Start Date End Date Jenise Huddleston APRN [address] [place] [address] PCP - General Family Medicine 09/11/18 documented as of this encounter
--- OUTSIDE RECORDS SUMMARY | 2024-08-29 13:01 | XMS_ITS | Encounter Summary ---
[place] [address] Care Team Providers Care Rn Review Name Role Phone Xochitl Dominguez APRN Primary Care Provider [phone]- [phone] Reason for Visit * Reason Comments Follow-up Encounter Details Date Type Department Care Team (Late st Contact Info) Description 10/04/2015 10:15 AM EST Office Visit Dermatology at [place] [address] [facility] [place] [address] Alfred Steve MD [address] [facility] [place] [address] History of SCC (squamous cell carcinoma) of [...] from the original note were not included. [facility] Learning About Squamous Cell Skin Cancer What [...] more? Visit our health information library at [email or web address] You can also view health information on [employer]com, your personal patient account. Log in or sign up today. Enter U290 in the search box to learn more about Learning About Squamous Cell Skin Cancer. ?? [phone] [employer]. Care instructions adapted under license by [facility]. This care instruction is for use with your licensed healthcare professional. If you have questions about a medical condition or this instruction, always ask your healthcare professional. [employer] disclaims any warranty or liability for your use of this information. Content Version: 10.4.629997; Current as of: July 17, 2014 documented in this encounter Progress Notes * Alfred Steve MD - 10/04/2015 10:53 AM EST Problem: Skin lesion of concern. 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 [...] skin documented in this encounter Care Teams Rn Review Relationship Specialty Start Date End Date Xochitl Dominguez APRN PCP - General 03/29/15 09/04/18 documented as of this encounter
--- OUTSIDE RECORDS SUMMARY | 2024-08-29 13:01 | XMS_ITS | Encounter Summary ---
Author Organization [facility] [place] [address] Care Team Providers Care Hse Specialist Name Role Phone Unavailable Primary Care Provider Unavailabl e Encounter Details Date Type Department Care Team (Late st Contact Info) Description 03/18/2008 Ancillary Procedure Radiology Library at [facility] [place] [address] Jenise Huddleston APRN [address] [place] [address] Social History Tobacco Use Types Packs/Day Years [...]
--- OUTSIDE RECORDS SUMMARY | 2024-08-29 13:01 | XMS_ITS | Encounter Summary ---
Author Organization [facility] [place] [address] Care Team Providers Care Airline Manager Name Role Phone Flaquito Jenisechavez Watts APRN Primary Care Provider [phone] Reason for Referral * Diagnostic Test (Routine) - Closed Specialty Diagnoses / Procedures Referred By Contac t Referred To Contact Radiology Diagnoses Malignant neoplasm of left breast in female, estrogen receptor positive, unspecified site of breast Procedures MRI Breast WWO Contrast Jhonatan Rushing MD [facility] [place] [address] [place] [address] Referral ID Status Reason Start Date Expiration Date V isits Requested Visits Authorized [id number] Closed Specialty Service Requested 09/06/2018 09/06/2019 1 1 Reason for Visit * Diagnostic Test (Routine) - Closed Specialty Diagnoses / Procedures Referred By Petros shah Referred To Contact Radiology Diagnoses Malignant neoplasm of left breast in female, estrogen receptor positive, unspecified site of breast Procedures MRI Breast WWO Contrast Jhonatan Rushing MD [facility] [place] [address] [place] [address] Referral ID Status Reason Start Date Expiration Date V isits Requested Visits Authorized [id number] Closed Specialty Service Requested 09/06/2018 09/06/2019 1 1 Encounter Details Date Type Department Care Team (Latest Contact Info) Description 09/11/2018 6:02 PM EST - 09/11/2018 11:59 PM EST Hospital Encounter MRI at [facility] [place] [place] [address] Jhonatan Gilmore MD [facility] [place] [address] Malignant neoplasm of left breast in female, [...] INDICATION: Breast staging. Left breast lesion #1, Kendall clip/residual 1 cm mass, 6:00 radian, 4 cm from the nipple by ultrasound, biopsy proven IDC. TECHNIQUE: Multiplanar sequences were obtained pre- and post- Dotarem enhancement, to include SPGR weighted dynamic run-off and subtraction sequences obtained after the intravenous administration of 18 ccs of Dotarem. Computer algorithm analysis for lesion detection and kinetic contrast enhancement curve analysis was performed, using [employer] software. COMPARISON STUDIES: Compared and/or correlated with [...] BREAST LESION #1: ??1.1 cm Mass with Kendall clip related susceptibility artifact, corresponding to biopsy-proven [...] mLs documented in this encounter Care Teams Airline Manager Relationship Specialty Start Date End Date Jenise Huddleston, DISTRICT COURT ADMINISTRATOR [address] [place] [address] PCP - General Family Medicine 09/11/18 documented as of this encounter
--- OUTSIDE RECORDS SUMMARY | 2024-08-29 13:01 | XMS_ITS | Encounter Summary ---
Author Organization [facility] Address [address] [place] [address] Care Team Providers Care Ben Day Artist Name Role Phone Norma Everett MARILIN Primary Care Provider Encounter Details Date Type Department Care Team (Late st Contact Info) Description 01/22/2023 Lab Requisition [facility] Pathology & Laboratory Medicine - [address] [id number] Outr Resulting Lab, Provider Social History Tobacco [...] Neg and Giardia Antigen Neg 15:17 EDT [facility] Feces SPECIMEN FROM RECTUM / Unknown 01/22/2023 6:30 EDT 01/22/2023 21:10 EDT us Provider Outr Resulting Lab MICROBIOLOGY - GENER AL ORDERABLES Final Result [facility] [address] [place] [address] documented in this encounter Visit Diagnoses Not on filedocumented in this encounter Care Teams Ben Day Artist Relationship Specialty Start Date End Date Norma Everett FNP [address] [place] [address] PCP - General 05/03/11 documented as of this encounter
--- OUTSIDE RECORDS SUMMARY | 2024-08-29 13:01 | XMS_ITS | Encounter Summary ---
Author Organization [facility] [place] [address] Care Team Providers Care Biology Intern Name Role Phone Xochitl Dominguez NATHANIEL Primary Care Provider [phone] Encounter Details Date Type Department Care Team (Late st Contact Info) Description 08/06/2018 Ancillary Procedure Radiology Library at [facility] [place] [address] Jenise Huddleston APRN [address] [place] [address] Social History Tobacco Use Types Packs/Day Years [...] Jenise Huddleston APRN IMG FILM LIBRARY ORDERABLES [facility] [place] documented in this encounter Visit Diagnoses Not on filedocumented in this encounter Care Teams Biology Intern Relationship Specialty Start Date End Date Xochitl Dominguez APRN PCP - General 03/29/15 09/04/18 documented as of this encounter
--- OUTSIDE RECORDS SUMMARY | 2024-08-29 13:01 | XMS_ITS | Encounter Summary ---
Author Organization [facility] [place] [address] Care Team Providers Care Supervisor Metalizing Name Role Phone Jenise Huddleston APRN Primary Care Provider [phone] Encounter Details Date Type Department Care Team (Late st Contact Info) Description 10/10/2018 12:04 PM EST Anesthesia Event [place] [address] Huey Fisher MD [facility] [place] [address] Anesthesia Record Procedure Summary Procedure Name Responsible [...] cephalic vein (lateral side of arm), right; [id number] catheter system; 20 gauge; Angi Riggs; distraction, [...] Fisher MD - 10/10/2018 5:05 PM EST [facility] Department of Anesthesiology Post-procedure Note Patient: Ursula Urias Procedure Summary Date: 10/10/18 Room / Location: [address] MAIN OR Anesthesia Start: 1204 Anesthesia [...] All Anesthesia Providers: Anesthesiologist: Huey Fisher MD SKINNER PELTS: Silvana Lloyd CRNA Vitals Value Taken Time BP 103/54 10/10/2018 4:00 PM Temp Pulse Resp SpO2 98 % 10/10/2018 4:01 PM Pain Level 1 10/10/2018 2:36 PM Patient Location: PACU/[facility] Level of Consciousness: Conscious but Sleepy Pain [...] 09/18/2018 [facility] RAD MRI Social History Tobacco Use ??? [...] 7.0 09/11/2018 No results found for: TSH, G3MODKF, TT4, THYROIDAB No results found for: HA1C [...] consented to blood products. Plan discussed with [facility] P[facility]. PAT Staff Note documented in this encounter [...] mg/mL bolus injection (Anesthesia) PRN, Starting on Laena 10/10/18 at 1218, Until Alena 10/10/18 at [...] mL/hr documented in this encounter Care Teams Supervisor Metalizing Relationship Specialty Start Date End Date Jenise Huddleston APRN [address] [place] [address] PCP - General Family Medicine 09/11/18 documented as of this encounter
--- OUTSIDE RECORDS SUMMARY | 2024-08-29 13:01 | XMS_ITS | Encounter Summary ---
Author Organization [facility] [place] [address] Care Team Providers Care Assistant Service Manager Name Role Phone Jenise Huddleston Stefanie ARMSTRONG Primary Care Provider [phone] Encounter Details Date Type Department Care Team (Latest Contact Info) Description 09/16/2018 1:54 PM EST - 09/16/2018 11:59 PM EST Hospital En[place] [address] Akua Rodríguez MD [facility] [place] [address] Abnormal MRI Discharge Disposition: Home Social History [...] structure documented in this encounter Care Teams Assistant Service Manager Relationship Specialty Start Date End Date Jenise Huddleston APRN [address] [place] [address] PCP - General Family Medicine 09/11/18 documented as of this encounter
--- OUTSIDE RECORDS SUMMARY | 2024-08-29 13:01 | XMS_ITS | Encounter Summary ---
Author Organization [facility] Address [address] [place] [address] Care Team Providers Care Hydrogen Operator Name Role Phone Unavailable Primary Care Provider Unavailabl e Encounter Details Date Type Department Care Team (Late st Contact Info) Description 12/08/2004 Results Only [facility] - [place] conversion [address] [place] [address] Socorro Everett FNP [address] [place], [place] [id number] Social History Tobacco Use Types Packs/Day Years [...] ? MARI LI ? Accession #: ? [id number] : ? 1950 (Age: 54) ??F ?Collect Date: ? 12/08/2004 Location: ? [facility] ? Receive Date: ? 12/12/2004 Provider: ?SOCORRO DEMPSEYP Copy to: ? Specimen/Source: [...] End of Report NICOLE GERMAN 12/08/2004 12/12/2004 us Socorro DEMPSEYP PATHOLOGY ORDERABLES Final Resul t [facility] [address] [place] [address] documented in this encounter Visit Diagnoses Not on filedocumented in this encounter
--- OUTSIDE RECORDS SUMMARY | 2024-08-29 13:01 | XMS_ITS | Encounter Summary ---
Author Organization [facility] Address [address] [place] [address] Care Team Providers Care Mathematics Teacher Name Role Phone Norma Everett WINDCHILL ADMINISTRATOR Primary Care Provider [phone] Encounter Details Date Type Department Care Team (Late st Contact Info) Description 03/07/2020 Lab Requisition [facility] Pathology & Laboratory Medicine - [address] [id number] Outr Resulting Lab, Provider Social History Tobacco [...] IGG ImmunoBlot Negative Negative 03/09/2020 15:43 EDT [facility] [place] IGG Bands p41 p23 03/09/2020 15:43 EDT [facility] [place] IgM ImmunoBlot Positive(A) Negative 03/09/2020 15:43 EDT [facility] [place] IGM Band(s) p41 p39 p23 03/09/2020 15:43 EDT [facility] [place] Immunoblot Interpretation See Comment 03/09/2020 15:43 EDT [facility] Blood VENOUS BLOOD / Unknown 03/06/2020 16:25 EDT 03/07/2020 15:36 EDT Narrative [facility] - 03/09/2020 15:43 EDT Indicative [...] the Immunoassay and the Immunoblot are positive. us Provider Outr Resulting Lab IMMUNOLOGY AND SEROL OGY ORDERABLES Final Result [facility] [address] [place] [address] * (ABNORMAL) LYME AB (03/06/2020 16:25 EDT) [facility] [place] Ab Positive( A) Negative 03/08/2020 10:24 EDT [facility] Comment: [place] Immunoblot confirmation added [...] 15:36 EDT us Provider Outr Resulting Lab IMMUNOLOGY AND SEROL OGY ORDERABLES Final Result [facility] [address] [place] [address] documented in this encounter Visit Diagnoses Not on filedocumented in this encounter Additional Health Concerns Infection Onset Date Last Indicated Resolved Time R/O COVID-19 03/06/2020 03/06/2020 03/11/2020 22:1 5 EDT documented as of this encounter Care Teams Mathematics Teacher Relationship Specialty Start Date End Date Norma Everett FNP [address] [place], [place] [address] PCP - General 05/03/11 documented as of this encounter
--- OUTSIDE RECORDS SUMMARY | 2024-08-29 13:01 | XMS_ITS | Referral Summary ---
Author Organization [facility] Address [address] [place] [address] Care Team Providers Care Hogshead Roller Name Role Phone Norma Everett Primary Care Provider [phone] Encounters Date Type Department Care Team Description 07/11/2024 Lab Requisition [facility] Pathology & Laboratory Medicine - [place] [id number] Outr Resulting Lab, Provider from Last 3 Months Social History Tobacco Use Types Packs/Day Years Used Date Smoking Tobacco: Never Assessed Comments Unknown Sex and Gender Information Value Date Recorded Sex Assigned at Not on file Legal Sex Female 17:43 EST Gender Identity Not on file Sexual Orientation Not on file Plan of Treatment Not on file Procedures Procedure Name Priority Date/Time Associated Diagnosis Comments T3 FREE Routine 07/10/2024 14:50 EST from Last 3 Months Results * T3 FREE (07/10/2024 14:50 EST) T3, Free 4.4 2.8 - 5.3 pg/mL 07/11/2024 18:14 EST [facility] Blood VENOUS BLOOD / Unknown 07/10/2024 14:50 EST 07/11/2024 17:21 EST us Provider Outr Resulting Lab CHEMISTRY & BLOOD GA S ORDERABLES Final Result [facility] [address] [place], [place] [address] from Last 3 Months Care Teams Hogshead Roller Relationship Specialty Start Date End Date Norma Everett FNP [address] [place] [address] PCP - General 05/03/11
--- OUTSIDE RECORDS SUMMARY | 2024-08-29 13:01 | XMS_ITS | Encounter Summary ---
Author Organization [facility] Address [address] [place] [address] Care Team Providers Care Price Accuracy Supervisor Name Role Phone Lana Everetttorrey GASTON Primary Care Provider [phone] Encounter Details Date Type Department Care Team (Late st Contact Info) Description 01/07/2013 Results Only [facility] - [facility] ([facility]) [address] [place], [place] [address] Socorro Everett FNP [address] [place] [address] Social History Tobacco Use Types [...] ? MARI URIAS ? Accession #: ? [id number] : ? 1950 (Age: 62) ??F ?Collect Date: ? 01/07/2013 Location: ? [facility] ? Receive Date: ? 01/09/2013 Provider: ?SOCORRO EVERETT FIELD LOGISTICS COORDINATOR Copy to: ? Specimen/Source: ?Pap Test, Cervix/Endocervix, [...] End of Report NICOLE GERMAN 01/07/2013 01/09/2013 us Socorro GASTON PATHOLOGY ORDERABLES Final Resul t Performing Organization Address City/State/[facility] Co de Phone Number NICOLE GERMAN [address] [place] [address] documented in this encounter Visit Diagnoses Not on filedocumented in this encounter Care Teams Price Accuracy Supervisor Relationship Specialty Start Date End Date Socorro Everett FNP [address] [place], [place] [address] PCP - General 05/03/11 documented as of this encounter
--- OUTSIDE RECORDS SUMMARY | 2024-08-29 13:01 | XMS_ITS | Encounter Summary ---
Author Organization [facility] Address [address] [place] [address] Care Team Providers Care Industrial Photographer Name Role Phone Unavailable Primary Care Provider Unavailabl e Encounter Details Date Type Department Care Team (Late st Contact Info) Description 05/01/2011 Results Only [facility] Laboratory Services - [facility] ([facility]) [address] [place] [phone] Americo Corey MD [address] [place] [address] Social History Tobacco Use Types Packs/Day Years [...] ? GERSHUNY, MARI ? Accession #: ? [id number] ? : ? 1950 (Age: 60) ??F ? Collect Date: ? 05/01/2011 ? Location: ? [facility] ? Receive Date: ? 05/01/2011 ? Provider: AMERICO COREY MD ? Copy to: SOCORRO DYSON CLIENT COORDINATOR ? Final Pathologic Diagnosis: ? Skin of [...] NICOLE GERMAN 05/01/2011 05/01/2011 19: 35 EDT us Americo Corey MD PATHOLOGY ORDERABLES Final Result NICOLE GERMAN [address] [place] [address] documented in this encounter Visit Diagnoses Not on filedocumented in this encounter
--- OUTSIDE RECORDS SUMMARY | 2024-08-29 13:01 | XMS_ITS | Encounter Summary ---
Author Organization [facility] [place] [address] Care Team Providers Care Gis Scientist Name Role Phone Jenise Huddleston APRN Primary Care Provider [phone] Encounter Details Date Type Department Care Team (Late st Contact Info) Description 09/11/2018 Notes Only [place] [address] Julieta Recinos MSW Social History Tobacco Use Types Packs/Day Years Used Date Smoking Tobacco: Never Smokeless Tobacco: Never Sex and Gender Information Value Date Recorded Sex Assigned at Not on file Gender Identity Not on file Sexual Orientation Not on file documented as of this encounter Progress Notes * Julieta Recinos MSW - 09/11/2018 11:59 PM EST OFFICE OF CARE MANAGEMENT/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 Pt met with Dr. Gilmore and has decided to have a lumpectomy/SLNB followed by radiation therapy which she will receive at the [facility]. [facility] met with pt to complete a psychosocial assessment and to explain my role in the breast program. Pt was encouraged to contact me if she has any questionsor concerns. Living arrangements/social supports: Pt lives alone in [place], [place]. She has support from her friends and was accompanied to today's visit by several of them. 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 She has Medicare A andB and supplemental insurance through [employer]. Tobacco/drug/alcohol history: Pt states she does not [...] their psychosocial needs. JUANITA [facility] [phone] Pager #[phone] documented in this encounter Plan of Treatment Not on file documented as of this encounter Visit Diagnoses Not on filedocumented in this encounter Care Teams Gis Scientist Relationship Specialty Start Date End Date Jenise Huddleston APRN [address] [place] [address] PCP - General Family Medicine 09/11/18 documented as of this encounter
--- OUTSIDE RECORDS SUMMARY | 2024-08-29 13:01 | XMS_ITS | Encounter Summary ---
Author Organization [facility] [place] [address] Care Team Providers Care Supplier Quality Engineering Manager Name Role Phone Unavailable Primary Care Provider Unavailabl e Encounter Details Date Type Department Care Team (Late st Contact Info) Description 03/23/2008 12:05 AM EDT Ancillary Procedure Radiology Library at [facility] [place] [id number] Jenise Huddleston APRN [address] [place] [address] Social History Tobacco Use Types Packs/Day Years [...]
--- OUTSIDE RECORDS SUMMARY | 2024-08-29 13:01 | XMS_ITS | Encounter Summary ---
Author Organization [facility] [address] Care Team Providers Care Casing Running Machine Tender Name Role Phone None Primary Care Provider Unavailabl e Encounter Details Date Type Department Care Team (Latest Contact Info) Description 09/05/2018 1:16 PM EST Hospital [place] [id number] Akua Rodríguez MD [facility] [place] [address] Abnormal finding on breast imaging Discharge Disposition: [...] breast documented in this encounter Care Teams Casing Running Machine Tender Relationship Specialty Start Date End Date None None PCP - General 09/05/18 09/10/18 documented as of this encounter
[2024-09-01 16:28] LABS: B.holmesii DNA Not Detected (NotDetected); B.parapertussis DNA Not Detected (NotDetected); B.pertussis DNA Not Detected (NotDetected)
[2024-09-08 15:11] LABS: B.pertussis NOT recovered
== END 2024-08-29 12:58 | disposition home or self-care (01) ==
LOC: NCHCN 12:57
PROVIDERS: PCP Nurse Practitioner Family; Visit Provider Nurse Practitioner Family
DX: J06.9 Acute upper respiratory infection, unspecified (principal)
CPT/HCPCS: 87798

== ENCOUNTER 2024-11-12 04:31 | Outpatient (CLI) | payer MEDICARE, SELFPAY ==
[2024-11-12 11:01] LABS: Calculated LDL 194 mg/dL (<100); Cholesterol 286 mg/dL (<200); HDL Cholesterol 81 mg/dL (>or=50); Triglyceride 56 mg/dL (<150)
== END 2024-11-12 04:32 | disposition home or self-care (01) ==
LOC: LBO 04:31
PROVIDERS: PCP Nurse Practitioner Family; Visit Provider Nurse Practitioner Family
DX: E78.5 Hyperlipidemia, unspecified (principal)
CPT/HCPCS: 36415; 80061

== ENCOUNTER 2025-02-17 21:55 | Emergency (ER) | payer MEDICARE, SELFPAY ==
[2025-02-17] VITALS (11 sets, daily range): BP systolic 165–195; BP diastolic 93; PULSE 63–84; RESP 18; TEMP 35.8; O2SAT 95–99
--- NOTE | 2025-02-17 22:00 | DI.CT_ITS ---
Exam(s) CT ABDOMEN PELVIS W EXAM: CT ABDOMEN PELVIS W CLINICAL HISTORY: RUQ pain TECHNIQUE: Imaging Protocol: Axial computed tomography images with coronal and sagittal reformatted images were created and reviewed. CONTRAST MATERIAL: Intravenous: Omnipaque 350 Contrast volume:75 mL Oral: No COMPARISON: US US ABDOMEN from 12/04/2022 FINDINGS: ABDOMEN: Lung Bases: No acute abnormality. Liver: Normal density. No measurable mass. Portal, Superior Mesenteric, and Splenic Veins: Unremarkable. Gallbladder and Biliary Tract: Cholelithiasis. The gallbladder is distended measuring 4.9 cm in diameter. There does appear to be mild pericholecystic fluid present. No intra or extrahepatic biliary ductal dilatation is present. Pancreas: Normal density, no abnormal calcifications or inflammatory process. Spleen: Normal. Adrenals: There is a 9 mm left adrenal nodule. This likely reflects an adenoma. No follow-up is recommended. The right adrenal gland is unremarkable. Kidneys: Normal size, contour and axis. No radiodense stones or obstructive uropathy. No masses seen. There is a retroaortic left renal vein. Abdominal Aorta: Abdominal portion non-dilated. Atherosclerotic calcification is present. Bowel: There is diverticulosis of the colon without evidence of acute diverticulitis. There is no evidence of bowel wall thickening or obstruction. There is a large diverticulum arising from the 3rd portion of the duodenum. Appendix is unremarkable. Peritoneal Cavity: No ascites, collection or mesenteric inflammatory response. No free air. Lymph Nodes: Within normal limits. Bones: Within normal limits for the patient's age. Soft Tissues: There is a small fat containing umbilical hernia. PELVIS: Bladder: Symmetric distention, no gross wall thickening. Reproductive Organs: There is a heterogeneous appearance seen in the fundal central uterus measuring 1.5 x 2.3 cm. This is best appreciated on the coronal views (series 4, image 39). This may represent a fibroid. However, because of its location the possibility of an endometrial mass should be considered. Lymph Nodes: Within normal limits. Bones: Within normal limits for the patient's age. IMPRESSION: 1. Cholelithiasis, pericholecystic fluid and a distended gallbladder. If there is concern for acute cholecystitis, gallbladder ultrasound should be considered. Nuclear medicine HIDA scan may also be useful for further characterization. 2. 1.5 x 2.3 cm heterogeneous hypodense region in the fundal central uterus. This may represent a fibroid. An endometrial mass cannot be excluded. Pelvic ultrasound may be considered for further evaluation. 3. The preliminary [facility] report was reviewed. Unexpected findings RADIATION DOSE DELIVERED: 670.7mGy.cm Total DLP DATA REPOSITORY: All CT scans at this facility are submitted to the National Radiology Data Registry (NRDR) Dose Index Registry (DIR) with the [employer] (ACR). RADIATION OPTIMIZATION: All CT scans at this facility use at least one of these dose optimization techniques: automated exposure control; mA and/or kV adjustment per patient size (includes targeted exams where dose is matched to clinical indication); or iterative reconstruction.
--- NOTE | 2025-02-17 22:24 | W.ED.GENAD ---
Discharge Plan Discharge Details Chief Complaint: Abd Prob Primary Care Provider: Jenise Huddleston ED Provider: Maile Sena Home Meds and New Rx's Prescriptions: No Action vitamin E (dl, acetate) 45 mg (100 unit) capsule 45 mg PO DAILY Ultra CoQ10 75 mg capsule 75 mg PO DAILY berberine chloride 500 mg capsule PO cholecalciferol (vitamin D3) 1,000 UNIT capsule 1,000 unit PO DAILY Qty: 2 omega-3 fatty acids-fish oil 1 EACH capsule 1 ea PO DAILY vitamin M21-mnsie acid 0.5-1 mg tablet 1 tab PO DAILY oregano oil 1,500 mg capsule 1,500 mg PO Culturelle 10 billion cell capsule 1 cap PO DAILY milk thistle 150 mg capsule 150 mg PO BID Rx Instructions: give with meal/snack magnesium oxide 250 mg magnesium tablet 250 mg PO DAILY HPI General Mode of arrival: ambulatory. Date/Time Provider Initiated Documentation: 02/17/25 22:00. Limitations to Documentation: no limitations. Information obtained by: patient, family and old records reviewed. HPI Narrative: This is a 74-year-old female patient with a past medical history of cirrhosis, 2 ectopic pregnancies but otherwise no abdominal surgeries, presenting for evaluation of right upper quadrant abdominal pain since 1699. The patient reports that she was in her normal state of health, was driving and had discomfort in this area. She reports that she tried to eat some popcorn and coconut water, and a small amount of [place] food but was not really hungry. Denies nausea, states that the pain feels like her bra is too tight. The pain radiates across the upper abdomen but is primarily located in the right upper quadrant. She was able to pass a stool this evening, no dysuria or diarrhea. Has not tried any medications for management of this pain. Related Data Home Medications ?Medication ?Instructions ?Recorded ?Confirmed cholecalciferol (vitamin D3) 25 1,000 unit PO DAILY ##2 06/12/17 02/17/25 mcg (1,000 unit) capsule omega-3 fatty acids-fish oil 300 1 ea PO DAILY 06/12/17 02/17/25 mg-1,000 mg capsule Lactobacillus rhamnosus GG 10 1 cap PO DAILY 04/30/24 02/17/25 billion cell capsule (Culturelle) magnesium oxide 250 mg PO DAILY 04/30/24 02/17/25 milk thistle 150 mg capsule 150 mg PO BID 04/30/24 02/17/25 Held on 02/17/25. Instructions: Pt Stopped/Never Started oregano oil 1,500 mg capsule 1,500 mg PO 04/30/24 07/03/24 vitamin B12 0.5 mg-folic acid 1 mg 1 tab PO DAILY 04/30/24 02/17/25 tablet berberine chloride 500 mg capsule mg PO 07/03/24 07/03/24 coenzyme Q10 75 mg capsule (Ultra 75 mg PO DAILY 07/03/24 02/17/25 CoQ10) Held on 02/17/25. Instructions: Pt Stopped/Never Started vitamin E (dl, acetate) 45 mg (100 45 mg PO DAILY 07/03/24 02/17/25 unit) capsule Held on 02/17/25. Instructions: Pt Stopped/Never Started Allergies Allergy/AdvReac Type Severity Reaction Status Date / Time No Known Allergies Allergy Verified 07/03/24 14:13 General Stated Complaint: Abd Prob RYLAN: 3 Exam Narrative Exam Narrative: Gen: Awake and alert, in no apparent distress HEENT: Non-icteric sclera Neck: Supple Lungs: No apparent respiratory distress, normal respiratory effort. CV: Appears well perfused, heart with regular rate and rhythm, strong distal pulses Abdomen: Non-distended, soft, tender to palpation in the right upper quadrant without rigidity, rebound, or guarding. Zhao sign is negative MSK: Moves 4 extremities without apparent limitation in ROM Skin: Visualized skin without rashes, cyanosis. Neuro: Normal Gait, no obvious focal deficits or facial asymmetry. Speaks in full, clear sentences. Psych: Appropriate for situation. Course Vital Signs Vital signs: Vital Signs Temperature 35.8 C L 02/17/25 21:58 Pulse 83 02/17/25 21:58 Respiratory Rate 18 02/17/25 21:58 Pulse Oximetry 96 02/17/25 21:58 Temperature 35.8 C L 02/17/25 21:58 Temperature Source Tympanic 02/17/25 21:58 Pulse 83 02/17/25 21:58 Respiratory Rate 18 02/17/25 21:58 Blood Pressure 195/93 H 02/17/25 22:02 Blood Pressure Mean 127 02/17/25 22:02 Pulse Oximetry 96 02/17/25 21:58 Oxygen Delivery Method Room Air 02/17/25 21:58 Oxygen Flow Rate 0 02/17/25 21:58 Medical Decision Making This is a 74-year-old female patient presenting for evaluation of abdominal pain. My differential includes, but is not limited to, gastritis/PUD, gastroenteritis, pancreatitis, cholecystitis and gallbladder pathology, cholangitis, choledocholithiasis, hepatitis, appendicitis, diverticulitis, small bowel obstruction. Considered urinary pathology including UTI, nephrolithiasis. Considered mesenteric ischemia, aortic pathology, though I am reassured that the patient's hypertension resolved spontaneously from the 190s systolic to the 150s or 60s systolic on recheck. Will obtain laboratory studies to include CBC, CMP, magnesium, troponin, lipase, lactate, and urinalysis. I will provide the patient with a dose of Tylenol for initial pain management. My bedside ultrasound noted below shows evidence of gallstones without associated evidence concerning for cholecystitis, we will proceed with CT scan given the broad differential. - I independently interpreted the laboratory studies, which show no significant leukocytosis, anemia, or thrombocytopenia. The chemistry panel is without evidence of electrolyte abnormality, kidney dysfunction, or liver injury. Initial troponin negative, lactate and lipase are low, urinalysis noninfectious. I signed out care of this patient to the oncoming provider prior to completion of CT imaging. Anticipate dispo per imaging, and patient may or may not require additional interventions for management of her symptoms. Hemodynamically appropriate while under my care, further care per the oncoming provider. Maile Sena MD [facility] All Active Problems (Updated 07/03/24 @ 14:18 by ANDRES Raines) Osteoarthritis of left knee (Acute) Cirrhosis (Acute) Breast cancer (Chronic) Thyroid nodule (Acute) Pain of right calf (Acute) Medical History (Updated 07/03/24 @ 14:18 by ANDRES Raines) Obesity Hyperlipemia Sleep apnea Social History Smoking/Tobacco Use Status: Never Smoking risk assessment performed?: Yes Alcohol Intake: current Alcohol Intake frequency: a few times a month Alcohol type: wine Drug use: Rarely Substance use type: other Details: edibles Do you feel safe at home: Yes Do you feel safe in your relationship?: Yes POCUS Exam (ED) Limited Gallbladder Exam DATE OF EXAM: 02/17/25 TIME OF EXAM: 22:24 PROVIDER THAT PERFORMED THE STUDY: Maile Sena REASON FOR VISIT: RUQ pain VISUALIZED STRUCTURES: Common bile duct, Gallbladder, Gallbladder wall and Liver PERTINENT FINDINGS/IMPRESSION: Gallstones and Thickened gallbladder wall (I question oblique angle, GB wall measuring between 3-4mm); No Cholecystitis, No dilatation of the common bile duct and No Pericholecystic fluid Exam complete
[2025-02-17 22:34] LABS: Lactate 0.7 mmol/L (<or=2.0)
[2025-02-17 22:37] LABS: Abs Immature Grans 0.03 10^3/uL (0.0-0.06); Absolute Basophil Count 0.06 10^3/uL (0.0-0.2); Absolute Eosinophil Count 0.15 10^3/uL (0.0-0.7); Absolute Monocyte Count 0.62 10^3/uL (0.1-0.8); Basophils % 0.9 %; Eosinophils % 2.2 %; HCT 41.2 % (36.0-46.0); HGB 13.2 g/dL (11.2-15.7); Immature Grans % 0.4 %; Lymphocytes % 21.6 %; MCH 30.3 pg (27.0-33.0); MCV 95 fL (80-95); MPV 10.1 fL (8.0-11.0); Monocytes % 8.9 %; Platelet Count 241 10^3/uL (130-400); RBC 4.35 10^6/uL (3.93-5.22); RDW 12.4 % (11.7-14.6); RDW-SD 43.7 fL; WBC 6.96 10^3/uL (4.4-10.8)
[2025-02-17] MEDS: ACETAMINOPHEN 1,000 MG/100 ML BAG 400 MG IVPB (22:44)
[2025-02-17 22:54] LABS: ALT 27 U/L (14-59); AST 22 U/L (15-37); Albumin 3.3 g/dL (3.4-5.0); Alkaline Phosphatase 70 U/L (46-116); Anion Gap 7.3 mmol/L (3-11); BUN 21 mg/dL (7-18); Bilirubin, Total 0.2 mg/dL (0.2-1.0); CO2 29.7 mmol/L (21.0-32.0); CREATININE 0.6 mg/dL (0.55-1.02); Calcium 8.8 mg/dL (8.5-10.1); Chloride 105 mmol/L (98-107); Estimated GFR 93.55 (mL/min/1.73m2); Glucose 101 mg/dL (74-106); Lipase 41 U/L (<78); Potassium 4.1 mmol/L (3.5-5.1); Sodium 142 mmol/L (136-145); Total Protein 7.1 g/dL (6.4-8.2)
[2025-02-17 22:58] LABS: Troponin I 5 ng/L (<or=51)
[2025-02-17 23:26] LABS: Bilirubin Negative (Negative); Blood Negative (Negative); Clarity Clear (Clear); Glucose Negative (Negative); Ketones Negative (Negative); Leukocyte Esterase Negative (Negative); Nitrite Negative (Negative); Urobilinogen 0.2 mg/dL (Up to 0.2)
--- NOTE | 2025-02-17 23:49 | W.EDPROG ---
Date of service: 03/04/25 Time of Service: 23:49 Medical Decision Making I received signout on this 74-year-old female patient who developed right upper quadrant abdominal pain at 1700 on February 18. She had anorexia but no nausea or vomiting, passed a bowel movement. Laboratory studies all very reassuring, has received IV Tylenol. Bedside ultrasound positive for gallstones, negative for cholecystitis, pending CT. 1:24 AM I met with the patient. She felt improved. Her CT scan was concerning for the possibility of early cholecystitis as she had a distended gallbladder with trace pericholecystic fluid. Given her lack of pain and her overall very well appearance I do not feel that she required an emergent surgical consult. Will keep the patient NPO. Will provide her 500 cc crystalloid bolus and complete a right upper quadrant ultrasound in the morning. Will monitor overnight. 6:45 AM I signed patient out to Dr. Wise pending right upper quadrant ultrasound in radiology possibility of surgical consultation. Discharge Plan Discharge Details Chief Complaint: Abd Prob Primary Care Provider: Jenise Huddleston ED Provider: Taz Ramírez [place] Meds and New Rx's Prescriptions: No Action vitamin E (dl, acetate) 45 mg (100 unit) capsule 45 mg PO DAILY Ultra CoQ10 75 mg capsule 75 mg PO DAILY berberine chloride 500 mg capsule PO cholecalciferol (vitamin D3) 1,000 UNIT capsule 1,000 unit PO DAILY Qty: 2 omega-3 fatty acids-fish oil 1 EACH capsule 1 ea PO DAILY vitamin A03-esguw acid 0.5-1 mg tablet 1 tab PO DAILY oregano oil 1,500 mg capsule 1,500 mg PO Culturelle 10 billion cell capsule 1 cap PO DAILY milk thistle 150 mg capsule 150 mg PO BID Rx Instructions: give with meal/snack magnesium oxide 250 mg magnesium tablet 250 mg PO DAILY
[2025-02-17] MEDS: Omnipaque 350 MG/ML 100 ML BTL IJ (23:58)
[2025-02-17] MEDS: Normal Saline Flush 10 ML SYR IVP (23:59)
[2025-02-17] MEDS: Normal Saline - Diluent 50 ML VIAL IJ (23:59)
[2025-02-18] VITALS (10 sets, daily range): BP systolic 140–167; BP diastolic 73–77; PULSE 68–82; RESP 10–16; TEMP 36.4; O2SAT 83–97
[2025-02-18 00:04] LABS: Troponin I 7 ng/L (<or=51)
--- NOTE | 2025-02-18 00:50 | DI.VRAD_ITS ---
PROCEDURE INFORMATION: Exam: CT Abdomen And Pelvis With Contrast Exam date and time: 02/17/2025 11:56 PM Age: 74 years old Clinical indication: Right upper quadrant (RUQ) abd pain; Prior surgery; date: 6+ months: HX ectopic with tubal surgeries; TECHNIQUE: Imaging protocol: Computed tomography of the abdomen and pelvis with contrast. Radiation optimization: All CT scans at this facility use at least one of these dose optimization techniques: automated exposure control; mA and/or kV adjustment per patient size (includes targeted exams where dose is matched to clinical indication); or iterative reconstruction. Contrast material: OMNIPAQUE 350; Contrast volume: 75 ml; Contrast route: INTRAVENOUS (IV); COMPARISON: US ABDOMEN 12/04/2022 8:51 AM FINDINGS: Lungs: No acute infiltrate in either lung base. Liver: Normal. No mass. Gallbladder and biliary ducts: Distended gallbladder. Small stone within the gallbladder fundus lumen. Trace lateral pericholecystic fluid. No pericholecystic stranding or gallbladder wall thickening. No biliary tract dilatation. Pancreas: Normal. No ductal dilation. Spleen: Normal. No splenomegaly. Adrenal glands: Normal. No mass. Kidneys and ureters: No hydronephrosis. No calcified renal or ureteral stones. No perinephric stranding or perinephric fluid. Stomach and bowel: No generalized ileus or bowel obstruction. Scattered colon diverticuli without evidence of diverticulitis. Appendix: Normal appendix. Intraperitoneal space: No free air. No significant fluid collection. Vasculature: The abdominal aorta is normal in caliber without aneurysm or dissection. Scattered arterial calcifications. Lymph nodes: No enlarged lymph nodes. Urinary bladder: Unremarkable as visualized. Reproductive: Right ovarian cyst. Bones/joints: Spinal degenerative changes. Soft tissues: Small fat-containing umbilical hernia. IMPRESSION: 1. Distended gallbladder. Small stone within the gallbladder fundus lumen. Trace lateral pericholecystic fluid. No pericholecystic stranding or gallbladder wall thickening. No biliary tract dilatation. If clinically indicated, nuclear medicine HIDA scan may be useful in further evaluation. 2. Scattered colon diverticuli without evidence of diverticulitis. Dictated and Authenticated by: Vinod Lott MD. [facility] MD
--- NOTE | 2025-02-18 01:15 | DI.US_ITS ---
Exam(s) US ABDOMEN LIMITED EXAM: US ABDOMEN LIMITED CLINICAL HISTORY: Right upper quadrant pain TECHNIQUE: Ultrasound abdomen performed using standard protocol. COMPARISON: No exams were available for comparison FINDINGS: PANCREAS: Normal where visualized. LIVER: Normal. Hepatopetal flow in the Portal Vein. The liver measures in 16.1 cm length. No evidence of a hepatic mass. GALLBLADDER: No evidence of cholelithiasis. No evidence of wall thickening. Mild pericholecystic fluid. The gallbladder measures 3.3 cm in diameter. BILIARY SYSTEM: Common bile duct measures < 7 mm. No intrahepatic biliary ductal dilation. ZHAO'S SIGN: Negative. RIGHT KIDNEY: Kidney is normal in size. No evidence of renal calculi. No evidence of hydronephrosis. No renal mass or cyst identified. ASCITES: None seen. IMPRESSION: No stones are seen sonographically. There is mild pericholecystic fluid. There is a negative sonographic Zhao sign. No sonographic evidence to suggest acute cholecystitis is seen at this time. DATA REPOSITORY:
[2025-02-18] MEDS: Normal Saline 500 ML 1000 ML IV (02:00)
--- NOTE | 2025-02-18 11:15 | W.EDPROG ---
Date of service: 02/18/25 Time of Service: 11:15 Medical Decision Making Patient was signed out to me by my colleague Dr. Ramírez. Please refer to his HPI, physical exam, assessment and plan. At this time we are waiting for ultrasound. Ultrasound shows no stones, mild. Cholecystic fluid, negative sonographic Zhao sign, no evidence to suggest acute cholecystitis. Labs show no white count or bandemia. Pain is completely resolved after initial NSAID therapy. The patient feels much better. I had a very long and thorough conversation with the patient regarding her symptomatology. Discussed the case with surgery Dr Lake, at this time with no evidence of acute cholecystitis, and resolution of the patient's symptoms, patient will follow-up outpatient for close surgical nonemergent outpatient management. I also had a long discussion with the patient and family about dietary changes. They state that she is specifically on a diet high in dairy and fats. I discussed with her that this might cause significant recurrence of pain and symptoms, and she understands, but also states that it is unlikely that she will be able to abstain from these things. Labs demonstrate no elevation in her bilirubin or transaminases, no evidence to suggest acute cholecystitis or ascending cholangitis or choledocholithiasis. Patient also requested that I contact Edgardo Mccrayy about her case, but I did inform him that she was a patient here. Discussed red flags which return. Patient stable for discharge. I have extensively reviewed the treatment plan and discharge instructions with the patient and their family. I have addressed all patient concerns at this time. The patient and family was made aware of what symptoms to monitor for that would warrant a return to the emergency department. Discussed the plan with the patient and family, they demonstrate verbal understanding and agreement with our assessment and plan at this time. The documentation in this chart was dictated using [employer] dictation software. Please excuse any dictation errors. FINDINGS: PANCREAS: Normal where visualized. LIVER: Normal. Hepatopetal flow in the Portal Vein. The liver measures in 16.1 cm length. No evidence of a hepatic mass. GALLBLADDER: No evidence of cholelithiasis. No evidence of wall thickening. Mild pericholecystic fluid. The gallbladder measures 3.3 cm in diameter. BILIARY SYSTEM: Common bile duct measures < 7 mm. No intrahepatic biliary ductal dilation. ZHAO'S SIGN: Negative. RIGHT KIDNEY: Kidney is normal in size. No evidence of renal calculi. No evidence of hydronephrosis. No renal mass or cyst identified. ASCITES: None seen. IMPRESSION: No stones are seen sonographically. There is mild pericholecystic fluid. There is a negative sonographic Zhao sign. No sonographic evidence to suggest acute cholecystitis is seen at this time. Discharge Plan Disposition Patient Disposition: Home Condition: Good Discharge Details Clinical Impression: Biliary colic Primary Care Provider: Jenise Huddleston ED Provider: Henry Wise Home Meds and New Rx's Prescriptions: No Action vitamin E (dl, acetate) 45 mg (100 unit) capsule 45 mg PO DAILY Ultra CoQ10 75 mg capsule 75 mg PO DAILY berberine chloride 500 mg capsule PO cholecalciferol (vitamin D3) 1,000 UNIT capsule 1,000 unit PO DAILY Qty: 2 omega-3 fatty acids-fish oil 1 EACH capsule 1 ea PO DAILY vitamin G89-tukrv acid 0.5-1 mg tablet 1 tab PO DAILY oregano oil 1,500 mg capsule 1,500 mg PO Culturelle 10 billion cell capsule 1 cap PO DAILY milk thistle 150 mg capsule 150 mg PO BID Rx Instructions: give with meal/snack magnesium oxide 250 mg magnesium tablet 250 mg PO DAILY Discharge Instructions Instructions: Gallbladder Diet, Gallstones ED Additional Instructions: At this time your CAT scan showed evidence of an irritated gallbladder but no evidence to suggest an emergent surgical need. Please follow-up closely with the surgeon. They will contact you for an appointment time. Please avoid any fatty foods, greasy foods, dairy products, as this can exacerbate your symptoms. Please take the occasional Tylenol or Motrin as needed for pain. There is a chance that your symptoms may return, if they do please do not ignore them. This could represent a return or worsening of your symptomatology requiring surgical management. If you notice any worsening of your symptoms, or any new symptoms such as vomiting, diarrhea, fever, chills, shortness of breath, chest pain, numbness, weakness, or fainting , please return immediately to the emergency department for reevaluation. Please follow up with your primary care provider as soon as possible for reassessment and reevaluation. As always, it was a pleasure participating in your medical care today. Referrals: Jenise Huddleston [Primary Care Provider, Medicine] Jesse Rascon NP [NURSE PRACTITIONER, Emergency Medicine] Discharge Data Discharge Date/Time-TO BE ENTERED AT DEPARTURE: 02/18/25 11:29
== END 2025-02-18 11:29 | disposition home or self-care (01) ==
PROVIDERS: Emergency Medicine; Registered Nurse Emergency; Emergency Provider Student in an Organized Health Care Education/Training Program; PCP Nurse Practitioner Family
DX: K80.20 Calculus of gallbladder without cholecystitis without obstruction (principal); E78.5 Hyperlipidemia, unspecified
CPT/HCPCS: 123; 36415; 76705; 80053; 83690; 96361; 96365; 96366; 99285; 00123; 74177; 81003; 83605; 83735; 84484; 85025; J0131; J3490

== ENCOUNTER 2025-03-23 00:25 | Outpatient (CLI) | payer MEDICARE, SELFPAY ==
--- NOTE | 2025-03-23 | DI.MAMMO_ITS ---
Exam(s) MG MAMMO SCREENING 60 MIN DUR EXAM: MG MAMMO SCREENING 60 MIN DUR CLINICAL HISTORY: SCREENING Z12.31 PERS HX BREAST CANCER Z85.3 TECHNIQUE: Mammograms were interpreted according to the usual protocol including computer analysis with CAD system, tomosynthesis and C-view imaging. COMPARISON: 2017 through 2023 FINDINGS: The breasts are composed of heterogeneously dense fibroglandular densities, Breast Density category C. No suspicious masses or suspicious microcalcifications are seen. There is post lumpectomy scarring in the left breast. Biopsy marker noted at the lower inner quadrant. No skin thickening or abnormal axillary lymph nodes are seen. There has been no significant change from prior exams. IMPRESSION: BI-RADS Category 2 - Negative Mammogram with benign findings. Yearly screening mammography is recommended. Breast Density: Category C - The breasts are heterogeneously dense, which may obscure small masses. Breast density Category C or D implies that the patient has dense breast tissue. Dense breast tissue can make it harder to find cancer on a mammogram. Dense breast tissue is also associated with an increased risk of breast cancer. This information about the result of the mammogram report was provided to the patient to raise their awareness. Use this report when you speak with the patient about their risks for breast cancer, which includes their family history. At that time, you may recommend additional screening tests (Ultrasound or MRI) as these tests may add significant information. A negative radiographic report should not delay biopsy if a dominant or clinically suspicious mass is present. Up to ten percent of cancers are not identified on mammography. A negative report may reinforce clinical impression. Adenosis and dense breasts may obscure an underlying neoplasm. False positive reports average 6 to 10%.
--- NOTE | 2025-03-23 10:15 | DI.US_ITS ---
Exam(s) US PELVIS TRANSVAGINAL EXAM: US PELVIS TRANSVAGINAL CLINICAL HISTORY: UTERINE MASS N85.8 NONINFLAMMATORY DISORDER UTERUS TECHNIQUE: Transabdominal and transvaginal imaging was performed using standard protocol. COMPARISON: CT CT ABDOMEN PELVIS W from 02/17/2025 FINDINGS: UTERUS: Anteverted. 6.6 x 2.2 x 3.7 cm Endometrium: 10 mm, heterogeneous with multiple cystic spaces. Myometrium: Unremarkable. Cervix: Unremarkable. OVARIES: Right: Cyst or mass: None. Left: Cyst or mass: Question of mild hydrosalpinx. DOPPLER: Color: Symmetric and uniform flow to both ovaries. No hyperemia. CUL-DE-SAC: Free fluid: None. IMPRESSION: Thickened endometrium with multiple cystic spaces could indicate hyperplasia both with multiple polyps. Malignancy not excluded. Question of mild left hydrosalpinx. DATA REPOSITORY:
== END 2025-03-23 00:45 ==
LOC: DI 00:25
PROVIDERS: PCP Nurse Practitioner Family; Visit Provider Nurse Practitioner Family
DX: N85.8 Other specified noninflammatory disorders of uterus (principal); Z12.31 Encounter for screening mammogram for malignant neoplasm of breast; Z85.3 Personal history of malignant neoplasm of breast; R92.323 Mammographic fibroglandular density, bilateral breasts
CPT/HCPCS: 77063; 77067; 76830; 76856